=== PATIENT | male | born 1950 | race Caucasian/White ===

== ENCOUNTER → 2019-01-12 | Day surgery (SDC) | payer MEDICARE ==
[2019-01-08 14:36] LABS: BASOPHILS # (AUTO) 0.1 (0.0-0.1); BASOPHILS % 0.7 % (0.0-1.0); EOSINOPHILS # (AUTO) 0.4 (0.0-0.4); EOSINOPHILS % 4.7 % (0.0-6.0); HEMATOCRIT 40.1 % (38.2-49.6); HEMOGLOBIN 13.6 g/dL (14.0-18.0); LYMPHOCYTES # (AUTO) 1.3 (1.0-3.2); LYMPHOCYTES % 15.6 % (18.0-39.1); MEAN CORPUSCULAR HEMOGLOBIN 30.4 pg (28-32); MEAN CORPUSCULAR HGB CONC 33.9 g/dL (31-35); MEAN CORPUSCULAR VOLUME 89.7 fL (81-99); MONOCYTES # (AUTO) 0.7 (0.2-0.8); MONOCYTES % 8.3 % (4.4-11.3); NEUTROPHILS % 70.2 % (38.7-80.0); PLATELET COUNT 194 x10e3/uL (140-360); RED BLOOD COUNT 4.47 x10e6/uL (4.3-5.7); RED CELL DISTRIBUTION WIDTH 12.9 % (11.7-14.4)
[~2019-01-12] MED LIST: ALLOPURINOL100 MG PO; AMLODIPINE BESY10 MG PO; FENTANYL CITRATE/PF 100MCG/2 ML INJ ONE; LOSARTAN-HCTZ1 EACH PO; MONTELUKAST SOD10 MG PO; OMEPRAZOLE40 MG PO; PROAIR HFA INH8.5 GM INH; PROPOFOL IV EMULSION 10 MG/ML 50 ML VIAL ONE; TRAZODONE HCL50 MG PO; TRELEGY PO; XARELTO20 MG PO
--- OUTSIDE RECORDS SUMMARY | 2019-01-12 06:38 | XMS REPORT | Continuity of Care Document ---
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/26/2018 [facility]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 Active Problem 12/26/2018 [facility] History of gout Active Problem 12/26/2018 [facility] Dizziness Active Problem 12/26/2018 [facility] Hyperuricemia Active Problem 12/26/2018 [facility] Seasonal allergies Active Problem 12/26/2018 [facility] Asthma Active Problem 12/26/2018 [facility] Essential hypertension Active Problem 12/26/2018 [facility] Herpes zoster without complication Active Diagnosis 10/26/2016 [facility] Nummular eczema Active Problem 12/26/2018 [facility] Rash Active Diagnosis 10/31/2017 [facility] Screening for prostate cancer Active Diagnosis 07/31/2018 [facility] Encntr for general adult medical exam w/o abnormal findings Active Diagnosis 06/28/2017 [facility] Acute idiopathic gout of multiple sites Active Problem 12/26/2017 [facility] Subconjunctival hemorrhage of right eye Active Diagnosis 12/26/2017 [facility] Left ventricular hypertrophy Active Problem 12/26/2018 [facility] Allergic rhinitis due to other allergen Active Diagnosis 12/26/2018 [facility] Mitral valve disease Active Problem 12/26/2018 [facility] Impaired left ventricular relaxation Active Problem 12/26/2018 [facility] Allergic rhinitis due to animal (dog) hair and dander Active Problem 12/26/2018 [facility] Gastroesophageal reflux disease without esophagitis Active Problem 12/26/2018 [facility] Allergic rhinitis due to pollen Active Diagnosis 12/26/2018 [facility] Primary insomnia Active Problem 12/26/2018 [facility] Encounter for hepatitis C screening test for low risk patient Active Diagnosis 12/23/2018 [facility] Cough syncope Active Diagnosis 06/27/2018 [facility] Cough Active Diagnosis 06/27/2018 [facility] Acute allergic rhinitis, unspecified seasonality, unspecified trigger Active Problem 06/18/2018 [facility] Screening for colon cancer Active Diagnosis 07/31/2018 [facility] Routine physical examination Active Diagnosis 07/31/2018 [facility] senior care current use of anticoagulant Active Problem 11/03/2015 [facility] DVT Active Diagnosis 08/19/2015 [facility] Skin lesion Active Diagnosis 03/21/2016 [facility] Acute gout of multiple sites, unspecified cause Active Diagnosis 05/22/2016 [facility] Acute URI Active Diagnosis 07/04/2016 [facility] Medications Medication Details Route Status Patient Instructions Ordering Provider Order Date Source Trazodone HCl 1 tablet at bedtime as needed Orally Active 50 mg Orally qhs [place] 12/18/2018 [facility] Flonase Allergy Relief 1 spray in each nostril Nasally Active 50 MCG/ACT Nasally Once a day [place] 11/03/2018 [facility] Montelukast Sodium 1 tablet Orally Active 10 mg Orally Once a day [place] 05/26/2018 [facility] Losartan Potassium-HCTZ 1 tablet Orally Active 50-12.5 MG Orally Once a day [place] 05/26/2018 [facility] Insulin Syringe as directed subcutaneously Active 31G X 5/16 subcutaneously use for allergy injection [place] 05/20/2018 [facility] EpiPen 2-[place] as directed Intramuscular Active 0.3 MG/0.3ML (1:1000) Intramuscular prn [place] 05/20/2018 [facility] Benzonatate 1 capsule Orally Active 200 MG Orally Q8 PRN [place] 05/05/2018 [facility] Protonix 1 tablet Orally Active 40 mg Orally Once a day [place] 02/24/2018 [facility] ProAir HFA 2 puffs as needed Inhalation Active 108 (90 Base) MCG/ACT Inhalation every 6 hrs [place] 02/24/2018 [facility] Tobrex 1 drop into affected eye Ophthalmic Active 0.3 % Ophthalmic every 4 hrs [place] 12/23/2017 [facility] Bactrim DS 1 tablet Orally Active 800-160 MG Orally Twice a day [place] 10/30/2017 [facility] Clobetasol Propionate E 1 application to affected area Externally Active 0.05 % Externally Twice a day PRN [place] 10/30/2017 [facility] Colchicine 1 tablet Orally Active 0.6 Orally Twice a day [place] 10/02/2017 [facility] Colchicine 1 tablet Orally Active 0.6 Orally Twice a day [place] 09/04/2017 [facility] Colcrys 1 tablet Orally Active 0.6 MG Orally 2 tablet PO QD, take 1 tablet an hour later as needed for acute gout flare [place] 08/19/2017 [facility] Benzonatate 1 capsule Orally Active 200 MG Orally Q8 PRN [place] 08/15/2017 [facility] Colchicine 1 tablet Orally Active 0.6 MG Orally 2 tablet PO QD, take another tablet 1 hour later [place] 08/01/2017 [facility] Allopurinol 1 tablet Orally Active 100 mg Orally Once a day [place] 07/09/2017 [facility] Colchicine 1 tablet Orally Active 0.6 Orally Twice a day [facility] 07/01/2017 [facility] Colcrys 1 tablet Orally Active 0.6 MG Orally twice a day (bid) [place] 01/07/2017 [facility] Colchicine 1 tablet Orally Active 0.6 Orally Twice a day [place] 01/07/2017 [facility] Tylenol/Codeine #3 1 tablet as needed Orally Active 300-30 MG Orally every 6 hrs PRN [place] 10/25/2016 [facility] Valacyclovir HCl 1 tablet Orally Active 1 GM Orally every 24 hrs [place] 10/25/2016 [facility] Xarelto 1 tab by mouth Active 20 mg by mouth Once a day [place] 10/10/2016 [facility] Xarelto 1 tab by mouth Active 20 mg by mouth Once a day [place] 10/10/2016 [facility] Xarelto 1 tablet by mouth Active 20 mg by mouth Once a day [place] 10/10/2016 [facility] Tamiflu 1 capsule Orally Active 75 MG Orally Twice a day [place] 07/02/2016 [facility] Tamiflu 1 capsule Orally Active 75 MG Orally Twice a day [place] 07/02/2016 [facility] Benzonatate 1 capsule as needed Orally Active 200 MG Orally Q8 PRN [place] 07/02/2016 [facility] Fluticasone Propionate 1 spray in each nostril Nasally Active 50 MCG/ACT Nasally Once a day [place] 05/21/2016 [facility] Fluticasone Propionate 1 spray in each nostril Nasally Active 50 MCG/ACT Nasally Once a day [place] 05/21/2016 [facility] Medrol ([place]) as directed Orally Active 4 MG Orally as directed [place] 05/20/2016 [facility] Mometasone Furoate 2 sprays in each nostril Nasally No Longer Active 50 MCG/ACT Nasally Once a day [place] 05/20/2016 [facility] Medrol ([place]) as directed Orally Active 4 MG Orally as directed [place] 05/20/2016 [facility] Symbicort 2 puffs Inhalation Active 160-4.5 MCG/ACT Inhalation Twice a day [place] 04/18/2016 [facility] Advair Diskus 1 puff Inhalation No Longer Active 250-50 MCG/DOSE Inhalation Twice a day [place] 04/18/2016 [facility] Nystatin-Triamcinolone 1 application to affected area Externally Active [id number] UNIT/GM Externally Twice a day PRN [place] 03/18/2016 [facility] Symbicort 2 puffs Inhalation No Longer Active 160-4.5 MCG/ACT Inhalation Twice a day [place] 11/16/2015 [facility] Breo Ellipta 1 puff Inhalation No Longer Active 100-25 MCG/INH Inhalation Once a day [place] 11/16/2015 [facility] Cipro 1 tablet Orally Active 250 MG Orally twice a day (bid) [place] 09/22/2015 [facility] Meclizine HCl 1 tablet as needed Orally Active 25 MG Orally three times a day prn [place] 09/21/2015 [facility] Meclizine HCl 1 tablet as needed Orally Active 25 MG Orally three times a day prn [place] 09/21/2015 [facility] Warfarin Sodium 1 tablet orally Active 4 mg orally 2 days a week [place] 07/31/2015 [facility] Amlodipine Besylate 1 tablet Orally Active 10 mg Orally Once a day [place] 07/17/2015 [facility] Atenolol-Chlorthalidone 1/2 tablet Orally Active 50-25 MG Orally Once a day [place] 07/13/2015 [facility] Flonase 1 spray in each nostril Nasally Active 50 MCG/DOSE Nasally Once a day [place] 05/09/2015 [facility] Flonase 1 spray in each nostril Nasally Active 50 MCG/DOSE Nasally as needed (prn) [place] 05/09/2015 [facility] Tenormin 1 tablet Orally Active 25 MG Orally Once a day [place] 01/31/2015 [facility] Norel AD 1 tablet as needed by mouth Active 4-10-325 MG by mouth every 4-6 hours [place] 01/26/2014 [facility] Albuterol Sulfate HFA 2 puffs as needed Inhalation Active 108 (90 Base) MCG/ACT Inhalation every 4-6 hrs PRN [place] 08/25/2013 [facility] Albuterol Sulfate HFA 2 puffs as needed Inhalation Active 108 (90 Base) MCG/ACT Inhalation every 4-6 hrs PRN [place] 08/25/2013 [facility] Warfarin Sodium 1 tablet Orally Active 5 MG Orally QD x 4 days a week [place] [facility] Amlodipine Besylate 1 tablet Orally Active 10 MG Orally Once a day [place] [facility] Coumadin 1 tablet Orally Active 4 MG Orally 4 days a week [place] [facility] Colchicine 1 tablet Orally Active 0.6 Orally Twice a day [facility] Multivitamins not defined Orally Active Orally [facility] Atenolol-Chlorthalidone 1 tablet Orally Active 50-25 MG Orally Once a day [facility] Warfarin Sodium 1 tablet Orally Active 5 MG Orally 3 days a week [facility] Coumadin 1 tablet Orally Active 4 MG Orally 4 days a week [facility] Amlodipine Besylate 1 tablet Orally Active 10 mg Orally Once a day [facility] Desoximetasone 1 application to affected area Externally Active 0.05 % Externally Twice a day [facility] Xarelto TAKE 1 TABLET BY MOUTH ONCE A DAY NA Active 20 [facility] Amlodipine Besylate 1 tablet Orally Active 10 mg Orally Once a day [facility] Trelegy Ellipta 1 puff Inhalation Active 100-62.5-25 MCG/INH Inhalation Once a day [facility] Xarelto 1 tab by mouth Active 20 mg by mouth Once a day [facility] Omeprazole 1 capsule Orally Active 40 MG Orally Once a day [facility] Allopurinol 1 tablet Orally Active 100 Orally Once a day [facility] Famotidine 1 tablet at bedtime Orally Active 40 mg Orally Once a day before dinner [facility] Pantoprazole Sodium 1 tablet Orally Active 40 mg Orally Once a day before dinner [facility] Garlic 2 tablet by mouth Active 100 mg by mouth daily [facility] Losartan Potassium-HCTZ 1 tablet Orally Active 50-12.5 MG Orally Once a day (LAST REFILL. NEEDS TO BE SEEN) [facility] Xyzal 1 tablet in the evening Orally Active 5 MG Orally Once a day [facility] Amlodipine Besylate 1 tablet Orally Active 10 Orally Once a day [facility] Protonix 1 tablet Orally Active 40 Orally Once a day [facility] Montelukast Sodium TAKE 1 TABLET BY MOUTH ONCE A DAY NA Active 10 [facility] Losartan Potassium-HCTZ 1 tablet Orally Active 50-12.5 MG Orally Once a day [place] [facility] Pantoprazole Sodium 1 tablet Orally Active 40 mg Orally Once a day before dinner [place] [facility] Famotidine 1 tablet at bedtime Orally Active 40 mg Orally Once a day before dinner [place] [facility] Montelukast Sodium 1 tablet Orally Active 10 Orally Once a day [place] [facility] Breo Ellipta 1 puff Inhalation Active 100-25 MCG/INH Inhalation Once a day [place] [facility] Warfarin Sodium 1 tablet Orally Active 6 MG Orally 5 TIMES A WEEK [place] [facility] Allergies, Adverse Reactions, Alerts Substance Category Reaction Severity Reaction type Status Date Reported Comments Source Tramadol HCl Adverse Reaction vomiting Adverse Reaction Active 12/22/2018 [facility] Rocephin Adverse Reaction hives Adverse Reaction Active 12/22/2018 [facility] Immunizations No Data Provided for This Section Results No Data Provided for This Section Pathology Reports No Data Provided for This Section Diagnostic Reports No Data Provided for This Section Consultation Notes No Data Provided for This Section Discharge Summaries No Data Provided for This Section History and Physicals No Data Provided for This Section Vital Signs Vital Sign Value Date Comments Source Weight 228 12/22/2018 [facility] Height 66 12/22/2018 [facility] Heart Rate 96 12/22/2018 [facility] Diastolic (mm Hg) 76 12/22/2018 [facility] Systolic (mm Hg) 118 12/22/2018 [facility] Weight 228 12/18/2018 [facility] Height 66 12/18/2018 [facility] Heart Rate 94 12/18/2018 [facility] Diastolic (mm Hg) 76 12/18/2018 [facility] Systolic (mm Hg) 118 12/18/2018 [facility] Weight 226 11/03/2018 [facility] Height 66 11/03/2018 [facility] Heart Rate 90 11/03/2018 [facility] Diastolic (mm Hg) 82 11/03/2018 [facility] Systolic (mm Hg) 126 11/03/2018 [facility] Weight 229 10/01/2018 [facility] Height 66 10/01/2018 [facility] Heart Rate 75 10/01/2018 [facility] Diastolic (mm Hg) 78 10/01/2018 [facility] Systolic (mm Hg) 114 10/01/2018 [facility] Weight 229 09/01/2018 [facility] Height 66 09/01/2018 [facility] Heart Rate 89 09/01/2018 [facility] Diastolic (mm Hg) 88 09/01/2018 [facility] Systolic (mm Hg) 126 09/01/2018 [facility] Weight 235 07/30/2018 [facility] Height 66 07/30/2018 [facility] Heart Rate 69 07/30/2018 [facility] Diastolic (mm Hg) 90 07/30/2018 [facility] Systolic (mm Hg) 132 07/30/2018 [facility] Weight 245 06/25/2018 [facility] Height 66 06/25/2018 [facility] Heart Rate 86 06/25/2018 [facility] Diastolic (mm Hg) 88 06/25/2018 [facility] Systolic (mm Hg) 122 06/25/2018 [facility] Weight 246 05/26/2018 [facility] Height 66 05/26/2018 [facility] Heart Rate 91 05/26/2018 [facility] Diastolic (mm Hg) 84 05/26/2018 [facility] Systolic (mm Hg) 122 05/26/2018 [facility] Weight 238 05/20/2018 [facility] Height 66 05/20/2018 [facility] Heart Rate 74 05/20/2018 [facility] Diastolic (mm Hg) 82 05/20/2018 [facility] Systolic (mm Hg) 120 05/20/2018 [facility] Weight 238 05/05/2018 [facility] Height 66 05/05/2018 [facility] Temperature Oral (F) 97.9 F 05/05/2018 [facility] Heart Rate 74 05/05/2018 [facility] Diastolic (mm Hg) 78 05/05/2018 [facility] Systolic (mm Hg) 112 05/05/2018 [facility] Weight 243 02/24/2018 [facility] Height 66 02/24/2018 [facility] Heart Rate 70 02/24/2018 [facility] Diastolic (mm Hg) 82 02/24/2018 [facility] Systolic (mm Hg) 112 02/24/2018 [facility] Weight 239 12/23/2017 [facility] Height 66 12/23/2017 [facility] Temperature Oral (F) 97.9 F 12/23/2017 [facility] Heart Rate 87 12/23/2017 [facility] Diastolic (mm Hg) 60 12/23/2017 [facility] Systolic (mm Hg) 110 12/23/2017 [facility] Weight 234 10/30/2017 [facility] Height 66 10/30/2017 [facility] Heart Rate 82 10/30/2017 [facility] Diastolic (mm Hg) 70 10/30/2017 [facility] Systolic (mm Hg) 121 10/30/2017 [facility] Weight 234 08/01/2017 [facility] Height 66 08/01/2017 [facility] Heart Rate 92 08/01/2017 [facility] Diastolic (mm Hg) 68 08/01/2017 [facility] Systolic (mm Hg) 122 08/01/2017 [facility] Weight 237 07/08/2017 [facility] Height 66 07/08/2017 [facility] Heart Rate 70 07/08/2017 [facility] Diastolic (mm Hg) 70 07/08/2017 [facility] Systolic (mm Hg) 109 07/08/2017 [facility] Weight 235 06/26/2017 [facility] Height 66 06/26/2017 [facility] Heart Rate 69 06/26/2017 [facility] Diastolic (mm Hg) 74 06/26/2017 [facility] Systolic (mm Hg) 110 06/26/2017 [facility] Weight 225 10/25/2016 [facility] Height 66 10/25/2016 [facility] Heart Rate 81 10/25/2016 [facility] Diastolic (mm Hg) 80 10/25/2016 [facility] Systolic (mm Hg) 110 10/25/2016 [facility] Diastolic (mm Hg) 70 10/10/2016 [facility] Systolic (mm Hg) 104 10/10/2016 [facility] Height 66 10/10/2016 [facility] Heart Rate 60 10/10/2016 [facility] Diastolic (mm Hg) 76 10/03/2016 [facility] Systolic (mm Hg) 110 10/03/2016 [facility] Height 66 10/03/2016 [facility] Heart Rate 86 10/03/2016 [facility] Weight 223 09/24/2016 [facility] Height 66 09/24/2016 [facility] Heart Rate 79 09/24/2016 [facility] Diastolic (mm Hg) 80 09/24/2016 [facility] Systolic (mm Hg) 118 09/24/2016 [facility] Weight 223 09/17/2016 [facility] Height 66 09/17/2016 [facility] Heart Rate 68 09/17/2016 [facility] Diastolic (mm Hg) 66 09/17/2016 [facility] Systolic (mm Hg) 110 09/17/2016 [facility] Diastolic (mm Hg) 76 08/30/2016 [facility] Systolic (mm Hg) 114 08/30/2016 [facility] Height 66 08/30/2016 [facility] Heart Rate 57 08/30/2016 [facility] Diastolic (mm Hg) 64 08/02/2016 [facility] Systolic (mm Hg) 108 08/02/2016 [facility] Height 66 08/02/2016 [facility] Weight 223 07/09/2016 [facility] Height 66 07/09/2016 [facility] Heart Rate 84 07/09/2016 [facility] Diastolic (mm Hg) 91 07/09/2016 [facility] Systolic (mm Hg) 129 07/09/2016 [facility] Weight 225 07/02/2016 [facility] Height 66 07/02/2016 [facility] Heart Rate 95 07/02/2016 [facility] Diastolic (mm Hg) 87 07/02/2016 [facility] Systolic (mm Hg) 124 07/02/2016 [facility] Weight 232 06/18/2016 [facility] Height 66 06/18/2016 [facility] Heart Rate 88 06/18/2016 [facility] Diastolic (mm Hg) 80 06/18/2016 [facility] Systolic (mm Hg) 120 06/18/2016 [facility] Diastolic (mm Hg) 90 06/03/2016 [facility] Systolic (mm Hg) 134 06/03/2016 [facility] Height 66 06/03/2016 [facility] Heart Rate 94 06/03/2016 [facility] Weight 229 05/20/2016 [facility] Height 66 05/20/2016 [facility] Heart Rate 76 05/20/2016 [facility] Diastolic (mm Hg) 70 05/20/2016 [facility] Systolic (mm Hg) 100 05/20/2016 [facility] Diastolic (mm Hg) 86 04/18/2016 [facility] Systolic (mm Hg) 131 04/18/2016 [facility] Height 66 04/18/2016 [facility] Heart Rate 78 04/18/2016 [facility] [facility] Weight 231 04/02/2016 [facility] Height 66 04/02/2016 [facility] Heart Rate 78 04/02/2016 [facility] Diastolic (mm Hg) 70 04/02/2016 [facility] Systolic (mm Hg) 118 04/02/2016 [facility] Weight 231 03/18/2016 [facility] Height 66 03/18/2016 [facility] Heart Rate 78 03/18/2016 [facility] Diastolic (mm Hg) 74 03/18/2016 [facility] Systolic (mm Hg) 108 03/18/2016 [facility] Weight 225 02/15/2016 [facility] Height 66 02/15/2016 [facility] Heart Rate 60 02/15/2016 [facility] Diastolic (mm Hg) 74 02/15/2016 [facility] Systolic (mm Hg) 111 02/15/2016 [facility] Weight 225 12/19/2015 [facility] Height 66 12/19/2015 [facility] Weight 224 11/16/2015 [facility] Height 66 11/16/2015 [facility] Heart Rate 72 11/16/2015 [facility] Diastolic (mm Hg) 70 11/16/2015 [facility] Systolic (mm Hg) 130 11/16/2015 [facility] Weight 216 09/21/2015 [facility] Height 66 09/21/2015 [facility] Heart Rate 67 09/21/2015 [facility] Diastolic (mm Hg) 70 09/21/2015 [facility] Systolic (mm Hg) 138 09/21/2015 [facility] Diastolic (mm Hg) 70 08/17/2015 [facility] Systolic (mm Hg) 110 08/17/2015 [facility] Height 66 08/17/2015 [facility] Weight 218 07/31/2015 [facility] Height 66 07/31/2015 [facility] Heart Rate 83 07/31/2015 [facility] Diastolic (mm Hg) 90 07/31/2015 [facility] Systolic (mm Hg) 150 07/31/2015 [facility] Diastolic (mm Hg) 70 07/03/2015 [facility] Systolic (mm Hg) 140 07/03/2015 [facility] Height 66 07/03/2015 [facility] Encounters Location Location Details Encounter Type Encounter Number Reason For Visit Attending Provider ADM Date DC Date Status Source [facility] Follow-Up [id number] 02/01/2013 02/01/2013 [facility] Follow-Up [id number] 02/01/2013 02/01/2013 [facility] Follow-Up [id number] 02/01/2013 02/01/2013 [facility] Follow-Up [id number] 02/01/2013 02/01/2013 [facility] Follow-Up [id number] 02/01/2013 02/01/2013 [facility] Follow-Up [id number] 02/01/2013 02/01/2013 [facility] Follow-Up [id number] 02/01/2013 02/01/2013 [facility] Follow-Up [id number] 02/01/2013 02/01/2013 [facility] Follow-Up [id number] 02/01/2013 02/01/2013 [facility] Follow-Up [id number] 02/01/2013 02/01/2013 [facility] Follow-Up [id number] 02/01/2013 02/01/2013 [facility] Follow-Up [id number] 02/01/2013 02/01/2013 [facility] Follow-Up [id number] 02/01/2013 02/01/2013 [facility] Follow-Up [id number] 02/01/2013 02/01/2013 [facility] Follow-Up [id number] 02/01/2013 02/01/2013 [facility] Follow-Up [id number] 02/01/2013 02/01/2013 [facility] Follow-Up [id number] 02/01/2013 02/01/2013 [facility] Follow-Up [id number] 02/01/2013 02/01/2013 [facility] Follow-Up [id number] 02/01/2013 02/01/2013 [facility] Follow-Up [id number] 02/01/2013 02/01/2013 [facility] Follow-Up [id number] 02/01/2013 02/01/2013 [facility] Follow-Up [id number] 02/01/2013 02/01/2013 [facility] Follow-Up [id number] 02/01/2013 02/01/2013 [facility] Follow-Up [id number] 02/01/2013 02/01/2013 [facility] Follow-Up [id number] 02/01/2013 02/01/2013 [facility] Follow-Up [id number] 02/01/2013 02/01/2013 [facility] Follow-Up [id number] 02/01/2013 02/01/2013 [facility] Follow-Up [id number] 02/01/2013 02/01/2013 [facility] Follow-Up [id number] 02/01/2013 02/01/2013 [facility] [id number] 02/16/2013 02/16/2013 [facility] [id number] 02/16/2013 02/16/2013 [facility] [id number] 02/16/2013 02/16/2013 [facility] [id number] 02/16/2013 02/16/2013 [facility] [id number] 02/16/2013 02/16/2013 [facility] [id number] 02/16/2013 02/16/2013 [facility] [id number] 02/16/2013 02/16/2013 [facility] [id number] 02/16/2013 02/16/2013 [facility] [id number] 02/16/2013 02/16/2013 [facility] [id number] 02/16/2013 02/16/2013 [facility] [id number] 02/16/2013 02/16/2013 [facility] [id number] 02/16/2013 02/16/2013 [facility] [id number] 02/16/2013 02/16/2013 [facility] [id number] 02/16/2013 02/16/2013 [facility] [id number] 02/16/2013 02/16/2013 [facility] [id number] 02/16/2013 02/16/2013 [facility] [id number] 02/16/2013 02/16/2013 [facility] [id number] 02/16/2013 02/16/2013 [facility] [id number] 02/16/2013 02/16/2013 [facility] [id number] 02/16/2013 02/16/2013 [facility] [id number] 02/16/2013 02/16/2013 [facility] [id number] 02/16/2013 02/16/2013 [facility] [id number] 02/16/2013 02/16/2013 [facility] [id number] 02/16/2013 02/16/2013 [facility] [id number] 02/16/2013 02/16/2013 [facility] [id number] 02/16/2013 02/16/2013 [facility] [id number] 02/16/2013 02/16/2013 [facility] [id number] 02/16/2013 02/16/2013 [facility] [id number] 02/16/2013 02/16/2013 [facility] Unknown [id number] 02/19/2013 02/19/2013 [facility] Unknown [id number] 02/19/2013 02/19/2013 [facility] Unknown [id number] 02/19/2013 02/19/2013 [facility] Unknown [id number] 02/19/2013 02/19/2013 [facility] Unknown [id number] 02/19/2013 02/19/2013 [facility] Unknown [id number] 02/19/2013 02/19/2013 [facility] Unknown [id number] 02/19/2013 02/19/2013 [facility] Unknown [id number] 02/19/2013 02/19/2013 [facility] Unknown [id number] 02/19/2013 02/19/2013 [facility] Unknown [id number] 02/19/2013 02/19/2013 [facility] Unknown [id number] 02/19/2013 02/19/2013 [facility] Unknown [id number] 02/19/2013 02/19/2013 [facility] Unknown [id number] 02/19/2013 02/19/2013 [facility] Unknown [id number] 02/19/2013 02/19/2013 [facility] Unknown [id number] 02/19/2013 02/19/2013 [facility] Unknown [id number] 02/19/2013 02/19/2013 [facility] Unknown [id number] 02/19/2013 02/19/2013 [facility] Unknown [id number] 02/19/2013 02/19/2013 [facility] Unknown [id number] 02/19/2013 02/19/2013 [facility] Unknown [id number] 02/19/2013 02/19/2013 [facility] Unknown [id number] 02/19/2013 02/19/2013 [facility] Unknown [id number] 02/19/2013 02/19/2013 [facility] Unknown [id number] 02/19/2013 02/19/2013 [facility] Unknown [id number] 02/19/2013 02/19/2013 [facility] Unknown [id number] 02/19/2013 02/19/2013 [facility] Unknown [id number] 02/19/2013 02/19/2013 [facility] Unknown [id number] 02/19/2013 02/19/2013 [facility] Unknown [id number] 02/19/2013 02/19/2013 [facility] Unknown [id number] 02/19/2013 02/19/2013 [facility] Follow-Up [id number] 03/03/2013 03/03/2013 [facility]-Up [id number] 03/03/2013 03/03/2013 [facility] Follow-Up [id number] 03/03/2013 03/03/2013 [facility] Follow-Up [id number] 03/03/2013 03/03/2013 [facility] Follow-Up [id number] 03/03/2013 03/03/2013 [facility] Follow-Up [id number] 03/03/2013 03/03/2013 [facility] Follow-Up [id number] 03/03/2013 03/03/2013 [facility] Follow-Up [id number] 03/03/2013 03/03/2013 [facility] Follow-Up [id number] 03/03/2013 03/03/2013 [facility] Follow-Up [id number] 03/03/2013 03/03/2013 [facility] Follow-Up [id number] 03/03/2013 03/03/2013 [facility] Follow-Up [id number] 03/03/2013 03/03/2013 [facility] Follow-Up [id number] 03/03/2013 03/03/2013 [facility] Follow-Up [id number] 03/03/2013 03/03/2013 [facility]-Up [id number] 03/03/2013 03/03/2013 [facility]-Up [id number] 03/03/2013 03/03/2013 [facility]-Up [id number] 03/03/2013 03/03/2013 [facility] Follow-Up [id number] 03/03/2013 03/03/2013 [facility] Follow-Up [id number] 03/03/2013 03/03/2013 [facility] Follow-Up [id number] 03/03/2013 03/03/2013 [facility] Follow-Up [id number] 03/03/2013 03/03/2013 [facility] Follow-Up [id number] 03/03/2013 03/03/2013 [facility] Follow-Up [id number] 03/03/2013 03/03/2013 [facility] Follow-Up [id number] 03/03/2013 03/03/2013 [facility] Follow-Up [id number] 03/03/2013 03/03/2013 [facility] Follow-Up [id number] 03/03/2013 03/03/2013 [facility] Follow-Up [id number] 03/03/2013 03/03/2013 [facility] Follow-Up [id number] 03/03/2013 03/03/2013 [facility] Follow-Up [id number] 03/03/2013 03/03/2013 [facility] pt/inr [id number] 04/01/2013 04/01/2013 [facility] pt/inr [id number] 04/01/2013 04/01/2013 [facility] pt/inr [id number] 04/01/2013 04/01/2013 [facility] [facility] pt/inr [id number] 04/01/2013 04/01/2013 [facility] pt/inr [id number] 04/01/2013 04/01/2013 [facility] pt/inr [id number] 04/01/2013 04/01/2013 [facility] pt/inr [id number] 04/01/2013 04/01/2013 [facility] pt/inr [id number] 04/01/2013 04/01/2013 [facility] pt/inr [id number] 04/01/2013 04/01/2013 [facility] pt/inr [id number] 04/01/2013 04/01/2013 [facility] pt/inr [id number] 04/01/2013 04/01/2013 [facility] pt/inr [id number] 04/01/2013 04/01/2013 [facility] pt/inr [id number] 04/01/2013 04/01/2013 [facility] pt/inr [id number] 04/01/2013 04/01/2013 [facility] pt/inr [id number] 04/01/2013 04/01/2013 [facility] pt/inr [id number] 04/01/2013 04/01/2013 [facility] pt/inr [id number] 04/01/2013 04/01/2013 [facility] pt/inr [id number] 04/01/2013 04/01/2013 [facility] pt/inr [id number] 04/01/2013 04/01/2013 [facility] pt/inr [id number] 04/01/2013 04/01/2013 [facility] pt/inr [id number] 04/01/2013 04/01/2013 [facility] pt/inr [id number] 04/01/2013 04/01/2013 [facility] pt/inr [id number] 04/01/2013 04/01/2013 [facility] pt/inr [id number] 04/01/2013 04/01/2013 [facility] pt/inr [id number] 04/01/2013 04/01/2013 [facility] pt/inr [id number] 04/01/2013 04/01/2013 [facility] pt/inr [id number] 04/01/2013 04/01/2013 [facility] pt/inr [id number] 04/01/2013 04/01/2013 [facility] pt/inr [id number] 04/01/2013 04/01/2013 [facility] PT/INR-Swelling on right leg [id number] 04/22/2013 04/22/2013 [facility] PT/INR-Swelling on right leg [id number] 04/22/2013 04/22/2013 [facility] PT/INR-Swelling on right leg [id number] 04/22/2013 04/22/2013 [facility] PT/INR-Swelling on right leg [id number] 04/22/2013 04/22/2013 [facility] PT/INR-Swelling on right leg [id number] 04/22/2013 04/22/2013 [facility] PT/INR-Swelling on right leg [id number] 04/22/2013 04/22/2013 [facility] PT/INR-Swelling on right leg [id number] 04/22/2013 04/22/2013 [facility] PT/INR-Swelling on right leg [id number] 04/22/2013 04/22/2013 [facility] PT/INR-Swelling on right leg [id number] 04/22/2013 04/22/2013 [facility] PT/INR-Swelling on right leg [id number] 04/22/2013 04/22/2013 [facility] PT/INR-Swelling on right leg [id number] 04/22/2013 04/22/2013 [facility] PT/INR-Swelling on right leg [id number] 04/22/2013 04/22/2013 [facility] PT/INR-Swelling on right leg [id number] 04/22/2013 04/22/2013 [facility] PT/INR-Swelling on right leg [id number] 04/22/2013 04/22/2013 [facility] PT/INR-Swelling on right leg [id number] 04/22/2013 04/22/2013 [facility] PT/INR-Swelling on right leg [id number] 04/22/2013 04/22/2013 [facility] PT/INR-Swelling on right leg [id number] 04/22/2013 04/22/2013 [facility] PT/INR-Swelling on right leg [id number] 04/22/2013 04/22/2013 [facility] PT/INR-Swelling on right leg [id number] 04/22/2013 04/22/2013 [facility] PT/INR-Swelling on right leg [id number] 04/22/2013 04/22/2013 [facility] PT/INR-Swelling on right leg [id number] 04/22/2013 04/22/2013 [facility] PT/INR-Swelling on right leg [id number] 04/22/2013 04/22/2013 [facility] PT/INR-Swelling on right leg [id number] 04/22/2013 04/22/2013 [facility] PT/INR-Swelling on right leg [id number] 04/22/2013 04/22/2013 [facility] PT/INR-Swelling on right leg [id number] 04/22/2013 04/22/2013 [facility] PT/INR-Swelling on right leg [id number] 04/22/2013 04/22/2013 [facility] PT/INR-Swelling on right leg [id number] 04/22/2013 04/22/2013 [facility] PT/INR-Swelling on right leg [id number] 04/22/2013 04/22/2013 [facility] PT/INR-Swelling on right leg [id number] 04/22/2013 04/22/2013 [facility] Test results [id number] 04/22/2013 04/22/2013 [facility] Test results [id number] 04/22/2013 04/22/2013 [facility] Test results [id number] 04/22/2013 04/22/2013 [facility] Test results [id number] 04/22/2013 04/22/2013 [facility] Test results [id number] 04/22/2013 04/22/2013 [facility] Test results [id number] 04/22/2013 04/22/2013 [facility] Test results [id number] 04/22/2013 04/22/2013 [facility] Test results [id number] 04/22/2013 04/22/2013 [facility] Test results [id number] 04/22/2013 04/22/2013 [facility] Test results [id number] 04/22/2013 04/22/2013 [facility] Test results [id number] 04/22/2013 04/22/2013 [facility] Test results [id number] 04/22/2013 04/22/2013 [facility] Test results [id number] 04/22/2013 04/22/2013 [facility] Test results [id number] 04/22/2013 04/22/2013 [facility] Test results [id number] 04/22/2013 04/22/2013 [facility] Test results [id number] 04/22/2013 04/22/2013 [facility] Test results [id number] 04/22/2013 04/22/2013 [facility] Test results [id number] 04/22/2013 04/22/2013 [facility] Test results [id number] 04/22/2013 04/22/2013 [facility] Test results [id number] 04/22/2013 04/22/2013 [facility] Test results [id number] 04/22/2013 04/22/2013 [facility] Test results [id number] 04/22/2013 04/22/2013 [facility] Test results [id number] 04/22/2013 04/22/2013 [facility] Test results [id number] 04/22/2013 04/22/2013 [facility] Test results [id number] 04/22/2013 04/22/2013 [facility] Test results [id number] 04/22/2013 04/22/2013 [facility] Test results [id number] 04/22/2013 04/22/2013 [facility] Test results [id number] 04/22/2013 04/22/2013 [facility] Test results [id number] 04/22/2013 04/22/2013 [facility] PT/ INR [id number] 05/04/2013 05/04/2013 [facility] PT/ INR [id number] 05/04/2013 05/04/2013 [facility] PT/ INR [id number] 05/04/2013 05/04/2013 [facility] PT/ INR [id number] 05/04/2013 05/04/2013 [facility] PT/ INR [id number] 05/04/2013 05/04/2013 [facility] PT/ INR [id number] 05/04/2013 05/04/2013 [facility] PT/ INR [id number] 05/04/2013 05/04/2013 [facility] PT/ INR [id number] 05/04/2013 05/04/2013 [facility] PT/ INR [id number] 05/04/2013 05/04/2013 [facility] PT/ INR [id number] 05/04/2013 05/04/2013 [facility] PT/ INR [id number] 05/04/2013 05/04/2013 [facility] PT/ INR [id number] 05/04/2013 05/04/2013 [facility] PT/ INR [id number] 05/04/2013 05/04/2013 [facility] PT/ INR [id number] 05/04/2013 05/04/2013 [facility] PT/ INR [id number] 05/04/2013 05/04/2013 [facility] Unknown [id number] 05/04/2013 05/04/2013 [facility] Unknown [id number] 05/04/2013 05/04/2013 [facility] Unknown [id number] 05/04/2013 05/04/2013 [facility] Unknown [id number] 05/04/2013 05/04/2013 [facility] Unknown [id number] 05/04/2013 05/04/2013 [facility] Unknown [id number] 05/04/2013 05/04/2013 [facility] Unknown [id number] 05/04/2013 05/04/2013 [facility] Unknown [id number] 05/04/2013 05/04/2013 [facility] Unknown [id number] 05/04/2013 05/04/2013 [facility] Unknown [id number] 05/04/2013 05/04/2013 [facility] Unknown [id number] 05/04/2013 05/04/2013 [facility] Unknown [id number] 05/04/2013 05/04/2013 [facility] Unknown [id number] 05/04/2013 05/04/2013 [facility] Unknown [id number] 05/04/2013 05/04/2013 [facility] Unknown [id number] 05/04/2013 05/04/2013 [facility] PT/ INR [id number] 05/04/2013 05/04/2013 [facility] PT/ INR [id number] 05/04/2013 05/04/2013 [facility] PT/ INR [id number] 05/04/2013 05/04/2013 [facility] PT/ INR [id number] 05/04/2013 05/04/2013 [facility] PT/ INR [id number] 05/04/2013 05/04/2013 [facility] PT/ INR [id number] 05/04/2013 05/04/2013 [facility] PT/ INR [id number] 05/04/2013 05/04/2013 [facility] PT/ INR [id number] 05/04/2013 05/04/2013 [facility] PT/ INR [id number] 05/04/2013 05/04/2013 [facility] PT/ INR [id number] 05/04/2013 05/04/2013 [facility] PT/ INR [id number] 05/04/2013 05/04/2013 [facility] PT/ INR [id number] 05/04/2013 05/04/2013 [facility] PT/ INR [id number] 05/04/2013 05/04/2013 [facility] PT/ INR [id number] 05/04/2013 05/04/2013 [facility] Unknown [id number] 05/04/2013 05/04/2013 [facility] Unknown [id number] 05/04/2013 05/04/2013 [facility] Unknown [id number] 05/04/2013 05/04/2013 [facility] Unknown [id number] 05/04/2013 05/04/2013 [facility] Unknown [id number] 05/04/2013 05/04/2013 [facility] Unknown [id number] 05/04/2013 05/04/2013 [facility] Unknown [id number] 05/04/2013 05/04/2013 [facility] Unknown [id number] 05/04/2013 05/04/2013 [facility] Unknown [id number] 05/04/2013 05/04/2013 [facility] Unknown [id number] 05/04/2013 05/04/2013 [facility] Unknown [id number] 05/04/2013 05/04/2013 [facility] Unknown [id number] 05/04/2013 05/04/2013 [facility] Unknown [id number] 05/04/2013 05/04/2013 [facility] Unknown [id number] 05/04/2013 05/04/2013 [facility] Unknown [id number] 05/10/2013 05/10/2013 [facility] Unknown [id number] 05/10/2013 05/10/2013 [facility] Unknown [id number] 05/10/2013 05/10/2013 [facility] Unknown [id number] 05/10/2013 05/10/2013 [facility] Unknown [id number] 05/10/2013 05/10/2013 [facility] Unknown [id number] 05/10/2013 05/10/2013 [facility] Unknown [id number] 05/10/2013 05/10/2013 [facility] Unknown [id number] 05/10/2013 05/10/2013 [facility] Unknown [id number] 05/10/2013 05/10/2013 [facility] Unknown [id number] 05/10/2013 05/10/2013 [facility] Unknown [id number] 05/10/2013 05/10/2013 [facility] Unknown [id number] 05/10/2013 05/10/2013 [facility] Unknown [id number] 05/10/2013 05/10/2013 [facility] Unknown [id number] 05/10/2013 05/10/2013 [facility] Unknown [id number] 05/10/2013 05/10/2013 [facility] Unknown [id number] 05/10/2013 05/10/2013 [facility] Unknown [id number] 05/10/2013 05/10/2013 [facility] Unknown [id number] 05/10/2013 05/10/2013 [facility] Unknown [id number] 05/10/2013 05/10/2013 [facility] Unknown [id number] 05/10/2013 05/10/2013 [facility] Unknown [id number] 05/10/2013 05/10/2013 [facility] Unknown [id number] 05/10/2013 05/10/2013 [facility] Unknown [id number] 05/10/2013 05/10/2013 [facility] Unknown [id number] 05/10/2013 05/10/2013 [facility] Unknown [id number] 05/10/2013 05/10/2013 [facility] Unknown [id number] 05/10/2013 05/10/2013 [facility] Unknown [id number] 05/10/2013 05/10/2013 [facility] Unknown [id number] 05/10/2013 05/10/2013 [facility] Unknown [id number] 05/10/2013 05/10/2013 [facility] PT/INR/ANDREA [id number] 05/25/2013 05/25/2013 [facility] PT/INR/ANDREA [id number] 05/25/2013 05/25/2013 [facility] PT/INR/ANDREA [id number] 05/25/2013 05/25/2013 [facility] PT/INR/ANDREA [id number] 05/25/2013 05/25/2013 [facility] PT/INR/ANDREA [id number] 05/25/2013 05/25/2013 [facility] PT/INR/ANDREA [id number] 05/25/2013 05/25/2013 [facility] PT/INR/ANDREA [id number] 05/25/2013 05/25/2013 [facility] PT/INR/ANDREA [id number] 05/25/2013 05/25/2013 [facility] PT/INR/ANDREA [id number] 05/25/2013 05/25/2013 [facility] PT/INR/ANDREA [id number] 05/25/2013 05/25/2013 [facility] PT/INR/ANDREA [id number] 05/25/2013 05/25/2013 [facility] PT/INR/ANDREA [id number] 05/25/2013 05/25/2013 [facility] PT/INR/ANDREA [id number] 05/25/2013 05/25/2013 [facility] PT/INR/ANDREA [id number] 05/25/2013 05/25/2013 [facility] PT/INR/ANDREA [id number] 05/25/2013 05/25/2013 [facility] PT/INR/ANDREA [id number] 05/25/2013 05/25/2013 [facility] PT/INR/ANDREA [id number] 05/25/2013 05/25/2013 [facility] PT/INR/ANDREA [id number] 05/25/2013 05/25/2013 [facility] PT/INR/ANDREA [id number] 05/25/2013 05/25/2013 [facility] PT/INR/ANDREA [id number] 05/25/2013 05/25/2013 [facility] PT/INR/ANDREA [id number] 05/25/2013 05/25/2013 [facility] PT/INR/ANDREA [id number] 05/25/2013 05/25/2013 [facility] PT/INR/ANDREA [id number] 05/25/2013 05/25/2013 [facility] PT/INR/ANDREA [id number] 05/25/2013 05/25/2013 [facility] PT/INR/ANDREA [id number] 05/25/2013 05/25/2013 [facility] PT/INR/ANDREA [id number] 05/25/2013 05/25/2013 [facility] PT/INR/ANDREA [id number] 05/25/2013 05/25/2013 [facility] PT/INR/ANDREA [id number] 05/25/2013 05/25/2013 [facility] PT/INR/ANDREA [id number] 05/25/2013 05/25/2013 [facility] PT/INR/ANDREA [id number] 06/08/2013 06/08/2013 [facility] PT/INR/ANDREA [id number] 06/08/2013 06/08/2013 [facility] PT/INR/ANDREA [id number] 06/08/2013 06/08/2013 [facility] PT/INR/ANDREA [id number] 06/08/2013 06/08/2013 [facility] PT/IN[facility]/ANDREA [id number] 06/08/2013 06/08/2013 [facility] PT/INR/ANDREA [id number] 06/08/2013 06/08/2013 [facility] PT/IN[facility]REA [id number] 06/08/2013 06/08/2013 [facility] PT/IN[facility]RE[facility] [id number] 06/08/2013 06/08/2013 [facility] PT[facility] [id number] 06/08/2013 06/08/2013 [facility] PT/IN[facility] [id number] 06/08/2013 06/08/2013 [facility] PT/[facility] [id number] 06/08/2013 06/08/2013 [facility] PT/IN[facility]RE[facility] [id number] 06/08/2013 06/08/2013 [facility] PT/[facility] [id number] 06/08/2013 06/08/2013 [facility] PT/IN[facility]/ANDRE[facility] [id number] 06/08/2013 06/08/2013 [facility] PT/[facility] [id number] 06/08/2013 06/08/2013 [facility] Unknown [id number] 06/08/2013 06/08/2013 [facility] Unknown [id number] 06/08/2013 06/08/2013 [facility] Unknown [id number] 06/08/2013 06/08/2013 [facility] Unknown [id number] 06/08/2013 06/08/2013 [facility] Unknown [id number] 06/08/2013 06/08/2013 [facility] Unknown [id number] 06/08/2013 06/08/2013 [facility] Unknown [id number] 06/08/2013 06/08/2013 [facility] Unknown [id number] 06/08/2013 06/08/2013 [facility] Unknown [id number] 06/08/2013 06/08/2013 [facility] Unknown [id number] 06/08/2013 06/08/2013 [facility] Unknown [id number] 06/08/2013 06/08/2013 [facility] Unknown [id number] 06/08/2013 06/08/2013 [facility] Unknown [id number] 06/08/2013 06/08/2013 [facility] Unknown [id number] 06/08/2013 06/08/2013 [facility] Unknown [id number] 06/08/2013 06/08/2013 [facility]RE[facility] [id number] 06/08/2013 06/08/2013 [facility] [id number] 06/08/2013 06/08/2013 [facility] [id number] 06/08/2013 06/08/2013 [facility]RE[facility] [id number] 06/08/2013 06/08/2013 [facility] [id number] 06/08/2013 06/08/2013 [facility] [id number] 06/08/2013 06/08/2013 [facility] [id number] 06/08/2013 06/08/2013 [facility] PT/[facility] [id number] 06/08/2013 06/08/2013 [facility] PT/[facility] [id number] 06/08/2013 06/08/2013 [facility] [id number] 06/08/2013 06/08/2013 [facility] PT/[facility]REA [id number] 06/08/2013 06/08/2013 [facility] [id number] 06/08/2013 06/08/2013 [facility] PT/[facility]REA [id number] 06/08/2013 06/08/2013 [facility] PT/[facility]REA [id number] 06/08/2013 06/08/2013 [facility] Unknown [id number] 06/08/2013 06/08/2013 [facility] Unknown [id number] 06/08/2013 06/08/2013 [facility] Unknown [id number] 06/08/2013 06/08/2013 [facility] Unknown [id number] 06/08/2013 06/08/2013 [facility] Unknown [id number] 06/08/2013 06/08/2013 [facility] Unknown [id number] 06/08/2013 06/08/2013 [facility] Unknown [id number] 06/08/2013 06/08/2013 [facility] Unknown [id number] 06/08/2013 06/08/2013 [facility] Unknown [id number] 06/08/2013 06/08/2013 [facility] Unknown [id number] 06/08/2013 06/08/2013 [facility] Unknown [id number] 06/08/2013 06/08/2013 [facility] Unknown [id number] 06/08/2013 06/08/2013 [facility] Unknown [id number] 06/08/2013 06/08/2013 [facility] Unknown [id number] 06/08/2013 06/08/2013 [facility] pt/inr/andrea [id number] 06/22/2013 06/22/2013 [facility] pt/inr/andrea [id number] 06/22/2013 06/22/2013 [facility] pt/inr/andrea [id number] 06/22/2013 06/22/2013 [facility] pt/inr/andrea [id number] 06/22/2013 06/22/2013 [facility] pt/inr/andrea [id number] 06/22/2013 06/22/2013 [facility] pt/inr/andrea [id number] 06/22/2013 06/22/2013 [facility] pt/inr/andrea [id number] 06/22/2013 06/22/2013 [facility] pt/inr/andrea [id number] 06/22/2013 06/22/2013 [facility] pt/inr/andrea [id number] 06/22/2013 06/22/2013 [facility] pt/inr/andrea [id number] 06/22/2013 06/22/2013 [facility] pt/inr/andrea [id number] 06/22/2013 06/22/2013 [facility] pt/inr/andrea [id number] 06/22/2013 06/22/2013 [facility] pt/inr/andrea [id number] 06/22/2013 06/22/2013 [facility] pt/inr/andrea [id number] 06/22/2013 06/22/2013 [facility] pt/inr/andrea [id number] 06/22/2013 06/22/2013 [facility] pt/inr/andrea [id number] 06/22/2013 06/22/2013 [facility] pt/inr/andrea [id number] 06/22/2013 06/22/2013 [facility] pt/inr/andrea [id number] 06/22/2013 06/22/2013 [facility] pt/inr/andrea [id number] 06/22/2013 06/22/2013 [facility] pt/inr/andrea [id number] 06/22/2013 06/22/2013 [facility] pt/inr/andrea [id number] 06/22/2013 06/22/2013 [facility] pt/inr/andrea [id number] 06/22/2013 06/22/2013 [facility] pt/inr/andrea [id number] 06/22/2013 06/22/2013 [facility] pt/inr/andrea [id number] 06/22/2013 06/22/2013 [facility] pt/inr/andrea [id number] 06/22/2013 06/22/2013 [facility] pt/inr/andrea [id number] 06/22/2013 06/22/2013 [facility] pt/inr/andrea [id number] 06/22/2013 06/22/2013 [facility] pt/inr/andrea [id number] 06/22/2013 06/22/2013 [facility] pt/inr/andrea [id number] 06/22/2013 06/22/2013 [facility] rash on foot and swollen [id number] 06/25/2013 06/25/2013 [facility] rash on foot and swollen [id number] 06/25/2013 06/25/2013 [facility] rash on foot and swollen [id number] 06/25/2013 06/25/2013 [facility] rash on foot and swollen [id number] 06/25/2013 06/25/2013 [facility] rash on foot and swollen [id number] 06/25/2013 06/25/2013 [facility] rash on foot and swollen [id number] 06/25/2013 06/25/2013 [facility] rash on foot and swollen [id number] 06/25/2013 06/25/2013 [place] [place] [facility] rash on foot and swollen [id number] 06/25/2013 06/25/2013 [facility] [place] [facility] rash on foot and swollen [id number] 06/25/2013 06/25/2013 [facility] rash on foot and swollen [id number] 06/25/2013 06/25/2013 [place] [facility] rash on foot and swollen [id number] 06/25/2013 06/25/2013 [place] [facility] rash on foot and swollen [id number] 06/25/2013 06/25/2013 [place] [facility] rash on foot and swollen [id number] 06/25/2013 06/25/2013 [facility] [place] [facility] rash on foot and swollen [id number] 06/25/2013 06/25/2013 [place] [facility] rash on foot and swollen [id number] 06/25/2013 06/25/2013 [place] [place] [facility] rash on foot and swollen [id number] 06/25/2013 06/25/2013 [place] [facility] rash on foot and swollen [id number] 06/25/2013 06/25/2013 [facility] rash on foot and swollen [id number] 06/25/2013 06/25/2013 [facility] rash on foot and swollen [id number] 06/25/2013 06/25/2013 [facility] rash on foot and swollen [id number] 06/25/2013 06/25/2013 [facility] rash on foot and swollen [id number] 06/25/2013 06/25/2013 [facility] rash on foot and swollen [id number] 06/25/2013 06/25/2013 [place] [facility] rash on foot and swollen [id number] 06/25/2013 06/25/2013 [facility] rash on foot and swollen [id number] 06/25/2013 06/25/2013 [place] [facility] rash on foot and swollen [id number] 06/25/2013 06/25/2013 [facility] rash on foot and swollen [id number] 06/25/2013 06/25/2013 [facility] rash on foot and swollen [id number] 06/25/2013 06/25/2013 [facility] rash on foot and swollen [id number] 06/25/2013 06/25/2013 [facility] rash on foot and swollen [id number] 06/25/2013 06/25/2013 [facility] pt/inr/andrea [id number] 07/06/2013 07/06/2013 [facility] pt/inr/andrea [id number] 07/06/2013 07/06/2013 [facility] pt/inr/andrea [id number] 07/06/2013 07/06/2013 [facility] pt/inr/andrea [id number] 07/06/2013 07/06/2013 [facility] pt/inr/andrea [id number] 07/06/2013 07/06/2013 [facility] pt/inr/andrea [id number] 07/06/2013 07/06/2013 [facility] pt/inr/andrea [id number] 07/06/2013 07/06/2013 [facility] pt/inr/andrea [id number] 07/06/2013 07/06/2013 [facility] pt/inr/andrea [id number] 07/06/2013 07/06/2013 [facility] pt/inr/andrea [id number] 07/06/2013 07/06/2013 [facility] pt/inr/andrea [id number] 07/06/2013 07/06/2013 [facility] pt/inr/andrea [id number] 07/06/2013 07/06/2013 [facility] pt/inr/andrea [id number] 07/06/2013 07/06/2013 [facility] pt/inr/andrea [id number] 07/06/2013 07/06/2013 [facility] pt/inr/andrea [id number] 07/06/2013 07/06/2013 [facility] pt/inr/andrea [id number] 07/06/2013 07/06/2013 [facility] pt/inr/andrea [id number] 07/06/2013 07/06/2013 [facility] pt/inr/andrea [id number] 07/06/2013 07/06/2013 [facility] pt/inr/andrea [id number] 07/06/2013 07/06/2013 [facility] pt/inr/andrea [id number] 07/06/2013 07/06/2013 [facility] pt/inr/andrea [id number] 07/06/2013 07/06/2013 [facility] pt/inr/andrea [id number] 07/06/2013 07/06/2013 [facility] pt/inr/andrea [id number] 07/06/2013 07/06/2013 [facility] pt/inr/andrea [id number] 07/06/2013 07/06/2013 [facility] pt/inr/andrea [id number] 07/06/2013 07/06/2013 [facility] pt/inr/andrea [id number] 07/06/2013 07/06/2013 [facility] pt/inr/andrea [id number] 07/06/2013 07/06/2013 [facility] pt/inr/andrea [id number] 07/06/2013 07/06/2013 [facility] pt/inr/andrea [id number] 07/06/2013 07/06/2013 [facility] [id number] 07/22/2013 07/22/2013 [facility] [id number] 07/22/2013 07/22/2013 [facility] [id number] 07/22/2013 07/22/2013 [facility] [id number] 07/22/2013 07/22/2013 [facility] [id number] 07/22/2013 07/22/2013 [facility] [id number] 07/22/2013 07/22/2013 [facility] [id number] 07/22/2013 07/22/2013 [facility] [id number] 07/22/2013 07/22/2013 [facility] [id number] 07/22/2013 07/22/2013 [facility] [id number] 07/22/2013 07/22/2013 [facility] [id number] 07/22/2013 07/22/2013 [facility] [id number] 07/22/2013 07/22/2013 [facility] [id number] 07/22/2013 07/22/2013 [facility] [id number] 07/22/2013 07/22/2013 [facility] [id number] 07/22/2013 07/22/2013 [facility] [id number] 07/22/2013 07/22/2013 [facility] [id number] 07/22/2013 07/22/2013 [facility] [id number] 07/22/2013 07/22/2013 [facility] [id number] 07/22/2013 07/22/2013 [facility] [id number] 07/22/2013 07/22/2013 [facility] [id number] 07/22/2013 07/22/2013 [facility] [id number] 07/22/2013 07/22/2013 [facility] [id number] 07/22/2013 07/22/2013 [facility] [id number] 07/22/2013 07/22/2013 [facility] [id number] 07/22/2013 07/22/2013 [facility] [id number] 07/22/2013 07/22/2013 [facility] [id number] 07/22/2013 07/22/2013 [facility] [id number] 07/22/2013 07/22/2013 [facility] [id number] 07/22/2013 07/22/2013 [facility] [id number] 08/05/2013 08/05/2013 [facility] [id number] 08/05/2013 08/05/2013 [facility] [id number] 08/05/2013 08/05/2013 [facility] [id number] 08/05/2013 08/05/2013 [facility] [id number] 08/05/2013 08/05/2013 [facility] [id number] 08/05/2013 08/05/2013 [facility] [id number] 08/05/2013 08/05/2013 [facility] [id number] 08/05/2013 08/05/2013 [facility] [id number] 08/05/2013 08/05/2013 [facility] [id number] 08/05/2013 08/05/2013 [facility] [id number] 08/05/2013 08/05/2013 [facility] [id number] 08/05/2013 08/05/2013 [facility] [id number] 08/05/2013 08/05/2013 [facility] [id number] 08/05/2013 08/05/2013 [facility] [id number] 08/05/2013 08/05/2013 [facility] [id number] 08/05/2013 08/05/2013 [facility] [id number] 08/05/2013 08/05/2013 [facility] [id number] 08/05/2013 08/05/2013 [facility] [id number] 08/05/2013 08/05/2013 [facility] [id number] 08/05/2013 08/05/2013 [facility] [id number] 08/05/2013 08/05/2013 [facility] [facility] [id number] 08/05/2013 08/05/2013 [facility] [id number] 08/05/2013 08/05/2013 [facility] [id number] 08/05/2013 08/05/2013 [facility] [id number] 08/05/2013 08/05/2013 [facility] [id number] 08/05/2013 08/05/2013 [facility] [id number] 08/05/2013 08/05/2013 [facility] [id number] 08/05/2013 08/05/2013 [facility] [id number] 08/05/2013 08/05/2013 [facility] [id number] 08/19/2013 08/19/2013 [facility] [id number] 08/19/2013 08/19/2013 [facility] [id number] 08/19/2013 08/19/2013 [facility] [id number] 08/19/2013 08/19/2013 [facility] [id number] 08/19/2013 08/19/2013 [facility] [id number] 08/19/2013 08/19/2013 [facility] [id number] 08/19/2013 08/19/2013 [facility] [id number] 08/19/2013 08/19/2013 [facility] [id number] 08/19/2013 08/19/2013 [facility] [id number] 08/19/2013 08/19/2013 [facility] [id number] 08/19/2013 08/19/2013 [facility] [id number] 08/19/2013 08/19/2013 [facility] [id number] 08/19/2013 08/19/2013 [facility] [id number] 08/19/2013 08/19/2013 [facility] [id number] 08/19/2013 08/19/2013 [facility] [id number] 08/19/2013 08/19/2013 [facility] [id number] 08/19/2013 08/19/2013 [facility] [id number] 08/19/2013 08/19/2013 [facility] [id number] 08/19/2013 08/19/2013 [facility] [id number] 08/19/2013 08/19/2013 [facility] [id number] 08/19/2013 08/19/2013 [facility] [id number] 08/19/2013 08/19/2013 [facility] [id number] 08/19/2013 08/19/2013 [facility] [id number] 08/19/2013 08/19/2013 [facility] [id number] 08/19/2013 08/19/2013 [facility] [id number] 08/19/2013 08/19/2013 [facility] [id number] 08/19/2013 08/19/2013 [facility] [id number] 08/19/2013 08/19/2013 [facility] [id number] 08/19/2013 08/19/2013 [facility] Unknown [id number] 08/27/2013 08/27/2013 [facility] Unknown [id number] 08/27/2013 08/27/2013 [facility] Unknown [id number] 08/27/2013 08/27/2013 [facility] Unknown [id number] 08/27/2013 08/27/2013 [facility] Unknown [id number] 08/27/2013 08/27/2013 [facility] Unknown [id number] 08/27/2013 08/27/2013 [facility] Unknown [id number] 08/27/2013 08/27/2013 [facility] Unknown [id number] 08/27/2013 08/27/2013 [facility] Unknown [id number] 08/27/2013 08/27/2013 [facility] Unknown [id number] 08/27/2013 08/27/2013 [facility] Unknown [id number] 08/27/2013 08/27/2013 [facility] Unknown [id number] 08/27/2013 08/27/2013 [facility] Unknown [id number] 08/27/2013 08/27/2013 [facility] Unknown [id number] 08/27/2013 08/27/2013 [facility] Unknown [id number] 08/27/2013 08/27/2013 [facility] Unknown [id number] 08/27/2013 08/27/2013 [facility] Unknown [id number] 08/27/2013 08/27/2013 [facility] Unknown [id number] 08/27/2013 08/27/2013 [facility] Unknown [id number] 08/27/2013 08/27/2013 [facility] Unknown [id number] 08/27/2013 08/27/2013 [facility] Unknown [id number] 08/27/2013 08/27/2013 [facility] Unknown [id number] 08/27/2013 08/27/2013 [facility] Unknown [id number] 08/27/2013 08/27/2013 [facility] Unknown [id number] 08/27/2013 08/27/2013 [facility] Unknown [id number] 08/27/2013 08/27/2013 [facility] Unknown [id number] 08/27/2013 08/27/2013 [facility] Unknown [id number] 08/27/2013 08/27/2013 [facility] Unknown [id number] 08/27/2013 08/27/2013 [facility] Unknown [id number] 08/27/2013 08/27/2013 [facility] [id number] 09/09/2013 09/09/2013 [facility] [id number] 09/09/2013 09/09/2013 [facility] [id number] 09/09/2013 09/09/2013 [facility] [id number] 09/09/2013 09/09/2013 [facility] [id number] 09/09/2013 09/09/2013 [facility] [id number] 09/09/2013 09/09/2013 [facility] [id number] 09/09/2013 09/09/2013 [facility] [id number] 09/09/2013 09/09/2013 [facility] [id number] 09/09/2013 09/09/2013 [facility] [id number] 09/09/2013 09/09/2013 [facility] [id number] 09/09/2013 09/09/2013 [facility] [id number] 09/09/2013 09/09/2013 [facility] [id number] 09/09/2013 09/09/2013 [facility] [id number] 09/09/2013 09/09/2013 [facility] [id number] 09/09/2013 09/09/2013 [facility] [id number] 09/09/2013 09/09/2013 [facility] [id number] 09/09/2013 09/09/2013 [facility] [id number] 09/09/2013 09/09/2013 [facility] [id number] 09/09/2013 09/09/2013 [facility] [id number] 09/09/2013 09/09/2013 [facility] [id number] 09/09/2013 09/09/2013 [facility] [id number] 09/09/2013 09/09/2013 [facility] [id number] 09/09/2013 09/09/2013 [facility] [id number] 09/09/2013 09/09/2013 [facility] [id number] 09/09/2013 09/09/2013 [facility] [id number] 09/09/2013 09/09/2013 [facility] [id number] 09/09/2013 09/09/2013 [facility] [id number] 09/09/2013 09/09/2013 [facility] [id number] 09/09/2013 09/09/2013 [facility] RASH [id number] 09/09/2013 09/09/2013 [facility] RASH [id number] 09/09/2013 09/09/2013 [facility] RASH [id number] 09/09/2013 09/09/2013 [facility] RASH [id number] 09/09/2013 09/09/2013 [facility] RASH [id number] 09/09/2013 09/09/2013 [facility] RASH [id number] 09/09/2013 09/09/2013 [facility] RASH [id number] 09/09/2013 09/09/2013 [facility] RASH [id number] 09/09/2013 09/09/2013 [facility] RASH [id number] 09/09/2013 09/09/2013 [facility] RASH [id number] 09/09/2013 09/09/2013 [facility]ASH [id number] 09/09/2013 09/09/2013 [facility] RASH [id number] 09/09/2013 09/09/2013 [facility]ASH [id number] 09/09/2013 09/09/2013 [facility] RASH [id number] 09/09/2013 09/09/2013 [facility] RASH [id number] 09/09/2013 09/09/2013 [facility] RASH [id number] 09/09/2013 09/09/2013 [facility]ASH [id number] 09/09/2013 09/09/2013 [facility] RASH [id number] 09/09/2013 09/09/2013 [facility] RASH [id number] 09/09/2013 09/09/2013 [facility]ASH [id number] 09/09/2013 09/09/2013 [facility] RASH [id number] 09/09/2013 09/09/2013 [facility]ASH [id number] 09/09/2013 09/09/2013 [facility]ASH [id number] 09/09/2013 09/09/2013 [facility]ASH [id number] 09/09/2013 09/09/2013 [facility] RASH [id number] 09/09/2013 09/09/2013 [facility]ASH [id number] 09/09/2013 09/09/2013 [facility] RASH [id number] 09/09/2013 09/09/2013 [facility]ASH [id number] 09/09/2013 09/09/2013 [facility]ASH [id number] 09/09/2013 09/09/2013 [facility] Refill [id number] 10/14/2013 10/14/2013 [facility] Refill [id number] 10/14/2013 10/14/2013 [facility] Refill [id number] 10/14/2013 10/14/2013 [facility] Refill [id number] 10/14/2013 10/14/2013 [facility] Refill [id number] 10/14/2013 10/14/2013 [facility] Refill [id number] 10/14/2013 10/14/2013 [facility] Refill [id number] 10/14/2013 10/14/2013 [facility] Refill [id number] 10/14/2013 10/14/2013 [facility] Refill [id number] 10/14/2013 10/14/2013 [facility] Refill [id number] 10/14/2013 10/14/2013 [facility] Refill [id number] 10/14/2013 10/14/2013 [facility] Refill [id number] 10/14/2013 10/14/2013 [facility] [facility] [id number] 10/14/2013 10/14/2013 [facility] Refill [id number] 10/14/2013 10/14/2013 [facility] Refill [id number] 10/14/2013 10/14/2013 [facility] Refill [id number] 10/14/2013 10/14/2013 [facility] Refill [id number] 10/14/2013 10/14/2013 [facility] Refill [id number] 10/14/2013 10/14/2013 [facility] Refill [id number] 10/14/2013 10/14/2013 [facility] Refill [id number] 10/14/2013 10/14/2013 [facility] Refill [id number] 10/14/2013 10/14/2013 [facility] Refill [id number] 10/14/2013 10/14/2013 [facility] Refill [id number] 10/14/2013 10/14/2013 [facility] Refill [id number] 10/14/2013 10/14/2013 [facility] Refill [id number] 10/14/2013 10/14/2013 [facility] Refill [id number] 10/14/2013 10/14/2013 [facility] Refill [id number] 10/14/2013 10/14/2013 [facility] Refill [id number] 10/14/2013 10/14/2013 [facility] Refill [id number] 10/14/2013 10/14/2013 [facility] REFILL [id number] 12/01/2013 12/01/2013 [facility] REFILL [id number] 12/01/2013 12/01/2013 [facility] REFILL [id number] 12/01/2013 12/01/2013 [facility] REFILL [id number] 12/01/2013 12/01/2013 [facility] REFILL [id number] 12/01/2013 12/01/2013 [facility] REFILL [id number] 12/01/2013 12/01/2013 [facility] REFILL [id number] 12/01/2013 12/01/2013 [facility] REFILL [id number] 12/01/2013 12/01/2013 [facility] REFILL [id number] 12/01/2013 12/01/2013 [facility] REFILL [id number] 12/01/2013 12/01/2013 [facility] REFILL [id number] 12/01/2013 12/01/2013 [facility] REFILL [id number] 12/01/2013 12/01/2013 [facility] REFILL [id number] 12/01/2013 12/01/2013 [facility] REFILL [id number] 12/01/2013 12/01/2013 [facility] REFILL [id number] 12/01/2013 12/01/2013 [facility] REFILL [id number] 12/01/2013 12/01/2013 [facility] REFILL [id number] 12/01/2013 12/01/2013 [facility] REFILL [id number] 12/01/2013 12/01/2013 [facility] REFILL [id number] 12/01/2013 12/01/2013 [facility] REFILL [id number] 12/01/2013 12/01/2013 [facility] REFILL [id number] 12/01/2013 12/01/2013 [facility] REFILL [id number] 12/01/2013 12/01/2013 [facility] REFILL [id number] 12/01/2013 12/01/2013 [facility] REFILL [id number] 12/01/2013 12/01/2013 [facility] REFILL [id number] 12/01/2013 12/01/2013 [facility] REFILL [id number] 12/01/2013 12/01/2013 [facility] REFILL [id number] 12/01/2013 12/01/2013 [facility] REFILL [id number] 12/01/2013 12/01/2013 [facility] REFILL [id number] 12/01/2013 12/01/2013 [facility] REFILL [id number] 12/27/2013 12/27/2013 [facility] REFILL [id number] 12/27/2013 12/27/2013 [facility] REFILL [id number] 12/27/2013 12/27/2013 [facility] REFILL [id number] 12/27/2013 12/27/2013 [facility] REFILL [id number] 12/27/2013 12/27/2013 [facility] REFILL [id number] 12/27/2013 12/27/2013 [facility] REFILL [id number] 12/27/2013 12/27/2013 [facility] REFILL [id number] 12/27/2013 12/27/2013 [facility] REFILL [id number] 12/27/2013 12/27/2013 [facility] REFILL [id number] 12/27/2013 12/27/2013 [facility] REFILL [id number] 12/27/2013 12/27/2013 [facility] REFILL [id number] 12/27/2013 12/27/2013 [facility] REFILL [id number] 12/27/2013 12/27/2013 [facility] REFILL [id number] 12/27/2013 12/27/2013 [facility] REFILL [id number] 12/27/2013 12/27/2013 [facility] REFILL [id number] 12/27/2013 12/27/2013 [facility] REFILL [id number] 12/27/2013 12/27/2013 [facility] REFILL [id number] 12/27/2013 12/27/2013 [facility] REFILL [id number] 12/27/2013 12/27/2013 [facility] REFILL [id number] 12/27/2013 12/27/2013 [facility] REFILL [id number] 12/27/2013 12/27/2013 [facility] REFILL [id number] 12/27/2013 12/27/2013 [facility] REFILL [id number] 12/27/2013 12/27/2013 [facility] REFILL [id number] 12/27/2013 12/27/2013 [facility] REFILL [id number] 12/27/2013 12/27/2013 [facility] REFILL [id number] 12/27/2013 12/27/2013 [facility] REFILL [id number] 12/27/2013 12/27/2013 [facility] REFILL [id number] 12/27/2013 12/27/2013 [facility] REFILL [id number] 12/27/2013 12/27/2013 [facility] REFILL [id number] 01/10/2014 01/10/2014 [facility] REFILL [id number] 01/10/2014 01/10/2014 [facility] REFILL [id number] 01/10/2014 01/10/2014 [facility] REFILL [id number] 01/10/2014 01/10/2014 [facility] REFILL [id number] 01/10/2014 01/10/2014 [facility] REFILL [id number] 01/10/2014 01/10/2014 [facility] REFILL [id number] 01/10/2014 01/10/2014 [facility] REFILL [id number] 01/10/2014 01/10/2014 [facility] REFILL [id number] 01/10/2014 01/10/2014 [facility] REFILL [id number] 01/10/2014 01/10/2014 [facility] REFILL [id number] 01/10/2014 01/10/2014 [facility] REFILL [id number] 01/10/2014 01/10/2014 [facility] REFILL [id number] 01/10/2014 01/10/2014 [facility] REFILL [id number] 01/10/2014 01/10/2014 [facility] REFILL [id number] 01/10/2014 01/10/2014 [facility] REFILL [id number] 01/10/2014 01/10/2014 [facility] REFILL [id number] 01/10/2014 01/10/2014 [facility] REFILL [id number] 01/10/2014 01/10/2014 [facility] REFILL [id number] 01/10/2014 01/10/2014 [facility] REFILL [id number] 01/10/2014 01/10/2014 [facility] REFILL [id number] 01/10/2014 01/10/2014 [facility] REFILL [id number] 01/10/2014 01/10/2014 [facility] REFILL [id number] 01/10/2014 01/10/2014 [facility] REFILL [id number] 01/10/2014 01/10/2014 [facility] REFILL [id number] 01/10/2014 01/10/2014 [facility] REFILL [id number] 01/10/2014 01/10/2014 [facility] REFILL [id number] 01/10/2014 01/10/2014 [facility] REFILL [id number] 01/10/2014 01/10/2014 [facility] REFILL [id number] 01/10/2014 01/10/2014 [facility] physical [id number] 01/12/2014 01/12/2014 [facility] physical [id number] 01/12/2014 01/12/2014 [facility] physical [id number] 01/12/2014 01/12/2014 [facility] physical [id number] 01/12/2014 01/12/2014 [facility] physical [id number] 01/12/2014 01/12/2014 [facility] physical [id number] 01/12/2014 01/12/2014 [facility] physical [id number] 01/12/2014 01/12/2014 [facility] physical [id number] 01/12/2014 01/12/2014 [facility] physical [id number] 01/12/2014 01/12/2014 [facility] physical [id number] 01/12/2014 01/12/2014 [facility] physical [id number] 01/12/2014 01/12/2014 [facility] physical [id number] 01/12/2014 01/12/2014 [facility] physical [id number] 01/12/2014 01/12/2014 [facility] physical [id number] 01/12/2014 01/12/2014 [facility] physical [id number] 01/12/2014 01/12/2014 [facility] physical [id number] 01/12/2014 01/12/2014 [facility] physical [id number] 01/12/2014 01/12/2014 [facility] physical [id number] 01/12/2014 01/12/2014 [facility] physical [id number] 01/12/2014 01/12/2014 [facility] physical [id number] 01/12/2014 01/12/2014 [facility] physical [id number] 01/12/2014 01/12/2014 [facility] physical [id number] 01/12/2014 01/12/2014 [facility] physical [id number] 01/12/2014 01/12/2014 [facility] physical [id number] 01/12/2014 01/12/2014 [facility] physical [id number] 01/12/2014 01/12/2014 [facility] physical [id number] 01/12/2014 01/12/2014 [facility] physical [id number] 01/12/2014 01/12/2014 [facility] physical [id number] 01/12/2014 01/12/2014 [facility] physical [id number] 01/12/2014 01/12/2014 [facility] Test results [id number] 01/15/2014 01/15/2014 [facility] [facility] Test results [id number] 01/15/2014 01/15/2014 [facility] Test results [id number] 01/15/2014 01/15/2014 [facility] [id number] 01/15/2014 01/15/2014 [facility] Test results [id number] 01/15/2014 01/15/2014 [facility] Test results [id number] 01/15/2014 01/15/2014 [facility] Test results [id number] 01/15/2014 01/15/2014 [facility] Test results [id number] 01/15/2014 01/15/2014 [facility] Test results [id number] 01/15/2014 01/15/2014 [facility] Test results [id number] 01/15/2014 01/15/2014 [facility] Test results [id number] 01/15/2014 01/15/2014 [facility] Test results [id number] 01/15/2014 01/15/2014 [facility] Test results [id number] 01/15/2014 01/15/2014 [facility] Test results [id number] 01/15/2014 01/15/2014 [facility] Test results [id number] 01/15/2014 01/15/2014 [facility] Test results [id number] 01/15/2014 01/15/2014 [facility] Test results [id number] 01/15/2014 01/15/2014 [facility] Test results [id number] 01/15/2014 01/15/2014 [facility] Test results [id number] 01/15/2014 01/15/2014 [facility] Test results [id number] 01/15/2014 01/15/2014 [facility] Test results [id number] 01/15/2014 01/15/2014 [facility] Test results [id number] 01/15/2014 01/15/2014 [facility] Test results [id number] 01/15/2014 01/15/2014 [facility] Test results [id number] 01/15/2014 01/15/2014 [facility] Test results [id number] 01/15/2014 01/15/2014 [facility] Test results [id number] 01/15/2014 01/15/2014 [facility] Test results [id number] 01/15/2014 01/15/2014 [facility] Test results [id number] 01/15/2014 01/15/2014 [facility] Test results [id number] 01/15/2014 01/15/2014 [facility] RESULTS [id number] 01/26/2014 01/26/2014 [facility] RESULTS [id number] 01/26/2014 01/26/2014 [facility] RESULTS [id number] 01/26/2014 01/26/2014 [facility] RESULTS [id number] 01/26/2014 01/26/2014 [facility] RESULTS [id number] 01/26/2014 01/26/2014 [facility] RESULTS [id number] 01/26/2014 01/26/2014 [facility] RESULTS [id number] 01/26/2014 01/26/2014 [facility] RESULTS [id number] 01/26/2014 01/26/2014 [facility] RESULTS [id number] 01/26/2014 01/26/2014 [facility] RESULTS [id number] 01/26/2014 01/26/2014 [facility] RESULTS [id number] 01/26/2014 01/26/2014 [facility] RESULTS [id number] 01/26/2014 01/26/2014 [facility] RESULTS [id number] 01/26/2014 01/26/2014 [facility] RESULTS [id number] 01/26/2014 01/26/2014 [facility] RESULTS [id number] 01/26/2014 01/26/2014 [facility] RESULTS [id number] 01/26/2014 01/26/2014 [facility] RESULTS [id number] 01/26/2014 01/26/2014 [facility] RESULTS [id number] 01/26/2014 01/26/2014 [facility] RESULTS [id number] 01/26/2014 01/26/2014 [facility] RESULTS [id number] 01/26/2014 01/26/2014 [facility] RESULTS [id number] 01/26/2014 01/26/2014 [facility] RESULTS [id number] 01/26/2014 01/26/2014 [facility] RESULTS [id number] 01/26/2014 01/26/2014 [facility] RESULTS [id number] 01/26/2014 01/26/2014 [facility] RESULTS [id number] 01/26/2014 01/26/2014 [facility] RESULTS [id number] 01/26/2014 01/26/2014 [facility] RESULTS [id number] 01/26/2014 01/26/2014 [facility] RESULTS [id number] 01/26/2014 01/26/2014 [facility] RESULTS [id number] 01/26/2014 01/26/2014 [facility] Unknown [id number] 02/08/2014 02/08/2014 [facility] Unknown [id number] 02/08/2014 02/08/2014 [facility] Unknown [id number] 02/08/2014 02/08/2014 [facility] Unknown [id number] 02/08/2014 02/08/2014 [facility] Unknown [id number] 02/08/2014 02/08/2014 [facility] Unknown [id number] 02/08/2014 02/08/2014 [facility] Unknown [id number] 02/08/2014 02/08/2014 [facility] Unknown [id number] 02/08/2014 02/08/2014 [facility] Unknown [id number] 02/08/2014 02/08/2014 [facility] Unknown [id number] 02/08/2014 02/08/2014 [facility] Unknown [id number] 02/08/2014 02/08/2014 [facility] Unknown [id number] 02/08/2014 02/08/2014 [facility] Unknown [id number] 02/08/2014 02/08/2014 [facility] Unknown [id number] 02/08/2014 02/08/2014 [facility] Unknown [id number] 02/08/2014 02/08/2014 [facility] Unknown [id number] 02/08/2014 02/08/2014 [facility] Unknown [id number] 02/08/2014 02/08/2014 [facility] Unknown [id number] 02/08/2014 02/08/2014 [facility] Unknown [id number] 02/08/2014 02/08/2014 [facility] Unknown [id number] 02/08/2014 02/08/2014 [facility] Unknown [id number] 02/08/2014 02/08/2014 [facility] Unknown [id number] 02/08/2014 02/08/2014 [facility] Unknown [id number] 02/08/2014 02/08/2014 [facility] Unknown [id number] 02/08/2014 02/08/2014 [facility] Unknown [id number] 02/08/2014 02/08/2014 [facility] Unknown [id number] 02/08/2014 02/08/2014 [facility] Unknown [id number] 02/08/2014 02/08/2014 [facility] Unknown [id number] 02/08/2014 02/08/2014 [facility] Unknown [id number] 02/08/2014 02/08/2014 [facility] INR [id number] 03/11/2014 03/11/2014 [facility] INR [id number] 03/11/2014 03/11/2014 [facility] INR [id number] 03/11/2014 03/11/2014 [facility] INR [id number] 03/11/2014 03/11/2014 [facility] INR [id number] 03/11/2014 03/11/2014 [facility] INR [id number] 03/11/2014 03/11/2014 [facility] INR [id number] 03/11/2014 03/11/2014 [facility] INR [id number] 03/11/2014 03/11/2014 [facility] INR [id number] 03/11/2014 03/11/2014 [facility] INR [id number] 03/11/2014 03/11/2014 [facility] INR [id number] 03/11/2014 03/11/2014 [facility] INR [id number] 03/11/2014 03/11/2014 [facility] INR [id number] 03/11/2014 03/11/2014 [facility] INR [id number] 03/11/2014 03/11/2014 [facility] INR [id number] 03/11/2014 03/11/2014 [facility] INR [id number] 03/11/2014 03/11/2014 [facility] INR [id number] 03/11/2014 03/11/2014 [facility] INR [id number] 03/11/2014 03/11/2014 [facility] INR [id number] 03/11/2014 03/11/2014 [facility] INR [id number] 03/11/2014 03/11/2014 [facility] INR [id number] 03/11/2014 03/11/2014 [facility] INR [id number] 03/11/2014 03/11/2014 [facility] INR [id number] 03/11/2014 03/11/2014 [facility] INR [id number] 03/11/2014 03/11/2014 [facility] INR [id number] 03/11/2014 03/11/2014 [facility] INR [id number] 03/11/2014 03/11/2014 [facility] INR [id number] 03/11/2014 03/11/2014 [facility] INR [id number] 03/11/2014 03/11/2014 [facility] INR [id number] 03/11/2014 03/11/2014 [facility] [place] [id number] 03/25/2014 03/25/2014 [facility] [id number] 03/25/2014 03/25/2014 [facility] [id number] 03/25/2014 03/25/2014 [facility] [id number] 03/25/2014 03/25/2014 [facility] [id number] 03/25/2014 03/25/2014 [facility] [id number] 03/25/2014 03/25/2014 [facility] [id number] 03/25/2014 03/25/2014 [facility] [id number] 03/25/2014 03/25/2014 [facility] [id number] 03/25/2014 03/25/2014 [facility] [id number] 03/25/2014 03/25/2014 [facility] [id number] 03/25/2014 03/25/2014 [facility] [id number] 03/25/2014 03/25/2014 [facility] [id number] 03/25/2014 03/25/2014 [facility] [id number] 03/25/2014 03/25/2014 [facility] [id number] 03/25/2014 03/25/2014 [facility] [id number] 03/25/2014 03/25/2014 [facility] [id number] 03/25/2014 03/25/2014 [facility] [id number] 03/25/2014 03/25/2014 [facility] [id number] 03/25/2014 03/25/2014 [facility] [facility] [place] [id number] 03/25/2014 03/25/2014 [facility] [place] [id number] 03/25/2014 03/25/2014 [facility] [id number] 03/25/2014 03/25/2014 [facility] [id number] 03/25/2014 03/25/2014 [facility] [id number] 03/25/2014 03/25/2014 [facility] [id number] 03/25/2014 03/25/2014 [facility] [id number] 03/25/2014 03/25/2014 [facility] [id number] 03/25/2014 03/25/2014 [facility] [id number] 03/25/2014 03/25/2014 [facility] [id number] 03/25/2014 03/25/2014 [facility] Unknown [id number] 04/13/2014 04/13/2014 [facility] Unknown [id number] 04/13/2014 04/13/2014 [facility] Unknown [id number] 04/13/2014 04/13/2014 [facility] Unknown [id number] 04/13/2014 04/13/2014 [facility] Unknown [id number] 04/13/2014 04/13/2014 [facility] Unknown [id number] 04/13/2014 04/13/2014 [facility] Unknown [id number] 04/13/2014 04/13/2014 [facility] Unknown [id number] 04/13/2014 04/13/2014 [facility] Unknown [id number] 04/13/2014 04/13/2014 [facility] Unknown [id number] 04/13/2014 04/13/2014 [facility] Unknown [id number] 04/13/2014 04/13/2014 [facility] Unknown [id number] 04/13/2014 04/13/2014 [facility] Unknown [id number] 04/13/2014 04/13/2014 [facility] Unknown [id number] 04/13/2014 04/13/2014 [facility] Unknown [id number] 04/13/2014 04/13/2014 [facility] Unknown [id number] 04/13/2014 04/13/2014 [facility] Unknown [id number] 04/13/2014 04/13/2014 [facility] Unknown [id number] 04/13/2014 04/13/2014 [facility] Unknown [id number] 04/13/2014 04/13/2014 [facility] Unknown [id number] 04/13/2014 04/13/2014 [facility] Unknown [id number] 04/13/2014 04/13/2014 [facility] Unknown [id number] 04/13/2014 04/13/2014 [facility] Unknown [id number] 04/13/2014 04/13/2014 [facility] Unknown [id number] 04/13/2014 04/13/2014 [facility] Unknown [id number] 04/13/2014 04/13/2014 [facility] Unknown [id number] 04/13/2014 04/13/2014 [facility] Unknown [id number] 04/13/2014 04/13/2014 [facility] Unknown [id number] 04/13/2014 04/13/2014 [facility] Unknown [id number] 04/13/2014 04/13/2014 [facility] [place] [place] [id number] 04/22/2014 04/22/2014 [facility] [place] [place] [id number] 04/22/2014 04/22/2014 [facility] [place] [place] [id number] 04/22/2014 04/22/2014 [facility] [place] [place] [id number] 04/22/2014 04/22/2014 [facility] [place] [place] [id number] 04/22/2014 04/22/2014 [facility] [place] [place] [id number] 04/22/2014 04/22/2014 [facility] [place] [place] [id number] 04/22/2014 04/22/2014 [facility] [place] [place] [id number] 04/22/2014 04/22/2014 [facility] [place] [place] [id number] 04/22/2014 04/22/2014 [facility] [place] [place] [id number] 04/22/2014 04/22/2014 [facility] [place] [place] [id number] 04/22/2014 04/22/2014 [facility] [place] [place] [id number] 04/22/2014 04/22/2014 [facility] [place] [place] [id number] 04/22/2014 04/22/2014 [facility] [place] [place] [id number] 04/22/2014 04/22/2014 [facility] [place] [id number] 04/22/2014 04/22/2014 [facility] [place] [place] [id number] 04/22/2014 04/22/2014 [facility] [place] [id number] 04/22/2014 04/22/2014 [facility] [id number] 04/22/2014 04/22/2014 [facility] [place] [place] [id number] 04/22/2014 04/22/2014 [facility] [place] [place] [id number] 04/22/2014 04/22/2014 [facility] [place] [id number] 04/22/2014 04/22/2014 [facility] [id number] 04/22/2014 04/22/2014 [facility] [place] [place] [id number] 04/22/2014 04/22/2014 [facility] [place] [place] [facility] [id number] 04/22/2014 04/22/2014 [facility] [place] [place] [id number] 04/22/2014 04/22/2014 [facility] [place] [place] [id number] 04/22/2014 04/22/2014 [facility] [place] [place] [id number] 04/22/2014 04/22/2014 [facility] [place] [place] [id number] 04/22/2014 04/22/2014 [facility] [place] [place] [id number] 04/22/2014 04/22/2014 [facility] Unknown [id number] 05/11/2014 05/11/2014 [facility] Unknown [id number] 05/11/2014 05/11/2014 [facility] Unknown [id number] 05/11/2014 05/11/2014 [facility] Unknown [id number] 05/11/2014 05/11/2014 [facility] Unknown [id number] 05/11/2014 05/11/2014 [facility] Unknown [id number] 05/11/2014 05/11/2014 [facility] Unknown [id number] 05/11/2014 05/11/2014 [facility] Unknown [id number] 05/11/2014 05/11/2014 [facility] Unknown [id number] 05/11/2014 05/11/2014 [facility] Unknown [id number] 05/11/2014 05/11/2014 [facility] Unknown [id number] 05/11/2014 05/11/2014 [facility] Unknown [id number] 05/11/2014 05/11/2014 [facility] Unknown [id number] 05/11/2014 05/11/2014 [facility] Unknown [id number] 05/11/2014 05/11/2014 [facility] Unknown [id number] 05/11/2014 05/11/2014 [facility] Unknown [id number] 05/11/2014 05/11/2014 [facility] Unknown [id number] 05/11/2014 05/11/2014 [facility] Unknown [id number] 05/11/2014 05/11/2014 [facility] Unknown [id number] 05/11/2014 05/11/2014 [facility] Unknown [id number] 05/11/2014 05/11/2014 [facility] Unknown [id number] 05/11/2014 05/11/2014 [facility] Unknown [id number] 05/11/2014 05/11/2014 [facility] Unknown [id number] 05/11/2014 05/11/2014 [facility] Unknown [id number] 05/11/2014 05/11/2014 [facility] Unknown [id number] 05/11/2014 05/11/2014 [facility] Unknown [id number] 05/11/2014 05/11/2014 [facility] Unknown [id number] 05/11/2014 05/11/2014 [facility] Unknown [id number] 05/11/2014 05/11/2014 [facility] Unknown [id number] 05/11/2014 05/11/2014 [facility] [id number] 05/24/2014 05/24/2014 [facility] [id number] 05/24/2014 05/24/2014 [facility] [id number] 05/24/2014 05/24/2014 [facility] [id number] 05/24/2014 05/24/2014 [facility] [id number] 05/24/2014 05/24/2014 [facility] [id number] 05/24/2014 05/24/2014 [facility] [id number] 05/24/2014 05/24/2014 [facility] [id number] 05/24/2014 05/24/2014 [facility] [id number] 05/24/2014 05/24/2014 [facility] [id number] 05/24/2014 05/24/2014 [facility] [id number] 05/24/2014 05/24/2014 [facility] [id number] 05/24/2014 05/24/2014 [facility] [id number] 05/24/2014 05/24/2014 [facility] [id number] 05/24/2014 05/24/2014 [facility] [id number] 05/24/2014 05/24/2014 [facility] [id number] 05/24/2014 05/24/2014 [facility] [id number] 05/24/2014 05/24/2014 [facility] [id number] 05/24/2014 05/24/2014 [facility] [id number] 05/24/2014 05/24/2014 [facility] [id number] 05/24/2014 05/24/2014 [facility] [id number] 05/24/2014 05/24/2014 [facility] [id number] 05/24/2014 05/24/2014 [facility] [id number] 05/24/2014 05/24/2014 [facility] [id number] 05/24/2014 05/24/2014 [facility] [id number] 05/24/2014 05/24/2014 [facility] [id number] 05/24/2014 05/24/2014 [facility] [id number] 05/24/2014 05/24/2014 [facility] [id number] 05/24/2014 05/24/2014 [facility] [id number] 05/24/2014 05/24/2014 [facility] Prior Auth [id number] 06/01/2014 06/01/2014 [facility] Auth [id number] 06/01/2014 06/01/2014 [facility] Auth [id number] 06/01/2014 06/01/2014 [facility] Prior Auth [id number] 06/01/2014 06/01/2014 [facility] Prior Auth [id number] 06/01/2014 06/01/2014 [facility] Prior Auth [id number] 06/01/2014 06/01/2014 [facility] Prior Auth [id number] 06/01/2014 06/01/2014 [facility] [facility] [id number] 06/01/2014 06/01/2014 [facility] Prior Auth [id number] 06/01/2014 06/01/2014 [facility] Prior Auth [id number] 06/01/2014 06/01/2014 [facility] Prior Auth [id number] 06/01/2014 06/01/2014 [facility] Prior Auth [id number] 06/01/2014 06/01/2014 [facility] Prior Auth [id number] 06/01/2014 06/01/2014 [facility] Prior Auth [id number] 06/01/2014 06/01/2014 [facility] Prior Auth [id number] 06/01/2014 06/01/2014 [facility] Prior Auth [id number] 06/01/2014 06/01/2014 [facility] Prior Auth [id number] 06/01/2014 06/01/2014 [facility] Prior Auth [id number] 06/01/2014 06/01/2014 [facility] Prior Auth [id number] 06/01/2014 06/01/2014 [facility] Prior Auth [id number] 06/01/2014 06/01/2014 [facility] Prior Auth [id number] 06/01/2014 06/01/2014 [facility] Prior Auth [id number] 06/01/2014 06/01/2014 [facility] Prior Auth [id number] 06/01/2014 06/01/2014 [facility] Prior Auth [id number] 06/01/2014 06/01/2014 [facility] Prior Auth [id number] 06/01/2014 06/01/2014 [facility] Prior Auth [id number] 06/01/2014 06/01/2014 [facility] Prior Auth [id number] 06/01/2014 06/01/2014 [facility] Prior Auth [id number] 06/01/2014 06/01/2014 [facility] Prior Auth [id number] 06/01/2014 06/01/2014 [facility] Prior Authorization [id number] 06/07/2014 06/07/2014 [facility] Prior Authorization [id number] 06/07/2014 06/07/2014 [facility] Prior Authorization [id number] 06/07/2014 06/07/2014 [facility] Prior Authorization [id number] 06/07/2014 06/07/2014 [facility] Prior Authorization [id number] 06/07/2014 06/07/2014 [facility] Prior Authorization [id number] 06/07/2014 06/07/2014 [facility] Prior Authorization [id number] 06/07/2014 06/07/2014 [facility] Prior Authorization [id number] 06/07/2014 06/07/2014 [facility] Prior Authorization [id number] 06/07/2014 06/07/2014 [facility] Prior Authorization [id number] 06/07/2014 06/07/2014 [facility] Prior Authorization [id number] 06/07/2014 06/07/2014 [facility] Prior Authorization [id number] 06/07/2014 06/07/2014 [facility] Prior Authorization [id number] 06/07/2014 06/07/2014 [facility] Prior Authorization [id number] 06/07/2014 06/07/2014 [facility] Prior Authorization [id number] 06/07/2014 06/07/2014 [facility] Prior Authorization [id number] 06/07/2014 06/07/2014 [facility] Prior Authorization [id number] 06/07/2014 06/07/2014 [facility] Prior Authorization [id number] 06/07/2014 06/07/2014 [facility] Prior Authorization [id number] 06/07/2014 06/07/2014 [facility] Prior Authorization [id number] 06/07/2014 06/07/2014 [facility] Prior Authorization [id number] 06/07/2014 06/07/2014 [facility] Prior Authorization [id number] 06/07/2014 06/07/2014 [facility] Prior Authorization [id number] 06/07/2014 06/07/2014 [facility] Prior Authorization [id number] 06/07/2014 06/07/2014 [facility] Prior Authorization [id number] 06/07/2014 06/07/2014 [facility] Prior Authorization [id number] 06/07/2014 06/07/2014 [facility] Prior Authorization [id number] 06/07/2014 06/07/2014 [facility] Prior Authorization [id number] 06/07/2014 06/07/2014 [facility] Prior Authorization [id number] 06/07/2014 06/07/2014 [facility] [id number] 06/22/2014 06/22/2014 [facility] [id number] 06/22/2014 06/22/2014 [facility] [id number] 06/22/2014 06/22/2014 [facility] [id number] 06/22/2014 06/22/2014 [facility] [id number] 06/22/2014 06/22/2014 [facility] [id number] 06/22/2014 06/22/2014 [facility] [id number] 06/22/2014 06/22/2014 [facility] [id number] 06/22/2014 06/22/2014 [facility] [id number] 06/22/2014 06/22/2014 [facility] [id number] 06/22/2014 06/22/2014 [facility] [id number] 06/22/2014 06/22/2014 [facility] [id number] 06/22/2014 06/22/2014 [facility] [id number] 06/22/2014 06/22/2014 [facility] [id number] 06/22/2014 06/22/2014 [facility] [id number] 06/22/2014 06/22/2014 [facility] [id number] 06/22/2014 06/22/2014 [facility] [id number] 06/22/2014 06/22/2014 [facility] [id number] 06/22/2014 06/22/2014 [facility] [id number] 06/22/2014 06/22/2014 [facility] [id number] 06/22/2014 06/22/2014 [facility] [id number] 06/22/2014 06/22/2014 [facility] [id number] 06/22/2014 06/22/2014 [facility] [id number] 06/22/2014 06/22/2014 [facility] [id number] 06/22/2014 06/22/2014 [facility] [id number] 06/22/2014 06/22/2014 [facility] [id number] 06/22/2014 06/22/2014 [facility] [id number] 06/22/2014 06/22/2014 [facility] [id number] 06/22/2014 06/22/2014 [facility] [id number] 06/22/2014 06/22/2014 [facility] [id number] 07/22/2014 07/22/2014 [facility] [id number] 07/22/2014 07/22/2014 [facility] [id number] 07/22/2014 07/22/2014 [facility] [id number] 07/22/2014 07/22/2014 [facility] [id number] 07/22/2014 07/22/2014 [facility] [id number] 07/22/2014 07/22/2014 [facility] [id number] 07/22/2014 07/22/2014 [facility] [id number] 07/22/2014 07/22/2014 [facility] [id number] 07/22/2014 07/22/2014 [facility] [id number] 07/22/2014 07/22/2014 [facility] [id number] 07/22/2014 07/22/2014 [facility] [id number] 07/22/2014 07/22/2014 [facility] [id number] 07/22/2014 07/22/2014 [facility] [id number] 07/22/2014 07/22/2014 [facility] [id number] 07/22/2014 07/22/2014 [facility] [id number] 07/22/2014 07/22/2014 [facility] [id number] 07/22/2014 07/22/2014 [facility] [id number] 07/22/2014 07/22/2014 [facility] [id number] 07/22/2014 07/22/2014 [facility] [id number] 07/22/2014 07/22/2014 [facility] [id number] 07/22/2014 07/22/2014 [facility] [id number] 07/22/2014 07/22/2014 [facility] [id number] 07/22/2014 07/22/2014 [facility] [id number] 07/22/2014 07/22/2014 [facility] [id number] 07/22/2014 07/22/2014 [facility] [id number] 07/22/2014 07/22/2014 [facility] [id number] 07/22/2014 07/22/2014 [facility] [id number] 07/22/2014 07/22/2014 [facility] [id number] 07/22/2014 07/22/2014 [facility] [id number] 08/19/2014 08/19/2014 [facility] [id number] 08/19/2014 08/19/2014 [facility] [id number] 08/19/2014 08/19/2014 [facility] [id number] 08/19/2014 08/19/2014 [facility] [id number] 08/19/2014 08/19/2014 [facility] [id number] 08/19/2014 08/19/2014 [facility] [id number] 08/19/2014 08/19/2014 [facility] [id number] 08/19/2014 08/19/2014 [facility] [id number] 08/19/2014 08/19/2014 [facility] [id number] 08/19/2014 08/19/2014 [facility] [id number] 08/19/2014 08/19/2014 [facility] [id number] 08/19/2014 08/19/2014 [facility] [id number] 08/19/2014 08/19/2014 [facility] [id number] 08/19/2014 08/19/2014 [facility] [id number] 08/19/2014 08/19/2014 [facility] [id number] 08/19/2014 08/19/2014 [facility] [id number] 08/19/2014 08/19/2014 [facility] [id number] 08/19/2014 08/19/2014 [facility] [id number] 08/19/2014 08/19/2014 [facility] [id number] 08/19/2014 08/19/2014 [facility] [id number] 08/19/2014 08/19/2014 [facility] [id number] 08/19/2014 08/19/2014 [facility] [id number] 08/19/2014 08/19/2014 [facility] [facility] [place] [id number] 08/19/2014 08/19/2014 [facility] [place] [id number] 08/19/2014 08/19/2014 [facility] [place] [id number] 08/19/2014 08/19/2014 [facility] [place] [id number] 08/19/2014 08/19/2014 [facility] [place] [id number] 08/19/2014 08/19/2014 [facility] [place] [id number] 08/19/2014 08/19/2014 [facility] rash [id number] 08/24/2014 08/24/2014 [facility] rash [id number] 08/24/2014 08/24/2014 [facility] rash [id number] 08/24/2014 08/24/2014 [facility] rash [id number] 08/24/2014 08/24/2014 [facility] rash [id number] 08/24/2014 08/24/2014 [facility] rash [id number] 08/24/2014 08/24/2014 [facility] rash [id number] 08/24/2014 08/24/2014 [facility] rash [id number] 08/24/2014 08/24/2014 [facility] rash [id number] 08/24/2014 08/24/2014 [facility] rash [id number] 08/24/2014 08/24/2014 [facility] rash [id number] 08/24/2014 08/24/2014 [facility] rash [id number] 08/24/2014 08/24/2014 [facility] rash [id number] 08/24/2014 08/24/2014 [facility] rash [id number] 08/24/2014 08/24/2014 [facility] rash [id number] 08/24/2014 08/24/2014 [facility] rash [id number] 08/24/2014 08/24/2014 [facility] rash [id number] 08/24/2014 08/24/2014 [facility] rash [id number] 08/24/2014 08/24/2014 [facility] rash [id number] 08/24/2014 08/24/2014 [facility] rash [id number] 08/24/2014 08/24/2014 [facility] rash [id number] 08/24/2014 08/24/2014 [facility] rash [id number] 08/24/2014 08/24/2014 [facility] rash [id number] 08/24/2014 08/24/2014 [facility] rash [id number] 08/24/2014 08/24/2014 [facility] rash [id number] 08/24/2014 08/24/2014 [facility] rash [id number] 08/24/2014 08/24/2014 [facility] rash [id number] 08/24/2014 08/24/2014 [facility] rash [id number] 08/24/2014 08/24/2014 [facility] rash [id number] 08/24/2014 08/24/2014 [facility] [place] [place] [id number] 09/19/2014 09/19/2014 [facility] [place] [id number] 09/19/2014 09/19/2014 [facility] [place] [id number] 09/19/2014 09/19/2014 [facility] [place] [id number] 09/19/2014 09/19/2014 [facility] [place] [id number] 09/19/2014 09/19/2014 [facility] [place] [id number] 09/19/2014 09/19/2014 [facility] [place] [id number] 09/19/2014 09/19/2014 [facility] [place] [id number] 09/19/2014 09/19/2014 [facility] [place] [id number] 09/19/2014 09/19/2014 [facility] [place] [place] [id number] 09/19/2014 09/19/2014 [facility] [place] [id number] 09/19/2014 09/19/2014 [facility] [place] [id number] 09/19/2014 09/19/2014 [facility] [place] [id number] 09/19/2014 09/19/2014 [facility] [place] [place] [id number] 09/19/2014 09/19/2014 [facility] [place] [place] [id number] 09/19/2014 09/19/2014 [facility] [place] [id number] 09/19/2014 09/19/2014 [facility] [place] [place] [id number] 09/19/2014 09/19/2014 [facility] [place] [place] [id number] 09/19/2014 09/19/2014 [facility] [place] [place] [id number] 09/19/2014 09/19/2014 [facility] [place] [place] [id number] 09/19/2014 09/19/2014 [facility] [place] [place] [id number] 09/19/2014 09/19/2014 [facility] [place] [place] [id number] 09/19/2014 09/19/2014 [facility] [place] [place] [id number] 09/19/2014 09/19/2014 [facility] [place] [place] [id number] 09/19/2014 09/19/2014 [facility] [place] [place] [id number] 09/19/2014 09/19/2014 [facility] [place] [place] [id number] 09/19/2014 09/19/2014 [facility] [place] [place] [id number] 09/19/2014 09/19/2014 [facility] [place] [place] [id number] 09/19/2014 09/19/2014 [facility] [place] [place] [id number] 09/19/2014 09/19/2014 [facility] [place] [place] [id number] 09/26/2014 09/26/2014 [facility] [place] [place] [id number] 09/26/2014 09/26/2014 [facility] [place] [place] [id number] 09/26/2014 09/26/2014 [facility] [place] [place] [id number] 09/26/2014 09/26/2014 [facility] [place] [place] [id number] 09/26/2014 09/26/2014 [facility] [place] [place] [id number] 09/26/2014 09/26/2014 [facility] [place] [place] [id number] 09/26/2014 09/26/2014 [facility] [place] [place] [id number] 09/26/2014 09/26/2014 [facility] [place] [place] [id number] 09/26/2014 09/26/2014 [facility] [place] [place] [id number] 09/26/2014 09/26/2014 [facility] [place] [place] [id number] 09/26/2014 09/26/2014 [facility] [place] [place] [id number] 09/26/2014 09/26/2014 [facility] [place] [place] [id number] 09/26/2014 09/26/2014 [facility] [place] [place] [id number] 09/26/2014 09/26/2014 [facility] [place] [place] [id number] 09/26/2014 09/26/2014 [facility] [place] [place] [id number] 09/26/2014 09/26/2014 [facility] [place] [place] [id number] 09/26/2014 09/26/2014 [facility] [place] [place] [id number] 09/26/2014 09/26/2014 [facility] [place] [place] [id number] 09/26/2014 09/26/2014 [facility] [place] [place] [id number] 09/26/2014 09/26/2014 [facility] [place] [place] [id number] 09/26/2014 09/26/2014 [facility] [place] [place] [id number] 09/26/2014 09/26/2014 [facility] [place] [place] [id number] 09/26/2014 09/26/2014 [facility] [place] [id number] 09/26/2014 09/26/2014 [facility] [place] [place] [id number] 09/26/2014 09/26/2014 [facility] [place] [place] [id number] 09/26/2014 09/26/2014 [facility] [place] [place] [id number] 09/26/2014 09/26/2014 [facility] [place] [place] [id number] 09/26/2014 09/26/2014 [facility] [place] [place] [id number] 09/26/2014 09/26/2014 [facility] [place] [facility] [place] [id number] 10/05/2014 10/05/2014 [facility] [place] [id number] 10/05/2014 10/05/2014 [facility] [place] [facility] [place] [id number] 10/05/2014 10/05/2014 [facility] [place] [facility] [place] [id number] 10/05/2014 10/05/2014 [facility] [place] [facility] [place] [id number] 10/05/2014 10/05/2014 [facility] [place] [facility] [place] [id number] 10/05/2014 10/05/2014 [facility] [place] [facility] [place] [id number] 10/05/2014 10/05/2014 [facility] [place] [facility] [place] [id number] 10/05/2014 10/05/2014 [facility] [place] [facility] [place] [id number] 10/05/2014 10/05/2014 [facility] [place] [facility] [place] [id number] 10/05/2014 10/05/2014 [facility] [place] [facility] [place] [id number] 10/05/2014 10/05/2014 [facility] [place] [facility] [place] [id number] 10/05/2014 10/05/2014 [facility] [place] [facility] [place] [id number] 10/05/2014 10/05/2014 [facility] [place] [facility] [place] [id number] 10/05/2014 10/05/2014 [facility] [place] [facility] [place] [id number] 10/05/2014 10/05/2014 [facility] [place] [facility] [place] [id number] 10/05/2014 10/05/2014 [facility] [place] [facility] [place] [id number] 10/05/2014 10/05/2014 [facility] [place] [facility] [place] [id number] 10/05/2014 10/05/2014 [facility] [place] [facility] [id number] 10/05/2014 10/05/2014 [facility] [place] [facility] [id number] 10/05/2014 10/05/2014 [facility] [place] [facility] [id number] 10/05/2014 10/05/2014 [facility] [place] [facility] [id number] 10/05/2014 10/05/2014 [facility] [place] [facility] [place] [id number] 10/05/2014 10/05/2014 [facility] [place] [facility] [id number] 10/05/2014 10/05/2014 [facility] [place] [facility] [id number] 10/05/2014 10/05/2014 [facility] [place] [facility] [id number] 10/05/2014 10/05/2014 [facility] [id number] 10/05/2014 10/05/2014 [facility] [place] [facility] [id number] 10/05/2014 10/05/2014 [facility] [place] [facility] [place] [id number] 10/05/2014 10/05/2014 [facility] Refill [id number] 10/26/2014 10/26/2014 [facility] Refill [id number] 10/26/2014 10/26/2014 [facility] Refill [id number] 10/26/2014 10/26/2014 [facility] Refill [id number] 10/26/2014 10/26/2014 [facility] Refill [id number] 10/26/2014 10/26/2014 [facility] Refill [id number] 10/26/2014 10/26/2014 [facility] Refill [id number] 10/26/2014 10/26/2014 [facility] Refill [id number] 10/26/2014 10/26/2014 [facility] Refill [id number] 10/26/2014 10/26/2014 [facility] Refill [id number] 10/26/2014 10/26/2014 [facility] Refill [id number] 10/26/2014 10/26/2014 [facility] Refill [id number] 10/26/2014 10/26/2014 [facility] Refill [id number] 10/26/2014 10/26/2014 [facility] Refill [id number] 10/26/2014 10/26/2014 [facility] Refill [id number] 10/26/2014 10/26/2014 [facility] Refill [id number] 10/26/2014 10/26/2014 [facility] Refill [id number] 10/26/2014 10/26/2014 [facility] Refill [id number] 10/26/2014 10/26/2014 [facility] Refill [id number] 10/26/2014 10/26/2014 [facility] Refill [id number] 10/26/2014 10/26/2014 [facility] Refill [id number] 10/26/2014 10/26/2014 [facility] Refill [id number] 10/26/2014 10/26/2014 [facility] Refill [id number] 10/26/2014 10/26/2014 [facility] Refill [id number] 10/26/2014 10/26/2014 [facility] Refill [id number] 10/26/2014 10/26/2014 [facility] Refill [id number] 10/26/2014 10/26/2014 [facility] Refill [id number] 10/26/2014 10/26/2014 [facility] Refill [id number] 10/26/2014 10/26/2014 [facility] Refill [id number] 10/26/2014 10/26/2014 [facility] [place] [id number] 11/01/2014 11/01/2014 [facility] [place] IN[place] [id number] 11/01/2014 11/01/2014 [facility] [place] IN[place] [id number] 11/01/2014 11/01/2014 [facility] [place] [id number] 11/01/2014 11/01/2014 [facility] [place] [id number] 11/01/2014 11/01/2014 [facility] [place] [id number] 11/01/2014 11/01/2014 [facility] [place] [id number] 11/01/2014 11/01/2014 [facility] [place] [id number] 11/01/2014 11/01/2014 [facility] [place] [id number] 11/01/2014 11/01/2014 [facility] [place] [id number] 11/01/2014 11/01/2014 [facility] [place] [id number] 11/01/2014 11/01/2014 [facility] [place] [id number] 11/01/2014 11/01/2014 [facility] [place] [id number] 11/01/2014 11/01/2014 [facility] [place] [id number] 11/01/2014 11/01/2014 [facility] [place] [id number] 11/01/2014 11/01/2014 [facility] [place] [id number] 11/01/2014 11/01/2014 [facility] [place] [id number] 11/01/2014 11/01/2014 [facility] [place] [id number] 11/01/2014 11/01/2014 [facility] [place] [id number] 11/01/2014 11/01/2014 [facility] [place] [id number] 11/01/2014 11/01/2014 [facility] [place] [id number] 11/01/2014 11/01/2014 [facility] [place] [id number] 11/01/2014 11/01/2014 [facility] [place] [id number] 11/01/2014 11/01/2014 [facility] [place] [id number] 11/01/2014 11/01/2014 [facility] [place] [id number] 11/01/2014 11/01/2014 [facility] [place] [id number] 11/01/2014 11/01/2014 [facility] [place] [id number] 11/01/2014 11/01/2014 [facility] [place] IN[place] [id number] 11/01/2014 11/01/2014 [facility] [place] [id number] 11/01/2014 11/01/2014 [facility] PT INR [id number] 12/05/2014 12/05/2014 [facility] PT INR [id number] 12/05/2014 12/05/2014 [facility] PT INR [id number] 12/05/2014 12/05/2014 [facility] PT INR [id number] 12/05/2014 12/05/2014 [facility] PT INR [id number] 12/05/2014 12/05/2014 [facility] PT INR [id number] 12/05/2014 12/05/2014 [facility] PT INR [id number] 12/05/2014 12/05/2014 [facility] PT INR [id number] 12/05/2014 12/05/2014 [facility] PT INR [id number] 12/05/2014 12/05/2014 [facility] PT INR [id number] 12/05/2014 12/05/2014 [facility] PT INR [id number] 12/05/2014 12/05/2014 [facility] PT INR [id number] 12/05/2014 12/05/2014 [facility] PT INR [id number] 12/05/2014 12/05/2014 [facility] PT INR [id number] 12/05/2014 12/05/2014 [facility] PT INR [id number] 12/05/2014 12/05/2014 [facility] PT INR [id number] 12/05/2014 12/05/2014 [facility] PT INR [id number] 12/05/2014 12/05/2014 [facility] PT INR [id number] 12/05/2014 12/05/2014 [facility] PT INR [id number] 12/05/2014 12/05/2014 [facility] PT INR [id number] 12/05/2014 12/05/2014 [facility] PT INR [id number] 12/05/2014 12/05/2014 [facility] PT INR [id number] 12/05/2014 12/05/2014 [facility] PT INR [id number] 12/05/2014 12/05/2014 [facility] PT INR [id number] 12/05/2014 12/05/2014 [facility] PT INR [id number] 12/05/2014 12/05/2014 [facility] PT INR [id number] 12/05/2014 12/05/2014 [facility] PT INR [id number] 12/05/2014 12/05/2014 [facility] PT INR [id number] 12/05/2014 12/05/2014 [facility] PT INR [id number] 12/05/2014 12/05/2014 [facility] Rash [id number] 12/27/2014 12/27/2014 [facility] Rash [id number] 12/27/2014 12/27/2014 [facility] Rash [id number] 12/27/2014 12/27/2014 [facility] Rash [id number] 12/27/2014 12/27/2014 [facility] Rash [id number] 12/27/2014 12/27/2014 [facility] Rash [id number] 12/27/2014 12/27/2014 [facility] Rash [id number] 12/27/2014 12/27/2014 [facility] Rash [id number] 12/27/2014 12/27/2014 [facility] Rash [id number] 12/27/2014 12/27/2014 [facility] Rash [id number] 12/27/2014 12/27/2014 [facility] Rash [id number] 12/27/2014 12/27/2014 [facility] Rash [id number] 12/27/2014 12/27/2014 [facility] Rash [id number] 12/27/2014 12/27/2014 [facility] Rash [id number] 12/27/2014 12/27/2014 [facility] Rash [id number] 12/27/2014 12/27/2014 [facility] Rash [id number] 12/27/2014 12/27/2014 [facility] Rash [id number] 12/27/2014 12/27/2014 [facility] Rash [id number] 12/27/2014 12/27/2014 [facility] Rash [id number] 12/27/2014 12/27/2014 [facility] Rash [id number] 12/27/2014 12/27/2014 [facility] Rash [id number] 12/27/2014 12/27/2014 [facility] Rash [id number] 12/27/2014 12/27/2014 [facility] Rash [id number] 12/27/2014 12/27/2014 [facility] Rash [id number] 12/27/2014 12/27/2014 [facility] Rash [id number] 12/27/2014 12/27/2014 [facility] Rash [id number] 12/27/2014 12/27/2014 [facility] Rash [id number] 12/27/2014 12/27/2014 [facility] Rash [id number] 12/27/2014 12/27/2014 [facility] [place] [id number] 12/27/2014 12/27/2014 [facility] [place]/inr [id number] 01/04/2015 01/04/2015 [facility] [place]/inr [id number] 01/04/2015 01/04/2015 [facility] [place]/inr [id number] 01/04/2015 01/04/2015 [facility] [place]/inr [id number] 01/04/2015 01/04/2015 [facility] [place]/inr [id number] 01/04/2015 01/04/2015 [facility] [place]/inr [id number] 01/04/2015 01/04/2015 [facility] [place]/inr [id number] 01/04/2015 01/04/2015 [facility] [place]/inr [id number] 01/04/2015 01/04/2015 [facility] [place]/inr [id number] 01/04/2015 01/04/2015 [facility] [place]/inr [id number] 01/04/2015 01/04/2015 [facility] [place]/inr [id number] 01/04/2015 01/04/2015 [facility] [place]/inr [id number] 01/04/2015 01/04/2015 [facility] [place]/inr [id number] 01/04/2015 01/04/2015 [facility] [place]/inr [id number] 01/04/2015 01/04/2015 [facility] [place]/inr [id number] 01/04/2015 01/04/2015 [facility] [place]/inr [id number] 01/04/2015 01/04/2015 [facility] [place]/inr [id number] 01/04/2015 01/04/2015 [facility] [place]/inr [id number] 01/04/2015 01/04/2015 [facility] [place]/inr [id number] 01/04/2015 01/04/2015 [facility] [place]/inr [id number] 01/04/2015 01/04/2015 [facility] [place]/inr [id number] 01/04/2015 01/04/2015 [facility] [place]/inr [id number] 01/04/2015 01/04/2015 [facility] [place]/inr [id number] 01/04/2015 01/04/2015 [facility] [place]/inr [id number] 01/04/2015 01/04/2015 [facility] [place]/inr [id number] 01/04/2015 01/04/2015 [facility] [place]/inr [id number] 01/04/2015 01/04/2015 [facility] [place]/inr [id number] 01/04/2015 01/04/2015 [facility] [place]-pt/inr [id number] 01/04/2015 01/04/2015 [facility] [place]-pt/inr [id number] 01/04/2015 01/04/2015 [facility] Refill [id number] 01/16/2015 01/16/2015 [facility] Refill [id number] 01/16/2015 01/16/2015 [facility] Refill [id number] 01/16/2015 01/16/2015 [facility] Refill [id number] 01/16/2015 01/16/2015 [facility] Refill [id number] 01/16/2015 01/16/2015 [facility] [facility] [id number] 01/16/2015 01/16/2015 [facility] Refill [id number] 01/16/2015 01/16/2015 [facility] Refill [id number] 01/16/2015 01/16/2015 [facility] Refill [id number] 01/16/2015 01/16/2015 [facility] Refill [id number] 01/16/2015 01/16/2015 [facility] Refill [id number] 01/16/2015 01/16/2015 [facility] Refill [id number] 01/16/2015 01/16/2015 [facility] Refill [id number] 01/16/2015 01/16/2015 [facility] Refill [id number] 01/16/2015 01/16/2015 [facility] Refill [id number] 01/16/2015 01/16/2015 [facility] Refill [id number] 01/16/2015 01/16/2015 [facility] Refill [id number] 01/16/2015 01/16/2015 [facility] Refill [id number] 01/16/2015 01/16/2015 [facility] Refill [id number] 01/16/2015 01/16/2015 [facility] Refill [id number] 01/16/2015 01/16/2015 [facility] Refill [id number] 01/16/2015 01/16/2015 [facility] Refill [id number] 01/16/2015 01/16/2015 [facility] Refill [id number] 01/16/2015 01/16/2015 [facility] Refill [id number] 01/16/2015 01/16/2015 [facility] Refill [id number] 01/16/2015 01/16/2015 [facility] Refill [id number] 01/16/2015 01/16/2015 [facility] Refill [id number] 01/16/2015 01/16/2015 [facility] Refill [id number] 01/16/2015 01/16/2015 [facility] Refill [id number] 01/16/2015 01/16/2015 [facility] Needs call back from Medical Staff [id number] 01/24/2015 01/24/2015 [facility] Needs call back from Medical Staff [id number] 01/24/2015 01/24/2015 [facility] Needs call back from Medical Staff [id number] 01/24/2015 01/24/2015 [facility] Needs call back from Medical Staff [id number] 01/24/2015 01/24/2015 [facility] Needs call back from Medical Staff [id number] 01/24/2015 01/24/2015 [facility] Needs call back from Medical Staff [id number] 01/24/2015 01/24/2015 [facility] Needs call back from Medical Staff [id number] 01/24/2015 01/24/2015 [facility] Needs call back from Medical Staff [id number] 01/24/2015 01/24/2015 [facility] Needs call back from Medical Staff [id number] 01/24/2015 01/24/2015 [facility] Needs call back from Medical Staff [id number] 01/24/2015 01/24/2015 [facility] Needs call back from Medical Staff [id number] 01/24/2015 01/24/2015 [facility] Needs call back from Medical Staff [id number] 01/24/2015 01/24/2015 [facility] Needs call back from Medical Staff [id number] 01/24/2015 01/24/2015 [facility] Needs call back from Medical Staff [id number] 01/24/2015 01/24/2015 [facility] Needs call back from Medical Staff [id number] 01/24/2015 01/24/2015 [facility] Needs call back from Medical Staff [id number] 01/24/2015 01/24/2015 [facility] Needs call back from Medical Staff [id number] 01/24/2015 01/24/2015 [facility] Needs call back from Medical Staff [id number] 01/24/2015 01/24/2015 [facility] Needs call back from Medical Staff [id number] 01/24/2015 01/24/2015 [facility] Needs call back from Medical Staff [id number] 01/24/2015 01/24/2015 [facility] Needs call back from Medical Staff [id number] 01/24/2015 01/24/2015 [facility] Needs call back from Medical Staff [id number] 01/24/2015 01/24/2015 [facility] Needs call back from Medical Staff [id number] 01/24/2015 01/24/2015 [facility] Needs call back from Medical Staff [id number] 01/24/2015 01/24/2015 [facility] Needs call back from Medical Staff [id number] 01/24/2015 01/24/2015 [facility] Needs call back from Medical Staff [id number] 01/24/2015 01/24/2015 [facility] Needs call back from Medical Staff [id number] 01/24/2015 01/24/2015 [facility] Needs call back from Medical Staff [id number] 01/24/2015 01/24/2015 [facility] Needs call back from Medical Staff [id number] 01/24/2015 01/24/2015 [facility] physical exam [id number] 04/05/2015 04/05/2015 [facility] physical exam [id number] 04/05/2015 04/05/2015 [facility] physical exam [id number] 04/05/2015 04/05/2015 [facility] physical exam [id number] 04/05/2015 04/05/2015 [facility] physical exam [id number] 04/05/2015 04/05/2015 [facility] physical exam [id number] 04/05/2015 04/05/2015 [facility] physical exam [id number] 04/05/2015 04/05/2015 [facility] physical exam [id number] 04/05/2015 04/05/2015 [facility] physical exam [id number] 04/05/2015 04/05/2015 [facility] physical exam [id number] 04/05/2015 04/05/2015 [facility] physical exam [id number] 04/05/2015 04/05/2015 [facility] physical exam [id number] 04/05/2015 04/05/2015 [facility] physical exam [id number] 04/05/2015 04/05/2015 [facility] physical exam [id number] 04/05/2015 04/05/2015 [facility] physical exam [id number] 04/05/2015 04/05/2015 [facility] physical exam [id number] 04/05/2015 04/05/2015 [facility] physical exam [id number] 04/05/2015 04/05/2015 [facility] physical exam [id number] 04/05/2015 04/05/2015 [facility] physical exam [id number] 04/05/2015 04/05/2015 [facility] physical exam [id number] 04/05/2015 04/05/2015 [facility] physical exam [id number] 04/05/2015 04/05/2015 [facility] physical exam [id number] 04/05/2015 04/05/2015 [facility] physical exam [id number] 04/05/2015 04/05/2015 [facility] physical exam [id number] 04/05/2015 04/05/2015 [facility] physical exam [id number] 04/05/2015 04/05/2015 [facility] physical exam [id number] 04/05/2015 04/05/2015 [facility] physical exam [id number] 04/05/2015 04/05/2015 [facility] physical exam [id number] 04/05/2015 04/05/2015 [facility] physical exam [id number] 04/05/2015 04/05/2015 [facility] EYE [id number] 04/28/2015 04/28/2015 [facility] EYE [id number] 04/28/2015 04/28/2015 [facility] EYE [id number] 04/28/2015 04/28/2015 [facility] EYE [id number] 04/28/2015 04/28/2015 [facility] EYE [id number] 04/28/2015 04/28/2015 [facility] EYE [id number] 04/28/2015 04/28/2015 [facility] EYE [id number] 04/28/2015 04/28/2015 [facility] EYE [id number] 04/28/2015 04/28/2015 [facility] EYE [id number] 04/28/2015 04/28/2015 [facility] EYE [id number] 04/28/2015 04/28/2015 [facility] EYE [id number] 04/28/2015 04/28/2015 [facility] EYE [id number] 04/28/2015 04/28/2015 [facility] EYE [id number] 04/28/2015 04/28/2015 [facility]YE [id number] 04/28/2015 04/28/2015 [facility] EYE [id number] 04/28/2015 04/28/2015 [facility] EYE [id number] 04/28/2015 04/28/2015 [facility] [id number] 04/28/2015 04/28/2015 [facility] [id number] 04/28/2015 04/28/2015 [facility] [id number] 04/28/2015 04/28/2015 [facility] [id number] 04/28/2015 04/28/2015 [facility] [id number] 04/28/2015 04/28/2015 [facility] [id number] 04/28/2015 04/28/2015 [facility]YE [id number] 04/28/2015 04/28/2015 [facility] [id number] 04/28/2015 04/28/2015 [facility] [id number] 04/28/2015 04/28/2015 [facility] [id number] 04/28/2015 04/28/2015 [facility] [id number] 04/28/2015 04/28/2015 [facility] [id number] 04/28/2015 04/28/2015 [facility]YE [id number] 04/28/2015 04/28/2015 [facility] 1 week follow up [id number] 05/18/2015 05/18/2015 [facility] 1 week follow up [id number] 05/18/2015 05/18/2015 [facility] 1 week follow up [id number] 05/18/2015 05/18/2015 [facility] 1 week follow up [id number] 05/18/2015 05/18/2015 [facility] 1 week follow up [id number] 05/18/2015 05/18/2015 [facility] 1 week follow up [id number] 05/18/2015 05/18/2015 [facility] 1 week follow up [id number] 05/18/2015 05/18/2015 [facility] 1 week follow up [id number] 05/18/2015 05/18/2015 [facility] 1 week follow up [id number] 05/18/2015 05/18/2015 [facility] 1 week follow up [id number] 05/18/2015 05/18/2015 [facility] 1 week follow up [id number] 05/18/2015 05/18/2015 [facility] 1 week follow up [id number] 05/18/2015 05/18/2015 [facility] 1 week follow up [id number] 05/18/2015 05/18/2015 [facility] 1 week follow up [id number] 05/18/2015 05/18/2015 [facility] 1 week follow up [id number] 05/18/2015 05/18/2015 [facility] 1 week follow up [id number] 05/18/2015 05/18/2015 [facility] 1 week follow up [id number] 05/18/2015 05/18/2015 [facility] 1 week follow up [id number] 05/18/2015 05/18/2015 [facility] 1 week follow up [id number] 05/18/2015 05/18/2015 [facility] 1 week follow up [id number] 05/18/2015 05/18/2015 [facility] 1 week follow up [id number] 05/18/2015 05/18/2015 [facility] [facility] 1 week follow up [id number] 05/18/2015 05/18/2015 [facility] 1 week follow up [id number] 05/18/2015 05/18/2015 [facility] 1 week follow up [id number] 05/18/2015 05/18/2015 [facility] 1 week follow up [id number] 05/18/2015 05/18/2015 [facility] 1 week follow up [id number] 05/18/2015 05/18/2015 [facility] 1 week follow up [id number] 05/18/2015 05/18/2015 [facility] 1 week follow up [id number] 05/18/2015 05/18/2015 [facility] 1 week follow up [id number] 05/18/2015 05/18/2015 [facility] [place]ZZ[place]-pt/inr [id number] 05/25/2015 05/25/2015 [facility] [place]-pt/inr [id number] 05/25/2015 05/25/2015 [facility] [place]-pt/inr [id number] 05/25/2015 05/25/2015 [facility] [place]/inr [id number] 05/25/2015 05/25/2015 [facility] [place]-pt/inr [id number] 05/25/2015 05/25/2015 [facility] [place]-pt/inr [id number] 05/25/2015 05/25/2015 [facility] [place]-pt/inr [id number] 05/25/2015 05/25/2015 [facility] [place]-pt/inr [id number] 05/25/2015 05/25/2015 [facility] [place]-pt/inr [id number] 05/25/2015 05/25/2015 [facility] [place]-pt/inr [id number] 05/25/2015 05/25/2015 [facility] [place]-pt/inr [id number] 05/25/2015 05/25/2015 [facility] [place]/inr [id number] 05/25/2015 05/25/2015 [facility] [place]-pt/inr [id number] 05/25/2015 05/25/2015 [facility] [place]-pt/inr [id number] 05/25/2015 05/25/2015 [facility] [place]-pt/inr [id number] 05/25/2015 05/25/2015 [facility] [place]-pt/inr [id number] 05/25/2015 05/25/2015 [facility] [place]-pt/inr [id number] 05/25/2015 05/25/2015 [facility] [place]-pt/inr [id number] 05/25/2015 05/25/2015 [facility] [place]-pt/inr [id number] 05/25/2015 05/25/2015 [facility] [place]-pt/inr [id number] 05/25/2015 05/25/2015 [facility] [place]-pt/inr [id number] 05/25/2015 05/25/2015 [facility] [place]-pt/inr [id number] 05/25/2015 05/25/2015 [facility] [place]-pt/inr [id number] 05/25/2015 05/25/2015 [facility] [place]-pt/inr [id number] 05/25/2015 05/25/2015 [facility] [place]-pt/inr [id number] 05/25/2015 05/25/2015 [facility] [place]-pt/inr [id number] 05/25/2015 05/25/2015 [facility] [place]-pt/inr [id number] 05/25/2015 05/25/2015 [facility] [place]-pt/inr [id number] 05/25/2015 05/25/2015 [facility] [place]-pt/inr [id number] 05/25/2015 05/25/2015 [facility] echo/jazzmine [id number] 06/02/2015 06/02/2015 [facility] echo/jazzmine [id number] 06/02/2015 06/02/2015 [facility] echo/jazzmine [id number] 06/02/2015 06/02/2015 [facility] echo/jazzmine [id number] 06/02/2015 06/02/2015 [facility] echo/jazzmine [id number] 06/02/2015 06/02/2015 [facility] echo/jazzmine [id number] 06/02/2015 06/02/2015 [facility] echo/jazzmine [id number] 06/02/2015 06/02/2015 [facility] echo/jazzmine [id number] 06/02/2015 06/02/2015 [facility] echo/jazzmine [id number] 06/02/2015 06/02/2015 [facility] echo/jazzmine [id number] 06/02/2015 06/02/2015 [facility] echo/jazzmine [id number] 06/02/2015 06/02/2015 [facility] echo/jazzmine [id number] 06/02/2015 06/02/2015 [facility] echo/jazzmine [id number] 06/02/2015 06/02/2015 [facility] echo/jazzmine [id number] 06/02/2015 06/02/2015 [facility] echo/jazzmine [id number] 06/02/2015 06/02/2015 [facility] echo/jazzmine [id number] 06/02/2015 06/02/2015 [facility] echo/jazzmine [id number] 06/02/2015 06/02/2015 [facility] echo/jazzmine [id number] 06/02/2015 06/02/2015 [facility] echo/jazzmine [id number] 06/02/2015 06/02/2015 [facility] echo/jazzmine [id number] 06/02/2015 06/02/2015 [facility] echo/jazzmine [id number] 06/02/2015 06/02/2015 [facility] echo/jazzmine [id number] 06/02/2015 06/02/2015 [facility] echo/jazzmine [id number] 06/02/2015 06/02/2015 [facility] echo/jazzmine [id number] 06/02/2015 06/02/2015 [facility] echo/jazzmine [id number] 06/02/2015 06/02/2015 [facility] echo/jazzmine [id number] 06/02/2015 06/02/2015 [facility] echo/jazzmine [id number] 06/02/2015 06/02/2015 [facility] echo/jazzmine [id number] 06/02/2015 06/02/2015 [facility] echo/jazzmine [id number] 06/02/2015 06/02/2015 [facility] Unknown [id number] 06/26/2015 06/26/2015 [facility] Unknown [id number] 06/26/2015 06/26/2015 [facility] Unknown [id number] 06/26/2015 06/26/2015 [facility] Unknown [id number] 06/26/2015 06/26/2015 [facility] Unknown [id number] 06/26/2015 06/26/2015 [facility] Unknown [id number] 06/26/2015 06/26/2015 [facility] Unknown [id number] 06/26/2015 06/26/2015 [facility] Unknown [id number] 06/26/2015 06/26/2015 [facility] Unknown [id number] 06/26/2015 06/26/2015 [facility] Unknown [id number] 06/26/2015 06/26/2015 [facility] Unknown [id number] 06/26/2015 06/26/2015 [facility] Unknown [id number] 06/26/2015 06/26/2015 [facility] Unknown [id number] 06/26/2015 06/26/2015 [facility] Unknown [id number] 06/26/2015 06/26/2015 [facility] Unknown [id number] 06/26/2015 06/26/2015 [facility] Unknown [id number] 06/26/2015 06/26/2015 [facility] Unknown [id number] 06/26/2015 06/26/2015 [facility] Unknown [id number] 06/26/2015 06/26/2015 [facility] Unknown [id number] 06/26/2015 06/26/2015 [facility] Unknown [id number] 06/26/2015 06/26/2015 [facility] Unknown [id number] 06/26/2015 06/26/2015 [facility] Unknown [id number] 06/26/2015 06/26/2015 [facility] Unknown [id number] 06/26/2015 06/26/2015 [facility] Unknown [id number] 06/26/2015 06/26/2015 [facility] Unknown [id number] 06/26/2015 06/26/2015 [facility] Unknown [id number] 06/26/2015 06/26/2015 [facility] Unknown [id number] 06/26/2015 06/26/2015 [facility] Unknown [id number] 06/26/2015 06/26/2015 [facility] Unknown [id number] 06/26/2015 06/26/2015 [facility] Unknown [id number] 07/02/2015 07/02/2015 [facility] Unknown [id number] 07/02/2015 07/02/2015 [facility] Unknown [id number] 07/02/2015 07/02/2015 [facility] Unknown [id number] 07/02/2015 07/02/2015 [facility] Unknown [id number] 07/02/2015 07/02/2015 [facility] Unknown [id number] 07/02/2015 07/02/2015 [facility] Unknown [id number] 07/02/2015 07/02/2015 [facility] Unknown [id number] 07/02/2015 07/02/2015 [facility] Unknown [id number] 07/02/2015 07/02/2015 [facility] Unknown [id number] 07/02/2015 07/02/2015 [facility] Unknown [id number] 07/02/2015 07/02/2015 [facility] Unknown [id number] 07/02/2015 07/02/2015 [facility] Unknown [id number] 07/02/2015 07/02/2015 [facility] Unknown [id number] 07/02/2015 07/02/2015 [facility] Unknown [id number] 07/02/2015 07/02/2015 [facility] Unknown [id number] 07/02/2015 07/02/2015 [facility] Unknown [id number] 07/02/2015 07/02/2015 [facility] Unknown [id number] 07/02/2015 07/02/2015 [facility] Unknown [id number] 07/02/2015 07/02/2015 [facility] Unknown [id number] 07/02/2015 07/02/2015 [facility] Unknown [id number] 07/02/2015 07/02/2015 [facility] Unknown [id number] 07/02/2015 07/02/2015 [facility] Unknown [id number] 07/02/2015 07/02/2015 [facility] Unknown [id number] 07/02/2015 07/02/2015 [facility] Unknown [id number] 07/02/2015 07/02/2015 [facility] Unknown [id number] 07/02/2015 07/02/2015 [facility] Unknown [id number] 07/02/2015 07/02/2015 [facility] Unknown [id number] 07/02/2015 07/02/2015 [facility] Unknown [id number] 07/02/2015 07/02/2015 [facility] FOLLOW UP [id number] 07/03/2015 07/03/2015 [facility] FOLLOW UP [id number] 07/03/2015 07/03/2015 [facility] FOLLOW UP [id number] 07/03/2015 07/03/2015 [facility] FOLLOW UP [id number] 07/03/2015 07/03/2015 [facility] FOLLOW UP [id number] 07/03/2015 07/03/2015 [facility] FOLLOW UP [id number] 07/03/2015 07/03/2015 [facility] FOLLOW UP [id number] 07/03/2015 07/03/2015 [facility] FOLLOW UP [id number] 07/03/2015 07/03/2015 [facility] FOLLOW UP [id number] 07/03/2015 07/03/2015 [facility] FOLLOW UP [id number] 07/03/2015 07/03/2015 [facility] FOLLOW UP [id number] 07/03/2015 07/03/2015 [facility] FOLLOW UP [id number] 07/03/2015 07/03/2015 [facility] FOLLOW UP [id number] 07/03/2015 07/03/2015 [facility] [facility] FOLLOW UP [id number] 07/03/2015 07/03/2015 [facility] FOLLOW UP [id number] 07/03/2015 07/03/2015 [facility] FOLLOW UP [id number] 07/03/2015 07/03/2015 [facility] FOLLOW UP [id number] 07/03/2015 07/03/2015 [facility] FOLLOW UP [id number] 07/03/2015 07/03/2015 [facility] FOLLOW UP [id number] 07/03/2015 07/03/2015 [facility] FOLLOW UP [id number] 07/03/2015 07/03/2015 [facility] FOLLOW UP [id number] 07/03/2015 07/03/2015 [facility] FOLLOW UP [id number] 07/03/2015 07/03/2015 [facility] FOLLOW UP [id number] 07/03/2015 07/03/2015 [facility] FOLLOW UP [id number] 07/03/2015 07/03/2015 [facility] FOLLOW UP [id number] 07/03/2015 07/03/2015 [facility] FOLLOW UP [id number] 07/03/2015 07/03/2015 [facility] FOLLOW UP [id number] 07/03/2015 07/03/2015 [facility] FOLLOW UP [id number] 07/03/2015 07/03/2015 [facility] FOLLOW UP [id number] 07/03/2015 07/03/2015 [facility] PT INR/ BP [id number] 07/31/2015 07/31/2015 [facility] PT INR/ BP [id number] 07/31/2015 07/31/2015 [facility] PT INR/ BP [id number] 07/31/2015 07/31/2015 [facility] PT INR/ BP [id number] 07/31/2015 07/31/2015 [facility] PT INR/ BP [id number] 07/31/2015 07/31/2015 [facility] PT INR/ BP [id number] 07/31/2015 07/31/2015 [facility] PT INR/ BP [id number] 07/31/2015 07/31/2015 [facility] PT INR/ BP [id number] 07/31/2015 07/31/2015 [facility] PT INR/ BP [id number] 07/31/2015 07/31/2015 [facility] PT INR/ BP [id number] 07/31/2015 07/31/2015 [facility] PT INR/ BP [id number] 07/31/2015 07/31/2015 [facility] PT INR/ BP [id number] 07/31/2015 07/31/2015 [facility] PT INR/ BP [id number] 07/31/2015 07/31/2015 [facility] PT INR/ BP [id number] 07/31/2015 07/31/2015 [facility] PT INR/ BP [id number] 07/31/2015 07/31/2015 [facility] PT INR/ BP [id number] 07/31/2015 07/31/2015 [facility] PT INR/ BP [id number] 07/31/2015 07/31/2015 [facility] PT INR/ BP [id number] 07/31/2015 07/31/2015 [facility] PT INR/ BP [id number] 07/31/2015 07/31/2015 [facility] PT INR/ BP [id number] 07/31/2015 07/31/2015 [facility] PT INR/ BP [id number] 07/31/2015 07/31/2015 [facility] PT INR/ BP [id number] 07/31/2015 07/31/2015 [facility] PT INR/ BP [id number] 07/31/2015 07/31/2015 [facility] PT INR/ BP [id number] 07/31/2015 07/31/2015 [facility] PT INR/ BP [id number] 07/31/2015 07/31/2015 [facility] PT INR/ BP [id number] 07/31/2015 07/31/2015 [facility] PT INR/ BP [id number] 07/31/2015 07/31/2015 [facility] 2 week follow up [id number] 08/17/2015 08/17/2015 [facility] 2 week follow up [id number] 08/17/2015 08/17/2015 [facility] 2 week follow up [id number] 08/17/2015 08/17/2015 [facility] 2 week follow up [id number] 08/17/2015 08/17/2015 [facility] 2 week follow up [id number] 08/17/2015 08/17/2015 [facility] 2 week follow up [id number] 08/17/2015 08/17/2015 [facility] 2 week follow up [id number] 08/17/2015 08/17/2015 [facility] 2 week follow up [id number] 08/17/2015 08/17/2015 [facility] 2 week follow up [id number] 08/17/2015 08/17/2015 [facility] 2 week follow up [id number] 08/17/2015 08/17/2015 [facility] 2 week follow up [id number] 08/17/2015 08/17/2015 [facility] 2 week follow up [id number] 08/17/2015 08/17/2015 [facility] 2 week follow up [id number] 08/17/2015 08/17/2015 [facility] 2 week follow up [id number] 08/17/2015 08/17/2015 [facility] 2 week follow up [id number] 08/17/2015 08/17/2015 [facility] 2 week follow up [id number] 08/17/2015 08/17/2015 [facility] 2 week follow up [id number] 08/17/2015 08/17/2015 [facility] 2 week follow up [id number] 08/17/2015 08/17/2015 [facility] 2 week follow up [id number] 08/17/2015 08/17/2015 [facility] 2 week follow up [id number] 08/17/2015 08/17/2015 [facility] 2 week follow up [id number] 08/17/2015 08/17/2015 [facility] 2 week follow up [id number] 08/17/2015 08/17/2015 [facility] 2 week follow up [id number] 08/17/2015 08/17/2015 [facility] 2 week follow up [id number] 08/17/2015 08/17/2015 [facility] 2 week follow up [id number] 08/17/2015 08/17/2015 [facility] 2 week follow up [id number] 08/17/2015 08/17/2015 [facility] Refill [id number] 08/29/2015 08/29/2015 [facility] Refill [id number] 08/29/2015 08/29/2015 [facility] Refill [id number] 08/29/2015 08/29/2015 [facility] Refill [id number] 08/29/2015 08/29/2015 [facility] Refill [id number] 08/29/2015 08/29/2015 [facility] Refill [id number] 08/29/2015 08/29/2015 [facility] Refill [id number] 08/29/2015 08/29/2015 [facility] Refill [id number] 08/29/2015 08/29/2015 [facility] Refill [id number] 08/29/2015 08/29/2015 [facility] Refill [id number] 08/29/2015 08/29/2015 [facility] Refill [id number] 08/29/2015 08/29/2015 [facility] Refill [id number] 08/29/2015 08/29/2015 [facility] Refill [id number] 08/29/2015 08/29/2015 [facility] Refill [id number] 08/29/2015 08/29/2015 [facility] Refill [id number] 08/29/2015 08/29/2015 [facility] Refill [id number] 08/29/2015 08/29/2015 [facility] Refill [id number] 08/29/2015 08/29/2015 [facility] Refill [id number] 08/29/2015 08/29/2015 [facility] Refill [id number] 08/29/2015 08/29/2015 [facility] Refill [id number] 08/29/2015 08/29/2015 [facility] Refill [id number] 08/29/2015 08/29/2015 [facility] Refill [id number] 08/29/2015 08/29/2015 [facility] Refill [id number] 08/29/2015 08/29/2015 [facility] Refill [id number] 08/29/2015 08/29/2015 [facility] Refill [id number] 08/29/2015 08/29/2015 [facility] RF [id number] 09/18/2015 09/18/2015 [facility] RF [id number] 09/18/2015 09/18/2015 [facility] RF [id number] 09/18/2015 09/18/2015 [facility] RF [id number] 09/18/2015 09/18/2015 [facility] RF [id number] 09/18/2015 09/18/2015 [facility] RF [id number] 09/18/2015 09/18/2015 [facility] RF [id number] 09/18/2015 09/18/2015 [facility] RF [id number] 09/18/2015 09/18/2015 [facility] RF [id number] 09/18/2015 09/18/2015 [facility] RF [id number] 09/18/2015 09/18/2015 [facility] RF [id number] 09/18/2015 09/18/2015 [facility] RF [id number] 09/18/2015 09/18/2015 [facility] RF [id number] 09/18/2015 09/18/2015 [facility] RF [id number] 09/18/2015 09/18/2015 [facility] RF [id number] 09/18/2015 09/18/2015 [facility] RF [id number] 09/18/2015 09/18/2015 [facility] RF [id number] 09/18/2015 09/18/2015 [facility] RF [id number] 09/18/2015 09/18/2015 [facility] RF [id number] 09/18/2015 09/18/2015 [facility] RF [id number] 09/18/2015 09/18/2015 [facility] RF [id number] 09/18/2015 09/18/2015 [facility] RF [id number] 09/18/2015 09/18/2015 [facility] RF [id number] 09/18/2015 09/18/2015 [facility] RF [id number] 09/18/2015 09/18/2015 [facility] Eliseo [id number] 09/21/2015 09/21/2015 [facility] Dizzy [id number] 09/21/2015 09/21/2015 [facility] Dizzy [id number] 09/21/2015 09/21/2015 [facility] Dizzy [id number] 09/21/2015 09/21/2015 [facility] Dizzy [id number] 09/21/2015 09/21/2015 [facility] Dizzy [id number] 09/21/2015 09/21/2015 [facility] Dizzy [id number] 09/21/2015 09/21/2015 [facility] Dizzy [id number] 09/21/2015 09/21/2015 [facility] Dizzy [id number] 09/21/2015 09/21/2015 [facility] Dizzy [id number] 09/21/2015 09/21/2015 [facility]zy [id number] 09/21/2015 09/21/2015 [facility] Dizzy [id number] 09/21/2015 09/21/2015 [facility] Dizzy [id number] 09/21/2015 09/21/2015 [facility] [id number] 09/21/2015 09/21/2015 [facility] Dizzy [id number] 09/21/2015 09/21/2015 [facility] [facility] [id number] 09/21/2015 09/21/2015 [facility] [id number] 09/21/2015 09/21/2015 [facility] [id number] 09/21/2015 09/21/2015 [facility] [id number] 09/21/2015 09/21/2015 [facility] [id number] 09/21/2015 09/21/2015 [facility] [id number] 09/21/2015 09/21/2015 [facility] [id number] 09/21/2015 09/21/2015 [facility] Becky [id number] 09/21/2015 09/21/2015 [facility] Unknown [id number] 09/22/2015 09/22/2015 [facility] Unknown [id number] 09/22/2015 09/22/2015 [facility] Unknown [id number] 09/22/2015 09/22/2015 [facility] Unknown [id number] 09/22/2015 09/22/2015 [facility] Unknown [id number] 09/22/2015 09/22/2015 [facility] Unknown [id number] 09/22/2015 09/22/2015 [facility] Unknown [id number] 09/22/2015 09/22/2015 [facility] Unknown [id number] 09/22/2015 09/22/2015 [facility] Unknown [id number] 09/22/2015 09/22/2015 [facility] Unknown [id number] 09/22/2015 09/22/2015 [facility] Unknown [id number] 09/22/2015 09/22/2015 [facility] Unknown [id number] 09/22/2015 09/22/2015 [facility] Unknown [id number] 09/22/2015 09/22/2015 [facility] Unknown [id number] 09/22/2015 09/22/2015 [facility] Unknown [id number] 09/22/2015 09/22/2015 [facility] Unknown [id number] 09/22/2015 09/22/2015 [facility] Unknown [id number] 09/22/2015 09/22/2015 [facility] Unknown [id number] 09/22/2015 09/22/2015 [facility] Unknown [id number] 09/22/2015 09/22/2015 [facility] Unknown [id number] 09/22/2015 09/22/2015 [facility] Unknown [id number] 09/22/2015 09/22/2015 [facility] Unknown [id number] 09/22/2015 09/22/2015 [facility] Unknown [id number] 11/02/2015 11/02/2015 [facility] Unknown [id number] 11/02/2015 11/02/2015 [facility] Unknown [id number] 11/02/2015 11/02/2015 [facility] Unknown [id number] 11/02/2015 11/02/2015 [facility] Unknown [id number] 11/02/2015 11/02/2015 [facility] Unknown [id number] 11/02/2015 11/02/2015 [facility] Unknown [id number] 11/02/2015 11/02/2015 [facility] Unknown [id number] 11/02/2015 11/02/2015 [facility] Unknown [id number] 11/02/2015 11/02/2015 [facility] Unknown [id number] 11/02/2015 11/02/2015 [facility] Unknown [id number] 11/02/2015 11/02/2015 [facility] Unknown [id number] 11/02/2015 11/02/2015 [facility] Unknown [id number] 11/02/2015 11/02/2015 [facility] Unknown [id number] 11/02/2015 11/02/2015 [facility] Unknown [id number] 11/02/2015 11/02/2015 [facility] Unknown [id number] 11/02/2015 11/02/2015 [facility] Unknown [id number] 11/02/2015 11/02/2015 [facility] Unknown [id number] 11/02/2015 11/02/2015 [facility] Unknown [id number] 11/02/2015 11/02/2015 [facility] Unknown [id number] 11/02/2015 11/02/2015 [facility] Unknown [id number] 11/02/2015 11/02/2015 [facility] Refill [id number] 11/16/2015 11/16/2015 [facility] Refill [id number] 11/16/2015 11/16/2015 [facility] Refill [id number] 11/16/2015 11/16/2015 [facility] Refill [id number] 11/16/2015 11/16/2015 [facility] Refill [id number] 11/16/2015 11/16/2015 [facility] Refill [id number] 11/16/2015 11/16/2015 [facility] Refill [id number] 11/16/2015 11/16/2015 [facility] Refill [id number] 11/16/2015 11/16/2015 [facility] Refill [id number] 11/16/2015 11/16/2015 [facility] Refill [id number] 11/16/2015 11/16/2015 [facility] 2 MONTH FOLLOW UP [id number] 11/16/2015 11/16/2015 [facility] 2 MONTH FOLLOW UP [id number] 11/16/2015 11/16/2015 [facility] 2 MONTH FOLLOW UP [id number] 11/16/2015 11/16/2015 [facility] 2 MONTH FOLLOW UP [id number] 11/16/2015 11/16/2015 [facility] 2 MONTH FOLLOW UP [id number] 11/16/2015 11/16/2015 [facility] 2 MONTH FOLLOW UP [id number] 11/16/2015 11/16/2015 [facility] 2 MONTH FOLLOW UP [id number] 11/16/2015 11/16/2015 [facility] 2 MONTH FOLLOW UP [id number] 11/16/2015 11/16/2015 [facility] 2 MONTH FOLLOW UP [id number] 11/16/2015 11/16/2015 [facility] Refill [id number] 11/16/2015 11/16/2015 [facility] Refill [id number] 11/16/2015 11/16/2015 [facility] Refill [id number] 11/16/2015 11/16/2015 [facility] Refill [id number] 11/16/2015 11/16/2015 [facility] Refill [id number] 11/16/2015 11/16/2015 [facility] Refill [id number] 11/16/2015 11/16/2015 [facility] Refill [id number] 11/16/2015 11/16/2015 [facility] Refill [id number] 11/16/2015 11/16/2015 [facility] Refill [id number] 11/16/2015 11/16/2015 [facility] Refill [id number] 11/16/2015 11/16/2015 [facility] 2 MONTH FOLLOW UP [id number] 11/16/2015 11/16/2015 [facility] 2 MONTH FOLLOW UP [id number] 11/16/2015 11/16/2015 [facility] 2 MONTH FOLLOW UP [id number] 11/16/2015 11/16/2015 [facility] 2 MONTH FOLLOW UP [id number] 11/16/2015 11/16/2015 [facility] 2 MONTH FOLLOW UP [id number] 11/16/2015 11/16/2015 [facility] 2 MONTH FOLLOW UP [id number] 11/16/2015 11/16/2015 [facility] 2 MONTH FOLLOW UP [id number] 11/16/2015 11/16/2015 [facility] 2 MONTH FOLLOW UP [id number] 11/16/2015 11/16/2015 [facility] 2 MONTH FOLLOW UP [id number] 11/16/2015 11/16/2015 [facility] 2 MONTH FOLLOW UP [id number] 11/16/2015 11/16/2015 [facility] [place]-PT/INR . [id number] 12/19/2015 12/19/2015 [facility] [place]-PT/INR . [id number] 12/19/2015 12/19/2015 [facility] [place]-PT/INR . [id number] 12/19/2015 12/19/2015 [facility] [place]-PT/INR . [id number] 12/19/2015 12/19/2015 [facility] [place]-PT/INR . [id number] 12/19/2015 12/19/2015 [facility] [place]/INR . [id number] 12/19/2015 12/19/2015 [facility] [place]/INR . [id number] 12/19/2015 12/19/2015 [facility] [place]/INR . [id number] 12/19/2015 12/19/2015 [facility] [place]/INR . [id number] 12/19/2015 12/19/2015 [facility] [place]/INR . [id number] 12/19/2015 12/19/2015 [facility] [place]/INR . [id number] 12/19/2015 12/19/2015 [facility] [place]/INR . [id number] 12/19/2015 12/19/2015 [facility] [place]/INR . [id number] 12/19/2015 12/19/2015 [facility] [place]/INR . [id number] 12/19/2015 12/19/2015 [facility] [place]/INR . [id number] 12/19/2015 12/19/2015 [facility] [place]/INR . [id number] 12/19/2015 12/19/2015 [facility] [place]/INR . [id number] 12/19/2015 12/19/2015 [facility] [place]/INR . [id number] 12/19/2015 12/19/2015 [facility] [place]/INR . [id number] 01/18/2016 01/18/2016 [facility] [place]/INR . [id number] 01/18/2016 01/18/2016 [facility] [place]/INR . [id number] 01/18/2016 01/18/2016 [facility] [place]/INR . [id number] 01/18/2016 01/18/2016 [facility] [place]/INR . [id number] 01/18/2016 01/18/2016 [facility] [place]/INR . [id number] 01/18/2016 01/18/2016 [facility] [place]/INR . [id number] 01/18/2016 01/18/2016 [facility] [place]/INR . [id number] 01/18/2016 01/18/2016 [facility] [place]/INR . [id number] 01/18/2016 01/18/2016 [facility] [place]/INR . [id number] 01/18/2016 01/18/2016 [facility] [place]/INR . [id number] 01/18/2016 01/18/2016 [facility] [place]/INR . [id number] 01/18/2016 01/18/2016 [facility] [place]/INR . [id number] 01/18/2016 01/18/2016 [facility] [place] . [id number] 01/18/2016 01/18/2016 [facility] [place]/INR . [id number] 01/18/2016 01/18/2016 [facility] [place]INR . [id number] 01/18/2016 01/18/2016 [facility] [place]/INR . [id number] 01/18/2016 01/18/2016 [facility] [place]/INR . [id number] 02/15/2016 02/15/2016 [facility] [place]/INR . [id number] 02/15/2016 02/15/2016 [facility] [place]/INR . [id number] 02/15/2016 02/15/2016 [facility] [place]/INR . [id number] 02/15/2016 02/15/2016 [facility] [place]/INR . [id number] 02/15/2016 02/15/2016 [facility] [place]/INR . [id number] 02/15/2016 02/15/2016 [facility] [place]INR . [id number] 02/15/2016 02/15/2016 [facility] [facility] [place]-PT/INR . [id number] 02/15/2016 02/15/2016 [facility] [place]/INR . [id number] 02/15/2016 02/15/2016 [facility] [place]/INR . [id number] 02/15/2016 02/15/2016 [facility] [place] . [id number] 02/15/2016 02/15/2016 [facility] [place]PT/INR . [id number] 02/15/2016 02/15/2016 [facility] [place]PT/INR . [id number] 02/15/2016 02/15/2016 [facility] [place]PT/INR . [id number] 02/15/2016 02/15/2016 [facility] [place]PT/INR . [id number] 02/15/2016 02/15/2016 [facility] [place]PT/INR . [id number] 02/15/2016 02/15/2016 [facility] RT LEG [id number] 03/18/2016 03/18/2016 [facility] RT LEG [id number] 03/18/2016 03/18/2016 [facility] RT LEG [id number] 03/18/2016 03/18/2016 [facility] RT LEG [id number] 03/18/2016 03/18/2016 [facility] RT LEG [id number] 03/18/2016 03/18/2016 [facility] RT LEG [id number] 03/18/2016 03/18/2016 [facility] RT LEG [id number] 03/18/2016 03/18/2016 [facility] RT LEG [id number] 03/18/2016 03/18/2016 [facility] RT LEG [id number] 03/18/2016 03/18/2016 [facility] RT LEG [id number] 03/18/2016 03/18/2016 [facility] RT LEG [id number] 03/18/2016 03/18/2016 [facility] RT LEG [id number] 03/18/2016 03/18/2016 [facility] RT LEG [id number] 03/18/2016 03/18/2016 [facility] RT LEG [id number] 03/18/2016 03/18/2016 [facility] RT LEG [id number] 03/18/2016 03/18/2016 [facility] Consultation [id number] 03/20/2016 03/20/2016 [facility] Consultation [id number] 03/20/2016 03/20/2016 [facility] Consultation [id number] 03/20/2016 03/20/2016 [facility] Consultation [id number] 03/20/2016 03/20/2016 [facility] Consultation [id number] 03/20/2016 03/20/2016 [facility] Consultation [id number] 03/20/2016 03/20/2016 [facility] Consultation [id number] 03/20/2016 03/20/2016 [facility] Consultation [id number] 03/20/2016 03/20/2016 [facility] Consultation [id number] 03/20/2016 03/20/2016 [facility] Consultation [id number] 03/20/2016 03/20/2016 [facility] Consultation [id number] 03/20/2016 03/20/2016 [facility] Consultation [id number] 03/20/2016 03/20/2016 [facility] Consultation [id number] 03/20/2016 03/20/2016 [facility] Consultation [id number] 03/20/2016 03/20/2016 [facility] Consultation [id number] 03/20/2016 03/20/2016 [facility] [place]/INR [id number] 04/02/2016 04/02/2016 [facility] [place]-PT/INR [id number] 04/02/2016 04/02/2016 [facility] [place]-PT/INR [id number] 04/02/2016 04/02/2016 [facility] [place]-PT/INR [id number] 04/02/2016 04/02/2016 [facility] [place]-PT/INR [id number] 04/02/2016 04/02/2016 [facility] [place]-PT/INR [id number] 04/02/2016 04/02/2016 [facility] [place]-PT/INR [id number] 04/02/2016 04/02/2016 [facility] [place]-PT/INR [id number] 04/02/2016 04/02/2016 [facility] [place]-PT/INR [id number] 04/02/2016 04/02/2016 [facility] [place]-PT/INR [id number] 04/02/2016 04/02/2016 [facility] [place]-PT/INR [id number] 04/02/2016 04/02/2016 [facility] [place]-PT/INR [id number] 04/02/2016 04/02/2016 [facility] [place]-PT/INR [id number] 04/02/2016 04/02/2016 [facility] [place]-PT/INR [id number] 04/18/2016 04/18/2016 [facility] [place]-PT/INR [id number] 04/18/2016 04/18/2016 [facility] [place]-PT/INR [id number] 04/18/2016 04/18/2016 [facility] [place]-PT/INR [id number] 04/18/2016 04/18/2016 [facility] [place]-PT/INR [id number] 04/18/2016 04/18/2016 [facility] [place]-PT/INR [id number] 04/18/2016 04/18/2016 [facility] [place]-PT/INR [id number] 04/18/2016 04/18/2016 [facility] [place]-PT/INR [id number] 04/18/2016 04/18/2016 [facility] [place]-PT/INR [id number] 04/18/2016 04/18/2016 [facility] [place]-PT/INR [id number] 04/18/2016 04/18/2016 [facility] [place]-PT/INR [id number] 04/18/2016 04/18/2016 [facility] [place]-PT/INR [id number] 04/18/2016 04/18/2016 [facility] ADVAIR [id number] 04/18/2016 04/18/2016 [facility] ADVAIR [id number] 04/18/2016 04/18/2016 [facility] ADVAIR [id number] 04/18/2016 04/18/2016 [facility] ADVAIR [id number] 04/18/2016 04/18/2016 [facility] ADVAIR [id number] 04/18/2016 04/18/2016 [facility] ADVAIR [id number] 04/18/2016 04/18/2016 [facility] ADVAIR [id number] 04/18/2016 04/18/2016 [facility] ADVAIR [id number] 04/18/2016 04/18/2016 [facility] ADVAIR [id number] 04/18/2016 04/18/2016 [facility] ADVAIR [id number] 04/18/2016 04/18/2016 [facility] ADVAIR [id number] 04/18/2016 04/18/2016 [facility] [place] ON [facility]VA[facility] [id number] 05/16/2016 05/16/2016 [facility] [id number] 05/16/2016 05/16/2016 [facility] [id number] 05/16/2016 05/16/2016 [facility] [id number] 05/16/2016 05/16/2016 [facility] [place] [facility] [id number] 05/16/2016 05/16/2016 [facility] [id number] 05/16/2016 05/16/2016 [facility] [id number] 05/16/2016 05/16/2016 [facility] [place] [facility] [id number] 05/16/2016 05/16/2016 [facility] consult, pt/inr [id number] 05/20/2016 05/20/2016 [facility] consult, pt/inr [id number] 05/20/2016 05/20/2016 [facility] consult, pt/inr [id number] 05/20/2016 05/20/2016 [facility] consult, pt/inr [id number] 05/20/2016 05/20/2016 [facility] consult, pt/inr [id number] 05/20/2016 05/20/2016 [facility] consult, pt/inr [id number] 05/20/2016 05/20/2016 [facility] consult, pt/inr [id number] 05/20/2016 05/20/2016 [facility] consult, pt/inr [id number] 05/20/2016 05/20/2016 [facility] consult, pt/inr [id number] 05/20/2016 05/20/2016 [facility] consult, pt/inr [id number] 05/20/2016 05/20/2016 [facility] DRUG CHANGE [id number] 05/21/2016 05/21/2016 [facility] DRUG CHANGE [id number] 05/21/2016 05/21/2016 [facility] DRUG CHANGE [id number] 05/21/2016 05/21/2016 [facility] DRUG CHANGE [id number] 05/21/2016 05/21/2016 [facility] DRUG CHANGE [id number] 05/21/2016 05/21/2016 [facility] DRUG CHANGE [id number] 05/21/2016 05/21/2016 [facility] DRUG CHANGE [id number] 05/21/2016 05/21/2016 [facility] DRUG CHANGE [id number] 05/21/2016 05/21/2016 [facility] DRUG CHANGE [id number] 05/21/2016 05/21/2016 [facility] NV/PT/INR-XIMENA [id number] 06/03/2016 06/03/2016 [facility] NV/PT/INR-XIMENA [id number] 06/03/2016 06/03/2016 [facility] NV/PT/INR-XIMENA [id number] 06/03/2016 06/03/2016 [facility] NV/PT/INR-XIMENA [id number] 06/03/2016 06/03/2016 [facility] NV/PT/INR-XIMENA [id number] 06/03/2016 06/03/2016 [facility] NV/PT/INR-XIMENA [id number] 06/03/2016 06/03/2016 [facility] NV/PT/INR-XIMENA [id number] 06/03/2016 06/03/2016 [facility] PHYSICAL AND PT/INR CHECK [id number] 06/18/2016 06/18/2016 [facility] PHYSICAL AND PT/INR CHECK [id number] 06/18/2016 06/18/2016 [facility] PHYSICAL AND PT/INR CHECK [id number] 06/18/2016 06/18/2016 [facility] PHYSICAL AND PT/INR CHECK [id number] 06/18/2016 06/18/2016 [facility] PHYSICAL AND PT/INR CHECK [id number] 06/18/2016 06/18/2016 [facility] PHYSICAL AND PT/INR CHECK [id number] 06/18/2016 06/18/2016 [facility] 2 WEEK FOLLOW UP [id number] 07/02/2016 07/02/2016 [facility] 2 WEEK FOLLOW UP [id number] 07/02/2016 07/02/2016 [facility] 2 WEEK FOLLOW UP [id number] 07/02/2016 07/02/2016 [facility] 2 WEEK FOLLOW UP [id number] 07/02/2016 07/02/2016 [facility] PA on ULORIC 40mg [id number] 07/02/2016 07/02/2016 [facility] PA on ULORIC 40mg [id number] 07/02/2016 07/02/2016 [facility] PA on ULORIC 40mg [id number] 07/02/2016 07/02/2016 [facility] PA on ULORIC 40mg [id number] 07/02/2016 07/02/2016 [facility] PA on ULORIC 40mg [id number] 07/02/2016 07/02/2016 [facility] NV/PT/INR-XIMENA [id number] 07/09/2016 07/09/2016 [facility] NV/PT/INR-XIMENA [id number] 07/09/2016 07/09/2016 [facility] NV/PT/INR-XIMENA [id number] 07/09/2016 07/09/2016 [facility] PT/INR-ximena [id number] 08/02/2016 08/02/2016 [facility] PT/INR-ximena [id number] 08/02/2016 08/02/2016 [facility] PT/INR-ximena [id number] 08/16/2016 08/16/2016 [facility] Procedures No Data Provided for This Section Assessment and Plan No Data Provided for This Section Plan of Care No Data Provided for This Section Social History Social History Date Source Social History ElementQualifiersDate Reported Occupation: . [employer] Jul 09, 2016 children . 3 Jul 09, 2016 Last Colonoscopy: . 2010Jul 09, 2016 Tobacco Use: . Are you a: never smoker Jul 09, 2016 Flu Vaccine: . no Jul 09, 2016 Use of recreational / street drugs? . Answer: No Jul 09, 2016 Do you have pets? . Status: Yes, Type: bird(s) Jul 09, 2016 Ethnicity . Status , Is algerian your primary language? Yes Jul 09, 2016 Marital Status: . -Hansa Jul 09, 2016 Caffeine intake? . Status: Yes, What type: Coffee Jul 09, 2016 Do you exercise? . Answer: Yes, Type: walking Jul 09, 2016 Depression Screening: . negative Jul 09, 2016 Fall Risk: . none in the past year Jul 09, 2016 Do you drink alcohol? . Status: Yes, Type: Liquor, How often? Rarely Jul 09, 2016 07/09/2016 [facility] Family History Value Date Source QualifierDescriptionCommentDate Reported Maternal Grandmother Comment not available August 17, 2015 Paternal Grandmother Comment not available August 17, 2015 Siblings Comment not available August 17, 2015 Maternal Grandfather Comment not available August 17, 2015 Children Comment not available August 17, 2015 Father hypertension, heart failure, diabetes mellitus August 17, 2015 Paternal Grandfather Comment not available August 17, 2015 Mother hypertension, heart failure August 17, 2015 Other: Comment not available August 17, 2015 08/19/2015 [facility] Advance Directives No Data Provided for This Section Functional Status No Data Provided for This Section
--- OUTSIDE RECORDS SUMMARY | 2019-01-12 06:39 | XMS REPORT ---
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 Problem History of DVT (deep vein thrombosis) Z86.718 Active Problem History of pulmonary embolism Z86.711 Active Assessment Hyperuricemia E79.0 Active Problem Nummular eczema L30.0 Active Problem History of gout Z87.39 Active Problem Dizziness R42 Active Problem Hyperuricemia E79.0 Active Problem Seasonal allergies J30.2 Active Problem 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
--- OUTSIDE RECORDS SUMMARY | 2019-01-12 06:39 | XMS REPORT ---
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 Name Role Phone Aleah Christopher CP Unavailable Allergies No Known Allergies Problems Problem Type Condition Code Onset Dates Condition Status Problem Dizziness R42 Active Problem Hyperuricemia E79.0 Active Problem History of gout Z87.39 Active Problem Left ventricular hypertrophy I51.7 Active Assessment Allergic rhinitis due to other allergen J30.89 Active Problem Mitral valve disease I05.9 Active Problem Impaired left ventricular relaxation I51.9 Active Problem Allergic rhinitis due to animal (cat) (dog) hair and dander J30.81 Active Problem Gastroesophageal reflux disease without esophagitis K21.9 Active Problem Allergic rhinitis due to other allergen J30.89 Active Problem Allergic rhinitis due to pollen J30.1 Active Problem Nummular eczema L30.0 Active Assessment Allergic rhinitis due to animal (cat) (dog) hair and dander J30.81 Active Assessment Allergic rhinitis due to pollen J30.1 Active Problem History of DVT (deep vein thrombosis) Z86.718 Active Problem Essential hypertension I10 Active Problem 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
--- OUTSIDE RECORDS SUMMARY | 2019-01-12 06:39 | XMS REPORT ---
Author Author Aleah Christopher [facility] eClinicalWorks Address Unknown Phone Unavailable Care Team Providers Care Correspondence Coordinator Name Role Phone Aleah Christopher CP Unavailable Allergies, Adverse Reactions, Alerts Substance Reaction Event Type Tramadol HCl vomiting Drug Allergy Rocephin hives Drug Allergy Problems Problem Type Condition Code Onset Dates Condition Status Problem 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 current use of anticoagulant Z79.01 Active Problem Essential hypertension I10 Active Problem History of DVT (deep vein thrombosis) Z86.718 Active Problem Hyperuricemia E79.0 Active Problem History of gout Z87.39 Active Problem 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 Problem Seasonal allergies J30.2 Active Problem History of pulmonary embolism Z86.711 Active Problem Dizziness R42 Active Problem Asthma J45.909 Active Assessment Essential hypertension I10 Active Assessment Hyperuricemia E79.0 Active Problem Nummular eczema L30.0 Active Assessment 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 Problem 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 Active Medications Medication Code System Code Instructions Start Date End Date Status Dosage Atenolol-Chlorthalidone [facility] 23755760485 50-25 MG Orally Once a day Active 1 tablet Fluticasone Propionate [facility] 25943037737 50 MCG/ACT Nasally Once a day May 21, 2016 Active 1 spray in each nostril Amlodipine Besylate ND 20320422243 10 mg Orally Once a day Active 1 tablet Allopurinol ND 34944569234 100 mg Orally Once a day Jul 09, 2017 January 05, 2018 Active 1 tablet Meclizine HCl ND 40023203249 25 MG Orally three times a day prn September 21, 2015 Active 1 tablet as needed Xarelto [facility] [address]-90 20 mg by mouth Once a day October 10, 2016 December 23, 2017 Active 1 tab Colchicine ND 87114905105 0.6 Orally Twice a day Active 1 tablet Colchicine [facility] 32729289721 0.6 MG Orally 2 tablet PO QD, take another tablet 1 hour later Aug 01, 2017 August 31, 2017 Active 1 tablet Desoximetasone [facility] 60610791778 0.05 % Externally Twice a day Active 1 application to affected area Multivitamins [facility] 34468-[address]15 Orally Active not defined Vital Signs Date/Time: Aug 01, 2017 BMI 37.76 Index Weight 234 lbs Height 66 in Cardiac Monitoring Heart Rate 92 /min Blood Pressure Diastolic 68 mm Hg Blood Pressure Systolic 122 mm Hg Results No Known Results Summary Purpose eClinicalWorks Submission
--- OUTSIDE RECORDS SUMMARY | 2019-01-12 06:39 | XMS REPORT ---
Author Author Aleah Christopher [facility] eClinicalWorks Address Unknown Phone Unavailable Care Team Providers Care Ham Passer Name Role Phone Aleah Christopher CP Unavailable Allergies, Adverse Reactions, Alerts Substance Reaction Event Type Tramadol HCl vomiting Drug Allergy Rocephin hives Drug Allergy Problems Problem Type Condition Code Onset Dates Condition Status Problem History of gout Z87.39 Active Problem Gastroesophageal reflux disease without esophagitis K21.9 Active Problem Hyperuricemia E79.0 Active Problem Left ventricular hypertrophy I51.7 Active Assessment Primary insomnia F51.01 Active Problem Mitral valve disease I05.9 Active Assessment Asthma J45.909 Active Problem Primary insomnia F51.01 Active Problem Allergic rhinitis due to pollen J30.1 Active Problem Allergic rhinitis due to animal (cat) (dog) hair and dander J30.81 Active Problem Impaired left ventricular relaxation I51.9 Active Problem Allergic rhinitis due to other allergen J30.89 Active Problem Nummular eczema L30.0 Active Problem 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 Active Assessment Essential hypertension I10 Active Problem Essential hypertension I10 Active Problem History of pulmonary embolism Z86.711 Active Problem half-way current use of anticoagulant Z79.01 Active Problem Asthma J45.909 Active Problem History of DVT (deep vein thrombosis) Z86.718 Active Problem Dizziness R42 Active Medications Medication Code System Code Instructions Start Date End Date Status Dosage Trelegy Ellipta [facility] 18992277898 100-62.5-25 MCG/INH Inhalation Once a day Active 1 puff Flonase Allergy Relief ND 03331279166 50 MCG/ACT Nasally Once a day November 03, 2018 Active 1 spray in each nostril Multivitamins [facility] 10521-[address]57 Orally Active not defined Trazodone HCl ND 64863726569 50 mg Orally qhs December 18, 2018 Active 1 tablet at bedtime as needed Insulin Syringe [facility] 73419664206 31G X 5/16 subcutaneously use for allergy injection May 20, 2018 Active as directed Xarelto [facility] 38397072035 20 mg by mouth Once a day Active 1 tab Omeprazole [facility] 20904432578 40 MG Orally Once a day Active 1 capsule Allopurinol [facility] 77469813213 100 Orally Once a day Active 1 tablet EpiPen 2-Owen [facility] [address]-31 0.3 MG/0.3ML (1:1000) Intramuscular prn May 20, 2018 Active as directed Desoximetasone [facility] 81024369827 0.05 % Externally Twice a day Active 1 application to affected area Famotidine [facility] 35946702012 40 mg Orally Once a day before dinner Active 1 tablet at bedtime Pantoprazole Sodium [facility] 17300600707 40 mg Orally Once a day before dinner Active 1 tablet Garlic [facility] [address]-55 100 mg by mouth daily Active 2 tablet Losartan Potassium-HCTZ [facility] 77991610989 50-12.5 MG Orally Once a day (LAST REFILL. NEEDS TO BE SEEN) Active 1 tablet Amlodipine Besylate [facility] 45374589489 10 mg Orally Once a day Active 1 tablet Xyzal NDC 0 5 MG Orally Once a day Active 1 tablet in the evening Montelukast Sodium [facility] 35391216227 10 mg Orally Once a day May 26, 2018 Active 1 tablet Vital Signs Date/Time: December 18, 2018 BMI 36.80 Index Weight 228 lbs Height 66 in Cardiac Monitoring Heart Rate 94 /min Blood Pressure Diastolic 76 mm Hg Blood Pressure Systolic 118 mm Hg Results No Known Results Summary Purpose eClinicalWorks Submission
--- OUTSIDE RECORDS SUMMARY | 2019-01-12 06:39 | XMS REPORT ---
Author Author Aleah Christopher [facility] eClinicalWorks Address Unknown Phone Unavailable Care Team Providers Care Sales Route Driver Helper Name Role Phone Aleah Christopher CP Unavailable Allergies No Known Allergies Problems Problem Type Condition Code Onset Dates Condition Status Problem Essential hypertension I10 Active Problem Asthma J45.909 Active Problem History of pulmonary embolism Z86.711 Active Problem Allergic rhinitis due to pollen J30.1 Active Problem Allergic rhinitis due to animal (cat) (dog) hair and dander J30.81 Active Problem Allergic rhinitis due to other allergen J30.89 Active Problem History of gout Z87.39 Active Problem Dizziness R42 Active Problem Gastroesophageal reflux disease without esophagitis K21.9 Active Problem Hyperuricemia E79.0 Active Problem Nummular eczema L30.0 Active Problem 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 Active Assessment Cough syncope R05 Active Problem jail current use of anticoagulant Z79.01 Active Problem History of DVT (deep vein thrombosis) Z86.718 Active Medications Medication Code System Code Instructions Start Date End Date Status Dosage Allopurinol [facility] 66350709280 100 mg Orally Once a day Jul 09, 2017 Active [address] [facility] 30484449595 40 mg Orally Once a day Feb 24, 2018 Active 1 tablet Insulin Syringe [facility] 77676089167 31G X 5/16 subcutaneously use for allergy injection May 20, 2018 Active as directed Losartan Potassium-HCTZ [facility] 25802100446 50-12.5 MG Orally Once a day May 26, 2018 Active 1 tablet Amlodipine Besylate ND 08699850256 10 mg Orally Once a day Active 1 tablet Montelukast Sodium ND 01194609338 10 mg Orally Once a day May 26, 2018 Active 1 tablet EpiPen 2-Owen [facility] [address]-44 0.3 MG/0.3ML (1:1000) Intramuscular prn May 20, 2018 Active as directed Garlic [facility] [address]-32 100 mg by mouth daily Active [address] [facility] 56239881723 0.05 % Externally Twice a day Active 1 application to affected area Xarelto [facility] [address]-51 20 mg by mouth Once a day October 10, 2016 Jul 19, 2018 Active [address] [facility] 97[address]68 Orally Active not defined Results No Known Results Summary Purpose eClinicalWorks Submission
--- OUTSIDE RECORDS SUMMARY | 2019-01-12 06:39 | XMS REPORT ---
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
--- OUTSIDE RECORDS SUMMARY | 2019-01-12 06:39 | XMS REPORT ---
Author Author Aleah Christopher Organization eClinicalWorks Address Unknown Phone Unavailable Care Team Providers Care Director Security Management Name Role Phone Aleah Christopher CP Unavailable [...] History of pulmonary embolism Z86.711 Active Problem jail current use of anticoagulant Z79.01 Active Problem Asthma J45.909 Active Medications No Known Medications Results No Known Results Summary Purpose eClinicalWorks Submission
--- OUTSIDE RECORDS SUMMARY | 2019-01-12 06:39 | XMS REPORT ---
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 Problem Seasonal allergies J30.2 Active Problem History of pulmonary embolism Z86.711 Active Problem Dizziness R42 Active Problem Asthma J45.909 Active Assessment Hyperuricemia E79.0 Active Problem Nummular eczema L30.0 Active Problem 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 Active Medications Medication Code System Code Instructions Start Date End Date Status Dosage Colcrys ND 18548788600 0.6 MG Orally 2 tablet PO QD, take 1 tablet an hour later as needed for acute gout flare August 19, 2017 August 22, 2017 Active 1 tablet Colchicine NDC 36005663194 0.6 MG Orally 2 tablet PO QD, take another tablet 1 hour later Aug 01, 2017 August 19, 2017 Inactive 1 tablet Results No Known Results Summary Purpose eClinicalWorks Submission
--- OUTSIDE RECORDS SUMMARY | 2019-01-12 06:39 | XMS REPORT ---
Author Author Aleah Christopher [facility] eClinicalWorks Address Unknown Phone Unavailable Care Team Providers Care Computer Systems Hardware Analyst Name Role Phone Aleah Christopher CP Unavailable Allergies No Known Allergies Problems Problem Type Condition Code Onset Dates Condition Status Problem Hyperuricemia E79.0 Active Problem Allergic rhinitis due to animal (cat) (dog) hair and dander J30.81 Active Problem Gastroesophageal reflux disease without esophagitis K21.9 Active Problem Seasonal allergies J30.2 Active Assessment Seasonal allergies J30.2 Active Problem Impaired left ventricular relaxation I51.9 Active Assessment Allergic rhinitis due to pollen J30.1 Active Assessment Allergic rhinitis due to animal (cat) (dog) hair and dander J30.81 Active Problem Primary insomnia F51.01 Active Problem Allergic rhinitis due to other allergen J30.89 Active Problem Allergic rhinitis due to pollen J30.1 Active Problem Left ventricular hypertrophy I51.7 Active Problem Mitral valve disease I05.9 Active Problem History of pulmonary embolism Z86.711 Active 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.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 Problem Nummular eczema L30.0 Active Problem 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 Active Problem Asthma J45.909 Active Problem History of DVT (deep vein thrombosis) Z86.718 Active Problem Dizziness R42 Active Assessment Allergic rhinitis due to other allergen J30.89 Active Problem Essential hypertension I10 Active Problem History of gout Z87.39 Active Medications Medication Code System Code Instructions Start Date End Date Status Dosage EpiPen 2-Owen [facility] [address]-10 0.3 MG/0.3ML (1:1000) Intramuscular prn May 20, 2018 Active as directed Montelukast Sodium [facility] 18780330860 10 mg Orally Once a day May 26, 2018 Active 1 tablet Desoximetasone [facility] 37987666962 0.05 % Externally Twice a day Active 1 application to affected area Multivitamins [facility] 426[address]-70777 Orally Active not defined Losartan Potassium-HCTZ [facility] 38369379173 50-12.5 MG Orally Once a day (LAST REFILL. NEEDS TO BE SEEN) Active 1 tablet Xarelto [facility] 36826499551 20 mg by mouth Once a day Active 1 tab Trelegy Ellipta [facility] 62786762709 100-62.5-25 MCG/INH Inhalation Once a day Active 1 puff Allopurinol ND 97489690231 100 Orally Once a day Active 1 tablet Allopurinol [facility] 25088801113 100 mg Orally Once a day Jul 09, 2017 Active 1 tablet Amlodipine Besylate [facility] 38247033869 10 Orally Once a day Active 1 tablet Insulin Syringe [facility] 94604600653 31G X 5/16 subcutaneously use for allergy injection May 20, 2018 Active as directed Pantoprazole Sodium [facility] 74058845006 40 mg Orally Once a day before dinner Active 1 tablet Famotidine [facility] 47336518311 40 mg Orally Once a day before dinner Active 1 tablet at bedtime Xyzal ND 0 5 MG Orally Once a day Active 1 tablet in the evening Amlodipine Besylate [facility] 75003865995 10 mg Orally Once a day Active 1 tablet Flonase Allergy Relief [facility] 13390742220 50 MCG/ACT Nasally Once a day November 03, 2018 Active 1 spray in each nostril Garlic [facility] [address]-50 100 mg by mouth daily Active 2 tablet Results No Known Results Summary Purpose eClinicalWorks Submission
--- OUTSIDE RECORDS SUMMARY | 2019-01-12 06:39 | XMS REPORT ---
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 Active Problem History of DVT (deep vein thrombosis) Z86.718 Active Problem History of pulmonary embolism Z86.711 Active Problem History of gout Z87.39 Active Problem Dizziness R42 Active Problem Hyperuricemia E79.0 Active Problem Seasonal allergies J30.2 Active Problem [facility] current use of anticoagulant Z79.01 Active Problem Asthma J45.909 Active Problem Essential hypertension I10 Active Assessment Herpes zoster without complication B02.9 Active Assessment Essential hypertension I10 Active Assessment [facility] current use of anticoagulant Z79.01 Active Problem Nummular eczema L30.0 Active Medications Medication Code System Code Instructions Start Date End Date Status Dosage Medrol (Owen) NDC 0 4 MG Orally as directed May 20, 2016 Active as directed Tamiflu [facility] [address]-53 75 MG Orally Twice a day Jul 02, 2016 Active 1 capsule Albuterol Sulfate HFA [facility] [address]-21 108 (90 Base) MCG/ACT Inhalation every 4-6 hrs PRN August 25, 2013 Active 2 puffs as needed Symbicort [facility] [address]-44 160-4.5 MCG/ACT Inhalation Twice a day Apr 18, 2016 May 15, 2017 Active 2 puffs Multivitamins [facility] 24973-90914 Orally Active not defined Tylenol/Codeine #3 [facility] [address]-61 300-30 MG Orally every 6 hrs PRN October 25, 2016 November 01, 2016 Active 1 tablet as needed Meclizine HCl [facility] [address]-26 25 MG Orally three times a day prn September 21, 2015 Active 1 tablet as needed Colchicine [facility] 89589190242 0.6 Twice a day Active 1 tablet Fluticasone Propionate [facility] [address]-90 50 MCG/ACT Nasally Once a day May 21, 2016 Active 1 spray in each nostril Atenolol-Chlorthalidone [facility] 51862547457 50-25 MG Orally Once a day Active 1 tablet Valacyclovir HCl [facility] [address]-50 1 GM Orally every 24 hrs October 25, 2016 November 01, 2016 Active 1 tablet Amlodipine Besylate [facility] [address]-91 10 MG Orally Once a day Active 1 tablet Xarelto [facility] [address]-19 20 mg by mouth Once a day October 10, 2016 Active 1 tab Vital Signs Date/Time: October 25, 2016 BMI 36.31 Index Weight 225 lbs Height 66 in Cardiac Monitoring Heart Rate 81 /min Blood Pressure Diastolic 80 mm Hg Blood Pressure Systolic 110 mm Hg Results No Known Results Summary Purpose eClinicalWorks Submission
--- OUTSIDE RECORDS SUMMARY | 2019-01-12 06:39 | XMS REPORT ---
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
--- OUTSIDE RECORDS SUMMARY | 2019-01-12 06:39 | XMS REPORT ---
Author Author Aleah Christopher Organization eClinicalWorks Address Unknown Phone Unavailable Care Team Providers Care Senior Recruiter Name Role Phone Aleah Christopher CP Unavailable Allergies No Known Allergies Problems Problem Type Condition Code Onset Dates Condition Status Problem 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 Active Problem History of DVT (deep vein thrombosis) Z86.718 Active Problem [facility] current use of anticoagulant Z79.01 Active Assessment Hyperuricemia E79.0 Active Problem Nummular eczema L30.0 Active Problem History of gout Z87.39 Active Problem Dizziness R42 Active Problem Hyperuricemia E79.0 Active Problem History of pulmonary embolism Z86.711 Active Problem Essential hypertension I10 Active Problem Asthma J45.909 Active Problem Seasonal allergies J30.2 Active Medications Medication Code System Code Instructions Start Date End Date Status Dosage Allopurinol [facility] 02026525265 100 mg Orally Once a day Jul 09, 2017 January 05, 2018 Active 1 tablet Colchicine [facility] 53682366896 0.6 Orally Twice a day Active 1 tablet Results No Known Results Summary Purpose eClinicalWorks Submission
--- OUTSIDE RECORDS SUMMARY | 2019-01-12 06:39 | XMS REPORT ---
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 Care Concrete Building Assembler Name Role Phone Meg Cali CP Unavailable [...] J30.1 Active Problem Nummular eczema L30.0 Active Problem History of DVT (deep vein thrombosis) Z86.718 Active Problem Essential hypertension I10 Active Problem 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 Active Problem History of pulmonary embolism Z86.711 Active Problem [facility] current use of anticoagulant Z79.01 Active Problem Asthma J45.909 Active Medications No Known Medications Results No Known Results Summary Purpose eClinicalWorks Submission
--- OUTSIDE RECORDS SUMMARY | 2019-01-12 06:39 | XMS REPORT ---
Author Author Aleah Christopher [facility] eClinicalWorks Address Unknown Phone Unavailable Care Team Providers Care Home Care Assistant Name Role Phone Aleah Christopher CP Unavailable Allergies, Adverse Reactions, Alerts Substance Reaction Event Type Tramadol HCl vomiting Drug Allergy Rocephin hives Drug Allergy Problems Problem Type Condition Code Onset Dates Condition Status Problem Essential hypertension I10 Active Problem Asthma J45.909 Active Problem History of pulmonary embolism Z86.711 Active Problem Allergic rhinitis due to pollen J30.1 Active Assessment Cough syncope R05 Active Problem Allergic rhinitis due to animal (cat) (dog) hair and dander J30.81 Active Problem Allergic rhinitis due to other allergen J30.89 Active Problem History of gout Z87.39 Active Problem Dizziness R42 Active Problem Gastroesophageal reflux disease without esophagitis K21.9 Active Problem Hyperuricemia E79.0 Active Assessment Allergic rhinitis due to pollen J30.1 Active Assessment Cough R05 Active Assessment Allergic rhinitis due to animal (cat) (dog) hair and dander J30.81 Active Assessment Allergic rhinitis due to other allergen J30.89 Active Problem Nummular eczema L30.0 Active Problem 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 Active Assessment Essential hypertension I10 Active Problem nursing home current use of anticoagulant Z79.01 Active Problem History of DVT (deep vein thrombosis) Z86.718 Active Medications Medication Code System Code Instructions Start Date End Date Status Dosage Protonix [facility] 94668404596 40 mg Orally Once a day Feb 24, 2018 Active 1 tablet Insulin Syringe [facility] 39994021778 31G X 5/16 subcutaneously use for allergy injection May 20, 2018 Active as directed Multivitamins [facility] 368[address] Orally Active not defined Protonix [facility] 42694266806 40 Orally Once a day Active 1 tablet Xarelto [facility] [address]-71 20 mg by mouth Once a day October 10, 2016 Jul 19, 2018 Active 1 tablet Garlic [facility] [address]-45 100 mg by mouth daily Active 2 tablet Losartan Potassium-HCTZ [facility] 86749291317 50-12.5 MG Orally Once a day May 26, 2018 Active 1 tablet ProAir HFA [facility] 77061157502 108 (90 Base) MCG/ACT Inhalation every 6 hrs Feb 24, 2018 Active 2 puffs as needed Amlodipine Besylate [facility] 65566939239 10 mg Orally Once a day Active 1 tablet Desoximetasone [facility] 08073397586 0.05 % Externally Twice a day Active 1 application to affected area EpiPen 2-Owen [facility] [address]-18 0.3 MG/0.3ML (1:1000) Intramuscular prn May 20, 2018 Active as directed Allopurinol [facility] 95621537249 100 mg Orally Once a day Jul 09, 2017 Active 1 tablet Montelukast Sodium [facility] 12732063971 10 mg Orally Once a day May 26, 2018 Active 1 tablet Vital Signs Date/Time: Jun 25, 2018 BMI 39.54 Index Weight 245 lbs Height 66 in Cardiac Monitoring Heart Rate 86 /min Blood Pressure Diastolic 88 mm Hg Blood Pressure Systolic 122 mm Hg Results Name Result Date Reference Range Unit Abnormality Flag EKG Chest 2 views- Xray Summary Purpose eClinicalWorks Submission
--- OUTSIDE RECORDS SUMMARY | 2019-01-12 06:39 | XMS REPORT ---
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 Active Problem History of DVT (deep vein thrombosis) Z86.718 Active Problem halfway current use of anticoagulant Z79.01 Active Problem History of gout Z87.39 Active Problem Dizziness R42 Active Problem Hyperuricemia E79.0 Active Problem History of pulmonary embolism Z86.711 Active Problem Essential hypertension I10 Active Problem Asthma J45.909 Active Problem Seasonal allergies J30.2 Active Assessment Seasonal allergies J30.2 Active Assessment Hyperuricemia E79.0 Active Assessment Essential hypertension I10 Active Problem Nummular eczema L30.0 Active Medications Medication Code System Code Instructions Start Date End Date Status Dosage Amlodipine Besylate ND 79676125435 10 mg Orally Once a day Active 1 tablet Desoximetasone [facility] 75938042615 0.05 % Externally Twice a day Active 1 application to affected area Fluticasone Propionate ND 10285735864 50 MCG/ACT Nasally Once a day May 21, 2016 Active 1 spray in each nostril Multivitamins [facility] [address] Orally Active not defined Atenolol-Chlorthalidone ND 99107106529 50-25 MG Orally Once a day Active 1 tablet Meclizine HCl ND 91416570769 25 MG Orally three times a day prn September 21, 2015 Active 1 tablet as needed Xarelto [facility] [address]-01 20 mg by mouth Once a day October 10, 2016 December 23, 2017 Active 1 tab Vital Signs Date/Time: Jul 08, 2017 BMI 38.25 Index Weight 237 lbs Height 66 in Cardiac Monitoring Heart Rate 70 /min Blood Pressure Diastolic 70 mm Hg Blood Pressure Systolic 109 mm Hg Results No Known Results Summary Purpose eClinicalWorks Submission
--- OUTSIDE RECORDS SUMMARY | 2019-01-12 06:39 | XMS REPORT ---
Author Author Aleah Christopher [facility] eClinicalWorks Address Unknown Phone Unavailable Care Team Providers Care Warehouse Laborer Name Role Phone Aleah Christopher CP Unavailable Allergies, Adverse Reactions, Alerts Substance Reaction Event Type Tramadol HCl vomiting Drug Allergy Rocephin hives Drug Allergy Problems Problem Type Condition Code Onset Dates Condition Status Problem History of gout Z87.39 Active Problem Gastroesophageal reflux disease without esophagitis K21.9 Active Problem Hyperuricemia E79.0 Active Problem Left ventricular hypertrophy I51.7 Active Assessment Allergic rhinitis due to animal (cat) (dog) hair and dander J30.81 Active Problem Mitral valve disease I05.9 Active Assessment Allergic rhinitis due to pollen J30.1 Active Assessment Allergic rhinitis due to other allergen J30.89 Active Problem Primary insomnia F51.01 Active Problem [...] History of pulmonary embolism Z86.711 Active 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.01 Active Problem Asthma J45.909 Active Assessment Encounter for hepatitis C screening test for low risk patient Z11.59 Active Problem History of DVT (deep vein thrombosis) Z86.718 Active Problem Dizziness R42 Active Medications Medication Code System Code Instructions Start Date End Date Status Dosage EpiPen 2-Owen [facility] [address]-92 0.3 MG/0.3ML (1:1000) Intramuscular prn May 20, 2018 Active as directed Trazodone HCl ND 33563221851 50 mg Orally qhs December 18, 2018 Active 1 tablet at bedtime as needed Omeprazole ND 96863008899 40 MG Orally Once a day Active 1 capsule Famotidine ND 65612147871 40 mg Orally Once a day before dinner Active 1 tablet at bedtime Desoximetasone [facility] 93178287743 0.05 % Externally Twice a day Active 1 application to affected area Insulin Syringe [facility] 11219060597 31G X 5/16 subcutaneously use for allergy injection May 20, 2018 Active as directed Flonase Allergy Relief [facility] 17402686423 50 MCG/ACT Nasally Once a day November 03, 2018 Active 1 spray in each nostril Losartan Potassium-HCTZ [facility] 39910104612 50-12.5 MG Orally Once a day (LAST REFILL. NEEDS TO BE SEEN) Active 1 tablet Xarelto [facility] 14900971259 20 mg by mouth Once a day Active 1 tab Amlodipine Besylate [facility] 46926896909 10 mg Orally Once a day Active 1 tablet Multivitamins [facility] 96453-[address] Orally Active not defined Trelegy Ellipta [facility] 33861911595 100-62.5-25 MCG/INH Inhalation Once a day Active 1 puff Allopurinol [facility] 23842945777 100 Orally Once a day Active 1 tablet Garlic [facility] [address]-65 100 mg by mouth daily Active 2 tablet Vital Signs Date/Time: December 22, 2018 BMI 36.80 Index Weight 228 lbs Height 66 in Cardiac Monitoring Heart Rate 96 /min Blood Pressure Diastolic 76 mm Hg Blood Pressure Systolic 118 mm Hg Results No Known Results Summary Purpose eClinicalWorks Submission
--- OUTSIDE RECORDS SUMMARY | 2019-01-12 06:39 | XMS REPORT ---
Author Author Aleah Christopher [facility] eClinicalWorks Address Unknown Phone Unavailable Care Team Providers Care Dental Laboratory Technician Apprentice Name Role Phone Aleah Christopher CP Unavailable [...] Active Problem Seasonal allergies J30.2 Active Assessment Hyperuricemia E79.0 Active Assessment Asthma J45.909 Active Assessment 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 Active Assessment Nummular eczema L30.0 Active Assessment Essential hypertension I10 Active Assessment Screening for prostate cancer Z12.5 Active Assessment halfway current use of anticoagulant Z79.01 Active Assessment Encntr for general adult medical exam w/o abnormal findings Z00.00 Active Assessment Seasonal allergies J30.2 Active Problem Nummular eczema L30.0 Active Medications Medication Code System Code Instructions Start Date End Date Status Dosage Amlodipine Besylate [facility] 69568034719 10 mg Orally Once a day Active 1 tablet Xarelto [facility] [address]-31 20 mg by mouth Once a day October 10, 2016 December 23, 2017 Active 1 tab Xarelto [facility] 06063082547 20 Active TAKE 1 TABLET BY MOUTH ONCE A DAY Albuterol Sulfate HFA [facility] 25225021477 108 (90 Base) MCG/ACT Inhalation every 4-6 hrs PRN August 25, 2013 Active 2 puffs as needed Meclizine HCl [facility] 21554542536 25 MG Orally three times a day prn September 21, 2015 Active 1 tablet as needed Multivitamins [facility] 51346-[address]13 Orally Active not defined Medrol (Owen) NDC 0 4 MG Orally as directed May 20, 2016 Active as directed Desoximetasone [facility] 45057988897 0.05 % Externally Twice a day Active 1 application to affected area Tamiflu [facility] 96249545981 75 MG Orally Twice a day Jul 02, 2016 Active 1 capsule Fluticasone Propionate [facility] 19066227424 50 MCG/ACT Nasally Once a day May 21, 2016 Active 1 spray in each nostril Atenolol-Chlorthalidone [facility] 86350455812 50-25 MG Orally Once a day Active 1 tablet Vital Signs Date/Time: Jun 26, 2017 BMI 37.93 Index Weight 235 lbs Height 66 in Cardiac Monitoring Heart Rate 69 /min Blood Pressure Diastolic 74 mm Hg Blood Pressure Systolic 110 mm Hg Results Name Result Date Reference Range Unit Abnormality Flag EKG Chest 2 views- Xray Summary Purpose eClinicalWorks Submission
--- OUTSIDE RECORDS SUMMARY | 2019-01-12 06:39 | XMS REPORT ---
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
--- OUTSIDE RECORDS SUMMARY | 2019-01-12 06:39 | XMS REPORT ---
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
--- OUTSIDE RECORDS SUMMARY | 2019-01-12 06:39 | XMS REPORT ---
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 Care Enrober Tender Name Role Phone Meg Cali CP Unavailable [...] Active Assessment Essential hypertension I10 Active Problem correction current use of anticoagulant Z79.01 Active Problem History of DVT (deep vein thrombosis) Z86.718 Active Medications Medication Code System Code Instructions Start Date End Date Status Dosage Losartan Potassium-HCTZ [facility] 64541751558 50-12.5 MG Orally Once a day (LAST REFILL. NEEDS TO BE SEEN) May 26, 2018 Active 1 tablet Results No Known Results Summary Purpose eClinicalWorks Submission
--- OUTSIDE RECORDS SUMMARY | 2019-01-12 06:39 | XMS REPORT ---
Author Author Aleah Christopher Organization eClinicalWorks Address Unknown Phone Unavailable Care Team Providers Care Respite Provider Name Role Phone Aleah Christopher CP Unavailable [...]
--- OUTSIDE RECORDS SUMMARY | 2019-01-12 06:39 | XMS REPORT ---
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
--- OUTSIDE RECORDS SUMMARY | 2019-01-12 06:39 | XMS REPORT ---
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
--- OUTSIDE RECORDS SUMMARY | 2019-01-12 06:39 | XMS REPORT ---
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
--- OUTSIDE RECORDS SUMMARY | 2019-01-12 06:40 | XMS REPORT ---
Author Author Aleah Christopher [facility] eClinicalWorks Address Unknown Phone Unavailable Care Team Providers Care Singer And Unloader Name Role Phone Aleah Christopher CP Unavailable Allergies, Adverse Reactions, Alerts Substance Reaction Event Type Tramadol HCl vomiting Drug Allergy Rocephin hives Drug Allergy Problems Problem Type Condition Code Onset Dates Condition Status Problem shelter current use of anticoagulant Z79.01 Active Problem [...] Active Assessment Essential hypertension I10 Active Assessment Rash R21 Active Problem Nummular eczema L30.0 Active Problem 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 Active Medications Medication Code System Code Instructions Start Date End Date Status Dosage Multivitamins [facility] [address] Orally Active not defined Amlodipine Besylate [facility] 97400869448 10 mg Orally Once a day Active 1 tablet Allopurinol [facility] 12602751413 100 mg Orally Once a day Jul 09, 2017 January 05, 2018 Active 1 tablet Bactrim DS [facility] 33184968214 800-160 MG Orally Twice a day October 30, 2017 November 09, 2017 Active 1 tablet Xarelto [facility] [address]-61 20 mg by mouth Once a day October 10, 2016 December 23, 2017 Active 1 tab Colcrys [facility] 06944019166 0.6 MG Orally 2 tablet PO QD, take 1 tablet an hour later as needed for acute gout flare August 19, 2017 Active 1 tablet Atenolol-Chlorthalidone [facility] 24295526016 50-25 MG Orally Once a day Active 1 tablet Desoximetasone [facility] 30547430211 0.05 % Externally Twice a day Active 1 application to affected area Clobetasol Propionate E [facility] 29878436907 0.05 % Externally Twice a day PRN October 30, 2017 November 14, 2017 Active 1 application to affected area Vital Signs Date/Time: October 30, 2017 BMI 37.76 Index Weight 234 lbs Height 66 in Cardiac Monitoring Heart Rate 82 /min Blood Pressure Diastolic 70 mm Hg Blood Pressure Systolic 121 mm Hg Results No Known Results Summary Purpose eClinicalWorks Submission
--- OUTSIDE RECORDS SUMMARY | 2019-01-12 06:40 | XMS REPORT ---
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 Active Problem History of DVT (deep vein thrombosis) Z86.718 Active Problem [facility] current use of anticoagulant Z79.01 Active Problem Nummular eczema L30.0 Active Problem History of gout Z87.39 Active Problem Dizziness R42 Active Problem Hyperuricemia E79.0 Active Problem History of pulmonary embolism Z86.711 Active Problem Essential hypertension I10 Active Problem Asthma J45.909 Active Problem Seasonal allergies J30.2 Active Medications Medication Code System Code Instructions Start Date End Date Status Dosage Allopurinol [facility] 14656371701 100 mg Orally Once a day Jul 09, 2017 Active 1 tablet Results No Known Results Summary Purpose eClinicalWorks Submission
--- OUTSIDE RECORDS SUMMARY | 2019-01-12 06:40 | XMS REPORT ---
Author Author Aleah Christopher Organization eClinicalWorks Address Unknown Phone Unavailable Care Team Providers Care Drilling Machine Runner Name Role Phone Aleah Christopher CP Unavailable Allergies No Known Allergies Problems Problem Type Condition Code Onset Dates Condition Status Problem Seasonal allergies J30.2 Active Problem Dizziness R42 Active Problem Asthma J45.909 Active Problem Allergic rhinitis due to pollen J30.1 Active Problem Allergic rhinitis due to animal (cat) (dog) hair and dander J30.81 Active Problem Allergic rhinitis due to other allergen J30.89 Active Problem Hyperuricemia E79.0 Active Problem History of gout Z87.39 Active Problem Acute allergic rhinitis, unspecified seasonality, unspecified trigger J30.9 Active Problem Gastroesophageal reflux disease without esophagitis K21.9 Active 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
--- OUTSIDE RECORDS SUMMARY | 2019-01-12 06:40 | XMS REPORT ---
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
--- OUTSIDE RECORDS SUMMARY | 2019-01-12 06:40 | XMS REPORT ---
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 Problem Essential hypertension I10 Active Problem History of DVT (deep vein thrombosis) Z86.718 Active Problem Hyperuricemia E79.0 Active Problem History of gout Z87.39 Active Problem 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 Problem Seasonal allergies J30.2 Active Problem History of pulmonary embolism Z86.711 Active Problem Dizziness R42 Active Problem Asthma J45.909 Active Assessment long-term current use of anticoagulant Z79.01 Active Assessment Subconjunctival hemorrhage of right eye H11.31 Active Problem Nummular eczema L30.0 Active Problem 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 Active Medications Medication Code System Code Instructions Start Date End Date Status Dosage Desoximetasone [facility] 86727375000 0.05 % Externally Twice a day Active 1 application to affected area Colcrys [facility] 01168819026 0.6 MG Orally 2 tablet PO QD, take 1 tablet an hour later as needed for acute gout flare August 19, 2017 Active 1 tablet Tobrex [facility] 05261155082 0.3 % Ophthalmic every 4 hrs December 23, 2017 January 02, 2018 Active 1 drop into affected eye Multivitamins [facility] 33844-68915 Orally Active not defined Atenolol-Chlorthalidone [facility] 20362308363 50-25 MG Orally Once a day Active 1 tablet Amlodipine Besylate [facility] 71724690724 10 mg Orally Once a day Active 1 tablet Allopurinol [facility] 09641277612 100 mg Orally Once a day Jul 09, 2017 January 05, 2018 Active 1 tablet Xarelto [facility] [address]-09 20 mg by mouth Once a day October 10, 2016 December 23, 2017 Active 1 tab Vital Signs Date/Time: December 23, 2017 BMI 38.57 Index Weight 239 lbs Height 66 in Temperature 97.9 F Cardiac Monitoring Heart Rate 87 /min Blood Pressure Diastolic 60 mm Hg Blood Pressure Systolic 110 mm Hg Results No Known Results Summary Purpose eClinicalWorks Submission
--- OUTSIDE RECORDS SUMMARY | 2019-01-12 06:40 | XMS REPORT ---
Author Author Aleah Christopher [facility] [employer] Address Unknown Phone Unavailable Care Team Providers Care Manager Trade Marketing Name Role Phone Aleah Christopher CP Unavailable Allergies, Adverse Reactions, Alerts Substance Reaction Event Type Tramadol HCl vomiting Drug Allergy Rocephin hives Drug Allergy Problems Problem Type Condition Code Onset Dates Condition Status Problem Dizziness R42 Active Problem Hyperuricemia E79.0 Active Problem History of gout Z87.39 Active Problem Left ventricular hypertrophy I51.7 Active Assessment Allergic rhinitis due to pollen J30.1 Active Problem Mitral valve disease I05.9 Active Assessment Allergic rhinitis due to other allergen J30.89 Active Problem Impaired left ventricular relaxation I51.9 [...] (dog) hair and dander J30.81 Active Assessment Essential hypertension I10 Active Problem History of DVT (deep vein thrombosis) Z86.718 Active Problem Essential hypertension I10 Active Problem 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 NEEDS TO BE SEEN) Active 1 tablet Trelegy Ellipta ND 56848151579 100-62.5-25 MCG/INH Inhalation Once a day Active 1 puff Amlodipine Besylate ND 09502398444 10 mg Orally Once a day Active 1 tablet Flonase Allergy Relief ND 92477830566 50 MCG/ACT Nasally Once a day November 03, 2018 Active 1 spray in each nostril Allopurinol NDC 65841119450 100 mg Orally Once a day Jul 09, 2017 Active 1 tablet EpiPen 2-Owen [facility] [address]-19 0.3 MG/0.3ML (1:1000) Intramuscular prn May 20, 2018 Active as directed Garlic [facility] [address]-18 100 mg by mouth daily Active 2 tablet Desoximetasone [facility] 38679706173 0.05 % Externally Twice a day Active 1 application to affected area Famotidine [facility] 68804452795 40 mg Orally Once a day before dinner Active 1 tablet at bedtime Pantoprazole Sodium [facility] 22943529111 40 mg Orally Once a day before dinner Active 1 tablet Montelukast Sodium [facility] 03036649891 10 Active TAKE 1 TABLET BY MOUTH ONCE A DAY Xyzal ND 0 5 MG Orally Once a day Active 1 tablet in the evening Xarelto [facility] 17391752932 20 mg by mouth Once a day Active 1 tab Montelukast Sodium [facility] 50761455065 10 mg Orally Once a day May 26, 2018 Active 1 tablet Insulin Syringe [facility] 53199183961 31G X 5/16 subcutaneously use for allergy injection May 20, 2018 Active as directed Multivitamins [facility] 49853-49336 Orally Active not defined Allopurinol [facility] 98310784478 100 Orally Once a day Active 1 tablet Vital Signs Date/Time: November 03, 2018 BMI 36.47 Index Weight 226 lbs Height 66 in Cardiac Monitoring Heart Rate 90 /min Blood Pressure Diastolic 82 mm Hg Blood Pressure Systolic 126 mm Hg Results No Known Results Summary Purpose eClinicalWorks Submission
--- OUTSIDE RECORDS SUMMARY | 2019-01-12 06:40 | XMS REPORT ---
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
--- OUTSIDE RECORDS SUMMARY | 2019-01-12 06:40 | XMS REPORT ---
Author Author Aleah Christopher [facility] [place] eClinical[employer] Address Unknown Phone Unavailable Care Team Providers Care Health Physicist Name Role Phone Aleah Christopher CP Unavailable Allergies, Adverse Reactions, Alerts Substance Reaction Event Type Tramadol HCl vomiting Drug Allergy Rocephin hives Drug Allergy Problems Problem Type Condition Code Onset Dates Condition Status Problem History of DVT (deep vein thrombosis) Z86.718 Active Problem History of pulmonary embolism Z86.711 Active Problem Essential hypertension I10 Active Problem Gastroesophageal reflux disease without esophagitis K21.9 Active Problem Hyperuricemia E79.0 Active Problem Acute allergic rhinitis, unspecified seasonality, unspecified trigger J30.9 Active Problem Asthma J45.909 Active Problem Seasonal allergies J30.2 Active Problem History of gout Z87.39 Active Problem Dizziness R42 Active Problem Nummular eczema L30.0 Active Assessment Essential hypertension I10 Active Problem 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 Active Assessment Seasonal allergies J30.2 Active Problem nursing home current use of anticoagulant Z79.01 Active Medications Medication Code System Code Instructions Start Date End Date Status Dosage Atenolol-Chlorthalidone [facility] 95435237717 50-25 MG Orally Once a day Active 1 tablet Amlodipine Besylate [facility] 42156809916 10 Orally Once a day Active 1 tablet ProAir HFA [facility] 79684079100 108 (90 Base) MCG/ACT Inhalation every 6 hrs Feb 24, 2018 Active 2 puffs as needed Protonix [facility] 93111889192 40 mg Orally Once a day Feb 24, 2018 Active 1 tablet Garlic [facility] [address]-73 100 mg by mouth daily Active 2 tablet Xarelto [facility] [address]-03 20 mg by mouth Once a day October 10, 2016 Jul 19, 2018 Active 1 tablet Multivitamins [facility] 14947-42599 Orally Active not defined Desoximetasone [facility] 17452818909 0.05 % Externally Twice a day Active 1 application to affected area Allopurinol [facility] 76448299431 100 mg Orally Once a day Jul 09, 2017 Active 1 tablet Amlodipine Besylate [facility] 88581529816 10 mg Orally Once a day Active 1 tablet Vital Signs Date/Time: May 20, 2018 BMI 38.41 Index Weight 238 lbs Height 66 in Cardiac Monitoring Heart Rate 74 /min Blood Pressure Diastolic 82 mm Hg Blood Pressure Systolic 120 mm Hg Results No Known Results Summary Purpose eClinicalWorks Submission
--- OUTSIDE RECORDS SUMMARY | 2019-01-12 06:40 | XMS REPORT ---
Author Author Aleah Christopher [facility] eClinicalWorks Address Unknown Phone Unavailable Care Team Providers Care Ethylene Plant Helper Name Role Phone Aleah Christopher Unavailable Allergies, Adverse Reactions, Alerts Substance Reaction Event Type Tramadol HCl vomiting Drug Allergy Rocephin hives Drug Allergy Problems Problem Type Condition Code Onset Dates Condition Status Assessment Dizziness R42 Active Assessment Impaired left ventricular relaxation I51.9 Active Assessment Left ventricular hypertrophy I51.7 Active Assessment Mitral valve disease I05.9 Active Assessment Allergic rhinitis due to other allergen J30.89 Active Assessment Allergic rhinitis due to animal (cat) (dog) hair and dander J30.81 Active Assessment Gastroesophageal reflux disease without esophagitis K21.9 Active Assessment Nummular eczema L30.0 Active Problem History of pulmonary embolism Z86.711 Active Assessment Hyperuricemia E79.0 Active Problem Asthma J45.909 Active Assessment Asthma J45.909 Active Problem Dizziness R42 Active Problem Hyperuricemia E79.0 Active Problem History of gout Z87.39 Active Problem Left ventricular hypertrophy I51.7 Active Problem Mitral valve disease I05.9 Active Assessment Screening for colon cancer Z12.11 Active Assessment Essential hypertension I10 Active Problem Impaired left ventricular relaxation I51.9 Active Assessment 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.01 Active Problem Allergic rhinitis due to animal (cat) (dog) hair and dander J30.81 Active Problem Gastroesophageal reflux disease without esophagitis K21.9 Active Problem Allergic rhinitis due to other allergen J30.89 Active Problem Allergic rhinitis due to pollen J30.1 Active Problem Nummular eczema L30.0 Active Assessment Screening for prostate cancer Z12.5 Active Assessment Routine physical examination Z00.00 Active Problem History of DVT (deep vein thrombosis) Z86.718 Active Problem Essential hypertension I10 Active Problem 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 Active Problem custodial current use of anticoagulant Z79.01 Active Medications Medication Code System Code Instructions Start Date End Date Status Dosage Losartan Potassium-HCTZ [facility] [address]-70 50-12.5 MG Orally Once a day Active 1 tablet Garlic [facility] [address]-12 100 mg by mouth daily Active 2 tablet Xarelto [facility] 20843609552 20 mg by mouth Once a day Active 1 tab Pantoprazole Sodium [facility] [address]-79 40 mg Orally Once a day before dinner Active 1 tablet Famotidine [facility] [address]-03 40 mg Orally Once a day before dinner Active 1 tablet at bedtime Allopurinol [facility] 68326336495 100 mg Orally Once a day Jul 09, 2017 Active 1 tablet Protonix [facility] 95148572386 40 mg Orally Once a day Feb 24, 2018 Active 1 tablet Trelegy Ellipta [facility] 71502992227 100-62.5-25 MCG/INH Inhalation Once a day Active 1 puff Insulin Syringe [facility] 71113638915 31G X 5/16 subcutaneously use for allergy injection May 20, 2018 Active as directed EpiPen 2-Owen [facility] [address]-78 0.3 MG/0.3ML (1:1000) Intramuscular prn May 20, 2018 Active as directed Multivitamins [facility] 77820-78099 Orally Active not defined Montelukast Sodium [facility] 99602869547 10 Orally Once a day Active 1 tablet Amlodipine Besylate [facility] 13674678878 10 mg Orally Once a day Active 1 tablet Montelukast Sodium [facility] 03075315218 10 mg Orally Once a day May 26, 2018 Active 1 tablet Desoximetasone [facility] 42683410679 0.05 % Externally Twice a day Active 1 application to affected area Vital Signs Date/Time: Jul 30, 2018 BMI 37.93 Index Weight 235 lbs Height 66 in Cardiac Monitoring Heart Rate 69 /min Blood Pressure Diastolic 90 mm Hg Blood Pressure Systolic 132 mm Hg Results No Known Results Summary Purpose eClinicalWorks Submission
--- OUTSIDE RECORDS SUMMARY | 2019-01-12 06:40 | XMS REPORT ---
Author Author Aleah Christopher [facility] [place] eClinical[employer] Address Unknown Phone Unavailable Care Team Providers Care Vocational Rehabilitation Counselor Name Role Phone Aleah Christopher CP Unavailable Allergies, Adverse Reactions, Alerts Substance Reaction Event Type Tramadol HCl vomiting Drug Allergy Rocephin hives Drug Allergy Problems Problem Type Condition Code Onset Dates Condition Status Problem [facility] current use of anticoagulant Z79.01 Active Problem Essential hypertension I10 Active Problem History of DVT (deep vein thrombosis) Z86.718 Active Problem Hyperuricemia E79.0 Active Problem History of gout Z87.39 Active Problem Gastroesophageal reflux disease without esophagitis K21.9 Active Problem Seasonal allergies J30.2 Active Problem History of pulmonary embolism Z86.711 Active Problem Dizziness R42 Active Problem Asthma J45.909 Active Assessment Asthma J45.909 Active Assessment Cough R05 Active Assessment Essential hypertension I10 Active Problem Nummular eczema L30.0 Active Assessment Seasonal allergies J30.2 Active Problem 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 Active Medications Medication Code System Code Instructions Start Date End Date Status Dosage Allopurinol [facility] 07105169133 100 mg Orally Once a day Jul 09, 2017 Active 1 tablet Atenolol-Chlorthalidone [facility] 59534108026 50-25 MG Orally Once a day Active 1 tablet Garlic [facility] [address]-99 100 mg by mouth daily Active 2 tablet Colcrys [facility] 82437953577 0.6 MG Orally 2 tablet PO QD, take 1 tablet an hour later as needed for acute gout flare August 19, 2017 Active 1 tablet Benzonatate ND 92791411850 200 MG Orally Q8 PRN May 05, 2018 May 12, 2018 Active 1 capsule Amlodipine Besylate [facility] 33827421769 10 mg Orally Once a day Active 1 tablet ProAir HFA [facility] 49812588953 108 (90 Base) MCG/ACT Inhalation every 6 hrs Feb 24, 2018 Active 2 puffs as needed Multivitamins [facility] 40396-47850 Orally Active not defined Desoximetasone [facility] 36454544587 0.05 % Externally Twice a day Active 1 application to affected area Protonix [facility] 95187543665 40 mg Orally Once a day Feb 24, 2018 Active 1 tablet Xarelto [facility] [address]-97 20 mg by mouth Once a day October 10, 2016 Jul 19, 2018 Active 1 tablet Vital Signs Date/Time: May 05, 2018 BMI 38.41 Index Weight 238 lbs Height 66 in Temperature 97.9 F Cardiac Monitoring Heart Rate 74 /min Blood Pressure Diastolic 78 mm Hg Blood Pressure Systolic 112 mm Hg Results Name Result Date Reference Range Unit Abnormality Flag CBC ----Platelets 218 [id number] ----NEUTROPHILS MID-0.8,GRA-4.8 [id number] ----MCHC 33.6 [id number] ----MCH 29.6 [id number] ----MCV 87.9 [id number] ----WBC 6.7 [id number] ----RDW 14.3 [id number] ----RBC 4.90 [id number] ----Hemoglobin 14.5 [id number] ----Hematocrit 43.1 [id number] Summary Purpose eClinicalWorks Submission
--- OUTSIDE RECORDS SUMMARY | 2019-01-12 06:40 | XMS REPORT ---
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
--- OUTSIDE RECORDS SUMMARY | 2019-01-12 06:40 | XMS REPORT ---
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.01 Active Problem Impaired left ventricular relaxation I51.9 [...] Start Date End Date Status Dosage Allopurinol ND 51698374395 100 Orally Once a day Active 1 tablet Trelegy Ellipta [facility] 35164668146 100-62.5-25 MCG/INH Inhalation Once a day Active 1 puff Allopurinol ND 66480089446 100 mg Orally Once a day Jul 09, 2017 Active 1 tablet Montelukast Sodium [facility] 75853167410 10 Active TAKE 1 TABLET BY MOUTH ONCE A DAY EpiPen 2-Owen [facility] [address]-98 0.3 MG/0.3ML (1:1000) Intramuscular prn May 20, 2018 Active as directed Multivitamins [facility] 07[address]27 Orally Active not defined Losartan Potassium-HCTZ [facility] 76665973965 50-12.5 MG Orally Once a day (LAST REFILL. NEEDS TO BE SEEN) Active 1 tablet Famotidine [facility] 94004797241 40 mg Orally Once a day before dinner Active 1 tablet at bedtime Garlic [facility] [address]-70 100 mg by mouth daily Active 2 tablet Montelukast Sodium [facility] 87341068754 10 mg Orally Once a day May 26, 2018 Active 1 tablet Amlodipine Besylate [facility] 78646266027 10 mg Orally Once a day Active 1 tablet Insulin Syringe [facility] 85796881872 31G X 5/16 subcutaneously use for allergy injection May 20, 2018 Active as directed Pantoprazole Sodium [facility] 63481141743 40 mg Orally Once a day before dinner Active 1 tablet Desoximetasone [facility] 56253922825 0.05 % Externally Twice a day Active 1 application to affected area Xarelto [facility] 38283414163 20 mg by mouth Once a day Active 1 tab Vital Signs Date/Time: September 01, 2018 BMI 36.96 Index Weight 229 lbs Height 66 in Cardiac Monitoring Heart Rate 89 /min Blood Pressure Diastolic 88 mm Hg Blood Pressure Systolic 126 mm Hg Results No Known Results Summary Purpose eClinicalWorks Submission
--- OUTSIDE RECORDS SUMMARY | 2019-01-12 06:40 | XMS REPORT ---
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
--- OUTSIDE RECORDS SUMMARY | 2019-01-12 06:40 | XMS REPORT ---
Author Author Aleah Christopher [facility] eClinicalWorks Address Unknown Phone Unavailable Care Team Providers Care Retirement Benefits Specialist Name Role Phone Aleah Christopher CP [...] I05.9 Active Assessment Essential hypertension I10 Active Problem Impaired left ventricular relaxation I51.9 Active Problem Allergic rhinitis due to animal (cat) (dog) hair and dander J30.81 Active Problem Gastroesophageal reflux disease without esophagitis K21.9 Active Problem Allergic rhinitis due to other allergen J30.89 Active Problem Allergic rhinitis due to pollen J30.1 Active Problem Nummular eczema L30.0 Active Assessment Allergic rhinitis due to pollen J30.1 Active Assessment Allergic rhinitis due to animal (cat) (dog) hair and dander J30.81 Active Problem History of DVT (deep vein thrombosis) Z86.718 Active Problem Essential hypertension I10 Active Problem 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 Active Problem History of pulmonary embolism Z86.711 Active 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 Problem Asthma J45.909 Active Medications Medication Code System Code Instructions Start Date End Date Status Dosage Pantoprazole Sodium ND 94507729861 40 mg Orally Once a day before dinner Active 1 tablet Xarelto ND 88547963228 20 mg by mouth Once a day Active 1 tab Amlodipine Besylate ND 23090602212 10 mg Orally Once a day Active 1 tablet Allopurinol ND 84704819296 100 Orally Once a day Active 1 tablet Multivitamins [facility] 10147-07135 Orally Active not defined Insulin Syringe [facility] 18805258966 31G X 5/16 subcutaneously use for allergy injection May 20, 2018 Active as directed Famotidine [facility] 79194133791 40 mg Orally Once a day before dinner Active 1 tablet at bedtime Losartan Potassium-HCTZ [facility] 59966646153 50-12.5 MG Orally Once a day (LAST REFILL. NEEDS TO BE SEEN) Active 1 tablet Garlic [facility] [address]-74 100 mg by mouth daily Active 2 tablet Montelukast Sodium [facility] 42764809049 10 Active TAKE 1 TABLET BY MOUTH ONCE A DAY Allopurinol [facility] 92561661273 100 mg Orally Once a day Jul 09, 2017 Active 1 tablet EpiPen 2-Owen [facility] [address]-79 0.3 MG/0.3ML (1:1000) Intramuscular prn May 20, 2018 Active as directed Desoximetasone [facility] 01406497539 0.05 % Externally Twice a day Active 1 application to affected area Montelukast Sodium [facility] 97332313065 10 mg Orally Once a day May 26, 2018 Active 1 tablet Trelegy Ellipta [facility] 45469618668 100-62.5-25 MCG/INH Inhalation Once a day Active 1 puff Vital Signs Date/Time: October 01, 2018 BMI 36.96 Index Weight 229 lbs Height 66 in Cardiac Monitoring Heart Rate 75 /min Blood Pressure Diastolic 78 mm Hg Blood Pressure Systolic 114 mm Hg Results No Known Results Summary Purpose eClinicalWorks Submission
--- OUTSIDE RECORDS SUMMARY | 2019-01-12 06:40 | XMS REPORT ---
Author Author Aleah Christopher Organization eClinical[employer] Address Unknown Phone Unavailable Care Team Providers Care Fish Fryer Name Role Phone Aleah Christopher CP Unavailable [...] reflux disease without esophagitis K21.9 Active Assessment Allergic rhinitis due to animal (cat) (dog) hair and dander J30.81 Active Assessment Allergic rhinitis due to pollen J30.1 Active Assessment Allergic rhinitis due to other allergen J30.89 Active Problem [facility] current use of anticoagulant Z79.01 Active Problem History of DVT (deep vein thrombosis) Z86.718 Active Problem Nummular eczema L30.0 Active Problem Essential hypertension I10 Active Problem 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
--- OUTSIDE RECORDS SUMMARY | 2019-01-12 06:40 | XMS REPORT ---
Author Author Aleah Christopher Organization [employer] Address Unknown Phone Unavailable Care Team Providers Care Kindergarten Instructional Assistant Name Role Phone Aleah Chritsopher CP Unavailable Allergies No Known Allergies Problems [...] reflux disease without esophagitis K21.9 Active Problem continuous churn buttermaker current use [...]
--- OUTSIDE RECORDS SUMMARY | 2019-01-12 06:40 | XMS REPORT ---
Author Author Aleah Christopher [facility] eClinical[employer] Address Unknown Phone Unavailable Care Team Providers Care Director Of Strategy & Mobile Name Role Phone Aleah Christopher CP Unavailable Allergies, Adverse Reactions, Alerts Substance Reaction Event Type Tramadol HCl vomiting Drug Allergy Rocephin hives Drug Allergy Problems Problem Type Condition Code Onset Dates Condition Status Problem History of pulmonary embolism Z86.711 Active Problem Asthma J45.909 Active Problem Seasonal allergies J30.2 Active Problem Allergic rhinitis due to animal (cat) (dog) hair and dander J30.81 Active Assessment Allergic rhinitis due to pollen J30.1 Active Problem Acute allergic rhinitis, unspecified seasonality, unspecified trigger J30.9 Active Problem Allergic rhinitis due to pollen J30.1 Active Problem History of gout Z87.39 Active Problem Dizziness R42 Active Problem Gastroesophageal reflux disease without esophagitis K21.9 Active Problem Hyperuricemia E79.0 Active Assessment Seasonal allergies J30.2 Active Assessment Essential hypertension I10 Active Assessment Allergic rhinitis due to animal (cat) (dog) hair and dander J30.81 Active Assessment Asthma J45.909 Active Problem 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 [address]-53 100 mg by mouth daily Active 2 tablet Xarelto [facility] [address]-95 20 mg by mouth Once a day October 10, 2016 Jul 19, 2018 Active 1 tablet Montelukast Sodium [facility] 90694852829 10 mg Orally Once a day May 26, 2018 Active 1 tablet ProAir HFA [facility] 92624665952 108 (90 Base) MCG/ACT Inhalation every 6 hrs Feb 24, 2018 Active 2 puffs as needed Desoximetasone [facility] 40758763485 0.05 % Externally Twice a day Active 1 application to affected area Allopurinol [facility] 28295777136 100 mg Orally Once a day Jul 09, 2017 Active 1 tablet Protonix [facility] 78290404080 40 mg Orally Once a day Feb 24, 2018 Active 1 tablet Amlodipine Besylate [facility] 12882953224 10 mg Orally Once a day Active 1 tablet Atenolol-Chlorthalidone [facility] 65802920329 50-25 MG Orally Once a day Inactive 1 tablet EpiPen 2-Owen [facility] [address]-44 0.3 MG/0.3ML (1:1000) Intramuscular prn May 20, 2018 Active as directed Losartan Potassium-HCTZ [facility] 35058769715 50-12.5 MG Orally Once a day May 26, 2018 Active 1 tablet Multivitamins [facility] 59030[address]1 Orally Active not defined Insulin Syringe [facility] 90498178625 31G X 5/16 subcutaneously use for allergy injection May 20, 2018 Active as directed Vital Signs Date/Time: May 26, 2018 BMI 39.70 Index Weight 246 lbs Height 66 in Cardiac Monitoring Heart Rate 91 /min Blood Pressure Diastolic 84 mm Hg Blood Pressure Systolic 122 mm Hg Results No Known Results Summary Purpose eClinicalWorks Submission
--- OUTSIDE RECORDS SUMMARY | 2019-01-12 06:40 | XMS REPORT ---
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 Problem Essential hypertension I10 Active Problem History of DVT (deep vein thrombosis) Z86.718 Active Problem Hyperuricemia E79.0 Active Problem History of gout Z87.39 Active Problem Gastroesophageal reflux disease without esophagitis K21.9 Active Problem Seasonal allergies J30.2 Active Problem History of pulmonary embolism Z86.711 Active Problem Dizziness R42 Active Problem Asthma J45.909 Active Assessment Gastroesophageal reflux disease without esophagitis K21.9 Active Assessment Cough R05 Active Problem Nummular eczema L30.0 Active Problem 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 Active Medications Medication Code System Code Instructions Start Date End Date Status Dosage ProAir HFA [facility] 07850210878 108 (90 Base) MCG/ACT Inhalation every 6 hrs Feb 24, 2018 Active 2 puffs as needed Amlodipine Besylate [facility] 00342904905 10 mg Orally Once a day Active [address] [facility] 40890551375 0.6 MG Orally 2 tablet PO QD, take 1 tablet an hour later as needed for acute gout flare August 19, 2017 Active [address] [facility] [address] Orally Active not defined Desoximetasone [facility] 02235523119 0.05 % Externally Twice a day Active 1 application to affected area Xarelto [facility] [address]-08 20 mg by mouth Once a day October 10, 2016 Jul 19, 2018 Active [address] [facility] 02544353655 100 mg Orally Once a day Jul 09, 2017 Active 1 tablet Atenolol-Chlorthalidone [facility] 76445732517 50-25 MG Orally Once a day Active [address] [facility] 89410439988 40 mg Orally Once a day Feb 24, 2018 Active 1 tablet Vital Signs Date/Time: Feb 24, 2018 BMI 39.22 Index Weight 243 lbs Height 66 in Cardiac Monitoring Heart Rate 70 /min Blood Pressure Diastolic 82 mm Hg Blood Pressure Systolic 112 mm Hg Results Name Result Date Reference Range Unit Abnormality Flag Chest 2 views- Xray Summary Purpose eClinicalWorks Submission
--- OUTSIDE RECORDS SUMMARY | 2019-01-12 06:40 | XMS REPORT ---
Author Author Aleah Christopher Organization [employer] Address Unknown Phone Unavailable Care Team Providers Care Business Job Titles Name Role Phone Aleah Christopher CP Unavailable Allergies No Known Allergies Problems Problem Type Condition Code Onset Dates Condition Status Problem History of pulmonary embolism Z86.711 Active Problem Asthma J45.909 Active Problem Seasonal allergies J30.2 Active Problem Allergic rhinitis due to animal (cat) (dog) hair and dander J30.81 Active Problem Acute allergic rhinitis, unspecified seasonality, unspecified trigger J30.9 Active Problem Allergic rhinitis due to pollen J30.1 Active Problem History of gout Z87.39 Active Problem Dizziness R42 Active Problem Gastroesophageal reflux disease without esophagitis K21.9 Active Problem Hyperuricemia E79.0 Active Problem 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
--- OUTSIDE RECORDS SUMMARY | 2019-01-12 06:40 | XMS REPORT ---
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 Active Problem History of DVT (deep vein thrombosis) Z86.718 Active Problem senior care current use of anticoagulant Z79.01 Active Assessment manager terminal current use of anticoagulant Z79.01 Active Problem Nummular eczema L30.0 Active Problem History of gout Z87.39 Active Problem Dizziness R42 Active Problem Hyperuricemia E79.0 Active Problem History of pulmonary embolism Z86.711 Active Problem Essential hypertension I10 Active Problem Asthma J45.909 Active Problem Seasonal allergies J30.2 Active Medications Medication Code System Code Instructions Start Date End Date Status Dosage Xarelto [facility] [address]-21 20 mg by mouth Once a day October 10, 2016 Jul 19, 2018 Active 1 tablet Results No Known Results Summary Purpose eClinicalWorks Submission
--- OUTSIDE RECORDS SUMMARY | 2019-01-12 06:40 | XMS REPORT ---
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
--- OUTSIDE RECORDS SUMMARY | 2019-01-12 06:40 | XMS REPORT ---
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
--- OUTSIDE RECORDS SUMMARY | 2019-01-12 06:40 | XMS REPORT ---
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 12809562021 31G X 5/16" 0.5 ML subcutaneously use for allergy injection May 20, 2018 Active as directed EpiPen 2-Owen [facility] [address]-45 0.3 MG/0.3ML (1:1000) Intramuscular prn May 20, 2018 Active as directed Results No Known Results Summary Purpose eClinicalWorks Submission
--- OUTSIDE RECORDS SUMMARY | 2019-01-12 06:41 | XMS REPORT ---
Author Author Aleah Christopher [employer] Address Unknown Phone Unavailable Care Team Providers Care Working Manager Name Role Phone Aleah Christopher CP Unavailable Allergies, Adverse Reactions, Alerts Substance Reaction Event Type Tramadol HCl vomiting Drug Allergy Rocephin hives Drug Allergy Encounters Encounter Location Date Unknown [facility] May 10, 2013 Unknown [facility] Jul 02, 2015 1 week follow up [facility] May 18, 2015 NV/JAZZMINE-pt/inr [facility] May 25, 2015 Unknown [facility] Jun 26, 2015 echo/jazzmine [facility] Jun 02, 2015 Refill [facility] Jan 16, 2015 NV-PT INR [facility] Aug 05, 2013 Needs call back from Medical Staff [facility] Jan 24, 2015 NV-PT INR [facility] August 19, 2013 physical exam [facility] Apr 05, 2015 pt/inr/andrea [facility] Jul 06, 2013 EYE [facility] Apr 28, 2015 [place]-PT INR [facility] Jul 22, 2013 PT/INR/ANDREA [facility] Jun 08, 2013 pt/inr/andrea [facility] Jun 22, 2013 PT/INR/ANDREA [facility] May 25, 2013 NV/JAZZMINE-pt/inr [facility] January 04, 2015 Unknown [facility] Jun 08, 2013 rash on foot and swollen [facility] Jun 25, 2013 Follow-Up [facility] Mar 03, 2013 pt/inr [facility] Apr 01, 2013 Test results [facility] Apr 22, 2013 PT/INR-Swelling on right leg [facility] Apr 22, 2013 Follow-Up [facility] Feb 01, 2013 Unknown [facility] Feb 19, 2013 NV-PT INR [facility] Feb 16, 2013 RASH [facility] September 09, 2013 Unknown [facility] August 27, 2013 2 MONTH FOLLOW UP [facility] November 16, 2015 Unknown [facility] May 04, 2013 Refill [facility] November 16, 2015 PT/ INR [facility] May 04, 2013 Unknown [facility] November 02, 2015 Unknown [facility] September 22, 2015 RF [facility] September 18, 2015 REFILL [facility] January 10, 2014 Dizzy [facility] September 21, 2015 physical [facility] January 12, 2014 2 week follow up [facility] August 17, 2015 Test results [facility] Jan 15, 2014 Refill [facility] August 29, 2015 RESULTS [facility] Jan 26, 2014 FOLLOW UP [facility] Jul 03, 2015 NV-PT INR [facility] September 09, 2013 PT INR/ BP [facility] Jul 31, 2015 Refill [facility] October 14, 2013 REFILL [facility] December 01, 2013 REFILL [facility] December 27, 2013 NV-PT INR [facility] Mar 25, 2014 PT INR [facility] Mar 11, 2014 Unknown [facility] Feb 08, 2014 Unknown [facility] May 11, 2014 NV-PT INR [facility] May 24, 2014 Unknown [facility] Apr 13, 2014 NV- PT INR [facility] Apr 22, 2014 nv-pt inr [facility] Jun 22, 2014 Prior Authorization [facility] Jun 07, 2014 Prior Auth [facility] Jun 01, 2014 NV- PT INR [facility] August 19, 2014 NV- PT INR [facility] Jul 22, 2014 NV- PT INR [facility] September 19, 2014 rash [facility] August 24, 2014 NV- PT INR [facility] September 26, 2014 NV PT INR [facility] October 05, 2014 Refill [facility] October 26, 2014 NV/JAZZMINE-PT INR [facility] November 01, 2014 PT INR [facility] December 05, 2014 Nata [facility] December 27, 2014 Problems Problem Type Condition ICD-9 Code Onset Dates Condition Status Assessment Asthma J45.909 Active Problem 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 Active Assessment Essential hypertension I10 Active Problem Asthma J45.909 Active Problem Essential hypertension I10 Active Problem Dizziness R42 Active Problem History of DVT (deep vein thrombosis) Z86.718 Active Problem History of pulmonary embolism Z86.711 Active Problem Seasonal allergies J30.2 Active Problem [facility] current use of anticoagulant Z79.01 Active Assessment Dizziness R42 Active Assessment [facility] current use of anticoagulant Z79.01 Active Assessment Seasonal allergies J30.2 Active Medications Medication Code System Code Instructions Start Date End Date Status Dosage Colchicine [facility] 15365192735 0.6 Active TAKE 2 TABLETS BY MOUTH TWICE DAILY Meclizine HCl [facility] [address]-46 25 MG Orally three times a day prn September 21, 2015 Active 1 tablet as needed Symbicort [facility] [address]-24 160-4.5 MCG/ACT Inhalation Twice a day November 16, 2015 May 14, 2016 Active 2 puffs Breo Ellipta [facility] [address]-32 100-25 MCG/INH Inhalation Once a day November 16, 2015 Inactive 1 puff Amlodipine Besylate [facility] [address]-42 10 mg Orally Once a day Active 1 tablet Atenolol-Chlorthalidone [facility] [address]-24 50-25 MG Orally Once a day Jul 13, 2015 Active 1/2 tablet Warfarin Sodium [facility] [address]-08 4 mg orally 2 days a week Jul 31, 2015 Active 1 tablet Warfarin Sodium [facility] [address]-05 5 MG Orally 5 days a week Active 1 tablet Albuterol Sulfate HFA [facility] [address]-91 108 (90 Base) MCG/ACT Inhalation every 4-6 hrs PRN August 25, 2013 Active 2 puffs as needed Multivitamins [facility] 55[address]-97381 Orally Active Unknown Social History Social History Element Qualifiers Date Reported Occupation: . [employer] November 16, 2015 children . 3 November 16, 2015 Last Colonoscopy: . 2010November 16, 2015 Tobacco Use: . Are you a: never smoker November 16, 2015 Flu Vaccine: . no November 16, 2015 Use of recreational / street drugs? . Answer: No November 16, 2015 Do you have pets? . Status: Yes, Type: bird(s) November 16, 2015 Ethnicity . Status , Is bruneian your primary language? Yes November 16, 2015 Marital Status: . -Hansa November 16, 2015 Caffeine intake? . Status: Yes, What type: Coffee November 16, 2015 Do you exercise? . Answer: Yes, Type: walking November 16, 2015 Depression Screening: . negative November 16, 2015 Fall Risk: . none in the past year November 16, 2015 Do you drink alcohol? . Status: Yes, Type: Liquor, How often? Rarely November 16, 2015 Vital Signs Date/Time: November 16, 2015 Weight 224 lbs Height 66 in Cardiac Monitoring Heart Rate 72 /min Blood Pressure Diastolic 70 mm Hg Blood Pressure Systolic 130 mm Hg Results PROTHROMBIN TIME-INR Summary Purpose eClinicalWorks Submission
--- OUTSIDE RECORDS SUMMARY | 2019-01-12 06:41 | XMS REPORT ---
Author Author Sarah Sutherland [facility] [place] eClinicalWorks Address Unknown Phone Unavailable Care Team Providers Care Collection Supervisor Name Role Phone Sarah Sutherland CP Unavailable Allergies, Adverse Reactions, Alerts Substance Reaction Event Type Tramadol HCl vomiting Drug Allergy Rocephin hives Drug Allergy Encounters Encounter Location Date Unknown [facility] May 10, 2013 Unknown [facility] Jul 02, 2015 1 week follow up [facility] May 18, 2015 NV/JAZZMINE-pt/inr [facility] May 25, 2015 Unknown [facility] Jun 26, 2015 echo/jazzmine [facility] Jun 02, 2015 Refill [facility] Jan 16, 2015 NV-PT INR [facility] Aug 05, 2013 Needs call back from Medical Staff [facility] Jan 24, 2015 NV-PT INR [facility] August 19, 2013 physical exam [facility] Apr 05, 2015 pt/inr/andrea [facility] Jul 06, 2013 EYE [facility] Apr 28, 2015 NV-PT INR [facility] Jul 22, 2013 PT/INR/ANDREA [facility] Jun 08, 2013 pt/inr/andrea [facility] Jun 22, 2013 PT/INR/ANDREA [facility] May 25, 2013 NV/JAZZMINE-pt/inr [facility] January 04, 2015 Unknown [facility] Jun 08, 2013 rash on foot and swollen [facility] Jun 25, 2013 Follow-Up [facility] Mar 03, 2013 pt/inr [facility] Apr 01, 2013 Test results [facility] Apr 22, 2013 PT/INR-Swelling on right leg [facility] Apr 22, 2013 Follow-Up [facility] Feb 01, 2013 Unknown [facility] Feb 19, 2013 NV-PT INR [facility] Feb 16, 2013 RASH [facility] September 09, 2013 Unknown [facility] August 27, 2013 Unknown [facility] May 04, 2013 PT/ INR [facility] May 04, 2013 REFILL [facility] January 10, 2014 physical [facility] January 12, 2014 Test results [facility] Jan 15, 2014 RESULTS [facility] Jan 26, 2014 FOLLOW UP [facility] Jul 03, 2015 NV-PT INR [facility] September 09, 2013 PT INR/ BP [facility] Jul 31, 2015 Refill [facility] October 14, 2013 REFILL [facility] December 01, 2013 REFILL [facility] December 27, 2013 NV-PT INR [facility] Mar 25, 2014 PT INR [facility] Mar 11, 2014 Unknown [facility] Feb 08, 2014 Unknown [facility] May 11, 2014 NV-PT INR [facility] May 24, 2014 Unknown [facility] Apr 13, 2014 NV- PT INR [facility] Apr 22, 2014 nv-pt inr [facility] Jun 22, 2014 Prior Authorization [facility] Jun 07, 2014 Prior Auth [facility] Jun 01, 2014 NV- PT INR [facility] August 19, 2014 NV- PT INR [facility] Jul 22, 2014 NV- PT INR [facility] September 19, 2014 rash [facility] August 24, 2014 NV- PT INR [facility] September 26, 2014 NV PT INR [facility] October 05, 2014 Refill [facility] October 26, 2014 NV/JAZZMINE-PT INR [facility] November 01, 2014 PT INR [facility] December 05, 2014 Rash [facility] December 27, 2014 Problems Problem Type Condition ICD-9 Code Onset Dates Condition Status Assessment History of DVT (deep vein thrombosis) Z86.718 Active Problem 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 continuous churn current use of anticoagulant V58.61 Active Assessment Essential hypertension I10 Active Problem Essential hypertension I10 Active Problem Seasonal allergies J30.2 Active Problem Asthma J45.909 Active Problem History of pulmonary embolism Z86.711 Active Problem 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 Active Problem 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 continuous churn current use of anticoagulant Z79.01 Active Problem History of DVT (deep vein thrombosis) Z86.718 Active Medications Medication Code System Code Instructions Start Date End Date Status Dosage Atenolol-Chlorthalidone [facility] [address]-78 50-25 MG Orally Once a day Jul 13, 2015 Active 1 tablet Albuterol Sulfate [facility] [address]-28 108 (90 Base) MCG/ACT Inhalation every 4 hrs August 25, 2013 Active 2 puffs as needed Breo Ellipta [facility] [address]-85 100-25 MCG/INH Inhalation Once a day Active 1 puff Atenolol-Chlorthalidone [facility] [address]-65 50-25 MG Orally Once a day Jul 13, 2015 Active 1 tablet Multivitamins [facility] 19982-06797 Orally Active Unknown Norel AD [facility] 24720-678-52 4-10-325 MG by mouth every 4-6 hours Jan 26, 2014 Active 1 tablet as needed Warfarin Sodium [facility] [address]-65 5 MG Orally Once a day Active 1 tablet Flonase [facility] [address]-62 50 MCG/DOSE Nasally Once a day May 09, 2015 Active 1 spray in each nostril Amlodipine Besylate [facility] [address]-36 10 mg Orally Once a day Jul 17, 2015 Active 1 tablet Warfarin Sodium [facility] [address]-53 4 mg Orally Once a day Jul 31, 2015 Active 1 tablet Tenormin [facility] [address]-38 25 MG Orally Once a day Jan 31, 2015 Active 1 tablet Social History Social History Element Qualifiers Date 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 3 Jul 31, 2015 Last Colonoscopy: . 2010Jul 31, 2015 Tobacco Use: . Are you a: never smoker Jul 31, 2015 Flu Vaccine: . no Jul 31, 2015 Use of recreational / street drugs? . Answer: No Jul 31, 2015 Do you have pets? . Status: Yes, Type: bird(s) Jul 31, 2015 Ethnicity . Status , Is trinidadian your primary language? Yes Jul 31, 2015 Marital Status: . -Hansa Jul 31, 2015 Caffeine intake? . Status: Yes, What type: Coffee Jul 31, 2015 Do you exercise? . Answer: Yes, Type: walking Jul 31, 2015 Depression Screening: . negative Jul 31, 2015 Fall Risk: . none in the past year Jul 31, 2015 Do you drink alcohol? . Status: Yes, Type: Liquor, How often? Rarely Jul 31, 2015 Vital Signs Date/Time: Jul 31, 2015 Weight 218 lbs Height 66 in Cardiac Monitoring Heart Rate 83 /min Blood Pressure Diastolic 90 mm Hg Blood Pressure Systolic 150 mm Hg Summary Purpose eClinicalWorks Submission
--- OUTSIDE RECORDS SUMMARY | 2019-01-12 06:41 | XMS REPORT ---
Author Author Sarah Sutherland eClinicalWorks Address Unknown Phone Unavailable Care Team Providers Care Vending Route Driver Name Role Phone Sarah Sutherland CP Unavailable Encounters Encounter Location Date Unknown [facility] May 10, [address] [facility] Jul 02, 2015 1 week follow up [facility] May 18, 2015 NV/JAZZMINE-pt/inr [facility] May 25, [address] [facility] Jun 26, 2015 echo/jazzmine [facility] Jun 02, [address] [facility] Jan 16, 2015 NV-PT INR [facility] Aug 05, 2013 Needs call back from Medical Staff [facility] Jan 24, 2015 NV-PT INR [facility] August 19, [address] [facility] Apr 05, 2015 pt/inr/andrea [facility] Jul 06, [address] [facility] Apr 28, 2015 NV-PT INR [facility] Jul 22, 2013 PT/INR/ANDREA [facility] Jun 08, 2013 pt/inr/andrea [facility] Jun 22, 2013 PT/INR/ANDREA [facility] May 25, 2013 NV/JAZZMINE-pt/inr [facility] January 04, [address] [facility] Jun 08, 2013 rash on foot and swollen [facility] Jun 25, 2013 Follow-Up [facility] Mar 03, 2013 pt/inr [facility] Apr 01, [address] [facility] Apr 22, 2013 PT/INR-Swelling on right leg [facility] Apr 22, 2013 Follow-Up [facility] Feb 01, [address] [facility] Feb 19, 2013 NV-PT INR [facility] Feb 16, 2013 RASH [facility] September 09, 2013 Unknown [facility] August 27, 2013 Unknown [facility] May 04, 2013 Refill [facility] November 16, 2015 PT/ INR [facility] May 04, 2013 Unknown [facility] November 02, 2015 Unknown [facility] September 22, 2015 RF [facility] September 18, 2015 REFILL [facility] January 10, 2014 Dizzy [facility] September 21, 2015 physical [facility] January 12, 2014 2 week follow up [facility] August 17, 2015 Test results [facility] Jan 15, 2014 Refill [facility] August 29, [address] [facility] Jan 26, 2014 FOLLOW UP [facility] Jul 03, 2015 NV-PT INR [facility] September 09, 2013 PT INR/ BP [facility] Jul 31, 2015 Refill [facility] October 14, 2013 REFILL [facility] December 01, 2013 REFILL [facility] December 27, 2013 NV-PT INR [facility] Mar 25, 2014 PT INR [facility] Mar 11, 2014 Unknown [facility] Feb 08, 2014 Unknown [facility] May 11, 2014 NV-PT INR [facility] May 24, 2014 Unknown [facility] Apr 13, 2014 NV- PT INR [facility] Apr 22, 2014 nv-pt inr [facility] Jun 22, 2014 Prior Authorization [facility] Jun 07, 2014 Prior Auth [facility] Jun 01, 2014 NV- PT INR [facility] August 19, 2014 NV- PT INR [facility] Jul 22, 2014 NV- PT INR [facility] September 19, 2014 rash [facility] August 24, 2014 NV- PT INR [facility] September 26, 2014 NV PT INR [facility] October 05, [address] [facility] October 26, 2014 NV/JAZZMINE-PT INR [facility] November 01, [address] 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 [employer] November 16, 2015 children . 3 November 16, 2015 Last Colonoscopy: . 2010November 16, 2015 Tobacco Use: . Are you a: never smoker November 16, 2015 Flu Vaccine: . no November 16, 2015 Use of recreational / street drugs? . Answer: No November 16, 2015 Do you have pets? . Status: Yes, Type: bird(s) November 16, 2015 Ethnicity . Status , Is mohawk your primary language? Yes November 16, 2015 [...] Liquor, How often? Rarely November 16, 2015 Summary Purpose eClinicalWorks Submission
--- OUTSIDE RECORDS SUMMARY | 2019-01-12 06:41 | XMS REPORT ---
Author Author Aleah Christopher eClinicalWorks Address Unknown Phone Unavailable Care Team Providers Care Zipper Setter Lockstitch Name Role Phone Aleah Christopher CP Unavailable Encounters [facility] Jan 24, 2015 NV-PT INR [facility] August 19, 2013 physical exam [facility] Apr 05, 2015 pt/inr/andrea [facility] Jul 06, 2013 EYE [facility] Apr 28, 2015 NV-PT INR [facility] Jul 22, 2013 PT/INR/ANDREA [facility] Jun 08, 2013 pt/inr/andrea [facility] Jun 22, 2013 PT/INR/ANDREA [facility] Apr 22, 2013 Follow-Up [facility] Feb 01, 2013 Unknown [facility] Feb 19, 2013 NV-PT INR [facility] Feb 16, 2013 RASH [facility] September 09, 2013 Unknown [facility] August 27, 2013 2 MONTH FOLLOW UP [facility] November 16, 2015 Unknown [facility] May 04, 2013 Refill [facility] November 16, 2015 PT/ INR [facility] May 04, 2013 Unknown [facility] November 02, 2015 Unknown [facility] September 22, 2015 RF [facility] September 18, 2015 REFILL [facility] January 10, 2014 Dizzy [facility] September 21, 2015 physical [facility] January 12, 2014 2 week follow up [facility] August 17, 2015 Test results [facility] Jan 15, 2014 Refill [facility] August 29, 2015 RESULTS [facility] Jan 26, 2014 FOLLOW UP [facility] Jul 03, 2015 NV-PT INR [facility] September 09, 2013 PT INR/ BP [facility] Jul 31, 2015 Refill [facility] October 14, 2013 REFILL [facility] December 01, 2013 REFILL [facility] December 27, 2013 NV-PT INR [facility] Mar 25, 2014 PT INR [facility] Mar 11, 2014 Unknown [facility] Feb 08, 2014 Unknown [facility] May 11, 2014 NV/ALEAH-PT/INR . [facility] December 19, 2015 NV-PT INR [facility] May 24, 2014 Unknown [facility] Apr 13, 2014 NV- PT INR [facility] Apr 22, 2014 nv-pt inr [facility] Jun 22, 2014 Prior Authorization [facility] Jun 07, 2014 Prior Auth [facility] Jun 01, 2014 NV- PT INR [facility] August 19, 2014 NV- PT INR [facility] Jul 22, 2014 NV- PT INR [facility] September 19, 2014 rash [facility] August 24, 2014 NV- PT INR [facility] September 26, 2014 NV PT INR [facility] October 05, 2014 Refill [facility] October 26, 2014 NV/JAZZMINE-PT INR [facility] November 01, 2014 PT INR [facility] December 05, 2014 Nata [facility] December 27, 2014 Problems Problem Type Condition ICD-9 Code Onset Dates Condition Status Problem 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 Active Assessment half-way current use of anticoagulant Z79.01 Active Problem Asthma J45.909 Active Problem Essential hypertension I10 Active Problem Dizziness R42 Active Problem History of DVT (deep vein thrombosis) Z86.718 Active Problem History of pulmonary embolism Z86.711 Active Problem Seasonal allergies J30.2 Active 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 Active Medications Medication Code System Code Instructions Start Date End Date Status Dosage Atenolol-Chlorthalidone [facility] [address]-36 50-25 MG Orally Once a day Jul 13, 2015 Active 1/2 tablet [facility]er[facility]ulfate [facility] [address]-57 108 (90 Base) MCG/ACT Inhalation every 4-6 hrs PRN August 25, 2013 Active 2 puffs as needed Colchicine [facility] 88309390941 0.6 Active TAKE 2 TABLETS BY MOUTH TWICE DAILY Warfarin Sodium [facility] 21565740388 5 MG Orally 5 days a week Active 1 tablet Amlodipine Besylate [facility] [address]-42 10 mg Orally Once a day Active 1 tablet Meclizine HCl [facility] [address]-51 25 MG Orally three times a day prn September 21, 2015 Active 1 tablet as needed Symbicort [facility] [address]-73 160-4.5 MCG/ACT Inhalation Twice a day November 16, 2015 May 14, 2016 Active 2 puffs Multivitamins [facility] 18571-74472 Orally Active Unknown Social History Social History Element Qualifiers Date 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 3 November 16, 2015 Last Colonoscopy: . 2010November 16, 2015 Tobacco Use: . Are you a: never smoker November 16, 2015 Flu Vaccine: . no November 16, 2015 Use of recreational / street drugs? . Answer: No November 16, 2015 Do you have pets? . Status: Yes, Type: bird(s) November 16, 2015 Ethnicity . Status , Is south african your primary language? Yes November 16, 2015 [...] Rarely November 16, 2015 Vital Signs Date/Time: December 19, 2015 Weight 225 lbs Height 66 in Results PROTHROMBIN TIME-INR Summary Purpose eClinicalWorks Submission
--- OUTSIDE RECORDS SUMMARY | 2019-01-12 06:41 | XMS REPORT ---
Author Author Sarah Sutherland [facility] eClinicalWorks Address Unknown Phone Unavailable Care Team Providers Care Special Machine Stitcher Name Role Phone Sarah Sutherland CP Unavailable Allergies, Adverse Reactions, Alerts Substance Reaction Event Type Tramadol HCl vomiting Drug Allergy Rocephin hives Drug Allergy Encounters Encounter Location Date Unknown [facility] May 10, 2013 Unknown [facility] Jul 02, 2015 1 week follow up [facility] May 18, 2015 NV/JAZZMINE-pt/inr [facility] May 25, 2015 Unknown [facility] Jun 26, 2015 echo/jazzmine [facility] Jun 02, 2015 Refill [facility] Jan 16, 2015 NV-PT INR [facility] Aug 05, 2013 Needs call back from Medical Staff [facility] Jan 24, 2015 NV-PT INR [facility] August 19, 2013 physical exam [facility] Apr 05, 2015 pt/inr/andrea [facility] Jul 06, 2013 EYE [facility] Apr 28, 2015 NV-PT INR [facility] Jul 22, 2013 PT/INR/ANDREA [facility] Jun 08, 2013 pt/inr/andrea [facility] Jun 22, 2013 PT/INR/ANDREA [facility] May 25, 2013 NV/JAZZMINE-pt/inr [facility] January 04, 2015 Unknown [facility] Jun 08, 2013 rash on foot and swollen [facility] Jun 25, 2013 Follow-Up [facility] Mar 03, 2013 pt/inr [facility] Apr 01, 2013 Test results [facility] Apr 22, 2013 PT/INR-Swelling on right leg [facility] Apr 22, 2013 Follow-Up [facility] Feb 01, 2013 Unknown [facility] Feb 19, 2013 NV-PT INR [facility] Feb 16, 2013 RASH [facility] September 09, 2013 Unknown [facility] August 27, 2013 Unknown [facility] May 04, 2013 PT/ INR [facility] May 04, 2013 REFILL [facility] January 10, 2014 physical [facility] January 12, 2014 Test results [facility] Jan 15, 2014 RESULTS [facility] Jan 26, 2014 FOLLOW UP [facility] Jul 03, 2015 NV-PT INR [facility] September 09, 2013 Refill [facility] October 14, 2013 REFILL [facility] December 01, 2013 REFILL [facility] December 27, 2013 NV-PT INR [facility] Mar 25, 2014 PT INR [facility] Mar 11, 2014 Unknown [facility] Feb 08, 2014 Unknown [facility] May 11, 2014 NV-PT INR [facility] May 24, 2014 Unknown [facility] Apr 13, 2014 NV- PT INR [facility] Apr 22, 2014 nv-pt inr [facility] Jun 22, 2014 Prior Authorization [facility] Jun 07, 2014 Prior Auth [facility] Jun 01, 2014 NV- PT INR [facility] August 19, 2014 NV- PT INR [facility] Jul 22, 2014 NV- PT INR [facility] September 19, 2014 rash [facility] August 24, 2014 NV- PT INR [facility] September 26, 2014 NV PT INR [facility] October 05, 2014 Refill [facility] October 26, 2014 NV/JAZZMINE-PT INR [facility] November 01, 2014 PT INR [facility] December 05, 2014 Rash 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 Problem History of DVT (deep vein thrombosis) Z86.718 Active Medications Medication Code System Code Instructions Start Date End Date Status Dosage Albuterol Sulfate HFA [facility] [address]-48 108 (90 Base) MCG/ACT Inhalation every 4 hrs August 25, 2013 Active 2 puffs as needed Breo Ellipta [facility] [address]-67 100-25 MCG/INH Inhalation Once a day Active 1 puff Tenormin [facility] [address]-12 25 MG Orally Once a day Jan 31, 2015 Active 1 tablet Norel AD [facility] 85639-811-09 4-10-325 MG by mouth every 4-6 hours Jan 26, 2014 Active 1 tablet as needed Warfarin Sodium [facility] [address]-52 6 MG Orally 5 TIMES A WEEK Active 1 tablet Flonase [facility] [address]-44 50 MCG/DOSE Nasally Once a day May 09, 2015 Active 1 spray in each nostril Multivitamins [facility] 16546-01806 Orally Active Unknown Social History Social History Element Qualifiers Date Reported Occupation: . [employer] Jul 13, 2015 children . 1 Jul 13, 2015 Last Colonoscopy: . 2010Jul 13, 2015 Tobacco Use: . Are you a: never smoker Jul 13, 2015 Flu Vaccine: . no Jul 13, 2015 Use of recreational / street drugs? . Answer: No Jul 13, 2015 Do you have pets? . Status: Yes, Type: bird(s) Jul 13, 2015 Ethnicity . Status , Is danish your primary language? Yes Jul 13, 2015 Marital Status: . -Hansa Jul 13, 2015 Caffeine intake? . Status: Yes, What type: Coffee Jul 13, 2015 Do you exercise? . Answer: Yes, Type: walking Jul 13, 2015 Depression Screening: . negative Jul 13, 2015 Fall Risk: . none in the past year Jul 13, 2015 Do you drink alcohol? . Status: Yes, Type: Liquor, How often? Rarely Jul 13, 2015 Vital Signs Date/Time: Jul 03, 2015 Blood Pressure Diastolic 70 mm Hg Blood Pressure Systolic 140 mm Hg Height 66 in Summary Purpose eClinicalWorks Submission
--- OUTSIDE RECORDS SUMMARY | 2019-01-12 06:41 | XMS REPORT ---
Author Author Sarah Sutherland eClinicalWorks Address Unknown Phone Unavailable Care Team Providers Care Creative Resource Manager Name Role Phone Sarah Sutherland CP Unavailable Encounters Encounter Location Date Unknown [facility] May 10, 2013 Unknown [facility] Jul 02, 2015 1 week follow up [facility] May 18, 2015 NV/JAZZMINE-pt/inr [facility] May 25, 2015 Unknown [facility] Jun 26, 2015 echo/jazzmine [facility] Jun 02, 2015 Refill [facility] Jan 16, 2015 NV-PT INR [facility] Aug 05, 2013 Needs call back from Medical Staff [facility] Jan 24, 2015 NV-PT INR [facility] August 19, 2013 physical exam [facility] Apr 05, 2015 pt/inr/andrea [facility] Jul 06, 2013 EYE [facility] Apr 28, 2015 NV-PT INR [facility] Jul 22, 2013 PT/INR/ANDREA [facility] Jun 08, 2013 pt/inr/andrea [facility] Jun 22, 2013 PT/INR/ANDREA [facility] May 25, 2013 NV/JAZZMINE-pt/inr [facility] January 04, 2015 Unknown [facility] Jun 08, 2013 rash on foot and swollen [facility] Jun 25, 2013 Follow-Up [facility] Mar 03, 2013 pt/inr [facility] Apr 01, 2013 Test results [facility] Apr 22, 2013 PT/INR-Swelling on right leg [facility] Apr 22, 2013 Follow-Up [facility] Feb 01, 2013 Unknown [facility] Feb 19, 2013 NV-PT INR [facility] Feb 16, 2013 RASH [facility] September 09, 2013 Unknown [facility] August 27, 2013 Unknown [facility] May 04, 2013 PT/ INR [facility] May 04, 2013 Unknown [facility] November 02, 2015 Unknown [facility] September 22, 2015 RF [facility] September 18, 2015 REFILL [facility] January 10, 2014 Dizzy [facility] September 21, 2015 physical [facility] January 12, 2014 2 week follow up [facility] August 17, 2015 Test results [facility] Jan 15, 2014 Refill [facility] August 29, 2015 RESULTS [facility] Jan 26, 2014 FOLLOW UP [facility] Jul 03, 2015 NV-PT INR [facility] September 09, 2013 PT INR/ BP [facility] Jul 31, 2015 Refill [facility] October 14, 2013 REFILL [facility] December 01, 2013 REFILL [facility] December 27, 2013 NV-PT INR [facility] Mar 25, 2014 PT INR [facility] Mar 11, 2014 Unknown [facility] Feb 08, 2014 Unknown [facility] May 11, 2014 NV-PT INR [facility] May 24, 2014 Unknown [facility] Apr 13, 2014 NV- PT INR [facility] Apr 22, 2014 nv-pt inr [facility] Jun 22, 2014 Prior Authorization [facility] Jun 07, 2014 Prior Auth [facility] Jun 01, 2014 NV- PT INR [facility] August 19, 2014 NV- PT INR [facility] Jul 22, 2014 NV- PT INR [facility] September 19, 2014 rash [facility] August 24, 2014 NV- PT INR [facility] September 26, 2014 NV PT INR [facility] October 05, 2014 Refill [facility] October 26, 2014 NV/JAZZMINE-PT INR [facility] November 01, 2014 PT INR [facility] December 05, 2014 Rash [facility] December 27, 2014 Problems Problem Type Condition ICD-9 Code Onset Dates Condition Status 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 Problem Essential hypertension I10 Active Problem Seasonal allergies J30.2 Active Problem Asthma J45.909 Active Problem History of pulmonary embolism Z86.711 Active Problem 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 Active Problem halfway current use of anticoagulant Z79.01 Active Problem History of DVT (deep vein thrombosis) Z86.718 Active Medications Medication Code System Code Instructions Start Date End Date Status Dosage [facility] [address]-65 5 MG Orally 5 days a week Active 1 tablet Warfarin Sodium [facility] [address]-69 4 mg orally 2 days a week Jul 31, 2015 Active 1 tablet Social History Social History Element Qualifiers Date Reported Occupation: . [employer] September 21, 2015 children . 1 September 21, 2015 Last Colonoscopy: . 2010September 21, 2015 Tobacco Use: . Are you a: never smoker September 21, 2015 Flu Vaccine: . no September 21, 2015 Use of recreational / street drugs? . Answer: No September 21, 2015 Do you have pets? . Status: Yes, Type: bird(s) September 21, 2015 Ethnicity . Status , Is korean your primary language? Yes September 21, 2015 Marital Status: . -Hansa September 21, 2015 Caffeine intake? . Status: Yes, What type: Coffee September 21, 2015 Do you exercise? . Answer: Yes, Type: walking September 21, 2015 Depression Screening: . negative September 21, 2015 Fall Risk: . none in the past year September 21, 2015 Do you drink alcohol? . Status: Yes, Type: Liquor, How often? Rarely September 21, 2015 Summary Purpose eClinicalWorks Submission
--- OUTSIDE RECORDS SUMMARY | 2019-01-12 06:41 | XMS REPORT ---
Author Author Aleah Christopher e[employer] Address Unknown Phone Unavailable Care Team Providers Care Drug Department Worker Name Role Phone Aleah Christopher CP Unavailable Encounters Encounter Location Date Unknown [facility] May 10, 2013 Unknown [facility] Jul 02, 2015 1 week follow up [facility] May 18, 2015 NV/JAZZMINE-pt/inr [facility] May 25, 2015 Unknown [facility] Jun 26, 2015 echo/jazzmine [facility] Jun 02, 2015 Refill [facility] Jan 16, 2015 NV-PT INR [facility] Aug 05, 2013 Needs call back from Medical Staff [facility] Jan 24, 2015 NV-PT INR [facility] August 19, 2013 physical exam [facility] Apr 05, 2015 pt/inr/andrea [facility] Jul 06, 2013 EYE [facility] Apr 28, 2015 NV-PT INR [facility] Jul 22, 2013 PT/INR/ANDREA [facility] Jun 08, 2013 pt/inr/andrea [facility] Jun 22, 2013 PT/INR/ANDREA [facility] May 25, 2013 NV/JAZZMINE-pt/inr [facility] January 04, 2015 Unknown [facility] Jun 08, 2013 rash on foot and swollen [facility] Jun 25, 2013 Follow-Up [facility] Mar 03, 2013 pt/inr [facility] Apr 01, 2013 Test results [facility] Apr 22, 2013 PT/INR-Swelling on right leg [facility] Apr 22, 2013 Follow-Up [facility] Feb 01, 2013 Unknown [facility] Feb 19, 2013 NV-PT INR [facility] Feb 16, 2013 RASH [facility] September 09, 2013 Unknown [facility] August 27, 2013 2 MONTH FOLLOW UP [facility] November 16, 2015 Unknown [facility] May 04, 2013 Refill [facility] November 16, 2015 PT/ INR [facility] May 04, 2013 Unknown [facility] November 02, 2015 Unknown [facility] September 22, 2015 RF [facility] September 18, 2015 REFILL [facility] January 10, 2014 Dizzy [facility] September 21, 2015 physical [facility] January 12, 2014 2 week follow up [facility] August 17, 2015 Test results [facility] Jan 15, 2014 Refill [facility] August 29, 2015 RESULTS [facility] Jan 26, 2014 FOLLOW UP [facility] Jul 03, 2015 NV-PT INR [facility] September 09, 2013 PT INR/ BP [facility] Jul 31, 2015 Refill [facility] October 14, 2013 REFILL [facility] December 01, 2013 REFILL [facility] December 27, 2013 NV-PT INR [facility] Mar 25, 2014 PT INR [facility] Mar 11, 2014 Unknown [facility] Feb 08, 2014 Unknown [facility] May 11, 2014 NV/ALEAH-PT/INR . [facility] December 19, 2015 NV-PT INR [facility] May 24, 2014 NV/ALEAH-PT/INR . [facility] Jan 18, 2016 Unknown [facility] Apr 13, 2014 NV- PT INR [facility] Apr 22, 2014 nv-pt inr [facility] Jun 22, 2014 Prior Authorization [facility] Jun 07, 2014 Prior Auth [facility] Jun 01, 2014 NV- PT INR [facility] August 19, 2014 NV- PT INR [facility] Jul 22, 2014 NV- PT INR [facility] September 19, 2014 rash [facility] August 24, 2014 NV- PT INR [facility] September 26, 2014 NV PT INR [facility] October 05, 2014 Refill [facility] October 26, 2014 NV/JAZZMINE-PT INR [facility] November 01, 2014 PT INR [facility] December 05, 2014 Rash [facility] December 27, 2014 Problems Problem Type Condition ICD-9 Code Onset Dates Condition Status Problem 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 Active 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.01 Active Problem Asthma J45.909 Active Problem Essential hypertension I10 Active Problem Dizziness R42 Active Problem History of DVT (deep vein thrombosis) Z86.718 Active Problem History of pulmonary embolism Z86.711 Active Problem Seasonal allergies J30.2 Active 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 Z79.01 Active Medications Medication Code System Code Instructions Start Date End Date Status Dosage [facility] [address]-38 160-4.5 MCG/ACT Inhalation Twice a day November 16, 2015 May 14, 2016 Active 2 puffs Warfarin Sodium [facility] 07126320114 5 MG Orally 5 days a week Active 1 tablet Meclizine HCl [facility] [address]-69 25 MG Orally three times a day prn September 21, 2015 Active 1 tablet as needed [facility] 52969616549 0.6 Active TAKE 2 TABLETS BY MOUTH TWICE DAILY Albuterol Sulfate HFA [facility] [address]-75 108 (90 Base) MCG/ACT Inhalation every 4-6 hrs PRN August 25, 2013 Active 2 puffs as needed Atenolol-Chlorthalidone [facility] [address]-09 50-25 MG Orally Once a day Jul 13, 2015 Active 1/2 tablet Multivitamins [facility] 13449-[address]8080 Orally Active Unknown Amlodipine Besylate [facility] [address]-12 10 mg Orally Once a day Active 1 tablet Social History Social History Element Qualifiers Date Reported Occupation: . [employer] November 16, 2015 children . 3 November 16, 2015 Last Colonoscopy: . 2010November 16, 2015 Tobacco Use: . Are you a: never smoker November 16, 2015 Flu Vaccine: . no November 16, 2015 Use of recreational / street drugs? . Answer: No November 16, 2015 Do you have pets? . Status: Yes, Type: bird(s) November 16, 2015 Ethnicity . Status , Is malay your primary language? Yes November 16, 2015 [...] Liquor, How often? Rarely November 16, 2015 Results PROTHROMBIN TIME-INR Summary Purpose eClinicalWorks Submission
--- OUTSIDE RECORDS SUMMARY | 2019-01-12 06:41 | XMS REPORT ---
Author Author Sarah Sutherland [facility] e[employer] Address Unknown Phone Unavailable Care Team Providers Care Pediatric Dental Hygienist Name Role Phone Sarah Sutherland CP Unavailable Allergies, Adverse Reactions, Alerts Substance Reaction Event Type Tramadol HCl vomiting Drug Allergy Rocephin hives Drug Allergy Encounters Encounter Location Date Unknown [facility] May 10, 2013 Unknown [facility] Jul 02, 2015 1 week follow up [facility] May 18, 2015 NV/JAZZMINE-pt/inr [facility] May 25, 2015 Unknown [facility] Jun 26, 2015 echo/jazzmine [facility] Jun 02, 2015 Refill [facility] Jan 16, 2015 NV-PT INR [facility] Aug 05, 2013 Needs call back from Medical Staff [facility] Jan 24, 2015 NV-PT INR [facility] August 19, 2013 physical exam [facility] Apr 05, 2015 pt/inr/andrea [facility] Jul 06, 2013 EYE [facility] Apr 28, 2015 NV-PT INR [facility] Jul 22, 2013 PT/INR/ANDREA [facility] Jun 08, 2013 pt/inr/andrea [facility] Jun 22, 2013 PT/INR/ANDREA [facility] May 25, 2013 NV/JAZZMINE-pt/inr [facility] January 04, 2015 Unknown [facility] Jun 08, 2013 rash on foot and swollen [facility] Jun 25, 2013 Follow-Up [facility] Mar 03, 2013 pt/inr [facility] Apr 01, 2013 Test results [facility] Apr 22, 2013 PT/INR-Swelling on right leg [facility] Apr 22, 2013 Follow-Up [facility] Feb 01, 2013 Unknown [facility] Feb 19, 2013 NV-PT INR [facility] Feb 16, 2013 RASH [facility] September 09, 2013 Unknown [facility] August 27, 2013 Unknown [facility] May 04, 2013 PT/ INR [facility] May 04, 2013 REFILL [facility] January 10, 2014 physical [facility] January 12, 2014 2 week follow up [facility] August 17, 2015 Test results [facility] Jan 15, 2014 RESULTS [facility] Jan 26, 2014 FOLLOW UP [facility] Jul 03, 2015 NV-PT INR [facility] September 09, 2013 PT INR/ BP [facility] Jul 31, 2015 Refill [facility] October 14, 2013 REFILL [facility] December 01, 2013 REFILL [facility] December 27, 2013 NV-PT INR [facility] Mar 25, 2014 PT INR [facility] Mar 11, 2014 Unknown [facility] Feb 08, 2014 Unknown [facility] May 11, 2014 NV-PT INR [facility] May 24, 2014 Unknown [facility] Apr 13, 2014 NV- PT INR [facility] Apr 22, 2014 nv-pt inr [facility] Jun 22, 2014 Prior Authorization [facility] Jun 07, 2014 Prior Auth [facility] Jun 01, 2014 NV- PT INR [facility] August 19, 2014 NV- PT INR [facility] Jul 22, 2014 NV- PT INR [facility] September 19, 2014 rash [facility] August 24, 2014 NV- PT INR [facility] September 26, 2014 NV PT INR [facility] October 05, 2014 Refill [facility] October 26, 2014 NV/JAZZMINE-PT INR [facility] November 01, 2014 PT INR [facility] December 05, 2014 Nata [facility] December 27, 2014 Problems Problem Type Condition ICD-9 Code Onset Dates Condition Status 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 Assessment DVT (deep venous thrombosis) I82.409 Active Problem Essential hypertension I10 Active Problem Seasonal allergies J30.2 Active Problem Asthma J45.909 Active Problem History of pulmonary embolism Z86.711 Active Problem 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 Active Problem 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 current use of anticoagulant Z79.01 Active Problem History of DVT (deep vein thrombosis) Z86.718 Active Medications Medication Code System Code Instructions Start Date End Date Status Dosage [facility] [address]-78 50 MCG/DOSE Nasally Once a day May 09, 2015 Active 1 spray in each nostril [facility]farin Sodium [facility] [address]-41 5 MG Orally Once a day Active 1 tablet Amlodipine Besylate [facility] [address]-77 10 mg Orally Once a day Jul 17, 2015 Active 1 tablet Multivitamins [facility] [address]287 Orally Active Unknown Norel AD [facility] 02781-782-25 4-10-325 MG by mouth every 4-6 hours Jan 26, 2014 Active 1 tablet as needed Albuterol Sulfate H[facility] [address]-95 108 (90 Base) MCG/ACT Inhalation every 4 hrs August 25, 2013 Active 2 puffs as needed Atenolol-Chlorthalidone [facility] [address]-56 50-25 MG Orally Once a day Jul 13, 2015 Active 1 tablet Warfarin Sodium [facility] [address]-54 4 mg Orally Once a day Jul 31, 2015 Active 1 tablet Colchicine [facility] 55153934323 0.6 Active TAKE 2 TABLETS BY MOUTH TWICE DAILY Breo Ellipta [facility] [address]-41 100-25 MCG/INH Inhalation Once a day Active 1 puff Social History Social History Element Qualifiers Date Reported Occupation: . [employer] August 17, 2015 children . 3 August 17, 2015 Last Colonoscopy: . 2010August 17, 2015 Tobacco Use: . Are you a: never smoker August 17, 2015 Flu Vaccine: . no August 17, 2015 Use of recreational / street drugs? . Answer: No August 17, 2015 Do you have pets? . Status: Yes, Type: bird(s) August 17, 2015 Ethnicity . Status , Is afghan your primary language? Yes August 17, 2015 Marital Status: . -Hansa August 17, 2015 Caffeine intake? . Status: Yes, What type: Coffee August 17, 2015 Do you exercise? . Answer: Yes, Type: walking August 17, 2015 Depression Screening: . negative August 17, 2015 Fall Risk: . none in the past year August 17, 2015 Do you drink alcohol? . Status: Yes, Type: Liquor, How often? Rarely August 17, 2015 Family history Qualifier Description Comment Date Reported Maternal Grandmother Comment not available August [...] Other: Comment not available August 17, 2015 Vital Signs Date/Time: August 17, 2015 Blood Pressure Diastolic 70 mm Hg Blood Pressure Systolic 110 mm Hg Height 66 in Summary Purpose eClinicalWorks Submission
--- OUTSIDE RECORDS SUMMARY | 2019-01-12 06:41 | XMS REPORT ---
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 Care Environmental Designer Name Role Phone Meg Cali Unavailable Encounters Encounter Location Date Unknown [facility] May 10, 2013 Unknown [facility] Jul 02, 2015 1 week follow up [facility] May 18, 2015 NV/JAZZMINE-pt/inr [facility] May 25, 2015 Unknown [facility] Jun 26, 2015 echo/jazzmine [facility] Jun 02, 2015 Refill [facility] Jan 16, 2015 NV-PT INR [facility] Aug 05, 2013 Needs call back from Medical Staff [facility] Jan 24, 2015 NV-PT INR [facility] August 19, 2013 physical exam [facility] Apr 05, 2015 pt/inr/andrea [facility] Jul 06, 2013 EYE [facility] Apr 28, 2015 [...] 2013 rash on foot and swollen [facility] Jun 25, 2013 Follow-Up [facility] Mar 03, 2013 pt/inr [facility] Apr 01, 2013 Test results [facility] Apr 22, 2013 PT/INR-Swelling on right leg [facility] Apr 22, 2013 Follow-Up [facility] Feb 01, 2013 Unknown [facility] Feb 19, 2013 NV-PT INR [facility] Feb 16, 2013 RASH [facility] September 09, 2013 Unknown [facility] August 27, 2013 Unknown [facility] May 04, 2013 PT/ INR [facility] May 04, 2013 REFILL [facility] January 10, 2014 physical [facility] January 12, 2014 Test results [facility] Jan 15, 2014 RESULTS [facility] Jan 26, 2014 FOLLOW UP [facility] Jul 03, 2015 NV-PT INR [facility] September 09, 2013 Refill [facility] October 14, 2013 REFILL [facility] December 01, 2013 REFILL [facility] December 27, 2013 NV-PT INR [facility] Mar 25, 2014 PT INR [facility] Mar 11, 2014 Unknown [facility] Feb 08, 2014 Unknown [facility] May 11, 2014 NV-PT INR [facility] May 24, 2014 Unknown [facility] Apr 13, 2014 NV- PT INR [facility] Apr 22, 2014 nv-pt inr [facility] Jun 22, 2014 Prior Authorization [facility] Jun 07, 2014 Prior Auth [facility] Jun 01, 2014 NV- PT INR [facility] August 19, 2014 NV- PT INR [facility] Jul 22, 2014 NV- PT INR [facility] September 19, 2014 rash [facility] August 24, 2014 NV- PT INR [facility] September 26, 2014 NV PT INR [facility] October 05, 2014 Refill [facility] October 26, 2014 NV/JAZZMINE-PT INR [facility] November 01, 2014 PT INR [facility] December 05, 2014 Rash [facility] December 27, 2014 Problems Problem Type Condition ICD-9 Code Onset Dates Condition Status 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 [email or web address] Jul 13, 2015 children . 3 Jul 13, 2015 Last Colonoscopy: . 2010Jul 13, 2015 Tobacco Use: . Are you a: never smoker Jul 13, 2015 Flu Vaccine: . no Jul 13, 2015 Use of recreational / street drugs? . Answer: No Jul 13, 2015 Do you have pets? . Status: Yes, Type: bird(s) Jul 13, 2015 Ethnicity . Status , Is korean your primary language? Yes Jul 13, 2015 [...] Liquor, How often? Rarely Jul 13, 2015 Summary Purpose [employer] Submission
--- OUTSIDE RECORDS SUMMARY | 2019-01-12 06:41 | XMS REPORT ---
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 Phone Sarah Sutherland CP Unavailable Allergies, Adverse Reactions, Alerts Substance Reaction Event Type Tramadol HCl vomiting Drug Allergy Rocephin hives Drug Allergy Encounters Encounter Location Date Unknown [facility] May 10, 2013 Unknown [facility] Jul 02, 2015 1 week follow up [facility] May 18, 2015 NV/JAZZMINE-pt/inr [facility] May 25, 2015 Unknown [facility] Jun 26, 2015 echo/jazzmine [facility] Jun 02, 2015 Refill [facility] Jan 16, 2015 NV-PT INR [facility] Aug 05, 2013 Needs call back from Medical Staff [facility] Jan 24, 2015 NV-PT INR [facility] August 19, 2013 physical exam [facility] Apr 05, 2015 pt/inr/andrea [facility] Jul 06, 2013 EYE [facility] Apr 28, 2015 NV-PT INR [facility] Jul 22, 2013 PT/INR/ANDREA [facility] Jun 08, 2013 pt/inr/andrea [facility] Jun 22, 2013 PT/INR/ANDREA [facility] May 25, 2013 NV/JAZZMINE-pt/inr [facility] January 04, 2015 Unknown [facility] Jun 08, 2013 rash on foot and swollen [facility] Jun 25, 2013 Follow-Up [facility] Mar 03, 2013 pt/inr [facility] Apr 01, 2013 Test results [facility] Apr 22, 2013 PT/INR-Swelling on right leg [facility] Apr 22, 2013 Follow-Up [facility] Feb 01, 2013 Unknown [facility] Feb 19, 2013 NV-PT INR [facility] Feb 16, 2013 RASH [facility] September 09, 2013 Unknown [facility] August 27, 2013 Unknown [facility] May 04, 2013 PT/ INR [facility] May 04, 2013 RF [facility] September 18, 2015 REFILL [facility] January 10, 2014 Dizzy [facility] September 21, 2015 physical [facility] January 12, 2014 2 week follow up [facility] August 17, 2015 Test results [facility] Jan 15, 2014 Refill [facility] August 29, 2015 RESULTS [facility] Jan 26, 2014 FOLLOW UP [facility] Jul 03, 2015 NV-PT INR [facility] September 09, 2013 PT INR/ BP [facility] Jul 31, 2015 Refill [facility] October 14, 2013 REFILL [facility] December 01, 2013 REFILL [facility] December 27, 2013 NV-PT INR [facility] Mar 25, 2014 PT INR [facility] Mar 11, 2014 Unknown [facility] Feb 08, 2014 Unknown [facility] May 11, 2014 NV-PT INR [facility] May 24, 2014 Unknown [facility] Apr 13, 2014 NV- PT INR [facility] Apr 22, 2014 nv-pt inr [facility] Jun 22, 2014 Prior Authorization [facility] Jun 07, 2014 Prior Auth [facility] Jun 01, 2014 NV- PT INR [facility] August 19, 2014 NV- PT INR [facility] Jul 22, 2014 NV- PT INR [facility] September 19, 2014 rash [facility] August 24, 2014 NV- PT INR [facility] September 26, 2014 NV PT INR [facility] October 05, 2014 Refill [facility] October 26, 2014 NV/JAZZMINE-PT INR [facility] November 01, 2014 PT INR [facility] December 05, 2014 Rash [facility] December 27, 2014 Problems Problem Type Condition ICD-9 Code Onset Dates Condition Status Assessment Essential hypertension I10 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 Assessment Dizziness R42 Active Problem Essential hypertension I10 Active Problem Seasonal allergies J30.2 Active Problem Asthma J45.909 Active Problem History of pulmonary embolism Z86.711 Active Problem 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 Active Problem senior living current use of anticoagulant Z79.01 Active Problem History of DVT (deep vein thrombosis) Z86.718 Active Medications Medication Code System Code Instructions Start Date End Date Status Dosage Amlodipine Besylate [facility] [address]-08 10 mg Orally Once a day Jul 17, 2015 Active 1 tablet Atenolol-Chlorthalidone [facility] [address]-38 50-25 MG Orally Once a day Jul 13, 2015 Active 1 tablet Amlodipine Besylate [facility] [address]-47 10 mg Orally Once a day Jul 17, 2015 Active 1 tablet Albuterol Sulfate HFA [facility] [address]-98 108 (90 Base) MCG/ACT Inhalation every 4 hrs August 25, 2013 Active 2 puffs as needed Breo Ellipta [facility] [address]-16 100-25 MCG/INH Inhalation Once a day Active 1 puff Warfarin Sodium [facility] [address]-71 5 MG Orally 5 days a week Active 1 tablet Warfarin Sodium [facility] [address]-22 4 mg orally 2 days a week Jul 31, 2015 Active 1 tablet Multivitamins [facility] 63733-28403 Orally Active Unknown Norel AD [facility] 92241-164-42 4-10-325 MG by mouth every 4-6 hours Jan 26, 2014 Active 1 tablet as needed Meclizine HCl [facility] [address]-48 25 MG Orally three times a day prn September 21, 2015 Active 1 tablet as needed Flonase [facility] [address]-61 50 MCG/DOSE Nasally as needed (prn) May 09, 2015 Active 1 spray in each nostril Colchicine [facility] 17667452293 0.6 Active TAKE 2 TABLETS BY MOUTH TWICE DAILY Social History Social History Element Qualifiers Date Reported Occupation: . [employer] September 21, 2015 children . 3 September 21, 2015 Last Colonoscopy: . 2010September 21, 2015 Tobacco Use: . Are you a: never smoker September 21, 2015 Flu Vaccine: . no September 21, 2015 Use of recreational / street drugs? . Answer: No September 21, 2015 Do you have pets? . Status: Yes, Type: bird(s) September 21, 2015 Ethnicity . Status , Is american your primary language? Yes September 21, 2015 [...] Liquor, How often? 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
--- OUTSIDE RECORDS SUMMARY | 2019-01-12 06:41 | XMS REPORT ---
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 Name Role Phone Sarah Sutherland CP Unavailable Encounters Encounter Location Date Unknown [facility] May 10, 2013 Unknown [facility] Jul 02, 2015 1 week follow up [facility] May 18, 2015 NV/JAZZMINE-pt/inr [facility] May 25, 2015 Unknown [facility] Jun 26, 2015 echo/jazzmine [facility] Jun 02, 2015 Refill [facility] Jan 16, 2015 NV-PT INR [facility] Aug 05, 2013 Needs call back from Medical Staff [facility] Jan 24, 2015 NV-PT INR [facility] August 19, 2013 physical exam [facility] Apr 05, 2015 pt/inr/andrea [facility] Jul 06, 2013 EYE [facility] Apr 28, 2015 NV-PT INR [facility] Jul 22, 2013 PT/INR/ANDREA [facility] Jun 08, 2013 pt/inr/andrea [facility] Jun 22, 2013 PT/INR/ANDREA [facility] May 25, 2013 NV/JAZZMINE-pt/inr [facility] January 04, 2015 Unknown [facility] Jun 08, 2013 rash on foot and swollen [facility] Jun 25, 2013 Follow-Up [facility] Mar 03, 2013 pt/inr [facility] Apr 01, 2013 Test results [facility] Apr 22, 2013 PT/INR-Swelling on right leg [facility] Apr 22, 2013 Follow-Up [facility] Feb 01, 2013 Unknown [facility] Feb 19, 2013 NV-PT INR [facility] Feb 16, 2013 RASH [facility] September 09, 2013 Unknown [facility] August 27, 2013 Unknown [facility] May 04, 2013 PT/ INR [facility] May 04, 2013 Unknown [facility] September 22, 2015 RF [facility] September 18, 2015 REFILL [facility] January 10, 2014 Dizzy [facility] September 21, 2015 physical [facility] January 12, 2014 2 week follow up [facility] August 17, 2015 Test results [facility] Jan 15, 2014 Refill [facility] August 29, 2015 RESULTS [facility] Jan 26, 2014 FOLLOW UP [facility] Jul 03, 2015 NV-PT INR [facility] September 09, 2013 PT INR/ BP [facility] Jul 31, 2015 Refill [facility] October 14, 2013 REFILL [facility] December 01, 2013 REFILL [facility] December 27, 2013 NV-PT INR [facility] Mar 25, 2014 PT INR [facility] Mar 11, 2014 Unknown [facility] Feb 08, 2014 Unknown [facility] May 11, 2014 NV-PT INR [facility] May 24, 2014 Unknown [facility] Apr 13, 2014 NV- PT INR [facility] Apr 22, 2014 nv-pt inr [facility] Jun 22, 2014 Prior Authorization [facility] Jun 07, 2014 Prior Auth [facility] Jun 01, 2014 NV- PT INR [facility] August 19, 2014 NV- PT INR [facility] Jul 22, 2014 NV- PT INR [facility] September 19, 2014 rash [facility] August 24, 2014 NV- PT INR [facility] September 26, 2014 NV PT INR [facility] October 05, 2014 Refill [facility] October 26, 2014 NV/JAZZMINE-PT INR [facility] November 01, 2014 PT INR [facility] December 05, 2014 Rash [facility] December 27, 2014 Problems Problem Type Condition ICD-9 Code Onset Dates Condition Status Problem 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 current 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 anticoagulant V58.61 Active Problem Essential hypertension I10 Active Problem Seasonal allergies J30.2 Active Problem Asthma J45.909 Active Problem History of pulmonary embolism Z86.711 Active Problem 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 [employer] September 21, 2015 children . 3 September 21, 2015 Last Colonoscopy: . 2010September 21, 2015 Tobacco Use: . Are you a: never smoker September 21, 2015 Flu Vaccine: . no September 21, 2015 Use of recreational / street drugs? . Answer: No September 21, 2015 Do you have pets? . Status: Yes, Type: bird(s) September 21, 2015 Ethnicity . Status , Is mosotho your primary language? Yes September 21, 2015 [...]
--- OUTSIDE RECORDS SUMMARY | 2019-01-12 06:41 | XMS REPORT ---
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 Role Phone Meg Cali Unavailable Encounters Encounter Location Date Unknown [facility] May 10, 2013 Unknown [facility] Jul 02, 2015 1 week follow up [facility] May 18, 2015 NV/JAZZMINE-pt/inr [facility] May 25, 2015 Unknown [facility] Jun 26, 2015 echo/jazzmine [facility] Jun 02, 2015 Refill [facility] Jan 16, 2015 NV-PT INR [facility] Aug 05, 2013 Needs call back from Medical Staff [facility] Jan 24, 2015 NV-PT INR [facility] August 19, 2013 physical exam [facility] Apr 05, 2015 pt/inr/andrea [facility] Jul 06, 2013 EYE [facility] Apr 28, 2015 NV-PT INR [facility] Jul 22, 2013 PT/INR/ANDREA [facility] Jun 08, 2013 pt/inr/andrea [facility] Jun 22, 2013 PT/INR/ANDREA [facility] May 25, 2013 NV/JAZZMINE-pt/inr [facility] January 04, 2015 Unknown [facility] Jun 08, 2013 rash on foot and swollen [facility] Jun 25, 2013 Follow-Up [facility] Mar 03, 2013 pt/inr [facility] Apr 01, 2013 Test results [facility] Apr 22, 2013 PT/INR-Swelling on right leg [facility] Apr 22, 2013 Follow-Up [facility] Feb 01, 2013 Unknown [facility] Feb 19, 2013 NV-PT INR [facility] Feb 16, 2013 RASH [facility] September 09, 2013 Unknown [facility] August 27, 2013 Unknown [facility] May 04, 2013 PT/ INR [facility] May 04, 2013 REFILL [facility] January 10, 2014 physical [facility] January 12, 2014 2 week follow up [facility] August 17, 2015 Test results [facility] Jan 15, 2014 Refill [facility] August 29, 2015 RESULTS [facility] Jan 26, 2014 FOLLOW UP [facility] Jul 03, 2015 NV-PT INR [facility] September 09, 2013 PT INR/ BP [facility] Jul 31, 2015 Refill [facility] October 14, 2013 REFILL [facility] December 01, 2013 REFILL [facility] December 27, 2013 NV-PT INR [facility] Mar 25, 2014 PT INR [facility] Mar 11, 2014 Unknown [facility] Feb 08, 2014 Unknown [facility] May 11, 2014 NV-PT INR [facility] May 24, 2014 Unknown [facility] Apr 13, 2014 NV- PT INR [facility] Apr 22, 2014 nv-pt inr [facility] Jun 22, 2014 Prior Authorization [facility] Jun 07, 2014 Prior Auth [facility] Jun 01, 2014 NV- PT INR [facility] August 19, 2014 NV- PT INR [facility] Jul 22, 2014 NV- PT INR [facility] September 19, 2014 rash [facility] August 24, 2014 NV- PT INR [facility] September 26, 2014 NV PT INR [facility] October 05, 2014 Refill [facility] October 26, 2014 NV/JAZZMINE-PT INR [facility] November 01, 2014 PT INR [facility] December 05, 2014 Rash [facility] December 27, 2014 Problems Problem Type Condition ICD-9 Code Onset Dates Condition Status 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 Problem Essential hypertension I10 Active Problem Seasonal allergies J30.2 Active Problem Asthma J45.909 Active Problem History of pulmonary embolism Z86.711 Active Problem 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 [employer] August 17, 2015 children . 3 August 17, 2015 Last Colonoscopy: . 2010August 17, 2015 Tobacco Use: . Are you a: never smoker August 17, 2015 Flu Vaccine: . no August 17, 2015 Use of recreational / street drugs? . Answer: No August 17, 2015 Do you have pets? . Status: Yes, Type: bird(s) August 17, 2015 Ethnicity . Status , Is paraguayan your primary language? Yes August 17, 2015 [...] Liquor, How often? Rarely August 17, 2015 Summary Purpose [employer] Submission
--- OUTSIDE RECORDS SUMMARY | 2019-01-12 06:41 | XMS REPORT ---
Author Author Sarah Sutherland [employer] Address Unknown Phone Unavailable Care Team Providers Care Tacker Elastic Band Name Role Phone Sarah Sutherland CP Unavailable Encounters Encounter Location Date Unknown [facility] May 10, [address] [facility] Jul 02, 2015 1 week follow up [facility] May 18, 2015 NV/JAZZMINE-pt/inr [facility] May 25, [address] [facility] Jun 26, 2015 echo/jazzmine [facility] Jun 02, [address] [facility] Jan 16, 2015 NV-PT INR [facility] Aug 05, 2013 Needs call back from Medical Staff [facility] Jan 24, 2015 NV-PT INR [facility] August 19, [address] [facility] Apr 05, 2015 pt/inr/andrea [facility] Jul 06, [address] [facility] Apr 28, 2015 NV-PT INR [facility] Jul 22, 2013 PT/INR/ANDREA [facility] Jun 08, 2013 pt/inr/andrea [facility] Jun 22, 2013 PT/INR/ANDREA [facility] May 25, 2013 NV/JAZZMINE-pt/inr [facility] January 04, [address] [facility] Jun 08, 2013 rash on foot and swollen [facility] Jun 25, 2013 Follow-Up [facility] Mar 03, 2013 pt/inr [facility] Apr 01, [address] [facility] Apr 22, 2013 PT/INR-Swelling on right leg [facility] Apr 22, 2013 Follow-Up [facility] Feb 01, [address] [facility] Feb 19, 2013 NV-PT INR [facility] Feb 16, 2013 RASH [facility] September 09, 2013 Unknown [facility] August 27, 2013 Unknown [facility] May 04, 2013 PT/ INR [facility] May 04, 2013 RF [facility] September 18, 2015 REFILL [facility] January 10, 2014 physical [facility] January 12, 2014 2 week follow up [facility] August 17, [address] [facility] Jan 15, 2014 Refill [facility] August 29, 2015 RESULTS [facility] Jan 26, [address] [facility] Jul 03, 2015 NV-PT INR [facility] September 09, 2013 PT INR/ BP [facility] Jul 31, 2015 Refill [facility] October 14, 2013 REFILL [facility] December 01, 2013 REFILL [facility] December 27, 2013 NV-PT INR [facility] Mar 25, 2014 PT INR [facility] Mar 11, 2014 Unknown [facility] Feb 08, 2014 Unknown [facility] May 11, 2014 NV-PT INR [facility] May 24, 2014 Unknown [facility] Apr 13, 2014 NV- PT INR [facility] Apr 22, 2014 nv-pt inr [facility] Jun 22, 2014 Prior Authorization [facility] Jun 07, 2014 Prior Auth [facility] Jun 01, 2014 NV- PT INR [facility] August 19, 2014 NV- PT INR [facility] Jul 22, 2014 NV- PT INR [facility] September 19, 2014 rash [facility] August 24, 2014 NV- PT INR [facility] September 26, 2014 NV PT INR 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 current use of anticoagulant V58.61 Active Problem Essential hypertension I10 Active Problem Seasonal allergies J30.2 Active Problem Asthma J45.909 Active Problem History of pulmonary embolism Z86.711 Active Problem 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 [employer] August 17, 2015 children . 3 August 17, 2015 Last Colonoscopy: . 2010August 17, 2015 Tobacco Use: . Are you a: never smoker August 17, 2015 Flu Vaccine: . no August 17, 2015 Use of recreational / street drugs? . Answer: No August 17, 2015 Do you have pets? . Status: Yes, Type: bird(s) August 17, 2015 Ethnicity . Status , Is macedonian your primary language? Yes August 17, 2015 [...]
--- OUTSIDE RECORDS SUMMARY | 2019-01-12 06:42 | XMS REPORT ---
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 Name Role Phone Aleah Christopher CP Unavailable Encounters Encounter Location Date Unknown [facility] May 10, 2013 Unknown [facility] Jul 02, 2015 1 week follow up [facility] May 18, 2015 NV/JAZZMINE-pt/inr [facility] May 25, 2015 Unknown [facility] Jun 26, 2015 echo/jazzmine [facility] Jun 02, 2015 Refill [facility] Jan 16, 2015 NV-PT INR [facility] Aug 05, 2013 Needs call back from Medical Staff [facility] Jan 24, 2015 NV-PT INR [facility] August 19, 2013 physical exam [facility] Apr 05, 2015 pt/inr/andrea [facility] Jul 06, 2013 EYE [facility] Apr 28, 2015 NV-PT INR [facility] Jul 22, 2013 PT/INR/ANDREA [facility] Jun 08, 2013 pt/inr/andrea [facility] Jun 22, 2013 PT/INR/ANDREA [facility] May 25, 2013 NV/JAZZMINE-pt/inr [facility] January 04, 2015 Unknown [facility] Jun 08, 2013 rash on foot and swollen [facility] Jun 25, 2013 Follow-Up [facility] Mar 03, 2013 pt/inr [facility] Apr 01, 2013 Test results [facility] Apr 22, 2013 PT/INR-Swelling on right leg [facility] Apr 22, 2013 Follow-Up [facility] Feb 01, 2013 Unknown [facility] Feb 19, 2013 NV-PT INR [facility] Feb 16, 2013 RASH [facility] September 09, 2013 Unknown [facility] August 27, 2013 2 MONTH FOLLOW UP [facility] November 16, 2015 Unknown [facility] May 04, 2013 Refill [facility] November 16, 2015 PT/ INR [facility] May 04, 2013 Unknown [facility] November 02, 2015 Unknown [facility] September 22, 2015 RF [facility] September 18, 2015 REFILL [facility] January 10, 2014 Dizzy [facility] September 21, 2015 physical [facility] January 12, 2014 2 week follow up [facility] August 17, 2015 Test results [facility] Jan 15, 2014 Refill [facility] August 29, 2015 RESULTS [facility] Jan 26, 2014 FOLLOW UP [facility] Jul 03, 2015 NV-PT INR [facility] September 09, 2013 PT INR/ BP [facility] Jul 31, 2015 Refill [facility] October 14, 2013 REFILL [facility] December 01, 2013 REFILL [facility] December 27, 2013 NV-PT INR [facility] Mar 25, 2014 PT INR [facility] Mar 11, 2014 Unknown [facility] Feb 08, 2014 Unknown [facility] May 11, 2014 NV/ALEAH-PT/INR . [facility] December 19, 2015 NV-PT INR [facility] May 24, 2014 NV/ALEAH-PT/INR . [facility] Jan 18, 2016 Unknown [facility] Apr 13, 2014 NV/ALEAH-PT/INR . [facility] Feb 15, 2016 NV- PT INR [facility] Apr 22, 2014 RT LEG [facility] Mar 18, 2016 nv-pt inr [facility] Jun 22, 2014 Consultation [facility] Mar 20, 2016 Prior Authorization [facility] Jun 07, 2014 Prior Auth [facility] Jun 01, 2014 NV- PT INR [facility] August 19, 2014 NV- PT INR [facility] Jul 22, 2014 NV- PT INR [facility] September 19, 2014 noe [facility] August 24, 2014 NV- PT INR [facility] September 26, 2014 NV PT INR [facility] October 05, 2014 Refill [facility] October 26, 2014 NV/JAZZMINE-PT INR [facility] November 01, 2014 PT INR [facility] December 05, 2014 Noe [facility] December 27, 2014 Problems Problem Type Condition ICD-9 Code Onset Dates Condition Status Problem 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 Active Assessment Skin lesion L98.9 Active Problem Asthma J45.909 Active Problem Essential hypertension I10 Active Problem Dizziness R42 Active Problem History of DVT (deep vein thrombosis) Z86.718 Active Problem History of pulmonary embolism Z86.711 Active Problem Seasonal allergies J30.2 Active 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 [facility] [employer] [facility] [employer] Mar 18, 2016 children . 3 Mar 18, 2016 Last Colonoscopy: . 2010Mar 18, 2016 Tobacco Use: . Are you a: never smoker Mar 18, 2016 Flu Vaccine: . no Mar 18, 2016 Use of recreational / street drugs? . Answer: No Mar 18, 2016 Do you have pets? . Status: Yes, Type: bird(s) Mar 18, 2016 Ethnicity . Status , Is croatian your primary language? Yes Mar 18, 2016 Marital Status: . -Hansa Mar 18, 2016 Caffeine intake? . Status: Yes, What type: Coffee Mar 18, 2016 Do you exercise? . Answer: Yes, Type: walking Mar 18, 2016 Depression Screening: . negative Mar 18, 2016 Fall Risk: . none in the past year Mar 18, 2016 Do you drink alcohol? . Status: Yes, Type: Liquor, How often? Rarely Mar 18, 2016 Summary Purpose [employer] Submission
--- OUTSIDE RECORDS SUMMARY | 2019-01-12 06:42 | XMS REPORT ---
Author Author Aleah Christopher e[employer] Address Unknown Phone Unavailable Care Team Providers Care Blanket Winder Helper Name Role Phone Aleah Christopher CP [facility] Jan 24, 2015 [place]-PT INR [facility] August 19, 2013 physical exam [facility] Apr 05, 2015 pt/inr/andrea [facility] Jul 06, 2013 EYE [facility] Apr 28, 2015 [place]-PT INR [facility] Jul 22, 2013 PT/INR/ANDREA [facility] Jun 08, 2013 pt/inr/andrea [facility] Jun 22, 2013 PT/INR/ANDREA [facility] May 25, [...] [facility] May 04, 2013 Refill [facility] November 16, 2015 PT/ INR [facility] May 04, 2013 Unknown [facility] November 02, 2015 Unknown [facility] September 22, 2015 RF [facility] September 18, 2015 REFILL [facility] January 10, 2014 Dizzy [facility] September 21, 2015 physical [facility] September 09, 2013 PT INR/ BP [facility] Jul 31, 2015 Refill [facility] October 14, 2013 REFILL [facility] December 01, 2013 REFILL [facility] December 27, 2013 consult, pt/inr [facility] May 20, 2016 ADVAIR [facility] Apr 18, 2016 DRUG CHANGE [facility] May 21, 2016 [place]-PT INR [facility] Mar 25, 2014 PT INR [facility] Mar 11, 2014 Unknown [facility] Feb 08, 2014 Unknown [facility] May 11, 2014 NV/ALEAH-PT/INR . [facility] December 19, 2015 [place]-PT INR [facility] May 24, 2014 NV/ALEAH-PT/INR . [facility] Jan 18, 2016 Unknown [facility] Apr 13, 2014 NV/ALEAH-PT/INR . [facility] Feb 15, 2016 NV- PT INR [facility] Apr 22, 2014 RT LEG [facility] Mar 18, 2016 nv-pt inr [facility] Jun 22, 2014 Consultation [facility] Mar 20, 2016 NV/ALEAH-PT/INR [facility] Apr 02, 2016 Prior Authorization [facility] Jun 07, 2014 NV/ALEAH-PT/INR [facility] Apr 18, 2016 Prior Auth [facility] Jun 01, 2014 [...] [facility] October 05, 2014 PA ON ADVAIR [facility] May 16, 2016 Refill [facility] October 26, 2014 NV/PT/INR-ALEAH [facility] Jun 03, 2016 NV/JAZZMINE-PT INR [facility] November 01, 2014 PT INR [facility] December 05, 2014 Rash [facility] December 27, 2014 Problems Problem Type Condition ICD-9 Code Onset Dates Condition Status 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 Problem History of pulmonary embolism Z86.711 Active Problem 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 Active Problem Dizziness R42 Active Problem Asthma J45.909 Active Problem History of gout Z87.39 Active 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 Problem History of DVT (deep vein thrombosis) Z86.718 Active Problem Essential hypertension I10 Active Problem Seasonal allergies J30.2 Active Medications Medication Code System Code Instructions Start Date End Date Status Dosage Medrol (Owen) Unknown 0 4 MG Orally as directed May 20, 2016 Active as directed [facility] 09184042128 0.6 Twice a day Active 1 tablet Fluticasone Propionate [facility] [address]-12 50 MCG/ACT Nasally Once a day May 21, 2016 Active 1 spray in each nostril Warfarin Sodium [facility] 35691914609 5 MG Orally QD x 4 days a week Active 1 tablet Amlodipine Besylate [facility] [address]-66 10 MG Orally Once a day Active 1 tablet Albuterol Sulfate HFA [facility] [address]-44 108 (90 Base) MCG/ACT Inhalation every 4-6 hrs PRN August 25, 2013 Active 2 puffs as needed Meclizine HCl [facility] [address]-05 25 MG Orally three times a day prn September 21, 2015 Active 1 tablet as needed Symbicort [facility] [address]-06 160-4.5 MCG/ACT Inhalation Twice a day Apr 18, 2016 May 15, 2017 Active 2 puffs Coumadin [facility] [address]-11 4 MG Orally QD x 3 days a week Active 1 tablet Multivitamins [facility] [address] Orally Active Unknown Atenolol-Chlorthalidone [facility] [address]-13 50-25 MG Orally Once a day Jul 13, 2015 Active 1/2 tablet Social History Social History Element Qualifiers Date Reported Occupation: . [employer] Jun 03, 2016 children . 3 Jun 03, 2016 Last Colonoscopy: . 2010Jun 03, 2016 Tobacco Use: . Are you a: never smoker Jun 03, 2016 Flu Vaccine: . no Jun 03, 2016 Use of recreational / street drugs? . Answer: No Jun 03, 2016 Do you have pets? . Status: Yes, Type: bird(s) Jun 03, 2016 Ethnicity . Status , Is bulgarian your primary language? Yes Jun 03, 2016 Marital Status: . -Hansa Jun 03, 2016 Caffeine intake? . Status: Yes, What type: Coffee Jun 03, 2016 Do you exercise? . Answer: Yes, Type: walking Jun 03, 2016 Depression Screening: . negative Jun 03, 2016 Fall Risk: . none in the past year Jun 03, 2016 Do you drink alcohol? . Status: Yes, Type: Liquor, How often? Rarely Jun 03, 2016 Vital Signs Date/Time: Jun 03, 2016 Blood Pressure Diastolic 90 mm Hg Blood Pressure Systolic 134 mm Hg Height 66 in Cardiac Monitoring Heart Rate 94 /min Results PROTHROMBIN TIME-INR Summary Purpose eClinicalWorks Submission
--- OUTSIDE RECORDS SUMMARY | 2019-01-12 06:42 | XMS REPORT ---
Author Author Aleah Christopher [employer] Address Unknown Phone Unavailable Care Team Providers Care Defect Repairer Glassware Name Role Phone Aleah Christopher CP Unavailable Encounters Encounter Location Date Unknown [facility] May 10, 2013 Unknown [facility] Jul 02, 2015 1 week follow up [facility] May 18, 2015 NV/JAZZMINE-pt/inr [facility] May 25, 2015 Unknown [facility] Jun 26, 2015 echo/jazzmine [facility] Jun 02, 2015 Refill [facility] Jan 16, 2015 NV-PT INR [facility] Aug 05, 2013 Needs call back from Medical Staff [facility] Jan 24, 2015 NV-PT INR [facility] August 19, 2013 physical exam [facility] Apr 05, 2015 pt/inr/andrea [facility] Jul 06, 2013 EYE [facility] Apr 28, 2015 [place]-PT INR [facility] Jul 22, 2013 PT/INR/ANDREA [facility] Jun 08, 2013 pt/inr/andrea [facility] Jun 22, 2013 PT/INR/ANDREA [facility] May 25, 2013 NV/JAZZMINE-pt/inr [facility] January 04, 2015 Unknown [facility] Jun 08, 2013 rash on foot and swollen [facility] Jun 25, 2013 Follow-Up [facility] Mar 03, 2013 pt/inr [facility] Apr 01, 2013 Test results [facility] Apr 22, 2013 PT/INR-Swelling on right leg [facility] Apr 22, 2013 Follow-Up [facility] Feb 01, 2013 Unknown [facility] Feb 19, 2013 [place]-PT INR [facility] Feb 16, 2013 RASH [facility] September 09, 2013 Unknown [facility] August 27, 2013 2 MONTH FOLLOW UP [facility] November 16, 2015 Unknown [facility] May 04, 2013 Refill [facility] November 16, 2015 PT/ INR [facility] May 04, 2013 Unknown [facility] November 02, 2015 Unknown [facility] September 22, 2015 RF [facility] September 18, 2015 REFILL [facility] January 10, 2014 Dizzy [facility] September 21, 2015 physical [facility] January 12, 2014 2 week follow up [facility] August 17, 2015 Test results [facility] Jan 15, 2014 Refill [facility] August 29, 2015 RESULTS [facility] Jan 26, 2014 FOLLOW UP [facility] Jul 03, 2015 [place]-PT INR [facility] September 09, 2013 PT INR/ BP [facility] Jul 31, 2015 Refill [facility] October 14, 2013 REFILL [facility] December 01, 2013 REFILL [facility] December 27, 2013 consult, pt/inr [facility] May 20, 2016 ADVAIR [facility] Apr 18, 2016 DRUG CHANGE [facility] May 21, 2016 NV-PT INR [facility] Mar 25, 2014 PT INR [facility] Mar 11, 2014 Unknown [facility] Feb 08, 2014 Unknown [facility] May 11, 2014 NV/ALEAH-PT/INR . [facility] December 19, 2015 NV-PT INR [facility] May 24, 2014 NV/ALEAH-PT/INR . [facility] Jan 18, 2016 Unknown [facility] Apr 13, 2014 NV/ALEAH-PT/INR . [facility] Feb 15, 2016 NV- PT INR [facility] Apr 22, 2014 RT LEG [facility] Mar 18, 2016 nv-pt inr [facility] Jun 22, 2014 Consultation [facility] Mar 20, 2016 NV/ALEAH-PT/INR [facility] Apr 02, 2016 Prior Authorization [facility] Jun 07, 2014 NV/ALEAH-PT/INR [facility] Apr 18, 2016 Prior Auth [facility] Jun 01, 2014 NV- PT INR [facility] August 19, 2014 NV- PT INR [facility] Jul 22, 2014 NV- PT INR [facility] September 19, 2014 rash [facility] August 24, 2014 NV- PT INR [facility] September 26, 2014 NV PT INR [facility] October 05, 2014 PA ON ADVAIR [facility] May 16, 2016 Refill [facility] October 26, 2014 NV/JAZZMINE-PT INR [facility] November 01, 2014 PT INR [facility] December 05, 2014 Rash [facility] December 27, 2014 Problems Problem Type Condition ICD-9 Code Onset Dates Condition Status Problem History of pulmonary embolism Z86.711 Active Problem 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 [employer] May 20, 2016 children . 3 May 20, 2016 Last Colonoscopy: . 2010May 20, 2016 Tobacco Use: . Are you a: never smoker May 20, 2016 Flu Vaccine: . no May 20, 2016 Use of recreational / street drugs? . Answer: No May 20, 2016 Do you have pets? . Status: Yes, Type: bird(s) May 20, 2016 Ethnicity . Status , Is persian your primary language? Yes May 20, 2016 Marital Status: . -Hansa May 20, 2016 Caffeine intake? . Status: Yes, What type: Coffee May 20, 2016 Do you exercise? . Answer: Yes, Type: walking May 20, 2016 Depression Screening: . negative May 20, 2016 Fall Risk: . none in the past year May 20, 2016 Do you drink alcohol? . Status: Yes, Type: Liquor, How often? Rarely May 20, 2016 Summary Purpose eClinicalWorks Submission
--- OUTSIDE RECORDS SUMMARY | 2019-01-12 06:42 | XMS REPORT ---
Author Author Aleah Christopher [employer] Address Unknown Phone Unavailable Care Team Providers Care Exhibit Electrician Name Role Phone Aleah Christopher CP Unavailable Encounters Encounter Location Date Unknown [facility] May 10, 2013 Unknown [facility] Jul 02, 2015 1 week follow up [facility] May 18, 2015 NV/JAZZMINE-pt/inr [facility] May 25, 2015 Unknown [facility] Jun 26, 2015 echo/jazzmine [facility] Jun 02, 2015 Refill [facility] Jan 16, 2015 NV-PT INR [facility] Aug 05, 2013 Needs call back from Medical Staff [facility] Jan 24, 2015 NV-PT INR [facility] August 19, 2013 physical exam [facility] Apr 05, 2015 pt/inr/andrea [facility] Jul 06, 2013 EYE [facility] Apr 28, 2015 NV-PT INR [facility] Jul 22, 2013 PT/INR/ANDREA [facility] Jun 08, 2013 pt/inr/andrea [facility] Jun 22, 2013 PT/INR/ANDREA [facility] May 25, 2013 NV/JAZZMINE-pt/inr [facility] January 04, 2015 Unknown [facility] Jun 08, 2013 rash on foot and swollen [facility] Jun 25, 2013 Follow-Up [facility] Mar 03, 2013 pt/inr [facility] Apr 01, 2013 Test results [facility] Apr 22, 2013 PT/INR-Swelling on right leg [facility] Apr 22, 2013 Follow-Up [facility] Feb 01, 2013 Unknown [facility] Feb 19, 2013 NV-PT INR [facility] Feb 16, 2013 RASH [facility] September 09, 2013 Unknown [facility] August 27, 2013 2 MONTH FOLLOW UP [facility] November 16, 2015 Unknown [facility] May 04, 2013 Refill [facility] November 16, 2015 PT/ INR [facility] May 04, 2013 Unknown [facility] November 02, 2015 Unknown [facility] September 22, 2015 RF [facility] September 18, 2015 REFILL [facility] January 10, 2014 Dizzy [facility] September 21, 2015 physical [facility] January 12, 2014 2 week follow up [facility] August 17, 2015 Test results [facility] Jan 15, 2014 Refill [facility] August 29, 2015 RESULTS [facility] Jan 26, 2014 FOLLOW UP [facility] Jul 03, 2015 NV-PT INR [facility] September 09, 2013 PT INR/ BP [facility] Jul 31, 2015 Refill [facility] October 14, 2013 REFILL [facility] December 01, 2013 REFILL [facility] December 27, 2013 NV-PT INR [facility] Mar 25, 2014 PT INR [facility] Mar 11, 2014 Unknown [facility] Feb 08, 2014 Unknown [facility] May 11, 2014 NV/ALEAH-PT/INR . [facility] December 19, 2015 NV-PT INR [facility] May 24, 2014 NV/ALEAH-PT/INR . [facility] Jan 18, 2016 Unknown [facility] Apr 13, 2014 NV/ALEAH-PT/INR . [facility] Feb 15, 2016 NV- PT INR [facility] Apr 22, 2014 RT LEG [facility] Mar 18, 2016 nv-pt inr [facility] Jun 22, 2014 Consultation [facility] Mar 20, 2016 NV/ALEAH-PT/INR [facility] Apr 02, 2016 Prior Authorization [facility] Jun 07, 2014 Prior Auth [facility] Jun 01, 2014 NV- PT INR [facility] August 19, 2014 NV- PT INR [facility] Jul 22, 2014 NV- PT INR [facility] September 19, 2014 rash [facility] August 24, 2014 NV- PT INR [facility] September 26, 2014 NV PT INR [facility] October 05, 2014 Refill [facility] October 26, 2014 NV/JAZZMINE-PT INR [facility] November 01, 2014 PT INR [facility] December 05, 2014 Nata [facility] December 27, 2014 Problems Problem Type Condition ICD-9 Code Onset Dates Condition Status Problem 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 Active 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 Problem Asthma J45.909 Active Problem Essential hypertension I10 Active Problem Dizziness R42 Active Problem History of DVT (deep vein thrombosis) Z86.718 Active Problem History of pulmonary embolism Z86.711 Active Problem Seasonal allergies J30.2 Active 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 Medications Medication Code System Code Instructions Start Date End Date Status Dosage Nystatin-Triamcinolone [facility] [address]-23 398602-6.1 UNIT/GM Externally Twice a day PRN Mar 18, 2016 Apr 19, 2016 Active 1 application to affected area Amlodipine Besylate [facility] [address]-52 10 mg Orally Once a day Active 1 tablet Symbicort [facility] [address]-58 160-4.5 MCG/ACT Inhalation Twice a day November 16, 2015 May 14, 2016 Active 2 puffs Warfarin Sodium [facility] [address]-50 5 MG Orally 5 days a week Active 1 tablet Multivitamins [facility] 48625-[address]441 Orally Active Unknown Colchicine [facility] 22320317445 0.6 Active TAKE 2 TABLETS BY MOUTH TWICE DAILY Coumadin [facility] [address]-43 4 MG Orally Once a day Active 1 tablet Albuterol Sulfate HFA [facility] [address]-17 108 (90 Base) MCG/ACT Inhalation every 4-6 hrs PRN August 25, 2013 Active 2 puffs as needed Atenolol-Chlorthalidone [facility] [address]-80 50-25 MG Orally Once a day Jul 13, 2015 Active 1/2 tablet Meclizine HCl [facility] [address]-88 25 MG Orally three times a day prn September 21, 2015 Active 1 tablet as needed Social History Social History Element Qualifiers Date Reported Occupation: . [employer] Mar 21, 2016 children . 3 Mar 21, 2016 Last Colonoscopy: . 2010Mar 21, 2016 Tobacco Use: . Are you a: never smoker Mar 21, 2016 Flu Vaccine: . no Mar 21, 2016 Use of recreational / street drugs? . Answer: No Mar 21, 2016 Do you have pets? . Status: Yes, Type: bird(s) Mar 21, 2016 Ethnicity . Status , Is israeli your primary language? Yes Mar 21, 2016 Marital Status: . -Hansa Mar 21, 2016 Caffeine intake? . Status: Yes, What type: Coffee Mar 21, 2016 Do you exercise? . Answer: Yes, Type: walking Mar 21, 2016 Depression Screening: . negative Mar 21, 2016 Fall Risk: . none in the past year Mar 21, 2016 Do you drink alcohol? . Status: Yes, Type: Liquor, How often? Rarely Mar 21, 2016 Vital Signs Date/Time: Apr 02, 2016 Weight 231 lbs Height 66 in Cardiac Monitoring Heart Rate 78 /min Blood Pressure Diastolic 70 mm Hg Blood Pressure Systolic 118 mm Hg Results PROTHROMBIN TIME-INR Summary Purpose eClinicalWorks Submission
--- OUTSIDE RECORDS SUMMARY | 2019-01-12 06:42 | XMS REPORT ---
Author Author Aleah Christopher [employer] Address Unknown Phone Unavailable Care Team Providers Care Sort Operations Supervisor Name Role Phone Aleah Christopher CP Unavailable Encounters Encounter Location Date Unknown [facility] May 10, 2013 Unknown [facility] Jul 02, 2015 1 week follow up [facility] May 18, 2015 NV/JAZZMINE-pt/inr [facility] May 25, 2015 Unknown [facility] Jun 26, 2015 echo/jazzmine [facility] Jun 02, 2015 Refill [facility] Jan 16, 2015 NV-PT INR [facility] Aug 05, 2013 Needs call back from Medical Staff [facility] Jan 24, 2015 NV-PT INR [facility] August 19, 2013 physical exam [facility] Apr 05, 2015 pt/inr/andrea [facility] Jul 06, 2013 EYE [facility] Apr 28, 2015 NV-PT INR [facility] Jul 22, 2013 PT/INR/ANDREA [facility] Jun 08, 2013 pt/inr/andrea [facility] Jun 22, 2013 PT/INR/ANDREA [facility] May 25, 2013 NV/JAZZMINE-pt/inr [facility] January 04, 2015 Unknown [facility] Jun 08, 2013 rash on foot and swollen [facility] Jun 25, 2013 Follow-Up [facility] Mar 03, 2013 pt/inr [facility] Apr 01, 2013 Test results [facility] Apr 22, 2013 PT/INR-Swelling on right leg [facility] Apr 22, 2013 Follow-Up [facility] Feb 01, 2013 Unknown [facility] Feb 19, 2013 NV-PT INR [facility] Feb 16, 2013 RASH [facility] September 09, 2013 Unknown [facility] August 27, 2013 2 MONTH FOLLOW UP [facility] November 16, 2015 Unknown [facility] May 04, 2013 Refill [facility] November 16, 2015 PT/ INR [facility] May 04, 2013 Unknown [facility] November 02, 2015 Unknown [facility] September 22, 2015 RF [facility] September 18, 2015 REFILL [facility] January 10, 2014 Dizzy [facility] September 21, 2015 physical [facility] January 12, 2014 2 week follow up [facility] August 17, 2015 Test results [facility] Jan 15, 2014 Refill [facility] August 29, 2015 RESULTS [facility] Jan 26, 2014 FOLLOW UP [facility] Jul 03, 2015 NV-PT INR [facility] September 09, 2013 PT INR/ BP [facility] Jul 31, 2015 Refill [facility] October 14, 2013 REFILL [facility] December 01, 2013 REFILL [facility] December 27, 2013 ADVAIR [facility] Apr 18, 2016 NV-PT INR [facility] Mar 25, 2014 PT INR [facility] Mar 11, 2014 Unknown [facility] Feb 08, 2014 Unknown [facility] May 11, 2014 NV/ALEAH-PT/INR . [facility] December 19, 2015 NV-PT INR [facility] May 24, 2014 NV/ALEAH-PT/INR . [facility] Jan 18, 2016 Unknown [facility] Apr 13, 2014 NV/ALEAH-PT/INR . [facility] Feb 15, 2016 NV- PT INR [facility] Apr 22, 2014 RT LEG [facility] Mar 18, 2016 nv-pt inr [facility] Jun 22, 2014 Consultation [facility] Mar 20, 2016 NV/ALEAH-PT/INR [facility] Apr 02, 2016 Prior Authorization [facility] Jun 07, 2014 NV/ALEAH-PT/INR [facility] Apr 18, 2016 Prior Auth [facility] Jun 01, 2014 NV- PT INR [facility] August 19, 2014 NV- PT INR [facility] Jul 22, 2014 NV- PT INR [facility] September 19, 2014 rash [facility] August 24, 2014 NV- PT INR [facility] September 26, 2014 NV PT INR [facility] October 05, 2014 Refill [facility] October 26, 2014 NV/JAZZMINE-PT INR [facility] November 01, 2014 PT INR [facility] December 05, 2014 Nata [facility] December 27, 2014 Problems Problem Type Condition ICD-9 Code Onset Dates Condition Status Problem 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 Active Assessment Asthma J45.909 Active Problem Asthma J45.909 Active Problem Essential hypertension I10 Active Problem Dizziness R42 Active Problem History of DVT (deep vein thrombosis) Z86.718 Active Problem History of pulmonary embolism Z86.711 Active Problem Seasonal allergies J30.2 Active 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 [employer] Apr 18, 2016 children . 3 Apr 18, 2016 Last Colonoscopy: . 2010Apr 18, 2016 Tobacco Use: . Are you a: never smoker Apr 18, 2016 Flu Vaccine: . no Apr 18, 2016 Use of recreational / street drugs? . Answer: No Apr 18, 2016 Do you have pets? . Status: Yes, Type: bird(s) Apr 18, 2016 Ethnicity . Status , Is british virgin islander your primary language? Yes Apr 18, 2016 Marital Status: . -Hansa Apr 18, 2016 Caffeine intake? . Status: Yes, What type: Coffee Apr 18, 2016 Do you exercise? . Answer: Yes, Type: walking Apr 18, 2016 Depression Screening: . negative Apr 18, 2016 Fall Risk: . none in the past year Apr 18, 2016 Do you drink alcohol? . Status: Yes, Type: Liquor, How often? Rarely Apr 18, 2016 Summary Purpose eClinicalWorks Submission
--- OUTSIDE RECORDS SUMMARY | 2019-01-12 06:42 | XMS REPORT ---
Author Author Aleah Christopher eClinicalWorks Address Unknown Phone Unavailable Care Team Providers Care Portrait Studio Photographer Name Role Phone Aleah Christopher CP Unavailable [...] [facility] Jul 22, 2013 PT/INR/ANDREA [facility] Jun 08, 2013 pt/inr/andrea [facility] Jun 22, 2013 PT/INR/ANDREA [facility] May [...] [facility] Feb 16, 2013 RASH [facility] September 09, 2013 Unknown [facility] August 27, 2013 2 MONTH FOLLOW UP [facility] November 16, 2015 Unknown [facility] May 04, 2013 Refill [facility] November 16, 2015 PT/ INR [facility] May 04, 2013 Unknown [facility] November 02, 2015 Unknown [facility] September 22, 2015 RF [facility] September 18, 2015 REFILL [facility] January 10, 2014 Dizzy [facility] September [...] [facility] May 20, 2016 ADVAIR [facility] Apr 18, 2016 DRUG CHANGE [facility] May 21, 2016 NV-PT INR [facility] Mar 25, 2014 PT INR [facility] Mar [...] [facility] August 24, 2014 PHYSICAL AND PT/INR CHECK [facility] Jun 18, 2016 NV- PT INR [facility] [...] ICD-9 Code Onset Dates Condition Status Assessment Encntr for general adult medical exam w/o abnormal findings Z00.00 Active Problem History of pulmonary embolism Z86.711 Active Problem 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 Active Problem Dizziness R42 Active Problem Asthma J45.909 Active Problem History of gout Z87.39 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 Problem History of DVT (deep vein thrombosis) Z86.718 Active Problem Essential hypertension I10 Active Problem Seasonal allergies J30.2 Active Assessment Screening for colon cancer Z12.11 Active Assessment Dizziness R42 Active Assessment History of gout Z87.39 Active Assessment Seasonal allergies J30.2 Active Assessment Essential hypertension I10 Active Assessment Asthma J45.909 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 Medications Medication Code System Code Instructions Start Date End Date Status Dosage Atenolol-Chlorthalidone [facility] [address]-61 50-25 MG Orally Once a day Jul 13, 2015 Active 1/2 tablet Multivitamins [facility] 74160-[address]115 Orally Active Unknown Amlodipine Besylate [facility] [address]-87 10 MG Orally Once a day Active 1 tablet Colchicine [facility] 67820243450 0.6 Twice a day Active 1 tablet Meclizine HCl [facility] [address]-20 25 MG Orally three times a day prn September 21, 2015 Active 1 tablet as needed Fluticasone Propionate [facility] [address]-33 50 MCG/ACT Nasally Once a day May 21, 2016 Active 1 spray in each nostril Coumadin [facility] [address]-83 4 MG Orally QD x 3 days a week Active 1 tablet Symbicort [facility] [address]-23 160-4.5 MCG/ACT Inhalation Twice a day Apr 18, 2016 May 15, 2017 Active 2 puffs Medrol (Owen) Unknown 0 4 MG Orally as directed May 20, 2016 Active as directed Warfarin Sodium [facility] 16525036770 5 MG Orally QD x 4 days a week Active 1 tablet Albuterol Sulfate HFA [facility] [address]-93 108 (90 Base) MCG/ACT Inhalation every 4-6 hrs PRN August 25, 2013 Active 2 puffs as needed Social History Social History Element Qualifiers Date Reported Occupation: . [employer] Jun 18, 2016 children . 3 Jun 18, 2016 Last Colonoscopy: . 2010Jun 18, 2016 Tobacco Use: . Are you a: never smoker Jun 18, 2016 Flu Vaccine: . no Jun 18, 2016 Use of recreational / street drugs? . Answer: No Jun 18, 2016 Do you have pets? . Status: Yes, Type: bird(s) Jun 18, 2016 Ethnicity . Status , Is sinhala your primary language? Yes Jun 18, 2016 Marital Status: . -Hansa Jun 18, 2016 Caffeine intake? . Status: Yes, What type: Coffee Jun 18, 2016 Do you exercise? . Answer: Yes, Type: walking Jun 18, 2016 Depression Screening: . negative Jun 18, 2016 Fall Risk: . none in the past year Jun 18, 2016 Do you drink alcohol? . Status: Yes, Type: Liquor, How often? Rarely Jun 18, 2016 Vital Signs Date/Time: Jun 18, 2016 Weight 232 lbs Height 66 in Cardiac Monitoring Heart Rate 88 /min Blood Pressure Diastolic 80 mm Hg Blood Pressure Systolic 120 mm Hg Results PROTHROMBIN TIME-INR Summary Purpose eClinicalWorks Submission
--- OUTSIDE RECORDS SUMMARY | 2019-01-12 06:42 | XMS REPORT ---
Author Author Aleah Christopher eClinicalWorks Address Unknown Phone Unavailable Care Team Providers Care Social Director Name Role Phone Aleah Christopher CP Unavailable Allergies, Adverse Reactions, Alerts Substance Reaction Event Type Tramadol HCl vomiting Drug Allergy Rocephin hives Drug Allergy Encounters Encounter Location Date Unknown [facility] May 10, 2013 Unknown [facility] Jul 02, 2015 1 week follow up [facility] May 18, 2015 NV/JAZZMINE-pt/inr [facility] May 25, 2015 Unknown [facility] Jun 26, 2015 echo/jazzmine [facility] Jun 02, 2015 Refill [facility] Jan 16, 2015 NV-PT INR [facility] Aug 05, 2013 Needs call back from Medical Staff [facility] Jan 24, 2015 NV-PT INR [facility] August 19, 2013 physical exam [facility] Apr 05, 2015 pt/inr/andrea [facility] Jul 06, 2013 EYE [facility] Apr 28, 2015 NV-PT INR [facility] Jul 22, 2013 PT/INR/ANDREA [facility] Jun 08, 2013 pt/inr/andrea [facility] Jun 22, 2013 PT/INR/ANDREA [facility] May 25, 2013 NV/JAZZMINE-pt/inr [facility] January 04, 2015 Unknown [facility] Jun 08, 2013 rash on foot and swollen [facility] Jun 25, 2013 Follow-Up [facility] Mar 03, 2013 pt/inr [facility] Apr 01, 2013 Test results [facility] Apr 22, 2013 PT/INR-Swelling on right leg [facility] Apr 22, 2013 Follow-Up [facility] Feb 01, 2013 Unknown [facility] Feb 19, 2013 NV-PT INR [facility] Feb 16, 2013 RASH [facility] September 09, 2013 Unknown [facility] August 27, 2013 2 MONTH FOLLOW UP [facility] November 16, 2015 Unknown [facility] May 04, 2013 Refill [facility] November 16, 2015 PT/ INR [facility] May 04, 2013 Unknown [facility] November 02, 2015 Unknown [facility] September 22, 2015 RF [facility] September 18, 2015 REFILL [facility] January 10, 2014 Dizzy [facility] September 21, 2015 physical [facility] January 12, 2014 2 week follow up [facility] August 17, 2015 Test results [facility] Jan 15, 2014 Refill [facility] August 29, 2015 RESULTS [facility] Jan 26, 2014 FOLLOW UP [facility] Jul 03, 2015 NV-PT INR [facility] September 09, 2013 PT INR/ BP [facility] Jul 31, 2015 Refill [facility] October 14, 2013 REFILL [facility] December 01, 2013 REFILL [facility] December 27, 2013 NV-PT INR [facility] Mar 25, 2014 PT INR [facility] Mar 11, 2014 Unknown [facility] Feb 08, 2014 Unknown [facility] May 11, 2014 NV/ALEAH-PT/INR . [facility] December 19, 2015 NV-PT INR [facility] May 24, 2014 NV/ALEAH-PT/INR . [facility] Jan 18, 2016 Unknown [facility] Apr 13, 2014 NV/ALEAH-PT/INR . [facility] Feb 15, 2016 NV- PT INR [facility] Apr 22, 2014 RT LEG [facility] Mar 18, 2016 nv-pt inr [facility] Jun 22, 2014 Consultation [facility] Mar 20, 2016 Prior Authorization [facility] Jun 07, 2014 Prior Auth [facility] Jun 01, 2014 NV- PT INR [facility] August 19, 2014 NV- PT INR [facility] Jul 22, 2014 NV- PT INR [facility] September 19, 2014 rash [facility] August 24, 2014 NV- PT INR [facility] September 26, 2014 NV PT INR [facility] October 05, 2014 Refill [facility] October 26, 2014 NV/JAZZMINE-PT INR [facility] November 01, 2014 PT INR [facility] December 05, 2014 Nata [facility] December 27, 2014 Problems Problem Type Condition ICD-9 Code Onset Dates Condition Status 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 Problem 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 Active Assessment Skin lesion L98.9 Active Assessment Asthma J45.909 Active Assessment Essential hypertension I10 Active Problem Asthma J45.909 Active Problem Essential hypertension I10 Active Problem Dizziness R42 Active Problem History of DVT (deep vein thrombosis) Z86.718 Active Problem History of pulmonary embolism Z86.711 Active Problem Seasonal allergies J30.2 Active Problem senior living current use of anticoagulant Z79.01 Active Medications Medication Code System Code Instructions Start Date End Date Status Dosage Nystatin-Triamcinolone [facility] [address]-78 248413-5.1 UNIT/GM Externally Twice a day PRN Mar 18, 2016 Apr 17, 2016 Active 1 application to affected area Symbicort [facility] [address]-36 160-4.5 MCG/ACT Inhalation Twice a day November 16, 2015 May 14, 2016 Active 2 puffs Amlodipine Besylate [facility] [address]-71 10 mg Orally Once a day Active 1 tablet Meclizine HCl [facility] [address]-00 25 MG Orally three times a day prn September 21, 2015 Active 1 tablet as needed Multivitamins [facility] [address]14 Orally Active Unknown Coumadin [facility] [address]-25 4 MG Orally Once a day Active 1 tablet Atenolol-Chlorthalidone [facility] [address]-32 50-25 MG Orally Once a day Jul 13, 2015 Active 1/2 tablet Albuterol Sulfate HFA [facility] [address]-65 108 (90 Base) MCG/ACT Inhalation every 4-6 hrs PRN August 25, 2013 Active 2 puffs as needed Colchicine [facility] 95287047301 0.6 Active TAKE 2 TABLETS BY MOUTH TWICE DAILY Warfarin Sodium [facility] [address]-79 5 MG Orally 5 days a week Active 1 tablet Social History Social History Element Qualifiers Date Reported Occupation: . [employer] Mar 18, 2016 children . 3 Mar 18, 2016 Last Colonoscopy: . 2010Mar 18, 2016 Tobacco Use: . Are you a: never smoker Mar 18, 2016 Flu Vaccine: . no Mar 18, 2016 Use of recreational / street drugs? . Answer: No Mar 18, 2016 Do you have pets? . Status: Yes, Type: bird(s) Mar 18, 2016 Ethnicity . Status , Is kazakh your primary language? Yes Mar 18, 2016 [...] Liquor, How often? Rarely Mar 18, 2016 Vital Signs Date/Time: Mar 18, 2016 Weight 231 lbs Height 66 in Cardiac Monitoring Heart Rate 78 /min Blood Pressure Diastolic 74 mm Hg Blood Pressure Systolic 108 mm Hg Results PROTHROMBIN TIME-INR Summary Purpose eClinicalWorks Submission
--- OUTSIDE RECORDS SUMMARY | 2019-01-12 06:42 | XMS REPORT ---
Author Author Aleah Christopher eClinicalWorks Address Unknown Phone Unavailable Care Team Providers Care Country Printer Name Role Phone Aleah Christopher CP Unavailable Encounters Encounter Location Date Unknown [facility] May 10, 2013 Unknown [facility] Jul 02, 2015 1 week follow up [facility] May 18, 2015 NV/JAZZMINE-pt/inr [facility] May 25, 2015 Unknown [facility] Jun 26, 2015 echo/jazzmine [facility] Jun 02, 2015 Refill [facility] Jan 16, 2015 NV-PT INR [facility] Aug 05, 2013 Needs call back from Medical Staff [facility] Jan 24, 2015 NV-PT INR [facility] August 19, 2013 physical exam [facility] Apr 05, 2015 pt/inr/andrea [facility] Jul 06, 2013 EYE [facility] Apr 28, 2015 NV-PT INR [facility] Jul 22, 2013 PT/INR/ANDREA [facility] Jun 08, 2013 pt/inr/andrea [facility] Jun 22, 2013 PT/INR/ANDREA [facility] May 25, 2013 NV/JAZZMINE-pt/inr [facility] January 04, 2015 Unknown [facility] Jun 08, 2013 rash on foot and swollen [facility] Jun 25, 2013 Follow-Up [facility] Mar 03, 2013 pt/inr [facility] Apr 01, 2013 Test results [facility] Apr 22, 2013 PT/INR-Swelling on right leg [facility] Apr 22, 2013 Follow-Up [facility] Feb 01, 2013 Unknown [facility] Feb 19, 2013 NV-PT INR [facility] Feb 16, 2013 RASH [facility] September 09, 2013 Unknown [facility] August 27, 2013 2 MONTH FOLLOW UP [facility] November 16, 2015 Unknown [facility] May 04, 2013 Refill [facility] November 16, 2015 PT/ INR [facility] May 04, 2013 Unknown [facility] November 02, 2015 Unknown [facility] September 22, 2015 RF [facility] September 18, 2015 REFILL [facility] January 10, 2014 Dizzy [facility] September 21, 2015 physical [facility] January 12, 2014 2 week follow up [facility] August 17, 2015 Test results [facility] Jan 15, 2014 Refill [facility] August 29, 2015 RESULTS [facility] December 01, 2013 REFILL [facility] December 27, 2013 consult, pt/inr [facility] May 20, 2016 ADVAIR [facility] Apr 18, 2016 DRUG CHANGE [facility] May 21, 2016 NV-PT INR [facility] Mar 25, 2014 PT INR [facility] Mar 11, 2014 Unknown [facility] Feb 08, 2014 Unknown [facility] May 11, 2014 NV/ALEAH-PT/INR . [facility] December 19, 2015 NV-PT INR [facility] May 24, 2014 NV/ALEAH-PT/INR . [facility] Jan 18, 2016 Unknown [facility] Apr 13, 2014 NV/ALEAH-PT/INR . [facility] Feb 15, 2016 NV- PT INR [facility] Apr 22, 2014 RT LEG [facility] Mar 18, 2016 nv-pt inr [facility] Jun 22, 2014 Consultation [facility] Mar 20, 2016 NV/ALEAH-PT/INR [facility] Apr 02, 2016 Prior Authorization [facility] Jun 07, 2014 NV/ALEAH-PT/INR [facility] Apr 18, 2016 Prior Auth [facility] Jun 01, 2014 NV- PT INR [facility] August 19, 2014 NV- PT INR [facility] Jul 22, 2014 NV- PT INR [facility] September 19, 2014 rash [facility] August 24, 2014 NV- PT INR [facility] September 26, 2014 NV PT INR [facility] October 05, 2014 Refill [facility] October 26, 2014 NV/JAZZMINE-PT INR [facility] November 01, 2014 PT INR [facility] December 05, 2014 Rash [facility] December 27, 2014 Problems Problem Type Condition ICD-9 Code Onset Dates Condition Status Assessment Seasonal allergies J30.2 Active Problem History of pulmonary embolism Z86.711 Active Problem 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 Active Problem Dizziness R42 Active Problem Asthma J45.909 Active Problem History of gout Z87.39 Active 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 [employer] May 20, 2016 children . 3 May 20, 2016 Last Colonoscopy: . 2010May 20, 2016 Tobacco Use: . Are you a: never smoker May 20, 2016 Flu Vaccine: . no May 20, 2016 Use of recreational / street drugs? . Answer: No May 20, 2016 Do you have pets? . Status: Yes, Type: bird(s) May 20, 2016 Ethnicity . Status , Is [place] your primary language? Yes May 20, 2016 [...]
--- OUTSIDE RECORDS SUMMARY | 2019-01-12 06:42 | XMS REPORT ---
Author Author Aleah Christopher [employer] Address Unknown Phone Unavailable Care Team Providers Care Construction Area Manager Name Role Phone Aleah Christopher CP Unavailable Allergies, Adverse Reactions, Alerts Substance Reaction Event Type Tramadol HCl vomiting Drug Allergy Rocephin hives Drug Allergy Encounters Encounter Location Date Unknown [facility] May 10, 2013 Unknown [facility] Jul 02, 2015 1 week follow up [facility] May 18, 2015 [place]/JAZZMINE-pt/inr [facility] May 25, 2015 Unknown [facility] Jun 26, 2015 echo/jazzmine [facility] Jun 02, 2015 Refill [facility] Jan 16, 2015 NV-PT INR [facility] Aug 05, 2013 Needs call back from Medical Staff [facility] Jan 24, 2015 NV-PT INR [facility] August 19, 2013 physical exam [facility] Apr 05, 2015 pt/inr/andrea [facility] Jul 06, 2013 EYE [facility] Apr 28, 2015 [place]-PT INR [facility] Jul 22, 2013 PT/INR/ANDREA [facility] Jun 08, 2013 pt/inr/andrea [facility] Jun 22, 2013 PT/INR/ANDREA [facility] May 25, 2013 NV/JAZZMINE-pt/inr [facility] January 04, 2015 Unknown [facility] Jun 08, 2013 rash on foot and swollen [facility] Jun 25, 2013 Follow-Up [facility] Mar 03, 2013 pt/inr [facility] Apr 01, 2013 Test results [facility] Apr 22, 2013 PT/INR-Swelling on right leg [facility] Apr 22, 2013 Follow-Up [facility] Feb 01, 2013 Unknown [facility] Feb 19, 2013 NV-PT INR [facility] Feb 16, 2013 RASH [facility] September 09, 2013 Unknown [facility] August 27, 2013 2 MONTH FOLLOW UP [facility] November 16, 2015 Unknown [facility] May 04, 2013 Refill [facility] November 16, 2015 PT/ INR [facility] May 04, 2013 Unknown [facility] November 02, 2015 Unknown [facility] September 22, 2015 RF [facility] September 18, 2015 REFILL [facility] January 10, 2014 Dizzy [facility] September 21, 2015 physical [facility] January 12, 2014 2 week follow up [facility] August 17, 2015 Test results [facility] Jan 15, 2014 Refill [facility] August 29, 2015 RESULTS [facility] Jan 26, 2014 FOLLOW UP [facility] Jul 03, 2015 NV-PT INR [facility] September 09, 2013 PT INR/ BP [facility] Jul 31, 2015 Refill [facility] October 14, 2013 REFILL [facility] December 01, 2013 REFILL [facility] December 27, 2013 consult, pt/inr [facility] May 20, 2016 ADVAIR [facility] Apr 18, 2016 NV-PT INR [facility] Mar 25, 2014 PT INR [facility] Mar 11, 2014 Unknown [facility] Feb 08, 2014 Unknown [facility] May 11, 2014 NV/ALEAH-PT/INR . [facility] December 19, 2015 NV-PT INR [facility] May 24, 2014 NV/ALEAH-PT/INR . [facility] Jan 18, 2016 Unknown [facility] Apr 13, 2014 NV/ALEAH-PT/INR . [facility] Feb 15, 2016 NV- PT INR [facility] Apr 22, 2014 RT LEG [facility] Mar 18, 2016 nv-pt inr [facility] Jun 22, 2014 Consultation [facility] Mar 20, 2016 NV/ALEAH-PT/INR [facility] Apr 02, 2016 Prior Authorization [facility] Jun 07, 2014 NV/ALEAH-PT/INR [facility] Apr 18, 2016 Prior Auth [facility] Jun 01, 2014 NV- PT INR [facility] August 19, 2014 NV- PT INR [facility] Jul 22, 2014 NV- PT INR [facility] September 19, 2014 rash [facility] August 24, 2014 NV- PT INR [facility] September 26, 2014 NV PT INR [facility] October 05, 2014 Refill [facility] October 26, 2014 NV/JAZZMINE-PT INR [facility] November 01, 2014 PT INR [facility] December 05, 2014 Rash [facility] December 27, 2014 Problems Problem Type Condition ICD-9 Code Onset Dates Condition Status Assessment [facility] current use of anticoagulant Z79.01 Active Problem History of pulmonary embolism Z86.711 Active Problem 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 Active Problem Dizziness R42 Active Problem Asthma J45.909 Active Problem History of 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 Z87.39 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 Problem History of DVT (deep vein thrombosis) Z86.718 Active Problem Essential hypertension I10 Active Problem Seasonal allergies J30.2 Active Assessment Acute gout of multiple sites, unspecified cause M10.9 Active Assessment Asthma J45.909 Active Assessment Seasonal allergies J30.2 Active Assessment Essential hypertension I10 Active Medications Medication Code System Code Instructions Start Date End Date Status Dosage Colchicine [facility] [id number] 0.6 Twice a day Active 1 tablet Symbicort [facility] [address]-45 160-4.5 MCG/ACT Inhalation Twice a day Apr 18, 2016 May 15, 2017 Active 2 puffs Amlodipine Besylate [facility] [address]-23 10 MG Orally Once a day Active 1 tablet Medrol (Owen) Unknown 0 4 MG Orally as directed May 20, 2016 Active as directed Albuterol Sulfate HFA [facility] [address]-12 108 (90 Base) MCG/ACT Inhalation every 4-6 hrs PRN August 25, 2013 Active 2 puffs as needed Atenolol-Chlorthalidone [facility] [address]-27 50-25 MG Orally Once a day Jul 13, 2015 Active 1/2 tablet Mometasone Furoate [facility] [address]-46 50 MCG/ACT Nasally Once a day May 20, 2016 Active 2 sprays in each nostril Coumadin [facility] [address]-19 4 MG Orally QD x 2 days a week Active 1 tablet Warfarin Sodium [facility] [address]-18 5 MG Orally 5 days a week Active 1 tablet Multivitamins [facility] 22232-40619 Orally Active Unknown Meclizine HCl [facility] [address]-43 25 MG Orally three times a day prn September 21, 2015 Active 1 tablet as needed Social History Social History Element Qualifiers Date Reported Occupation: . [employer] May 20, 2016 children . 3 May 20, 2016 Last Colonoscopy: . 2010May 20, 2016 Tobacco Use: . Are you a: never smoker May 20, 2016 Flu Vaccine: . no May 20, 2016 Use of recreational / street drugs? . Answer: No May 20, 2016 Do you have pets? . Status: Yes, Type: bird(s) May 20, 2016 Ethnicity . Status , Is hong konger your primary language? Yes May 20, 2016 [...] Liquor, How often? Rarely May 20, 2016 Vital Signs Date/Time: May 20, 2016 Weight 229 lbs Height 66 in Cardiac Monitoring Heart Rate 76 /min Blood Pressure Diastolic 70 mm Hg Blood Pressure Systolic 100 mm Hg Results PROTHROMBIN TIME-INR Summary Purpose [employer] Submission
--- OUTSIDE RECORDS SUMMARY | 2019-01-12 06:42 | XMS REPORT ---
Author Author Aleah Christopher [employer] Address Unknown Phone Unavailable Care Team Providers Care Family Practitioner Name Role Phone Aleah Christopher CP Unavailable [facility] May 18, 2015 NV/JAZZMINE-pt/inr [facility] May 25, 2015 Unknown [facility] Jun 26, 2015 echo/jazzmine [facility] Jun 02, 2015 Refill [facility] Jan 16, 2015 NV-PT INR [facility] Aug 05, 2013 Needs call back from Medical Staff [facility] Jan 24, 2015 NV-PT INR [facility] August 19, 2013 physical exam [facility] Apr 05, 2015 pt/inr/andrea [facility] Jul 06, 2013 EYE [facility] Apr 28, 2015 NV-PT INR [facility] Jul 22, 2013 PT/INR/ANDREA [facility] Jun 08, 2013 pt/inr/andrea [facility] Jun 22, 2013 PT/INR/ANDREA [facility] May 25, 2013 NV/JAZZMINE-pt/inr [facility] January 04, 2015 Unknown [facility] Jun 08, 2013 rash on foot and swollen [facility] Jun 25, 2013 Follow-Up [facility] Mar 03, 2013 pt/inr [facility] Apr 01, 2013 Test results [facility] Apr 22, 2013 PT/INR-Swelling on right leg [facility] Apr 22, 2013 Follow-Up [facility] Feb 01, 2013 Unknown [facility] Feb 19, 2013 NV-PT INR [facility] Feb 16, 2013 RASH [facility] September 09, 2013 Unknown [facility] August 27, 2013 2 MONTH FOLLOW UP [facility] November 16, 2015 Unknown [facility] May 04, 2013 Refill [facility] November 16, 2015 PT/ INR [facility] May 04, 2013 Unknown [facility] November 02, 2015 Unknown [facility] September 22, 2015 RF [facility] September 18, 2015 REFILL [facility] January 10, 2014 Dizzy [facility] September 21, 2015 physical [facility] January 12, 2014 2 week follow up [facility] August 17, 2015 Test results [facility] September 09, 2013 PT INR/ BP [facility] Jul 31, 2015 Refill [facility] October 14, 2013 REFILL [facility] December 01, 2013 REFILL [facility] December 27, 2013 NV-PT INR [facility] Mar 25, 2014 PT INR [facility] Mar 11, 2014 Unknown [facility] Feb 08, 2014 Unknown [facility] May 11, 2014 NV/ALEAH-PT/INR . [facility] December 19, 2015 NV-PT INR [facility] May 24, 2014 NV/ALEAH-PT/INR . [facility] Jan 18, 2016 Unknown [facility] Apr 13, 2014 NV/ALEAH-PT/INR . [facility] Feb 15, 2016 NV- PT INR [facility] Apr 22, 2014 nv-pt inr [facility] Jun 22, 2014 Prior Authorization [facility] Jun 07, 2014 Prior Auth [facility] Jun 01, 2014 NV- PT INR [facility] August 19, 2014 NV- PT INR [facility] Jul 22, 2014 NV- PT INR [facility] September 19, 2014 noe [facility] August 24, 2014 NV- PT INR [facility] September 26, 2014 NV PT INR [facility] October 05, 2014 Refill [facility] October 26, 2014 NV/JAZZMINE-PT INR [facility] November 01, 2014 PT INR [facility] December 05, 2014 Noe [facility] December 27, 2014 Problems Problem Type Condition ICD-9 Code Onset Dates Condition Status Problem 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 Active Assessment [facility] current use of anticoagulant Z79.01 Active Problem Asthma J45.909 Active Problem Essential hypertension I10 Active Problem Dizziness R42 Active Problem History of DVT (deep vein thrombosis) Z86.718 Active Problem History of pulmonary embolism Z86.711 Active Problem Seasonal allergies J30.2 Active Problem [facility] current use of anticoagulant Z79.01 Active Medications Medication Code System Code Instructions Start Date End Date Status Dosage Colchicine [facility] [id number] 0.6 Active TAKE 2 TABLETS BY MOUTH TWICE DAILY Meclizine HCl [facility] [address]-65 25 MG Orally three times a day prn September 21, 2015 Active 1 tablet as needed Albuterol Sulfate HFA [facility] [address]-60 108 (90 Base) MCG/ACT Inhalation every 4-6 hrs PRN August 25, 2013 Active 2 puffs as needed Atenolol-Chlorthalidone [facility] [address]-01 50-25 MG Orally Once a day Jul 13, 2015 Active 1/2 tablet Multivitamins [facility] 676[address]997 Orally Active Unknown Warfarin Sodium [facility] [address]-75 5 MG Orally 5 days a week Active 1 tablet Amlodipine Besylate [facility] [address]-80 10 mg Orally Once a day Active 1 tablet Symbicort [facility] [address]-25 160-4.5 MCG/ACT Inhalation Twice a day November 16, 2015 May 14, 2016 Active 2 puffs Social History Social History Element Qualifiers Date Reported Occupation: . [employer] Feb 15, 2016 children . 3 Feb 15, 2016 Last Colonoscopy: . 2010Feb 15, 2016 Tobacco Use: . Are you a: never smoker Feb 15, 2016 Flu Vaccine: . no Feb 15, 2016 Use of recreational / street drugs? . Answer: No Feb 15, 2016 Do you have pets? . Status: Yes, Type: bird(s) Feb 15, 2016 Ethnicity . Status , Is bengali your primary language? Yes Feb 15, 2016 Marital Status: . -Hansa Feb 15, 2016 Caffeine intake? . Status: Yes, What type: Coffee Feb 15, 2016 Do you exercise? . Answer: Yes, Type: walking Feb 15, 2016 Depression Screening: . negative Feb 15, 2016 Fall Risk: . none in the past year Feb 15, 2016 Do you drink alcohol? . Status: Yes, Type: Liquor, How often? Rarely Feb 15, 2016 Vital Signs Date/Time: Feb 15, 2016 Weight 225 lbs Height 66 in Cardiac Monitoring Heart Rate 60 /min Blood Pressure Diastolic 74 mm Hg Blood Pressure Systolic 111 mm Hg Results PROTHROMBIN TIME-INR Summary Purpose eClinicalWorks Submission
--- OUTSIDE RECORDS SUMMARY | 2019-01-12 06:42 | XMS REPORT ---
Author Author Aleah Christopher eClinicalWorks Address Unknown Phone Unavailable Care Team Providers Care Wire Photo Operator News Name Role Phone Aleah Christopher CP Unavailable Allergies, Adverse Reactions, Alerts Substance Reaction Event Type Tramadol HCl vomiting Drug Allergy Rocephin hives Drug Allergy Encounters Encounter Location Date Unknown [facility] May 10, 2013 Unknown [facility] Jul 02, 2015 1 week follow up [facility] May 18, 2015 NV/JAZZMINE-pt/inr [facility] May 25, 2015 Unknown [facility] Jun 26, 2015 echo/jazzmine [facility] Jun 02, 2015 Refill [facility] Jan 16, 2015 NV-PT INR [facility] Aug 05, 2013 Needs call back from Medical Staff [facility] Jan 24, 2015 NV-PT INR [facility] August 19, 2013 physical exam [facility] Apr 05, 2015 pt/inr/andrea [facility] Jul 06, 2013 EYE [facility] Apr 28, 2015 [place]-PT INR [facility] Jul 22, 2013 PT/INR/ANDREA [facility] Jun 08, 2013 pt/inr/andrea [facility] Jun 22, 2013 PT/INR/ANDREA [facility] May 25, 2013 NV/JAZZMINE-pt/inr [facility] January 04, 2015 Unknown [facility] Jun 08, 2013 rash on foot and swollen [facility] Jun 25, 2013 Follow-Up [facility] Mar 03, 2013 pt/inr [facility] Apr 01, 2013 Test results [facility] Apr 22, 2013 PT/INR-Swelling on right leg [facility] Apr 22, 2013 Follow-Up [facility] Feb 01, 2013 Unknown [facility] Feb 19, 2013 NV-PT INR [facility] Feb 16, 2013 RASH [facility] September 09, 2013 Unknown [facility] August 27, 2013 2 MONTH FOLLOW UP [facility] November 16, 2015 Unknown [facility] May 04, 2013 Refill [facility] November 16, 2015 PT/ INR [facility] May 04, 2013 Unknown [facility] November 02, 2015 Unknown [facility] September 22, 2015 RF [facility] September 18, 2015 REFILL [facility] January 10, 2014 Dizzy [facility] September 21, 2015 physical [facility] January 12, 2014 2 week follow up [facility] August 17, 2015 Test results [facility] Jan 15, 2014 Refill [facility] August 29, 2015 RESULTS [facility] Jan 26, 2014 FOLLOW UP [facility] Jul 03, 2015 NV-PT INR [facility] September 09, 2013 PT INR/ BP [facility] Jul 31, 2015 Refill [facility] October 14, 2013 REFILL [facility] December 01, 2013 REFILL [facility] December 27, 2013 NV-PT INR [facility] Mar 25, 2014 PT INR [facility] Mar 11, 2014 Unknown [facility] Feb 08, 2014 Unknown [facility] May 11, 2014 NV/ALEAH-PT/INR . [facility] December 19, 2015 NV-PT INR [facility] May 24, 2014 NV/ALEAH-PT/INR . [facility] Jan 18, 2016 Unknown [facility] Apr 13, 2014 NV/ALEAH-PT/INR . [facility] Feb 15, 2016 NV- PT INR [facility] Apr 22, 2014 RT LEG [facility] Mar 18, 2016 nv-pt inr [facility] Jun 22, 2014 Consultation [facility] Mar 20, 2016 NV/ALEAH-PT/INR [facility] Apr 02, 2016 Prior Authorization [facility] Jun 07, 2014 NV/ALEAH-PT/INR [facility] Apr 18, 2016 Prior Auth [facility] Jun 01, 2014 NV- PT INR [facility] August 19, 2014 NV- PT INR [facility] Jul 22, 2014 NV- PT INR [facility] September 19, 2014 rash [facility] August 24, 2014 NV- PT INR [facility] September 26, 2014 NV PT INR [facility] October 05, 2014 Refill [facility] October 26, 2014 NV/JAZZMINE-PT INR [facility] November 01, 2014 PT INR [facility] December 05, 2014 Rash [facility] December 27, 2014 Problems Problem Type Condition ICD-9 Code Onset Dates Condition Status Assessment Essential hypertension I10 Active Problem 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 Active Assessment longterm current use of anticoagulant Z79.01 Active Assessment Asthma J45.909 Active Problem Asthma J45.909 Active Problem Essential hypertension I10 Active Problem Dizziness R42 Active Problem History of DVT (deep vein thrombosis) Z86.718 Active Problem History of pulmonary embolism Z86.711 Active Problem Seasonal allergies J30.2 Active 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 Medications Medication Code System Code Instructions Start Date End Date Status Dosage Colchicine [facility] 17724359991 0.6 Active TAKE 2 TABLETS BY MOUTH TWICE DAILY Meclizine HCl [facility] [address]-27 25 MG Orally three times a day prn September 21, 2015 Active 1 tablet as needed Atenolol-Chlorthalidone [facility] [address]-77 50-25 MG Orally Once a day Jul 13, 2015 Active 1/2 tablet Albuterol Sulfate HFA [facility] [address]-20 108 (90 Base) MCG/ACT Inhalation every 4-6 hrs PRN August 25, 2013 Active 2 puffs as needed Amlodipine Besylate [facility] [address]-05 10 MG Orally Once a day Active 1 tablet Advair Diskus [facility] [address]-88 250-50 MCG/DOSE Inhalation Twice a day Apr 18, 2016 Active 1 puff Coumadin [facility] [address]-95 4 MG Orally QD x 2 days a week Active 1 tablet Warfarin Sodium [facility] [address]-19 5 MG Orally 5 days a week Active 1 tablet Nystatin-Triamcinolone [facility] [address]-73 756568-7.1 UNIT/GM Externally Twice a day PRN Mar 18, 2016 Apr 19, 2016 Active 1 application to affected area Multivitamins [facility] [address] Orally Active Unknown Symbicort [facility] [address]-20 160-4.5 MCG/ACT Inhalation Twice a day November 16, 2015 Apr 18, 2016 Inactive 2 puffs Social History Social History Element Qualifiers Date Reported Occupation: . [employer] Apr 18, 2016 children . 3 Apr 18, 2016 Last Colonoscopy: . 2010Apr 18, 2016 Tobacco Use: . Are you a: never smoker Apr 18, 2016 Flu Vaccine: . no Apr 18, 2016 Use of recreational / street drugs? . Answer: No Apr 18, 2016 Do you have pets? . Status: Yes, Type: bird(s) Apr 18, 2016 Ethnicity . Status , Is mongolian your primary language? Yes Apr 18, 2016 [...] Liquor, How often? Rarely Apr 18, 2016 Vital Signs Date/Time: Apr 18, 2016 Blood Pressure Diastolic 86 mm Hg Blood Pressure Systolic 131 mm Hg Height 66 in Cardiac Monitoring Heart Rate 78 /min Results PROTHROMBIN TIME-INR Summary Purpose eClinicalWorks Submission
--- OUTSIDE RECORDS SUMMARY | 2019-01-12 06:43 | XMS REPORT ---
Author Author Aleah Christopher [facility] eClinicalWorks Address Unknown Phone Unavailable Care Team Providers Care Demurrage Clerk Name Role Phone Aleah Christopher CP Unavailable [...] Active Problem Seasonal allergies J30.2 Active Problem snf current use of anticoagulant Z79.01 Active Problem Asthma J45.909 Active Problem Essential hypertension I10 Active Assessment History of pulmonary embolism Z86.711 Active Assessment History of DVT (deep vein thrombosis) Z86.718 Active Assessment Encounter for other preprocedural examination Z01.818 Active Assessment Rash R21 Active Assessment snf current use of anticoagulant Z79.01 Active Medications Medication Code System Code Instructions Start Date End Date Status Dosage Fluticasone Propionate [facility] [address]-79 50 MCG/ACT Nasally Once a day May 21, 2016 Active 1 spray in each nostril Medrol (Owen) ND 0 4 MG Orally as directed May 20, 2016 Active as directed Tamiflu [facility] [address]-48 75 MG Orally Twice a day Jul 02, 2016 Active 1 capsule Warfarin Sodium [facility] [address]-22 5 MG Orally 3 days a week Active [address] [facility] [address] Orally Active not defined Symbicort [facility] [address]-34 160-4.5 MCG/ACT Inhalation Twice a day Apr 18, 2016 May 15, 2017 Active 2 puffs Albuterol Sulfate HFA [facility] [address]-16 108 (90 Base) MCG/ACT Inhalation every 4-6 hrs PRN August 25, 2013 Active 2 puffs as needed Colchicine [facility] 02181754555 0.6 Twice a day Active [address] [facility] [address]-21 4 MG Orally 4 days a week Active 1 tablet Meclizine HCl [facility] [address]-27 25 MG Orally three times a day prn September 21, 2015 Active 1 tablet as needed Atenolol-Chlorthalidone [facility] [address]-43 50-25 MG Orally Once a day Jul 13, 2015 Active 1/2 tablet Amlodipine Besylate [facility] [address]-22 10 MG Orally Once a day Active 1 tablet Vital Signs Date/Time: September 17, 2016 BMI 35.99 Index Weight 223 lbs Height 66 in Cardiac Monitoring Heart Rate 68 /min Blood Pressure Diastolic 66 mm Hg Blood Pressure Systolic 110 mm Hg Results No Known Results Summary Purpose eClinicalWorks Submission
--- OUTSIDE RECORDS SUMMARY | 2019-01-12 06:43 | XMS REPORT ---
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 Problem History of gout Z87.39 Active Problem Dizziness R42 Active Problem Hyperuricemia E79.0 Active Problem Seasonal allergies J30.2 Active Problem 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
--- OUTSIDE RECORDS SUMMARY | 2019-01-12 06:43 | XMS REPORT ---
Author Author Aleah Christopher eClinicalWorks Address Unknown Phone Unavailable Care Team Providers Care Communications Project Lead Name Role Phone Aleah Christopher CP Unavailable Encounters Encounter Location Date Unknown [facility] May 10, 2013 Unknown [facility] Jul 02, 2015 1 week follow up [facility] May 18, 2015 NV/JAZZMINE-pt/inr [facility] May 25, 2015 Unknown [facility] Jun 26, 2015 echo/jazzmine [facility] Jun 02, 2015 Refill [facility] Jan 16, 2015 NV-PT INR [facility] Aug 05, 2013 Needs call back from Medical Staff [facility] Jan 24, 2015 NV-PT INR [facility] August 19, 2013 physical exam [facility] Apr 05, 2015 pt/inr/andrea [facility] Jul 06, 2013 EYE [facility] Apr 28, 2015 NV-PT INR [facility] Jul 22, 2013 PT/INR/ANDREA [facility] Jun 08, 2013 pt/inr/andrea [facility] Jun 22, 2013 PT/INR/ANDREA [facility] May 25, 2013 NV/JAZZMINE-pt/inr [facility] January 04, 2015 Unknown [facility] Jun 08, 2013 rash on foot and swollen [facility] Jun 25, 2013 Follow-Up [facility] Mar 03, 2013 pt/inr [facility] Apr 01, 2013 Test results [facility] Apr 22, 2013 PT/INR-Swelling on right leg [facility] Apr 22, 2013 Follow-Up [facility] Feb 01, 2013 Unknown [facility] Feb 19, 2013 NV-PT INR [facility] Feb 16, 2013 RASH [facility] September 09, 2013 Unknown [facility] August 27, 2013 2 MONTH FOLLOW UP [facility] November 16, 2015 Unknown [facility] May 04, 2013 Refill [facility] November 16, 2015 PT/ INR [facility] May 04, 2013 Unknown [facility] November 02, 2015 Unknown [facility] September 22, 2015 RF [facility] September 18, 2015 REFILL [facility] January 10, 2014 Dizzy [facility] September 21, 2015 physical [facility] January 12, 2014 2 week follow up [facility] August 17, 2015 Test results [facility] Jan 15, 2014 Refill [facility] August 29, 2015 RESULTS [facility] Jan 26, 2014 FOLLOW UP [facility] Jul 03, 2015 NV-PT INR [facility] September 09, 2013 PT INR/ BP [facility] Jul 31, 2015 Refill [facility] October 14, 2013 REFILL [facility] December 01, 2013 REFILL [facility] December 27, 2013 consult, pt/inr [facility] May 20, 2016 ADVAIR [facility] Apr 18, 2016 DRUG CHANGE [facility] May 21, 2016 NV-PT INR [facility] Mar 25, 2014 PT INR [facility] Mar 11, 2014 Unknown [facility] Feb 08, 2014 Unknown [facility] May 11, 2014 NV/ALEAH-PT/INR . [facility] December 19, 2015 NV-PT INR [facility] May 24, 2014 NV/ALEAH-PT/INR . [facility] Jan 18, 2016 Unknown [facility] Apr 13, 2014 NV/ALEAH-PT/INR . [facility] Feb 15, 2016 NV- PT INR [facility] Apr 22, 2014 RT LEG [facility] Mar 18, 2016 nv-pt inr [facility] Jun 22, 2014 Consultation [facility] Mar 20, 2016 NV/ALEAH-PT/INR [facility] Apr 02, 2016 Prior Authorization [facility] Jun 07, 2014 NV/ALEAH-PT/INR [facility] Apr 18, 2016 Prior Auth [facility] Jun 01, 2014 NV- PT INR [facility] August 19, 2014 NV- PT INR [facility] Jul 22, 2014 NV- PT INR [facility] September 19, 2014 rash [facility] August 24, 2014 PHYSICAL AND PT/INR CHECK [facility] Jun 18, 2016 NV- PT INR [facility] September 26, 2014 PA on ULORIC 40mg [facility] Jul 02, 2016 NV PT INR [facility] October 05, 2014 PA ON ADVAIR [facility] May 16, 2016 Refill [facility] October 26, 2014 NV/PT/INR-ALEAH [facility] Jun 03, 2016 NV/JAZZMINE-PT INR [facility] November 01, 2014 PT/INR-aleah [facility] Aug 02, 2016 PT INR [facility] December 05, 2014 PT/INR-aleah [facility] August 16, 2016 Rash [facility] December 27, 2014 2 WEEK FOLLOW UP [facility] Jul 02, 2016 NV/PT/INR-ALEAH [facility] Jul 09, 2016 Problems Problem Type Condition ICD-9 Code Onset Dates Condition Status Problem 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 Active Problem History of DVT (deep vein thrombosis) Z86.718 Active Problem History of pulmonary embolism Z86.711 Active Assessment 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 current use of anticoagulant Z79.01 Active Problem History of gout Z87.39 Active Problem Dizziness R42 Active Problem Hyperuricemia E79.0 Active Problem Seasonal allergies J30.2 Active 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 Problem Asthma J45.909 Active Problem Essential hypertension I10 Active Medications Medication Code System Code Instructions Start Date End Date Status Dosage Symbicort [facility] [address]-42 160-4.5 MCG/ACT Inhalation Twice a day Apr 18, 2016 May 15, 2017 Active 2 puffs Medrol (Owen) Unknown 0 4 MG Orally as directed May 20, 2016 Active as directed Warfarin Sodium [facility] 85599641025 5 MG Orally QD x 4 days a week Active 1 tablet Colchicine [facility] 83914225811 0.6 Twice a day Active 1 tablet Atenolol-Chlorthalidone [facility] [address]-66 50-25 MG Orally Once a day Jul 13, 2015 Active 1/2 tablet Amlodipine Besylate [facility] [address]-27 10 MG Orally Once a day Active 1 tablet Albuterol Sulfate HFA [facility] [address]-97 108 (90 Base) MCG/ACT Inhalation every 4-6 hrs PRN August 25, 2013 Active 2 puffs as needed Meclizine HCl [facility] [address]-24 25 MG Orally three times a day prn September 21, 2015 Active 1 tablet as needed Tamiflu [facility] [address]-71 75 MG Orally Twice a day Jul 02, 2016 Active 1 capsule Coumadin [facility] [address]-92 4 MG Orally QD x 3 days a week Active 1 tablet Multivitamins [facility] [address] Orally Active Unknown Fluticasone Propionate [facility] [address]-34 50 MCG/ACT Nasally Once a day May 21, 2016 Active 1 spray in each nostril Social History Social History Element Qualifiers Date Reported Occupation: . [id number] Jul 09, 2016 children . 3 Jul 09, 2016 Last Colonoscopy: . 2010Jul 09, 2016 Tobacco Use: . Are you a: never smoker Jul 09, 2016 Flu Vaccine: . no Jul 09, 2016 Use of recreational / street drugs? . Answer: No Jul 09, 2016 Do you have pets? . Status: Yes, Type: bird(s) Jul 09, 2016 Ethnicity . Status , Is belizean your primary language? Yes Jul 09, 2016 [...] Liquor, How often? Rarely Jul 09, 2016 Summary Purpose eClinicalWorks Submission
--- OUTSIDE RECORDS SUMMARY | 2019-01-12 06:43 | XMS REPORT ---
Author Author Aleah Christopher [employer] Address Unknown Phone Unavailable Care Team Providers Care Vacuum Applicator Operator Name Role Phone Aleah Christopher CP Unavailable Allergies, Adverse Reactions, Alerts Substance Reaction Event Type Tramadol HCl vomiting Drug Allergy Rocephin hives Drug Allergy Encounters Encounter Location Date Unknown [facility] May 10, 2013 Unknown [facility] Jul 02, 2015 1 week follow up [facility] May 18, 2015 NV/JAZZMINE-pt/inr [facility] May 25, 2015 Unknown [facility] Jun 26, 2015 echo/jazzmine [facility] Jun 02, 2015 Refill [facility] Jan 16, 2015 NV-PT INR [facility] Aug 05, 2013 Needs call back from Medical Staff [facility] Jan 24, 2015 NV-PT INR [facility] August 19, 2013 physical exam [facility] Apr 05, 2015 pt/inr/andrea [facility] Jul 06, 2013 EYE [facility] Apr 28, 2015 [place]-PT INR [facility] Jul 22, 2013 PT/INR/ANDREA [facility] Jun 08, 2013 pt/inr/andrea [facility] Jun 22, 2013 PT/INR/ANDREA [facility] May 25, 2013 NV/JAZZMINE-pt/inr [facility] January 04, 2015 Unknown [facility] Jun 08, 2013 rash on foot and swollen [facility] Jun 25, 2013 Follow-Up [facility] Mar 03, 2013 pt/inr [facility] Apr 01, 2013 Test results [facility] Apr 22, 2013 PT/INR-Swelling on right leg [facility] Apr 22, 2013 Follow-Up [facility] Feb 01, 2013 Unknown [facility] Feb 19, 2013 NV-PT INR [facility] Feb 16, 2013 RASH [facility] September 09, 2013 Unknown [facility] August 27, 2013 2 MONTH FOLLOW UP [facility] November 16, 2015 Unknown [facility] May 04, 2013 Refill [facility] November 16, 2015 PT/ INR [facility] May 04, 2013 Unknown [facility] November 02, 2015 Unknown [facility] September 22, 2015 RF [facility] September 18, 2015 REFILL [facility] January 10, 2014 Dizzy [facility] September 21, 2015 physical [facility] January 12, 2014 2 week follow up [facility] August 17, 2015 Test results [facility] Jan 15, 2014 Refill [facility] August 29, 2015 RESULTS [facility] Jan 26, 2014 FOLLOW UP [facility] Jul 03, 2015 NV-PT INR [facility] September 09, 2013 PT INR/ BP [facility] Jul 31, 2015 Refill [facility] October 14, 2013 REFILL [facility] December 01, 2013 REFILL [facility] December 27, 2013 consult, pt/inr [facility] May 20, 2016 ADVAIR [facility] Apr 18, 2016 DRUG CHANGE [facility] May 21, 2016 NV-PT INR [facility] Mar 25, 2014 PT INR [facility] Mar 11, 2014 Unknown [facility] Feb 08, 2014 Unknown [facility] May 11, 2014 NV/ALEAH-PT/INR . [facility] December 19, 2015 NV-PT INR [facility] May 24, 2014 NV/ALEAH-PT/INR . [facility] Jan 18, 2016 Unknown [facility] Apr 13, 2014 NV/ALEAH-PT/INR . [facility] Feb 15, 2016 NV- PT INR [facility] Apr 22, 2014 RT LEG [facility] Mar 18, 2016 nv-pt inr [facility] Jun 22, 2014 Consultation [facility] Mar 20, 2016 NV/ALEAH-PT/INR [facility] Apr 02, 2016 Prior Authorization [facility] Jun 07, 2014 NV/ALEAH-PT/INR [facility] Apr 18, 2016 Prior Auth [facility] Jun 01, 2014 NV- PT INR [facility] August 19, 2014 NV- PT INR [facility] Jul 22, 2014 NV- PT INR [facility] September 19, 2014 rash [facility] August 24, 2014 PHYSICAL AND PT/INR CHECK [facility] Jun 18, 2016 NV- PT INR [facility] September 26, 2014 PA on ULORIC 40mg [facility] Jul 02, 2016 NV PT INR [facility] October 05, 2014 PA ON ADVAIR [facility] May 16, 2016 Refill [facility] October 26, 2014 NV/PT/INR-ALEAH [facility] Jun 03, 2016 NV/JAZZMINE-PT INR [facility] November 01, 2014 PT INR [facility] December 05, 2014 Rash [facility] December 27, 2014 2 WEEK FOLLOW UP [facility] Jul 02, 2016 NV/PT/INR-ALEAH [facility] Jul 09, 2016 Problems Problem Type Condition ICD-9 Code Onset Dates Condition Status Problem 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 Active Problem History of DVT (deep vein thrombosis) Z86.718 Active Problem History of pulmonary embolism Z86.711 Active Assessment History of DVT (deep vein thrombosis) Z86.718 Active Problem History of gout Z87.39 Active Problem Dizziness R42 Active Problem Hyperuricemia E79.0 Active Problem Seasonal allergies J30.2 Active 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 Active Problem Asthma J45.909 Active Problem Essential hypertension I10 Active Medications Medication Code System Code Instructions Start Date End Date Status Dosage Albuterol Sulfate HFA [facility] [address]-86 108 (90 Base) MCG/ACT Inhalation every 4-6 hrs PRN August 25, 2013 Active 2 puffs as needed Tamiflu [facility] [address]-23 75 MG Orally Twice a day Jul 02, 2016 Active 1 capsule Coumadin [facility] [address]-47 4 MG Orally QD x 3 days a week Active 1 tablet Meclizine HCl [facility] [address]-82 25 MG Orally three times a day prn September 21, 2015 Active 1 tablet as needed Atenolol-Chlorthalidone [facility] [address]-26 50-25 MG Orally Once a day Jul 13, 2015 Active 1/2 tablet Warfarin Sodium [facility] 26566859686 5 MG Orally QD x 4 days a week Active 1 tablet Benzonatate [facility] [address]-39 200 MG Orally Q8 PRN Jul 02, 2016 Jul 09, 2016 Active 1 capsule as needed Fluticasone Propionate [facility] [address]-98 50 MCG/ACT Nasally Once a day May 21, 2016 Active 1 spray in each nostril Amlodipine Besylate [facility] [address]-08 10 MG Orally Once a day Active 1 tablet Medrol (Owen) Unknown 0 4 MG Orally as directed May 20, 2016 Active as directed Colchicine [facility] 29594761650 0.6 Twice a day Active 1 tablet Multivitamins [facility] 49383-[address]64 Orally Active Unknown Symbicort [facility] [address]-71 160-4.5 MCG/ACT Inhalation Twice a day Apr 18, 2016 May 15, 2017 Active 2 puffs Social History Social History Element Qualifiers Date Reported Occupation: . [employer] Jul 09, 2016 children . 3 Jul 09, 2016 Last Colonoscopy: . 2010Jul 09, 2016 Tobacco Use: . Are you a: never smoker Jul 09, 2016 Flu Vaccine: . no Jul 09, 2016 Use of recreational / street drugs? . Answer: No Jul 09, 2016 Do you have pets? . Status: Yes, Type: bird(s) Jul 09, 2016 Ethnicity . Status , Is moldovan your primary language? Yes Jul 09, 2016 [...] Liquor, How often? Rarely Jul 09, 2016 Vital Signs Date/Time: Jul 09, 2016 Weight 223 lbs Height 66 in Cardiac Monitoring Heart Rate 84 /min Blood Pressure Diastolic 91 mm Hg Blood Pressure Systolic 129 mm Hg Results PROTHROMBIN TIME-INR Summary Purpose [employer]Works Submission
--- OUTSIDE RECORDS SUMMARY | 2019-01-12 06:43 | XMS REPORT ---
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 Problem History of gout Z87.39 Active Problem Dizziness R42 Active Problem Hyperuricemia E79.0 Active Problem Seasonal allergies J30.2 Active 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 Problem Asthma J45.909 Active Problem Essential hypertension I10 Active Medications Medication Code System Code Instructions Start Date End Date Status Dosage Fluticasone Propionate [facility] [address]-27 50 MCG/ACT Nasally Once a day May 21, 2016 Active 1 spray in each nostril Coumadin [facility] [address]-34 4 MG Orally 5 days a week Active 1 tablet Tamiflu [facility] [address]-39 75 MG Orally Twice a day Jul 02, 2016 Active 1 capsule Multivitamins [facility] [address]882-66440 Orally Active not defined Medrol (Owen) NDC 0 4 MG Orally as directed May 20, 2016 Active as directed Albuterol Sulfate HFA [facility] [address]-34 108 (90 Base) MCG/ACT Inhalation every 4-6 hrs PRN August 25, 2013 Active 2 puffs as needed Colchicine [facility] 81660775773 0.6 Twice a day Active 1 tablet Symbicort [facility] [address]-46 160-4.5 MCG/ACT Inhalation Twice a day Apr 18, 2016 May 15, 2017 Active 2 puffs Meclizine HCl [facility] [address]-91 25 MG Orally three times a day prn September 21, 2015 Active 1 tablet as needed Atenolol-Chlorthalidone [facility] [address]-47 50-25 MG Orally Once a day Jul 13, 2015 Active 1/2 tablet Amlodipine Besylate [facility] [address]-30 10 MG Orally Once a day Active 1 tablet Warfarin Sodium [facility] [address]-02 5 MG Orally 2 days a week Active 1 tablet Vital Signs Date/Time: October 03, 2016 Blood Pressure Diastolic 76 mm Hg Blood Pressure Systolic 110 mm Hg Height 66 in Cardiac Monitoring Heart Rate 86 /min Results Name Result Date Reference Range Unit Abnormality Flag PROTHROMBIN TIME-INR ----PT 19.7 20161003 ----INR 1.6 20161003 Summary Purpose eClinicalWorks Submission
--- OUTSIDE RECORDS SUMMARY | 2019-01-12 06:43 | XMS REPORT ---
Author Author Aleah Christopher eClinicalWorks Address Unknown Phone Unavailable Care Team Providers Care Shipping Associate Name Role Phone Aleah Christopher CP Unavailable Encounters Encounter Location Date Unknown [facility] May 10, 2013 Unknown [facility] Jul 02, 2015 1 week follow up [facility] May 18, 2015 NV/JAZZMINE-pt/inr [facility] May 25, 2015 Unknown [facility] Jun 26, 2015 echo/jazzmine [facility] Jun 02, 2015 Refill [facility] Jan 16, 2015 NV-PT INR [facility] Aug 05, 2013 Needs call back from Medical Staff [facility] Jan 24, 2015 NV-PT INR [facility] August 19, 2013 physical exam [facility] Apr 05, 2015 pt/inr/andrea [facility] Jul 06, 2013 EYE [facility] Apr 28, 2015 NV-PT INR [facility] Jul 22, 2013 PT/INR/ANDREA [facility] Jun 08, 2013 pt/inr/andrea [facility] Jun 22, 2013 PT/INR/ANDREA [facility] May 25, 2013 NV/JAZZMINE-pt/inr [facility] January 04, 2015 Unknown [facility] Jun 08, 2013 rash on foot and swollen [facility] Jun 25, 2013 Follow-Up [facility] Mar 03, 2013 pt/inr [facility] Apr 01, 2013 Test results [facility] Apr 22, 2013 PT/INR-Swelling on right leg [facility] Apr 22, 2013 Follow-Up [facility] Feb 01, 2013 Unknown [facility] Feb 19, 2013 NV-PT INR [facility] Feb 16, 2013 RASH [facility] September 09, 2013 Unknown [facility] August 27, 2013 2 MONTH FOLLOW UP [facility] November 16, 2015 Unknown [facility] May 04, 2013 Refill [facility] November 16, 2015 PT/ INR [facility] May 04, 2013 Unknown [facility] November 02, 2015 Unknown [facility] September 22, 2015 RF [facility] September 18, 2015 REFILL [facility] January 10, 2014 Dizzy [facility] September 21, 2015 physical [facility] January 12, 2014 2 week follow up [facility] August 17, 2015 Test results [facility] Jan 15, 2014 Refill [facility] August 29, 2015 RESULTS [facility] Jan 26, 2014 FOLLOW UP [facility] Jul 03, 2015 NV-PT INR [facility] September 09, 2013 PT INR/ BP [facility] Jul 31, 2015 Refill [facility] October 14, 2013 REFILL [facility] December 01, 2013 REFILL [facility] December 27, 2013 consult, pt/inr [facility] May 20, 2016 ADVAIR [facility] Apr 18, 2016 DRUG CHANGE [facility] May 21, 2016 NV-PT INR [facility] Mar 25, 2014 PT INR [facility] Mar 11, 2014 Unknown [facility] Feb 08, 2014 Unknown [facility] May 11, 2014 NV/ALEAH-PT/INR . [facility] December 19, 2015 NV-PT INR [facility] May 24, 2014 NV/ALEAH-PT/INR . [facility] Jan 18, 2016 Unknown [facility] Apr 13, 2014 NV/ALEAH-PT/INR . [facility] Feb 15, 2016 NV- PT INR [facility] Apr 22, 2014 RT LEG [facility] Mar 18, 2016 nv-pt inr [facility] Jun 22, 2014 Consultation [facility] Mar 20, 2016 NV/ALEAH-PT/INR [facility] Apr 02, 2016 Prior Authorization [facility] Jun 07, 2014 NV/ALEAH-PT/INR [facility] Apr 18, 2016 Prior Auth [facility] Jun 01, 2014 NV- PT INR [facility] August 19, 2014 NV- PT INR [facility] Jul 22, 2014 NV- PT INR [facility] September 19, 2014 rash [facility] August 24, 2014 PHYSICAL AND PT/INR CHECK [facility] Jun 18, 2016 NV- PT INR [facility] September 26, 2014 PA on ULORIC 40mg [facility] Jul 02, 2016 NV PT INR [facility] October 05, 2014 PA ON ADVAIR [facility] May 16, 2016 Refill [facility] October 26, 2014 NV/PT/INR-ALEAH [facility] Jun 03, 2016 NV/JAZZMINE-PT INR [facility] November 01, 2014 PT/INR-aleah [facility] Aug 02, 2016 PT INR [facility] December 05, 2014 Rash [facility] December 27, 2014 2 WEEK FOLLOW UP [facility] Jul 02, 2016 NV/PT/INR-ALEAH [facility] Jul 09, 2016 Problems Problem Type Condition ICD-9 Code Onset Dates Condition Status Problem 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 Active Problem History of DVT (deep vein thrombosis) Z86.718 Active Problem History of pulmonary embolism Z86.711 Active 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 Z79.01 Active Problem History of gout Z87.39 Active Problem Dizziness R42 Active Problem Hyperuricemia E79.0 Active Problem Seasonal allergies J30.2 Active 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.01 Active Problem Asthma J45.909 Active Problem Essential hypertension I10 Active Medications Medication Code System Code Instructions Start Date End Date Status Dosage Meclizine HCl [facility] [address]-28 25 MG Orally three times a day prn September 21, 2015 Active 1 tablet as needed Tamiflu [facility] [address]-64 75 MG Orally Twice a day Jul 02, 2016 Active 1 capsule Albuterol Sulfate HFA [facility] [address]-95 108 (90 Base) MCG/ACT Inhalation every 4-6 hrs PRN August 25, 2013 Active 2 puffs as needed Amlodipine Besylate [facility] [address]-50 10 MG Orally Once a day Active 1 tablet Fluticasone Propionate [facility] [address]-28 50 MCG/ACT Nasally Once a day May 21, 2016 Active 1 spray in each nostril Colchicine [facility] 45762878039 0.6 Twice a day Active 1 tablet Warfarin Sodium [facility] 96811347833 5 MG Orally QD x 4 days a week Active 1 tablet Atenolol-Chlorthalidone [facility] [address]-72 50-25 MG Orally Once a day Jul 13, 2015 Active 1/2 tablet Multivitamins [facility] 39552-46467 Orally Active Unknown Medrol (Owen) Unknown 0 4 MG Orally as directed May 20, 2016 Active as directed Symbicort [facility] [address]-62 160-4.5 MCG/ACT Inhalation Twice a day Apr 18, 2016 May 15, 2017 Active 2 puffs Coumadin [facility] [address]-18 4 MG Orally QD x 3 days a week Active 1 tablet Social History Social History Element Qualifiers Date Reported Occupation: . [employer] Jul 09, 2016 children . 3 Jul 09, 2016 Last Colonoscopy: . 2010Jul 09, 2016 Tobacco Use: . Are you a: never smoker Jul 09, 2016 Flu Vaccine: . no Jul 09, 2016 Use of recreational / street drugs? . Answer: No Jul 09, 2016 Do you have pets? . Status: Yes, Type: bird(s) Jul 09, 2016 Ethnicity . Status , Is slovak your primary language? Yes Jul 09, 2016 [...] Rarely Jul 09, 2016 Vital Signs Date/Time: Aug 02, 2016 Blood Pressure Diastolic 64 mm Hg Blood Pressure Systolic 108 mm Hg Height 66 in Summary Purpose eClinicalWorks Submission
--- OUTSIDE RECORDS SUMMARY | 2019-01-12 06:43 | XMS REPORT ---
Author Author Aleah Christopher eClinicalWorks Address Unknown Phone Unavailable Care Team Providers Care Phys Therapist Name Role Phone Aleah Christopher CP Unavailable Encounters Encounter Location [facility] Jan 24, 2015 [place]-PT INR [facility] August 19, 2013 physical exam [facility] Apr 05, 2015 pt/inr/andrea [facility] Jul 06, 2013 EYE [facility] Apr 28, 2015 NV-PT INR [facility] Jul 22, 2013 PT/INR/ANDREA [facility] Jun 08, 2013 pt/inr/andrea [facility] Jun 22, 2013 PT/INR/ANDREA [facility] May [...] [facility] Feb 16, 2013 RASH [facility] September 09, 2013 Unknown [facility] August 27, 2013 2 MONTH FOLLOW UP [facility] November 16, 2015 Unknown [facility] May 04, 2013 Refill [facility] November 16, 2015 PT/ INR [facility] May 04, 2013 Unknown [facility] November 02, 2015 Unknown [facility] September 22, 2015 RF [facility] September 18, 2015 REFILL [facility] January 10, 2014 Dizzy [facility] May 20, 2016 ADVAIR [facility] Apr 18, 2016 DRUG CHANGE [facility] May 21, 2016 NV-PT INR [facility] Mar 25, 2014 PT INR [facility] Mar 11, 2014 Unknown [facility] Feb 08, 2014 Unknown [facility] May 11, 2014 NV/ALEAH-PT/INR . [facility] [...] Auth [facility] Jun 01, 2014 NV- PT INR [facility] August 19, 2014 NV- PT INR [facility] Jul 22, 2014 NV- PT INR [facility] September 19, 2014 rash [facility] August 24, 2014 PHYSICAL AND PT/INR CHECK [facility] Jun 18, 2016 NV- PT INR [facility] September 26, 2014 PA on ULORIC 40mg [facility] Jul 02, 2016 NV PT INR [facility] October 05, 2014 PA ON ADVAIR [facility] May 16, 2016 Refill [facility] October 26, 2014 NV/PT/INR-ALEAH [facility] Jun 03, 2016 NV/JAZZMINE-PT INR [facility] November 01, 2014 PT INR [facility] December 05, 2014 Rash [facility] December 27, 2014 Problems Problem Type Condition ICD-9 Code Onset Dates Condition Status Problem 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 [employer] Jul 02, 2016 children . 3 Jul 02, 2016 Last Colonoscopy: . 2010Jul 02, 2016 Tobacco Use: . Are you a: never smoker Jul 02, 2016 Flu Vaccine: . no Jul 02, 2016 Use of recreational / street drugs? . Answer: No Jul 02, 2016 Do you have pets? . Status: Yes, Type: bird(s) Jul 02, 2016 Ethnicity . Status , Is upper sorbian your primary language? Yes Jul 02, 2016 Marital Status: . -Hansa Jul 02, 2016 Caffeine intake? . Status: Yes, What type: Coffee Jul 02, 2016 Do you exercise? . Answer: Yes, Type: walking Jul 02, 2016 Depression Screening: . negative Jul 02, 2016 Fall Risk: . none in the past year Jul 02, 2016 Do you drink alcohol? . Status: Yes, Type: Liquor, How often? Rarely Jul 02, 2016 Summary Purpose eClinicalWorks Submission
--- OUTSIDE RECORDS SUMMARY | 2019-01-12 06:43 | XMS REPORT ---
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.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 Problem History of gout Z87.39 Active Problem Dizziness R42 Active Problem Hyperuricemia E79.0 Active Problem Seasonal allergies J30.2 Active 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 Problem Asthma J45.909 Active Problem Essential hypertension I10 Active Medications Medication Code System Code Instructions Start Date End Date Status Dosage Albuterol Sulfate HFA [facility] [address]-89 108 (90 Base) MCG/ACT Inhalation every 4-6 hrs PRN August 25, 2013 Active 2 puffs as needed Medrol (Owen) NDC 0 4 MG Orally as directed May 20, 2016 Active as directed Meclizine HCl [facility] [address]-94 25 MG Orally three times a day prn September 21, 2015 Active 1 tablet as needed Warfarin Sodium [facility] 78864422807 5 MG Orally QD x 4 days a week Active 1 tablet Atenolol-Chlorthalidone [facility] [address]-53 50-25 MG Orally Once a day Jul 13, 2015 Active 1/2 tablet Amlodipine Besylate [facility] [address]-37 10 MG Orally Once a day Active 1 tablet Fluticasone Propionate [facility] [address]-76 50 MCG/ACT Nasally Once a day May 21, 2016 Active 1 spray in each nostril Tamiflu [facility] [address]-93 75 MG Orally Twice a day Jul 02, 2016 Active 1 capsule Coumadin [facility] [address]-59 4 MG Orally QD x 3 days a week Active 1 tablet Colchicine [facility] 63730025727 0.6 Twice a day Active 1 tablet Multivitamins [facility] 25[address]60 Orally Active not defined Symbicort [facility] [address]-63 160-4.5 MCG/ACT Inhalation Twice a day Apr 18, 2016 May 15, 2017 Active 2 puffs Vital Signs Date/Time: August 30, 2016 Blood Pressure Diastolic 76 mm Hg Blood Pressure Systolic 114 mm Hg Height 66 in Cardiac Monitoring Heart Rate 57 /min Results No Known Results Summary Purpose eClinicalWorks Submission
--- OUTSIDE RECORDS SUMMARY | 2019-01-12 06:43 | XMS REPORT ---
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 Problem History of gout Z87.39 Active Problem Dizziness R42 Active Problem Hyperuricemia E79.0 Active Problem Seasonal allergies J30.2 Active 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 Problem Asthma J45.909 Active Problem Essential hypertension I10 Active Medications Medication Code System Code Instructions Start Date End Date Status Dosage Meclizine HCl [facility] [address]-72 25 MG Orally three times a day prn September 21, 2015 Active 1 tablet as needed Tamiflu [facility] [address]-02 75 MG Orally Twice a day Jul 02, 2016 Active 1 capsule Multivitamins [facility] [address] Orally Active not defined Atenolol-Chlorthalidone [facility] [address]-50 50-25 MG Orally Once a day Jul 13, 2015 Active 1/2 tablet Medrol (Owen) ND 0 4 MG Orally as directed May 20, 2016 Active as directed Colchicine [facility] 18775155236 0.6 Twice a day Active 1 tablet Fluticasone Propionate [facility] [address]-07 50 MCG/ACT Nasally Once a day May 21, 2016 Active 1 spray in each nostril Amlodipine Besylate [facility] [address]-21 10 MG Orally Once a day Active 1 tablet Albuterol Sulfate HFA [facility] [address]-46 108 (90 Base) MCG/ACT Inhalation every 4-6 hrs PRN August 25, 2013 Active 2 puffs as needed Coumadin [facility] [address]-92 4 MG Orally 5 days a week Active 1 tablet Symbicort [facility] [address]-91 160-4.5 MCG/ACT Inhalation Twice a day Apr 18, 2016 May 15, 2017 Active 2 puffs Warfarin Sodium [facility] [address]-60 5 MG Orally 2 days a week Active 1 tablet Vital Signs Date/Time: September 24, 2016 BMI 35.99 Index Weight 223 lbs Height 66 in Cardiac Monitoring Heart Rate 79 /min Blood Pressure Diastolic 80 mm Hg Blood Pressure Systolic 118 mm Hg Results Name Result Date Reference Range Unit Abnormality Flag PROTHROMBIN TIME-INR ----PT 38.0 20160924 ----INR 3.1 20160924 Summary Purpose eClinicalWorks Submission
--- OUTSIDE RECORDS SUMMARY | 2019-01-12 06:43 | XMS REPORT ---
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 Problem History of gout Z87.39 Active Problem Dizziness R42 Active Problem Hyperuricemia E79.0 Active Problem Seasonal allergies J30.2 Active 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 Problem Asthma J45.909 Active Problem Essential hypertension I10 Active Medications Medication Code System Code Instructions Start Date End Date Status Dosage Symbicort [facility] [address]-71 160-4.5 MCG/ACT Inhalation Twice a day Apr 18, 2016 May 15, 2017 Active 2 puffs Warfarin Sodium [facility] [address]-59 5 MG Orally 3 days a week Inactive 1 tablet Medrol (Owen) NDC 0 4 MG Orally as directed May 20, 2016 Active as directed Xarelto [facility] 00353-117-33 20 mg by mouth Once a day October 10, 2016 Active 1 tab Tamiflu [facility] [address]-33 75 MG Orally Twice a day Jul 02, 2016 Active 1 capsule Colchicine [facility] 00248036201 0.6 Twice a day Active 1 tablet Coumadin [facility] 53518724041 4 MG Orally 4 days a week Inactive 1 tablet Amlodipine Besylate [facility] [address]-09 10 MG Orally Once a day Active 1 tablet Fluticasone Propionate [facility] [address]-81 50 MCG/ACT Nasally Once a day May 21, 2016 Active 1 spray in each nostril Meclizine HCl [facility] [address]-00 25 MG Orally three times a day prn September 21, 2015 Active 1 tablet as needed Atenolol-Chlorthalidone [facility] 01704412127 50-25 MG Orally Once a day Active 1 tablet Albuterol Sulfate HFA [facility] [address]-13 108 (90 Base) MCG/ACT Inhalation every 4-6 hrs PRN August 25, 2013 Active 2 puffs as needed Multivitamins [facility] [address]392-[address]43 Orally Active not defined Vital Signs Date/Time: October 10, 2016 Blood Pressure Diastolic 70 mm Hg Blood Pressure Systolic 104 mm Hg Height 66 in Cardiac Monitoring Heart Rate 60 /min Results Name Result Date Reference Range Unit Abnormality Flag PROTHROMBIN TIME-INR ----PT 26.8 [id number] ----INR 2.2 [id number] Summary Purpose eClinicalWorks Submission
--- OUTSIDE RECORDS SUMMARY | 2019-01-12 06:43 | XMS REPORT ---
Author Author Aleah Christopher eClinicalWorks Address Unknown Phone Unavailable Care Team Providers Care Print Decorator Name Role Phone Aleah Christopher CP Unavailable Allergies, Adverse Reactions, Alerts Substance Reaction Event Type Tramadol HCl vomiting Drug Allergy Rocephin hives Drug Allergy Encounters Encounter Location Date Unknown [facility] May 10, 2013 Unknown [facility] Jul 02, 2015 1 week follow up [facility] May 18, 2015 NV/JAZZMNIE-pt/inr [facility] May 25, 2015 Unknown [facility] Jun 26, 2015 echo/jazzmine [facility] Jun 02, 2015 Refill [facility] Jan 16, 2015 NV-PT INR [facility] Aug 05, 2013 Needs call back from Medical Staff [facility] Jan 24, 2015 NV-PT INR [facility] August 19, 2013 physical exam [facility] Apr 05, 2015 pt/inr/andrea [facility] Jul 06, 2013 EYE [facility] Apr 28, 2015 NV-PT INR [facility] Jul 22, 2013 PT/INR/ANDREA [facility] Jun 08, 2013 pt/inr/andrea [facility] Jun 22, 2013 PT/INR/ANDREA [facility] May 25, 2013 NV/JAZZMINE-pt/inr [facility] January 04, 2015 Unknown [facility] Jun 08, 2013 rash on foot and swollen [facility] Jun 25, 2013 Follow-Up [facility] Mar 03, 2013 pt/inr [facility] Apr 01, 2013 Test results [facility] Apr 22, 2013 PT/INR-Swelling on right leg [facility] Apr 22, 2013 Follow-Up [facility] Feb 01, 2013 Unknown [facility] Feb 19, 2013 NV-PT INR [facility] Feb 16, 2013 RASH [facility] September 09, 2013 Unknown [facility] August 27, 2013 2 MONTH FOLLOW UP [facility] November 16, 2015 Unknown [facility] May 04, 2013 Refill [facility] November 16, 2015 PT/ INR [facility] May 04, 2013 Unknown [facility] November 02, 2015 Unknown [facility] September 22, 2015 RF [facility] September 18, 2015 REFILL [facility] January 10, 2014 Dizzy [facility] September 21, 2015 physical [facility] January 12, 2014 2 week follow up [facility] August 17, 2015 Test results [facility] Jan 15, 2014 Refill [facility] August 29, 2015 RESULTS [facility] Jan 26, 2014 FOLLOW UP [facility] Jul 03, 2015 NV-PT INR [facility] September 09, 2013 PT INR/ BP [facility] Jul 31, 2015 Refill [facility] October 14, 2013 REFILL [facility] December 01, 2013 REFILL [facility] December 27, 2013 consult, pt/inr [facility] May 20, 2016 ADVAIR [facility] Apr 18, 2016 DRUG CHANGE [facility] May 21, 2016 NV-PT INR [facility] Mar 25, 2014 PT INR [facility] Mar 11, 2014 Unknown [facility] Feb 08, 2014 Unknown [facility] May 11, 2014 NV/ALEAH-PT/INR . [facility] December 19, 2015 NV-PT INR [facility] May 24, 2014 NV/ALEAH-PT/INR . [facility] Jan 18, 2016 Unknown [facility] Apr 13, 2014 NV/ALEAH-PT/INR . [facility] Feb 15, 2016 NV- PT INR [facility] Apr 22, 2014 RT LEG [facility] Mar 18, 2016 nv-pt inr [facility] Jun 22, 2014 Consultation [facility] Mar 20, 2016 NV/ALEAH-PT/INR [facility] Apr 02, 2016 Prior Authorization [facility] Jun 07, 2014 NV/ALEAH-PT/INR [facility] Apr 18, 2016 Prior Auth [facility] Jun 01, 2014 NV- PT INR [facility] August 19, 2014 NV- PT INR [facility] Jul 22, 2014 NV- PT INR [facility] September 19, 2014 rash [facility] August 24, 2014 PHYSICAL AND PT/INR CHECK [facility] Jun 18, 2016 NV- PT INR [facility] September 26, 2014 PA on ULORIC 40mg [facility] Jul 02, 2016 NV PT INR [facility] October 05, 2014 PA ON ADVAIR [facility] May 16, 2016 Refill [facility] October 26, 2014 NV/PT/INR-ALEAH [facility] Jun 03, 2016 NV/JAZZMINE-PT INR [facility] November 01, 2014 PT INR [facility] December 05, 2014 Rash [facility] December 27, 2014 2 WEEK FOLLOW UP [facility] Jul 02, 2016 Problems Problem Type Condition ICD-9 Code Onset Dates Condition Status Problem 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 Active Problem History of DVT (deep vein thrombosis) Z86.718 Active Problem History of pulmonary embolism Z86.711 Active Problem History of gout Z87.39 Active Problem Dizziness R42 Active Problem Hyperuricemia E79.0 Active Problem Seasonal allergies J30.2 Active 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 Problem Asthma J45.909 Active Problem Essential hypertension I10 Active Assessment Acute URI J06.9 Active Assessment Hyperuricemia E79.0 Active 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 Assessment Essential hypertension I10 Active Medications Medication Code System Code Instructions Start Date End Date Status Dosage Albuterol Sulfate HFA [facility] [address]-96 108 (90 Base) MCG/ACT Inhalation every 4-6 hrs PRN August 25, 2013 Active 2 puffs as needed Warfarin Sodium [facility] 10918990137 5 MG Orally QD x 4 days a week Active 1 tablet Medrol (Owen) Unknown 0 4 MG Orally as directed May 20, 2016 Active as directed Meclizine HCl [facility] [address]-29 25 MG Orally three times a day prn September 21, 2015 Active 1 tablet as needed Amlodipine Besylate [facility] [address]-75 10 MG Orally Once a day Active 1 tablet Colchicine [facility] 36593864677 0.6 Twice a day Active 1 tablet Atenolol-Chlorthalidone [facility] [address]-93 50-25 MG Orally Once a day Jul 13, 2015 Active 1/2 tablet Benzonatate [facility] [address]-39 200 MG Orally Q8 PRN Jul 02, 2016 Jul 09, 2016 Active 1 capsule as needed Coumadin [facility] [address]-61 4 MG Orally QD x 3 days a week Active 1 tablet Fluticasone Propionate [facility] [address]-14 50 MCG/ACT Nasally Once a day May 21, 2016 Active 1 spray in each nostril Multivitamins [facility] 38777-41289 Orally Active Unknown Tamiflu [facility] [address]-49 75 MG Orally Twice a day Jul 02, 2016 Active 1 capsule Symbicort [facility] [address]-14 160-4.5 MCG/ACT Inhalation Twice a day Apr 18, 2016 May 15, 2017 Active 2 puffs Social History Social History Element Qualifiers Date Reported Occupation: . [employer] Jul 02, 2016 children . 1 Jul 02, 2016 Last Colonoscopy: . 2010Jul 02, 2016 Tobacco Use: . Are you a: never smoker Jul 02, 2016 Flu Vaccine: . no Jul 02, 2016 Use of recreational / street drugs? . Answer: No Jul 02, 2016 Do you have pets? . Status: Yes, Type: bird(s) Jul 02, 2016 Ethnicity . Status , Is nepali your primary language? Yes Jul 02, 2016 [...] Liquor, How often? Rarely Jul 02, 2016 Vital Signs Date/Time: Jul 02, 2016 Weight 225 lbs Height 66 in Cardiac Monitoring Heart Rate 95 /min Blood Pressure Diastolic 87 mm Hg Blood Pressure Systolic 124 mm Hg Results PROTHROMBIN TIME-INR Summary Purpose eClinicalWorks Submission
[2019-01-12 09:15] VITALS: BP 125/88
--- NOTE | 2019-01-12 11:30 | Operative Report ---
DATE OF PROCEDURE: SURGEON: Ender Vaz MD PROCEDURE: Esophagogastroduodenoscopy. DIAGNOSIS: The patient with history of dysphagia and dyspepsia, rule out peptic ulcer, gastroesophagitis, and esophageal stricture. DESCRIPTION OF PROCEDURE: After informed and written consent, premedications with monitored anesthesia care. Standard video Olympus gastroscope was introduced into the mouth, esophagus, and stomach, into second portion of the duodenum. Small bowel biopsies were done to rule out celiac sprue. Antrum and body showed mild gastritis and biopsies were done. Retroflexion revealed a moderately sized sliding hiatal hernia. The esophagus was carefully evaluated. There was no evidence of any stricture. The GE junction was wide opened. The visualized portion of the vocal cords appeared to be normal. IMPRESSION: Moderately sized hiatal hernia and gastritis, status post biopsies of the antrum, body, and small bowel. RECOMMENDATIONS: GERD precautions, PPI, and if symptoms persist, video barium swallow and esophageal manometry may be required. Further recommendations will be based on the patient's clinical course. Ender Vaz MD SR/MODL /[id number]
== END | disposition home or self-care (01) ==
LOC: OR 06:20
PROVIDERS: ATTEND Internal Medicine Gastroenterology
DX: K29.70 Gastritis, unspecified, without bleeding (principal); K22.4 Dyskinesia of esophagus; K29.80 Duodenitis without bleeding; K44.9 Diaphragmatic hernia without obstruction or gangrene; K21.9 Gastro-esophageal reflux disease without esophagitis; Z71.3 Dietary counseling and surveillance; E66.9 Obesity, unspecified; J45.909 Unspecified asthma, uncomplicated; G47.33 Obstructive sleep apnea (adult) (pediatric); I10 Essential (primary) hypertension; M10.9 Gout, unspecified; R05 Cough; Z91.040 Latex allergy status; Z01.810 Encounter for preprocedural cardiovascular examination; Z01.812 Encounter for preprocedural laboratory examination; Z79.02 Long term (current) use of antithrombotics/antiplatelets; Z68.37 Body mass index [BMI] 37.0-37.9, adult; Z87.891 Personal history of nicotine dependence
CPT/HCPCS: 36415; 43239; 85025; 88305; 88312; 93005; J2704; J3010